=== PATIENT | female | born 1975 | race Caucasian/White ===

== ENCOUNTER 2021-03-17 02:37 | Emergency (ER) | payer MEDICAID, SELFPAY ==
[2021-03-17 02:39] VITALS: BP 149/94; PULSE 87; RESP 15; TEMP 36.3; O2SAT 98; BMI 24.4
--- NOTE | 2021-03-17 02:56 | EKG12_ITS ---
Test Reason : GEN ILL Blood Pressure : / mmHG Vent. Rate : 078 BPM Atrial Rate : 078 BPM P-R Int : 118 ms QRS Dur : 084 ms QT Int : 428 ms P-R-T Axes : 076 058 017 degrees QTc Int : 487 ms Sinus rhythm with occasional Premature ventricular complexes Nonspecific ST and T wave abnormality Prolonged QT Abnormal ECG Confirmed by BRY PIERRE, KATHRIN ([id number]), pensionholder information clerk FINA MARCELINO ([id number]) on 03/19/2021 1:52:57 PM Referred By: CHARLES Confirmed By:KATHRIN LONDONO MD
--- NOTE | 2021-03-17 03:16 | EX.ED.DYSGE1 ---
HPI History of Present Illness Chief Complaint: General Illness Informant: patient Narrative Narrative: 45-year-old female states that for the past several hours she feels like she may pass out. She describes it as that wave of feeling that you get right before you pass out. She states she has been drinking water and has helped her not pass out. She notes that earlier tonight she took a shower and developed a rash on the left lower leg. She also states she is never had a Covid test but wonders if she has Covid. When asked why she would think that she notes well because I feel like passing out and when that happens I get short of breath. She denies any fever cough diarrhea headache sore throat rhinorrhea. [facility] Medical History Anxiety Home Medications desogestrel-ethinyl estradiol [Emoquette] 1 tab PO DAILY 02/12/14 [History Last Taken 02/11/14] atenolol 25 mg PO DAILY #30 tablet 02/13/14 [Rx Last Taken Unknown] potassium chloride 20 meq PO DAILY #7 tab 03/17/21 [Rx Last Taken Unknown] Allergy/AdvReac Type Severity Reaction Status Date / Time No Known Allergies Allergy Verified 03/17/21 02:45 Social History (Updated 03/17/21 @ 03:[address] Hugo Miranda DO) Smoking Status: Never smoker substance use type: does not use ROS ROS ED Constitutional Constitutional ED: Denies chills or weight loss Eyes Eyes: Denies change in vision or diplopia ENT ENT ED: Denies ear pain, rhinorrhea or sore throat Cardiovascular Cardiovascular: Reports other Details: Near syncopal ; Denies chest pain, orthopnea, palpitations or racing heartbeat Respiratory/Chest Respiratory/Chest: Denies cough, dyspnea or orthopnea Gastrointestinal Gastrointestinal: Denies abdominal pain, diarrhea, nausea or vomiting Genitourinary Genitourinary ED: Denies dysuria, hematuria or urinary frequency Musculoskeletal Musculoskeletal: Denies arthralgias or myalgias Integumentary Reports rash; Denies abscess Neurologic Neurologic: Denies headache(s) or weakness Psychiatric Psychiatric: Denies anxiety, depression, suicidal ideation or suicidal thoughts Endocrine Endocrinology: Denies polydipsia, polyphagia or polyuria Allergic/Immunologic Allergic/Immunologic ED: Denies mouth swelling, tongue swelling or urticaria EXAM Physical Exam Const Vital Signs: 03/17/21 02:39 03/17/21 02:48 Temperature 97.3 F L Temperature Source Temporal Pulse Rate 87 Respiratory Rate 15 Respiratory Effort Normal Non-Labored Blood Pressure 149/94 H Blood Pressure Mean 112 Pulse Ox 98 Oxygen Delivery Method Room Air Positive well nourished and well developed General Appearance ED: well developed HEENT Reports normocephalic, head/scalp atraumatic and moist mucous membranes Eyes PERRL and EOMs intact bilaterally Neck no lymphadenopathy, supple and no JVD Resp normal respiratory effort and clear to auscultation bilaterally Cardio regular rate, regular rhythm and no murmurs GI normal to inspection, nondistended, normoactive bowel sounds and non-tender Palpation: soft Back/Spine no CVA tenderness and normal ROM Extremity normal to inspection General Extremety ED: Negative for edema General Extremity: Negative for edema Neuro oriented x3 and CN's II-XII intact bilaterally Sensorium / Orientation: alert Motor Exam: strength 5/5 throughout Psych mental status grossly normal Mood & Affect: anxious; Negative for depressed or tearful Skin no wounds Skin Narrative: There is a small area of nonspecific slightly raised erythematous but blanching rash on the medial distal left leg. MDM MDM MDM Narrative Medical decision making narrative: Patient's blood work was significant for a potassium of 3.1. She will receive 20 mEq p.o. here and a prescription for some additional potassium. She has had no events on the monitor. My interpretation of the single portable chest x-ray is no acute process. At this point patient will be discharged home. I recommend hydrocortisone for the rash on her leg. Following up with primary care if not improving Lab Data Labs: Laboratory Results - last 24 hr 03/17/21 03/17/21 03:20 03:20 WBC 10.6 RBC 4.53 Hgb 14.3 Hct 42.8 MCV 94.5 MCH 31.6 MCHC 33.4 RDW Std Deviation 42.2 RDW Coeff of Aaliyah 12.2 Plt Count 223 MPV 9.9 Immature Gran % (Auto) 0.500 Neut % (Auto) 67.3 Lymph % (Auto) 23.5 [place] % (Auto) 7.6 Eos % (Auto) 0.7 Baso % (Auto) 0.4 Absolute Neuts (auto) 7.1 Absolute Lymphs (auto) 2.49 Nucleated RBC % 0 Sodium 138 Potassium 3.1 L Chloride 104 Carbon Dioxide 23.0 Anion Gap 11 BUN 11 Creatinine 0.64 Estim Creat Clear Calc 85.95 Est GFR (MDRD) Af Amer 127 Est GFR (MDRD) Non-Af 105 BUN/Creatinine Ratio 17.2 Glucose 133 H Calcium 8.5 Total Bilirubin 0.30 AST 19 ALT 17 Alkaline Phosphatase 80 Total Protein 7.4 Albumin 3.6 Globulin 3.8 Albumin/Globulin Ratio 0.9 Radiography Diagnostic Testing: Radiology Impression Chest X-Ray 03/17/21 03:19 IMPRESSION: No radiographic evidence of acute cardiopulmonary disease. at 0339 Reported and signed by: Enrico Flores MD Electronically Signed: Enrico Flores MD at 3:38 EDT Tel , Service support , EKG Initial EKG: Attestation: I personally reviewed and interpreted this EKG as follows: Comments: EKG demonstrates a sinus rhythm with PVC. Ventricular rate of 78. Prior: Unchanged Discharge Plan Triage Chief Complaint: General Illness ED Provider: Hugo Miranda Dx/Rx/DC Orders Clinical Impression: Near syncope, Rash and nonspecific skin eruption, Acute hypokalemia Instructions: ED Near-Fainting, Uncertain Cause Prescriptions: New potassium chloride 20 mEq tablet extended release 20 meq PO DAILY Qty: 7 RF: 0 No Action desogestrel-ethinyl estradiol [Emoquette] 1 EACH tablet 1 tab PO DAILY RF: 0 atenolol 25 MG tablet 25 mg PO DAILY Qty: 30 RF: 0 Primary Care Provider: Francesca Miranda Referrals: Francesca Miranda MD [Primary Care Provider] - 3-5 Days if not improving Activity Restrictions/Additional Instructions: Apply hydrocortisone cream to your rash twice a day. Disposition Disposition: Home, self care
--- NOTE | 2021-03-17 03:19 | RAD_ITS ---
EXAM: XR CHEST, 1 VIEW : 1975 CLINICAL INDICATION: near syncope TECHNIQUE: Frontal view of the chest. This report was created using [employer] report generation technology. COMPARISON: 02/12/2014 FINDINGS: LUNGS AND PLEURAL SPACES: Unremarkable. No consolidation or edema. No pneumothorax. No effusion. HEART: Unremarkable. Cardiac silhouette not enlarged. MEDIASTINUM: Central airways and mediastinal contour are unremarkable. BONES/JOINTS: Unremarkable. SOFT TISSUES: Unremarkable. RAD/Chest 1 View (Portable) IMPRESSION: No radiographic evidence of acute cardiopulmonary disease. at 0339 Reported and signed by: Enrico Flores MD Electronically Signed: Enrico Florse MD at 3:38 EDT Tel , Service support ,
[2021-03-17 03:29] LABS: Absolute Lymphocyte Count 2.49 X10^3/uL (0.83-4.51); Absolute Neutrophil Count 7.1 X10^3/uL (2.0-7.7); Basophil# 0.04 X10^3/uL; Basophil% 0.4 % (0-1); Eosinophil# 0.07 X10^3/uL; Eosinophils% 0.7 % (0-5); Hematocrit 42.8 % (37-47); Hemoglobin 14.3 g/dL (12.0-15.0); Lymphocyte # 2.49 X10^3/ul (0.83-4.51); Lymphocyte % 23.5 % (19-41); Mean Corp Hgb Conc 33.4 g/dL (32-36); Mean Corpuscular Hgb 31.6 pg (27.0-32.0); Mean Corpuscular Volume 94.5 fL (81-99); Mean Platelet Vol. 9.9 fl (6.2-12.0); Monocyte% 7.6 % (0-10); NRBC Flagged by Analyzer 0 % (0-5); Neutrophil # 7.14 X10^3/uL (2.7-7.7); Neutrophil % 67.3 % (47-70); Platelet Count 223 K/mm3 (150-450); RBC Distribution Width CV 12.2 % (11.6-14.6); RBC Distribution Width SD 42.2 fl (35.1-43.9); Red Blood Count 4.53 M/mm3 (4.2-5.4); White Blood Count 10.6 K/mm3 (4.4-11.0)
[2021-03-17 04:02] LABS: ALB/GLOB Ratio 0.9 RATIO (0.9-2.4); AST(SGOT) 19 U/L (15-37); Alanine Aminotransfer ALT/SGPT 17 U/L (13-56); Albumin, Serum 3.6 g/dL (3.2-5.0); Alkaline Phosphatase 80 U/L (45-117); Anion Gap 11 (5-15); BUN 11 mg/dL (7-18); BUN/Creat Ratio 17.2 RATIO (10-20); Calcium,Total 8.5 mg/dL (8.5-10.1); Chloride 104 mmol/L (98-107); Creatinine, Serum 0.64 mg/dL (0.55-1.02); EST Glomerular Filtration Rate 105 mL/min (>60); Est Glom Filt Rate - Afr Amer 127 mL/min (>60); Estimated Creatinine Clearance 85.95 ml/min; Globulin 3.8 g/dL (2.2-4.2); Glucose 133 mg/dL (74-106); Potassium 3.1 mmol/L (3.5-5.1); Protein, Total 7.4 g/dL (6.4-8.2); Sodium Level 138 mmol/L (136-145)
[2021-03-17] MEDS: Potassium Chloride Oral Tablet 20 MEQ PO (04:15)
[2021-03-17 04:21] VITALS: PULSE 66; RESP 16; TEMP 36.9
== END 2021-03-17 04:24 | disposition home or self-care (01) ==
LOC: ED 04:02
PROVIDERS: Emergency Provider Emergency Medicine; PCP Internal Medicine
DX: R55 Syncope and collapse (principal); E87.6 Hypokalemia; R21 Rash and other nonspecific skin eruption
CPT/HCPCS: 71045; 80053; 85025; 93005; 99285

== ENCOUNTER 2022-12-22 10:36 | Emergency (ER) | payer MEDICAID, SELFPAY ==
[2022-12-22 10:36] VITALS: BP 199/120; PULSE 96; RESP 18; TEMP 35.7; O2SAT 100; BMI 34.7
[2022-12-22 11:24] VITALS: BP 192/98; PULSE 89; RESP 18; TEMP 36.4; O2SAT 98
--- NOTE | 2022-12-22 11:34 | EKG12_ITS ---
Test Reason : Blood Pressure : / mmHG Vent. Rate : 079 BPM Atrial Rate : 079 BPM P-R Int : 080 ms QRS Dur : 084 ms QT Int : 410 ms P-R-T Axes : 000 063 012 degrees QTc Int : 470 ms Sinus rhythm with short MI Minimal voltage criteria for LVH, may be normal variant ( Sokolow-Mckay ) Borderline ECG Confirmed by KERRY PIERRE, CRISTOPHER ([id number]), newspaper editor FINA MARCELINO ([id number]) on 12/24/2022 10:00:53 AM Referred By: YESENIA Confirmed By:CRISTOPHER PAYNE MD
[2022-12-22] MEDS: 0.9% Normal Saline 1,000 ML 1000 ML IV (11:52)
--- NOTE | 2022-12-22 12:04 | EX.ED.DYSGE1 ---
HPI History of Present Illness Chief Complaint: General Illness Informant: patient Onset/Context/Timing Onset: Yesterday Context: Gradual Onset Timing: Continuous and Waxes and wanes Quality: Numbness Location: Generalized Worsened by: Nothing Relieved by: Drinking water Narrative Narrative: Presents with a near syncopal episode that occurred today. Patient states she started feeling bad yesterday. Patient states it is gradually gotten worse. Patient states it is waxing and waning but is mainly constant. Patient states she feels numb all over. Patient states that drinking water seem to help last night. Patient states she just felt like she might pass out. Patient states she was diagnosed with COVID-19 approximately 1-1/2 weeks ago. Patient is unsure if her symptoms are related to that. Patient admits to some subjective fevers and sweats. Patient also admits to some pain in her chest. [facility] Medical History (Updated 12/22/22 @ 14:[address] Juan Luis Almeida DO) Anxiety Gestational diabetes Home Medications desogestrel 0.15 mg-ethinyl estradiol 0.03 mg tablet (Emoquette) 1 tab PO DAILY 02/12/14 [History Last Taken 02/11/14] atenolol 25 mg tablet 25 mg PO DAILY ##30 02/13/14 [Rx Last Taken Unknown] potassium chloride 20 mEq tablet,extended release 20 meq PO DAILY #7 tabs 03/17/21 [Rx Last Taken Unknown] Allergy/AdvReac Type Severity Reaction Status Date / Time No Known Allergies Allergy Verified 03/17/21 02:45 Family History (Updated 12/22/22 @ 11:29 by Linda Sims) Other Diabetes Surgical History Hx of toe surgery Social History Smoking Status: Never smoker substance use type: does not use ROS ROS ED Constitutional Constitutional ED: Reports fever(s), subjective and sweats; Denies chills Eyes Eyes: Denies blurry vision or change in vision ENT ENT ED: Denies rhinorrhea or sore throat Cardiovascular Cardiovascular: Reports chest pain; Denies palpitations Respiratory/Chest Respiratory/Chest: Denies cough or dyspnea Gastrointestinal Gastrointestinal: Denies nausea or vomiting Genitourinary Genitourinary ED: Denies dysuria or hematuria Musculoskeletal Musculoskeletal: Reports back pain and neck pain Integumentary Denies abscess or rash Neurologic Neurologic: Denies headache(s) or weakness Allergic/Immunologic Allergic/Immunologic ED: Denies mouth swelling or urticaria EXAM Physical Exam Const Vital Signs: 12/22/22 10:36 12/22/22 11:24 12/22/22 12:23 Temperature 96.2 F L 97.5 F L Temperature Source Temporal Temporal Pulse Rate 96 89 Respiratory Rate 18 18 Blood Pressure 199/120 H 192/98 H Blood Pressure [Lying] 184/101 H Blood Pressure [Sitting (for 1 minute prior to obtaining)] 184/108 H Blood Pressure [Standing (for 1 minute prior to obtaining)] 173/103 H Blood Pressure Mean 146 129 Blood Pressure Mean [Lying] 128 Blood Pressure Mean [Sitting (for 1 minute prior to obtaining)] 133 Blood Pressure Mean [Standing (for 1 minute prior to obtaining)] 126 Pulse Ox 100 98 Oxygen Delivery Method Room Air Room Air 12/22/22 14:11 Temperature Temperature Source Pulse Rate 77 Respiratory Rate 16 Blood Pressure 141/86 H Blood Pressure [Lying] Blood Pressure [Sitting (for 1 minute prior to obtaining)] Blood Pressure [Standing (for 1 minute prior to obtaining)] Blood Pressure Mean 104 Blood Pressure Mean [Lying] Blood Pressure Mean [Sitting (for 1 minute prior to obtaining)] Blood Pressure Mean [Standing (for 1 minute prior to obtaining)] Pulse Ox 98 Oxygen Delivery Method Room Air Positive well nourished and well developed General Appearance ED: well developed HEENT Reports moist mucous membranes Neck supple and no JVD Resp normal respiratory effort and clear to auscultation bilaterally Cardio regular rate, regular rhythm and no murmurs GI normal to inspection, nondistended, normoactive bowel sounds and non-tender Palpation: soft Extremity normal to inspection General Extremety ED: Negative for edema or tenderness General Extremity: Negative for edema Neuro oriented x3, CN's II-XII intact bilaterally and no sensory deficits noted Sensorium / Orientation: alert Motor Exam: strength 5/5 throughout Psych mental status grossly normal Skin no rashes or lesions noted MDM MDM MDM Narrative Medical decision making narrative: Eventual diagnosis includes dehydration, electrolyte abnormality, viral illness, COVID-19 infection, influenza infection, cardiac ischemia, cardiac dysrhythmia, pneumonia, and urinary tract infection. EKG will be obtained to assess for cardiac dysrhythmia and cardiac ischemia. CBC will be obtained to assess for leukocytosis and anemia. Basic metabolic profile will be obtained to assess for electrolyte abnormality and renal function. Urinalysis will be obtained to assess for urinary tract infection and hematuria. High-sensitivity troponin will be obtained to assess for cardiac ischemia. COVID-19 rapid antigen will be obtained to assess for COVID infection. Influenza A and influenza B antigens will be obtained to assess for influenza infection. Chest x-ray will be obtained to assess for pneumonia. Lab Data Attestation: I reviewed the patient's lab results. Lab results narrative: CBC was reviewed and was within normal limits. Basic metabolic profile was reviewed. Glucose was mildly elevated at 130 but was otherwise within normal limits. High-sensitivity troponin was reviewed and was normal at 4. Urinalysis was reviewed. There is no evidence of hematuria or urinary tract infection. COVID-19 rapid antigen was reviewed and was negative. Influenza A and influenza B antigens were reviewed and were negative. Labs: Laboratory Results - last 24 hr 12/22/22 12/22/22 12/22/22 11:50 11:50 12:44 WBC 10.6 RBC 4.55 Hgb 14.3 Hct 42.5 MCV 93.4 MCH 31.4 MCHC 33.6 RDW Std Deviation 40.2 RDW Coeff of Aaliyah 11.9 Plt Count 328 MPV 9.2 Immature Gran % (Auto) 0.400 Neut % (Auto) 66.8 Lymph % (Auto) 25.3 [place] % (Auto) 5.9 Eos % (Auto) 1.0 Baso % (Auto) 0.6 Absolute Neuts (auto) 7.1 Absolute Lymphs (auto) 2.68 Nucleated RBC % 0 Sodium 139 Potassium 3.7 Chloride 102 Carbon Dioxide 28.0 Anion Gap 9 BUN 16 Creatinine 0.68 Estim Creat Clear Calc 79.15 Est GFR (MDRD) Af Amer 118 Est GFR (MDRD) Non-Af 98 BUN/Creatinine Ratio 23.5 H Glucose 130 H Calcium 9.5 Troponin I High Sens 4 Urine Color Straw Urine Clarity Sl. Cloudy Urine pH 8.0 Ur Specific [place] 1.015 Urine Protein Negative Urine Glucose (UA) Normal Urine Ketones Negative Urine Occult Blood 25 H Urine Nitrite Negative Urine Bilirubin Negative Urine Urobilinogen Normal Ur Leukocyte Esterase Negative Urine RBC 0-5 SEEN Urine WBC 0 SEEN Ur Squamous Epith Cells 0-5 SEEN Urine Bacteria 0 SEEN Urine Mucus 0 SEEN Radiography Diagnostic Testing: Clinical Impression(s) from Imaging Studies Chest X-Ray 12/22/22 12:22 IMPRESSION: Normal x-ray examination of the chest. Electronically Signed: Iván Foster MD at 12:38 EST , PA and lateral chest x-ray was obtained. There are 2 views. On my independent interpretation, lung newman are clear. There is normal cardiac silhouette. Bony thorax is normal. There is no acute process noted. Radiologist also interpreted the x-ray and agrees. EKG Initial EKG: Attestation: I personally reviewed and interpreted this EKG as follows: Interpretation: Sinus Rhythm (79) and No Acute Injury Pattern Comments: EKG was obtained. On my independent interpretation, it showed a normal sinus rhythm with a rate of 79. WI interval, QRS interval, and QTc intervals were all normal. [place] was normal. There are no acute ST or T wave changes. There is left ventricular hypertrophy noted. Prior EKG tracings: available for review Prior: Unchanged (03/17/2021) Treatment and Re-Evaluation :: Patient was given IV fluids here. Patient is feeling better on reevaluation. Patient was advised of her findings. Patient was instructed to drink plenty of fluids. Patient was instructed to follow-up with her primary care physician in 5 to 7 days. Patient was instructed to return if worse in any way. Patient understood and was agreeable with the plan. All questions were answered. Discharge Plan Triage Chief Complaint: General Illness ED Provider: Juan Luis Almeida Dx/Rx/DC Orders Clinical Impression: Near syncope, Hypertension Instructions: ED Near-Fainting, Uncertain Cause Prescriptions: No Action desogestrel-ethinyl estradiol [Emoquette] 1 EACH tablet 1 tab PO DAILY Label Comments: estrogen atenolol 25 MG tablet 25 mg PO DAILY Qty: 30 0RF Label Comments: heart potassium chloride 20 mEq tablet extended release 20 meq PO DAILY Qty: 7 0RF Primary Care Provider: Francesca Miranda Referrals: Francesca Miranda MD [Primary Care Provider] - 5-7 Days Disposition Disposition: Home, Self Care
[2022-12-22 12:06] LABS: Absolute Lymphocyte Count 2.68 X10^3/uL (0.83-4.51); Absolute Neutrophil Count 7.1 X10^3/uL (2.0-7.7); Basophil# 0.06 X10^3/uL; Basophil% 0.6 % (0-1); Eosinophil# 0.11 X10^3/uL; Hematocrit 42.5 % (37-47); Hemoglobin 14.3 g/dL (12.0-15.0); Lymphocyte # 2.68 X10^3/ul (0.83-4.51); Lymphocyte % 25.3 % (19-41); Mean Corp Hgb Conc 33.6 g/dL (32-36); Mean Corpuscular Hgb 31.4 pg (27.0-32.0); Mean Corpuscular Volume 93.4 fL (81-99); Mean Platelet Vol. 9.2 fl (6.2-12.0); Monocyte# 0.62 X10^3/uL; Monocyte% 5.9 % (0-10); NRBC Flagged by Analyzer 0 % (0-5); Neutrophil # 7.07 X10^3/uL (2.7-7.7); Neutrophil % 66.8 % (47-70); Platelet Count 328 K/mm3 (150-450); RBC Distribution Width CV 11.9 % (11.6-14.6); RBC Distribution Width SD 40.2 fl (35.1-43.9); Red Blood Count 4.55 M/mm3 (4.2-5.4); White Blood Count 10.6 K/mm3 (4.4-11.0)
[2022-12-22 12:16] LABS: Anion Gap 9 (5-15); BUN 16 mg/dL (7-18); BUN/Creat Ratio 23.5 RATIO (10-20); Calcium,Total 9.5 mg/dL (8.5-10.1); Chloride 102 mmol/L (98-107); Creatinine, Serum 0.68 mg/dL (0.55-1.02); EST Glomerular Filtration Rate 98 mL/min (>60); Est Glom Filt Rate - Afr Amer 118 mL/min (>60); Estimated Creatinine Clearance 79.15 ml/min; Glucose 130 mg/dL (74-106); Potassium 3.7 mmol/L (3.5-5.1); Sodium Level 139 mmol/L (136-145); Troponin-I HS 4 pg/mL (3.0-54.0)
--- NOTE | 2022-12-22 12:22 | RAD_ITS ---
STUDY: X-RAY CHEST REASON FOR EXAM: Female, 47 years old. Chest pain TECHNIQUE: PA and lateral views of the chest. COMPARISON: Comparison is made with prior study dated March 17, 2021. FINDINGS: EKG electrodes are seen. The lungs are clear and expanded. Mild degree of pectus excavatum. There is no demonstrated pleural abnormality. Normal size heart. Normal mediastinum and sandro. Normal visualized pulmonary arteries. Normal visualized aortic arch and descending thoracic aorta. Normal visualized thoracic spine. Normal visualized ribs, clavicles, and shoulders. There is no demonstrated abnormality of the visualized soft tissue structures of the upper abdomen. RAD/Chest PA and Lateral IMPRESSION: Normal x-ray examination of the chest. Electronically Signed: Iván Foster MD at 12:38 EST ,
[2022-12-22 12:23] VITALS: BP 173/103; BP 184/101; BP 184/108
[2022-12-22 12:52] LABS: Bacteria 0 SEEN /hpf (None Seen); Mucous, Urine 0 SEEN /hpf (<or=2+); White Blood Cells 0 SEEN /hpf (0-5)
[2022-12-22 13:03] LABS: Color, Urine Straw (Yellow); Glucose, Dipstick Normal (Normal); Ketone-Dipstick Negative (Negative); Leukocyte Esterase-Dipstick Negative /ul (Negative); Nitrite-Dipstick Negative (Negative); Occult Blood-Urine 25 /ul (Negative); Protein-Dipstick Negative (Negative); Specific Gravity, Urine 1.015 (1.002-1.030); Urine Bilirubin Dipstick Negative (Negative); Urine Clarity Sl. Cloudy (Clear); Urine Urobilinogen Normal (Normal)
[2022-12-22 13:08] LABS: Red Blood Cells-Urine 0-5 SEEN /hpf (0-5); Squamous Epithelial Cells - UA 0-5 SEEN /hpf (5-10)
[2022-12-22 14:11] VITALS: BP 141/86; PULSE 77; RESP 16; O2SAT 98
[2022-12-22 14:45] VITALS: BP 141/86; RESP 18; O2SAT 98
== END 2022-12-22 14:52 | disposition home or self-care (01) ==
PROVIDERS: Emergency Provider Emergency Medicine; PCP Internal Medicine; Visit Provider Emergency Medicine
DX: R55 Syncope and collapse (principal); I10 Essential (primary) hypertension; R07.9 Chest pain, unspecified; Z20.822 Contact with and (suspected) exposure to COVID-19
CPT/HCPCS: 71046; 80048; 81001; 84484; 85025; 87428; 93005; 96361; 96374; 99285; J7030; A4216

== ENCOUNTER 2023-09-12 13:58 | Emergency (ER) | payer BC, SELFPAY ==
[2023-09-12 14:01] VITALS: BP 188/103; PULSE 88; RESP 18; TEMP 36.4; O2SAT 100; BMI 23.4
[2023-09-12 14:06] VITALS: O2SAT 97
--- NOTE | 2023-09-12 14:14 | RAD_ITS ---
STUDY: X-RAY CHEST REASON FOR EXAM: Female, 48 years old. Fever and cough TECHNIQUE: PA and lateral views of the chest. COMPARISON: 12/22/2022 FINDINGS: The lungs are clear and expanded. There is no demonstrated pleural abnormality. Normal size heart. Normal mediastinum and sandro. Normal visualized pulmonary arteries. Normal visualized aortic arch and descending thoracic aorta. Normal visualized thoracic spine. Normal visualized ribs, clavicles, and shoulders. There is no demonstrated abnormality of the visualized soft tissue structures of the upper abdomen. RAD/Chest PA and Lateral IMPRESSION: Normal x-ray examination of the chest. Electronically Signed: Alexis Santos MD at 14:56 EST ,
--- NOTE | 2023-09-12 14:14 | EX.ED.DYSGE1 ---
HPI <GRAYSON Copeland - Last Filed: 09/12/23 16:58> History of Present Illness Chief Complaint: Cough Narrative Narrative: 48-year-old female with past medical history of hypertension presents with 2 weeks of productive cough. She has not had fever or chills does not really feel short of breath. Initially she went to urgent care and was told it was likely viral and use [id number] treatments. She went back again because it did not improved and they prescribed doxycycline, Tessalon Perles, and Mucinex. She has 1 day left of antibiotics but the cough has not changed so she presents for evaluation. She denies smoking or cardiopulmonary history. [facility] <GRAYSON Copeland - Last Filed: 09/12/23 16:58> [facility] Medical History (Updated 09/12/23 @ 15:07 by GRAYSON Copeland) Anxiety Gestational diabetes Home Medications desogestrel 0.15 mg-ethinyl estradiol 0.03 mg tablet (Emoquette) 1 tab PO DAILY 02/12/14 [History Last Taken 02/11/14] atenolol 25 mg tablet 25 mg PO DAILY ##30 02/13/14 [Rx Last Taken Unknown] potassium chloride 20 mEq tablet,extended release 20 meq PO DAILY #7 tabs 03/17/21 [Rx Last Taken Unknown] albuterol sulfate 90 mcg/actuation aerosol inhaler (ProAir HFA) 1 inh inhalation Q6H PRN shortness of breath or wheezing #6.7 grams 09/12/23 [Rx Last Taken Unknown] prednisone 20 mg tablet 40 mg (2 x 20 mg) PO DAILY 5 days #10 tabs 09/12/23 [Rx Last Taken Unknown] Allergy/AdvReac Type Severity Reaction Status Date / Time No Known Allergies Allergy Verified 09/12/23 14:00 Family History Other Diabetes Surgical History Hx of toe surgery Social History Smoking Status: Never smoker substance use type: does not use ROS <GRAYSON Copeland - Last Filed: 09/12/23 16:58> ROS ED ROS Narrative Constitutional: Negative for fever, chills, malaise. CVS: Negative for chest pain, syncope. Respiratory: Positive for cough. negative for shortness of breath, orthopnea. GI: Negative for abdominal pain, nausea, vomiting, diarrhea. EXAM <GRAYSON Copeland - Last Filed: 09/12/23 16:58> Physical Exam Narrative Exam Narrative: CONST: Patient sitting in no acute distress. EYES: Normal inspection. NECK: Normal inspection. RESP: No respiratory distress, CTAB. CVS: Regular rate and rhythm, no murmur, no gallop. SKIN: Color normal, no rash, warm, dry, intact. EXTREMITIES: Normal appearance, no pedal edema. NEURO: Oriented x4. PSYCH: Normal affect. Const Vital Signs: 09/12/23 14:01 09/12/23 14:06 Temperature 97.5 F L Temperature Source Temporal Pulse Rate 88 Respiratory Rate 18 Respiratory Effort Normal Respiratory Depth Normal Respiratory Pattern Normal Blood Pressure 188/103 H Blood Pressure Mean 131 Pulse Ox 100 Oxygen Delivery Method Room Air Room Air <Dr. Gonzalo Keys MD - Last Filed: 09/12/23 14:41> Physical Exam Const Vital Signs: 09/12/23 14:01 09/12/23 14:06 Temperature 97.5 F L Temperature Source Temporal Pulse Rate 88 Respiratory Rate 18 Respiratory Effort Normal Respiratory Depth Normal Respiratory Pattern Normal Blood Pressure 188/103 H Blood Pressure Mean 131 Pulse Ox 100 Oxygen Delivery Method Room Air Room Air MDM <GRAYSON Copeland - Last Filed: 09/12/23 16:58> [facility] MDM Narrative Medical decision making narrative: Patient has 2 weeks of productive cough which did not improve after taking doxycycline. She appears well nontoxic. She is hypertensive with otherwise normal vital signs. She is on antihypertensives. Heart is regular and lungs are clear. She is speaking full sentences in no respiratory distress. Differential includes viral bronchitis versus pneumonia. CXR shows no acute process. I discussed trial of albuterol and prednisone which she would like to do. Discussed normal course of bronchitis that the cough could last several more weeks and she should follow-up with her primary care. She was discharged in stable condition. Radiography Diagnostic Testing: Clinical Impression(s) from Imaging Studies Chest X-Ray 09/12/23 14:14 IMPRESSION: Normal x-ray examination of the chest. Electronically Signed: Alexis Santos MD at 14:56 EST , ED attending interpretation of 2-view chest x-ray shows normal heart size, no acute infiltrate, edema, or effusion. <Dr. Gonzalo Keys MD - Last Filed: 09/12/23 14:41> MDM Radiography Diagnostic Testing: Clinical Impression(s) from Imaging Studies Chest X-Ray 09/12/23 14:14 IMPRESSION: Normal x-ray examination of the chest. Electronically Signed: Alexis Santos MD at 14:56 EST , Treatment and Re-Evaluation :: I have personally performed a face to face assessment of the patient and have reviewed the HIRAM Note. I performed a substantive portion of the visit including all aspects of the following. My griffin findings include: History: Patient presents with a cough for 2 to 3 weeks. She states she gets a little clear phlegm up but no sputum. No blood. She is not having chest pain. She states if she gets a lot of coughing together she will feel short of breath but does not generally feel short of breath. She walked into work this afternoon that does not cause dyspnea. She is not gaining weight or getting swelling. There is been no travel surgery immobilization personal or family history of DVT or PE. She has already been screened for COVID. She was given doxycycline at urgent care and is on day about 6 but has not gotten better. She has not heard wheezing or whistling at night and has never used an aerosol. She is a non-smoker. She does have blood pressure. She was not sure what medicines she was on but it looks like it may be atenolol. She does not recognize the name lisinopril. But this medication is not new or changed or different dose. Exam: Patient is awake alert. She is nontoxic in appearance. HEENT is normal. Conjunctive is not pale. Oropharynx is normal. Neck is supple. There is no JVD or stridor. She is not coughing while I am in the room. Her lungs sound clear. Even when I have her take a deep breath she did not take a cough. I had her breathe out quickly. She did not breathe out real quickly and may have a little bit of prolonged expiration but there is no wheezing heard. There is no pain with a deep breath. Peripheral pulses are normal. There is no peripheral edema cords swelling or asymmetry distended veins or tenderness along deep venous system. Overall her exam is normal. Saturations are normal at 100% on room air. Medical Decision Making: Although the patient is 48 and we cannot use PERC rule. She has no recent travel surgery immobilization personal or family history of DVT or PE. She is not tachycardic tachypneic or hypoxic. She has no pain with a deep breath. She has no pleuritic pain. Discharge Plan Triage Chief Complaint: Cough ED Midlevel Provider: Elida Chang ED Provider: Gonzalo Keys Dx/Rx/DC Orders Clinical Impression: Bronchitis Instructions: ED Bronchitis, No Antibiotic (Adult) Prescriptions: New albuterol sulfate [ProAir HFA] 90 mcg/actuation HFA aerosol inhaler 1 inh inhalation Q6H PRN (Reason: shortness of breath or wheezing) Qty: 6.7 0RF prednisone 20 mg tablet 40 mg PO DAILY 5 Days Qty: 10 0RF No Action desogestrel-ethinyl estradiol [Emoquette] 1 EACH tablet 1 tab PO DAILY Patient Comments: estrogen atenolol 25 MG tablet 25 mg PO DAILY Qty: 30 0RF Patient Comments: heart potassium chloride 20 mEq tablet extended release 20 meq PO DAILY Qty: 7 0RF Primary Care Provider: Francesca Miranda Referrals: Francesca Miranda MD [Primary Care Provider] - Activity Restrictions/Additional Instructions: Your chest x-ray shows no evidence of pneumonia. You most likely have bronchitis which is a viral cough and can take up to 6 to 8 weeks to go away. I prescribed an albuterol inhaler and prednisone which may help. Follow-up with your primary care doctor. Disposition Disposition: Home, Self Care Discharge Date/Time: 09/12/23 15:20
== END 2023-09-12 15:20 | disposition home or self-care (01) ==
PROVIDERS: Emergency Provider Emergency Medicine; PCP Internal Medicine; Visit Provider Emergency Medicine
DX: J40 Bronchitis, not specified as acute or chronic (principal); I10 Essential (primary) hypertension; Z79.899 Other long term (current) drug therapy
CPT/HCPCS: 71046; 99282

== ENCOUNTER 2023-09-20 11:35 | Emergency (ER) | payer BC, SELFPAY ==
[2023-09-20 11:37] VITALS: BP 168/108; PULSE 95; RESP 18; TEMP 36.7; O2SAT 97; BMI 23.0
--- NOTE | 2023-09-20 11:51 | EDS_ITS ---
HPI <VINOD Smith - Last Filed: 09/20/23 12:34> History of Present Illness Chief Complaint: Cough Narrative Narrative: Patient is a 48-year-old female with history of hypertension, GERD who presents to the emergency department for ongoing cough for the last 3 weeks. Patient has been seen multiple times, last time seen in the emergency department for this was on September 12, 2023. Patient has been placed on doxycycline, steroids, albuterol inhaler, Tessalon Perles. Patient states nothing is helping. Patient denies any fever or chills. Patient states this morning, she got news that a close friend/family member has . She states that she was very anxious, had a coughing fit had difficulty inhaling. She is here for reevaluation. [facility] <VINOD Smith - Last Filed: 09/20/23 12:34> [facility] Medical History (Updated 09/20/23 @ 12:33 by VINOD Smith) Anxiety Gestational diabetes Home Medications desogestrel 0.15 mg-ethinyl estradiol 0.03 mg tablet (Emoquette) 1 tab PO DAILY 02/12/14 [History Last Taken 02/11/14] atenolol 25 mg tablet 25 mg PO DAILY ##30 02/13/14 [Rx Last Taken Unknown] potassium chloride 20 mEq tablet,extended release 20 meq PO DAILY #7 tabs 03/17/21 [Rx Last Taken Unknown] albuterol sulfate 90 mcg/actuation aerosol inhaler (ProAir HFA) 1 inh inhalation Q6H PRN shortness of breath or wheezing #6.7 grams 09/12/23 [Rx Last Taken Unknown] prednisone 20 mg tablet 40 mg (2 x 20 mg) PO DAILY 5 days #10 tabs 09/12/23 [Rx Last Taken Unknown] Allergy/AdvReac Type Severity Reaction Status Date / Time No Known Allergies Allergy Verified 09/20/23 11:37 Family History Other Diabetes Surgical History Hx of toe surgery Social History Smoking Status: Never smoker substance use type: does not use ROS <VINOD Smith - Last Filed: 09/20/23 12:34> ROS ED ROS Narrative Constitutional: Negative for fever, chills, weight loss, weakness Eyes: Negative for vision loss, vision change, double vision ENT: Negative for any sore throat, ear pain, congestion Cardiovascular: Negative for any chest pain, tightness, palpitations Respiratory: Negative for any sputum production, hemoptysis, dyspnea on exertion, orthopnea. Positive for cough, intermittent dyspnea Gastrointestinal: Negative for any abdominal pain, nausea, vomiting, diarrhea, constipation, blood in stool, blood in vomit : Negative for any urinary frequency, dysuria, retention, blood in urine Muscle skeletal: Negative for any myalgias, arthralgias, neck pain, back pain Neurological: Negative for any headache, syncope, numbness or tingling, dizziness Skin: Negative for any rashes, lumps, itching, abrasions, lacerations Psychiatric: Negative for any depression, anxiety, stress, suicidal ideation, homicidal ideation Hematologic: Negative for any easy bruising, excessive bruising, easy bleeding Allergies: Negative for any eczema, hives, rash EXAM <VINOD Smith - Last Filed: 09/20/23 12:34> Physical Exam Narrative Exam Narrative: Vital signs reviewed. Patient's tearful on initial evaluation, patient does appear to be anxious. Patient is no obvious distress. HEET: Head normocephalic atraumatic, TMs clear bilaterally. Posterior pharynx is clear, moist mucous membranes. Nares clear bilaterally. Neck: Supple with no lymphadenopathy or tenderness. No signs of meningismus. Cardiac: Regular rate and rhythm no murmurs gallops or rubs, equal peripheral pulses bilaterally. Respiratory: Lungs clear to auscultation bilaterally. No chest tenderness. Abdomen: Soft, nontender, nondistended. No abdominal bruit or pulsatile masses. No hepatosplenomegaly Extremities: No peripheral edema, no signs of gross trauma or deformity. Active full range of motion of all extremities. Neuro: Cranial nerves II through XII intact, no focal neurological deficits. Skin: Clean dry and intact with no rash, purpura, petechiae, vesicles or pustules. Backs/flank: No CVA tenderness, no midline spinal tenderness, no deformity. Psych: Normal mood and affect. No SI, HI or acute psychosis. Const Vital Signs: 09/20/23 11:37 09/20/23 12:12 09/20/23 12:48 Temperature 98.0 F Temperature Source Temporal Pulse Rate 95 72 Respiratory Rate 18 15 Respiratory Effort Normal Non-Labored Respiratory Depth Normal Respiratory Pattern Normal Blood Pressure 168/108 H 124/69 H Blood Pressure Mean 128 87 Pulse Ox 97 98 Oxygen Delivery Method Room Air Room Air <Arslan Scott MD - Last Filed: 09/20/23 15:10> Physical Exam Const Vital Signs: 09/20/23 11:37 09/20/23 12:12 09/20/23 12:48 Temperature 98.0 F Temperature Source Temporal Pulse Rate 95 72 Respiratory Rate 18 15 Respiratory Effort Normal Non-Labored Respiratory Depth Normal Respiratory Pattern Normal Blood Pressure 168/108 H 124/69 H Blood Pressure Mean 128 87 Pulse Ox 97 98 Oxygen Delivery Method Room Air Room Air MDM <VINOD Smith - Last Filed: 09/20/23 12:34> MDM Radiography Diagnostic Testing: Clinical Impression(s) from Imaging Studies Chest X-Ray 09/20/23 12:04 IMPRESSION: No radiographic evidence of acute cardiopulmonary disease. Electronically Signed: Klaus Leach MD at 12:23 EST , Treatment and Re-Evaluation :: Patient appears generally well, patient appears nontoxic, vital signs are stable. Patient is tearful, patient appears anxious. Physical examination is unremarkable. Patient's lung sounds are clear. I do believe the patient is suffering from a viral-like illness, I did explain to her that cough can last up to 6 weeks. Differential diagnosis includes COPD, reactive airway, asthma exacerbation, viral cough, pneumonia. Patient will have a repeat chest x-ray. I do believe that the anxiety is part of the problem today, she did go through her emotional issue secondary to a in the family. Two-view chest x-ray will be completed. All radiologic examinations were read, reviewed by the [facility] department attending. From these reads, a plan of care will be put in place. Patient's x-ray two-view inter by ER physician shows no acute process. At this time, do believe the patient is suffering from a lingering cough from a viral- like illness. Patient's been on several medications. Patient is also going through a lot of stress at this time. Patient will continue her albuterol inhal er, she will continue to follow-up outpatient. All questions were answered, she was given strict return precaution. Patient stable for discharge <Arslan Scott MD - Last Filed: 09/20/23 15:10> [facility] Narrative Medical decision making narrative: Dr. Scott: I have personally performed a face to face assessment of the patient and have reviewed the HIRAM Note. I performed a substantive portion of the visit including all aspects of the following. My griffin findings include: History is cough x3 weeks. Seen by primary care provider. Has albuterol and steroid inhaler. Exam is afebrile. Vital signs noted. Occasional dry cough on examination. Pulse ox 98% on room air. Lungs clear to auscultation bilaterally. Regular rate and rhythm. Abdomen soft and nontender. Medical Decision Making: Feel the patient probably has bronchitis. Recheck chest x-ray to rule out pneumonia and pneumothorax. Chest x-ray interpreted by myself independently shows no evidence of acute process. I reviewed the radiology report which confirms my independent interpretation. Continue alb uterol use, follow-up primary care. Discharge. Other additions or changes: [None] Radiography Diagnostic Testing: Clinical Impression(s) from Imaging Studies Chest X-Ray 09/20/23 12:04 IMPRESSION: No radiographic evidence of acute cardiopulmonary disease. Electronically Signed: Klaus Leach MD at 12:23 [facility] , Discharge Plan Triage Chief Complaint: Cough ED Midlevel Provider: Uriah Culp ED Provider: Arslan Scott Dx/Rx/DC Orders Clinical Impression: Anxiety, Cough Instructions: ED Cough Chronic Uncertain Cause Adult, ED Viral Syndrome (Adult) Prescriptions: No Action desogestrel-ethinyl estradiol [Emoquette] 1 EACH tablet 1 tab PO DAILY Patient Comments: estrogen atenolol 25 MG tablet 25 mg PO DAILY Qty: 30 0RF Patient Comments: heart potassium chloride 20 mEq tablet extended release 20 meq PO DAILY Qty: 7 0RF albuterol sulfate [ProAir HFA] 90 mcg/actuation HFA aerosol inhaler 1 inh inhalation Q6H PRN (Reason: shortness of breath or wheezing) Qty: 6.7 0RF prednisone 20 mg tablet 40 mg PO DAILY 5 Days Qty: 10 0RF Primary Care Provider: Francesca Miranda Referrals: Francesca Miranda MD [Primary Care Provider] - Activity Restrictions/Additional Instructions: Please continue to follow-up. Use your albuterol inhaler for your bronchospasms. You could potentially have cough for another 3 weeks. Return here for any fevers or chills. Disposition Disposition: Home, Self Care Discharge Date/Time: 09/20/23 12:49
--- NOTE | 2023-09-20 12:04 | RAD_ITS ---
INDICATION: cough EXAMINATION/TECHNIQUE: X-RAY - XR Chest 2 Views COMPARISON: Prior study dated: 09/12/2023. FINDINGS: LINES/DEVICES: None. LUNGS: No consolidation, edema or effusion. No pneumothorax. MEDIASTINUM AND CARDIOVASCULAR STRUCTURES: Cardiac silhouette not enlarged. Central airways and mediastinal contour are unremarkable. BONES AND SOFT TISSUES: Unremarkable. Pectus excavatum of the sternum. RAD/Chest PA and Lateral IMPRESSION: No radiographic evidence of acute cardiopulmonary disease. Electronically Signed: Klaus Leach MD at 12:23 EST ,
[2023-09-20 12:12] VITALS: O2SAT 97
[2023-09-20 12:48] VITALS: BP 124/69; PULSE 72; RESP 15; O2SAT 98
== END 2023-09-20 12:49 | disposition home or self-care (01) ==
PROVIDERS: Emergency Provider Emergency Medicine; PCP Internal Medicine; Visit Provider Emergency Medicine
DX: F41.9 Anxiety disorder, unspecified (principal); I10 Essential (primary) hypertension; R05.9 Cough, unspecified
CPT/HCPCS: 71046; 99284

== ENCOUNTER 2024-03-27 10:42 | Emergency (ER) | payer BC, SELFPAY ==
[2024-03-27 10:42] VITALS: BP 177/115; PULSE 84; RESP 16; TEMP 36.4; O2SAT 98; BMI 23.0
[2024-03-27 11:33] LABS: Absolute Lymphocyte Count 1.77 X10^3/uL (0.83-4.51); Absolute Neutrophil Count 8.4 X10^3/uL (2.0-7.7); Basophil# 0.03 X10^3/uL; Basophil% 0.3 % (0-1); Eosinophils% 0.9 % (0-5); Hemoglobin 13.2 g/dL (12.0-15.0); Lymphocyte # 1.77 X10^3/ul (0.83-4.51); Lymphocyte % 16.2 % (19-41); Mean Corp Hgb Conc 33.8 g/dL (32-36); Mean Corpuscular Hgb 31.4 pg (27.0-32.0); Mean Corpuscular Volume 92.9 fL (81-99); Mean Platelet Vol. 9.4 fl (6.2-12.0); Monocyte% 5.5 % (0-10); NRBC Flagged by Analyzer 0 % (0-5); Neutrophil % 76.7 % (47-70); Platelet Count 229 K/mm3 (150-450); RBC Distribution Width CV 13.2 % (11.6-14.6); RBC Distribution Width SD 45.1 fl (35.1-43.9); White Blood Count 10.9 K/mm3 (4.4-11.0)
--- NOTE | 2024-03-27 11:36 | ED.VIS.GI ---
HPI <GRAYSON Mcgarry - Last Filed: 03/27/24 14:47> HPI - GI History of Present Illness Chief Complaint: Abd Pain Narrative Narrative: Patient presenting today due to epigastric abdominal pain that radiates across her upper abdomen that has been intermittent, sharp, and achy and started this morning. She reports that she has also had multiple episodes of loose stool today. She denies any history of abdominal surgery. She also denies fevers, chills, nausea, vomiting, blood in the stool, and urinary symptoms. PFSH <GRAYSON Mcgarry - Last Filed: 03/27/24 14:47> PFSH Medical History Gestational diabetes Anxiety Home Medications ?Medication ?Instructions ?Recorded ?Last Taken ?Type desogestrel 0.15 mg-ethinyl 1 tab PO DAILY 02/12/14 02/11/14 History estradiol 0.03 mg tablet ([place]) atenolol 25 mg tablet 25 mg PO DAILY ##30 02/13/14 Unknown Rx potassium chloride 20 mEq 20 meq PO DAILY #7 tabs 03/17/21 Unknown Rx tablet,extended release albuterol sulfate 90 mcg/actuation 1 inh inhalation Q6H PRN shortness 09/12/23 Unknown Rx aerosol inhaler (ProAir HFA) of breath or wheezing #6.7 grams prednisone 20 mg tablet 40 mg (2 x 20 mg) PO DAILY 5 days 09/12/23 Unknown Rx #10 tabs amoxicillin 875 mg-potassium 1 tab PO BID #14 tabs 03/27/24 Unknown Rx clavulanate 125 mg tablet dicyclomine 10 mg capsule 10 mg PO TID PRN abdominal pain 03/27/24 Unknown Rx #15 caps Allergy/AdvReac Type Severity Reaction Status Date / Time No Known Allergies Allergy Verified 03/27/24 10:42 Family History Other Diabetes Surgical History Hx of toe surgery Social History Smoking Status: Never smoker substance use type: does not use ROS <GRAYSON Mcgarry - Last Filed: 03/27/24 14:47> ROS ED Constitutional Constitutional ED: Denies chills or fever(s) Cardiovascular Cardiovascular: Denies chest pain Respiratory/Chest Respiratory/Chest: Denies dyspnea Gastrointestinal Gastrointestinal: Reports abdominal pain and diarrhea; Denies constipation, melena, nausea or vomiting Genitourinary Genitourinary ED: Denies dysuria or urinary urgency Musculoskeletal Musculoskeletal: Denies arthralgias or myalgias Integumentary Denies rash Neurologic Neurologic: Denies weakness EXAM <GRAYSON Mcgarry - Last Filed: 03/27/24 14:47> Physical Exam Const Vital Signs: 03/27/24 10:42 03/27/24 13:00 03/27/24 13:51 Temperature 97.5 F L 97.9 F Temperature Source Temporal Pulse Rate 84 83 83 Respiratory Rate 16 15 15 Blood Pressure 177/115 H 178/92 H 178/92 H Blood Pressure Mean 135 120 120 Pulse Ox 98 98 98 Oxygen Delivery Method Room Air Room Air Positive well nourished, well developed and no apparent distress General Appearance ED: well developed HEENT Reports normocephalic and head/scalp atraumatic Mouth ED: Yes moist mucous membranes normal Eyes PERRL and EOMs intact bilaterally Neck full ROM and supple Chest Wall inspection of chest normal Resp normal respiratory effort and clear to auscultation bilaterally Cardio regular rate and regular rhythm GI soft to palpation, non-distended and no masses GI Narrative: Minimal epigastric tenderness to palpation, negative Triana sign, negative McBurney's point tenderness, no rigidity or guarding Back/Spine normal ROM and normal to inspection Extremity normal to inspection and full ROM Neuro oriented x3, CN's II-XII intact bilaterally, moves all extremities, no focal motor deficits and no sensory deficits noted Sensorium / Orientation: awake and alert Psych mental status grossly normal and thought process normal Skin no rashes or lesions noted and no wounds <Dr. Juan Luis Almeida DO - Last Filed: 03/27/24 15:59> Physical Exam Const Vital Signs: 03/27/24 10:42 03/27/24 13:00 03/27/24 13:51 Temperature 97.5 F L 97.9 F Temperature Source Temporal Pulse Rate 84 83 83 Respiratory Rate 16 15 15 Blood Pressure 177/115 H 178/92 H 178/92 H Blood Pressure Mean 135 120 120 Pulse Ox 98 98 98 Oxygen Delivery Method Room Air Room Air [facility] <GRAYSON Mcgarry - Last Filed: 03/27/24 14:47> [facility] Narrative Medical decision making narrative: Patient presenting today due to upper abdominal pain and diarrhea that started this morning. She is well-appearing and in no acute distress. She has minimal tenderness across her upper abdomen with a negative Triana sign. Patient given IV fluids, Zofran, and Toradol. Labs obtained to rule out leukocytosis, anemia, electrolyte abnormality, JALEESA, UTI, hepatobiliary etiology, and pancreatitis. CBC is unremarkable, CMP shows a potassium of 3.2, lipase WNL, UA negative for UTI. CT scan of the abdomen and pelvis obtained to rule out cholecystitis, bowel obstruction, diverticulitis, and other etiology shows enteritis. We will cover patient with Augmentin with first dose here. On reexamination she does report improvement of her symptoms. I will also give her a prescription for Bentyl. I encouraged that she follow-up with her PCP and she will be discharged home in stable condition. Lab Data Attestation: I reviewed the patient's lab results. Lab results narrative: Potassium 3.2 Labs: Laboratory Results - last 24 hr 03/27/24 03/27/24 11:25 12:10 WBC 10.9 RBC 4.20 Hgb 13.2 Hct 39.0 MCV 92.9 MCH 31.4 MCHC 33.8 RDW Std Deviation 45.1 H RDW Coeff of Aaliyah 13.2 Plt Count 229 MPV 9.4 Immature Gran % (Auto) 0.400 Neut % (Auto) 76.7 H Lymph % (Auto) 16.2 L [place] % (Auto) 5.5 Eos % (Auto) 0.9 Baso % (Auto) 0.3 Absolute Neuts (auto) 8.4 H Absolute Lymphs (auto) 1.77 Nucleated RBC % 0 Sodium 136 Potassium 3.2 L Chloride 105 Carbon Dioxide 24.0 Anion Gap 7 BUN 12 Creatinine 0.55 Estim Creat Clear Calc 101.23 Est GFR (MDRD) Af Amer 149 Est GFR (MDRD) Non-Af 123 BUN/Creatinine Ratio 21.7 H Glucose 130 H Calcium 9.4 Total Bilirubin 0.40 AST 13 L ALT 16 Alkaline Phosphatase 70 Total Protein 6.3 L Albumin 3.0 L Globulin 3.3 Albumin/Globulin Ratio 0.9 Lipase 33 Urine Color Straw Urine Clarity Clear Urine pH 8.0 Ur Specific [place] 1.015 Urine Protein Negative Urine Glucose (UA) Normal Urine Ketones Negative Urine Occult Blood 50 H Urine Nitrite Negative Urine Bilirubin Negative Urine Urobilinogen Normal Ur Leukocyte Esterase Negative Urine RBC 0-5 SEEN Urine WBC 0 SEEN Ur Squamous Epith Cells 0-5 SEEN Urine Bacteria 0 SEEN Urine Mucus 0 SEEN Radiography Diagnostic Testing: Clinical Impression(s) from Imaging Studies Abdomen/Pelvis CT 03/27/24 12:35 IMPRESSION: Wall thickening of small intestinal loops with infectious or inflammatory enteritis. No obstruction. Electronically Signed: Stephane Monae MD at 13:02 EDT , <Dr. Juan Luis Almeida, DO - Last Filed: 03/27/24 15:59> [facility] Lab Data Labs: Laboratory Results - last 24 hr 03/27/24 03/27/24 11:25 12:10 WBC 10.9 RBC 4.20 Hgb 13.2 Hct 39.0 MCV 92.9 MCH 31.4 MCHC 33.8 RDW Std Deviation 45.1 H RDW Coeff of Aaliyah 13.2 Plt Count 229 MPV 9.4 Immature Gran % (Auto) 0.400 Neut % (Auto) 76.7 H Lymph % (Auto) 16.2 L [place] % (Auto) 5.5 Eos % (Auto) 0.9 Baso % (Auto) 0.3 Absolute Neuts (auto) 8.4 H Absolute Lymphs (auto) 1.77 Nucleated RBC % 0 Sodium 136 Potassium 3.2 L Chloride 105 Carbon Dioxide 24.0 Anion Gap 7 BUN 12 Creatinine 0.55 Estim Creat Clear Calc 101.23 Est GFR (MDRD) Af Amer 149 Est GFR (MDRD) Non-Af 123 BUN/Creatinine Ratio 21.7 H Glucose 130 H Calcium 9.4 Total Bilirubin 0.40 AST 13 L ALT 16 Alkaline Phosphatase 70 Total Protein 6.3 L Albumin 3.0 L Globulin 3.3 Albumin/Globulin Ratio 0.9 Lipase 33 Urine Color Straw Urine Clarity Clear Urine pH 8.0 Ur Specific [place] 1.015 Urine Protein Negative Urine Glucose (UA) Normal Urine Ketones Negative Urine Occult Blood 50 H Urine Nitrite Negative Urine Bilirubin Negative Urine Urobilinogen Normal Ur Leukocyte Esterase Negative Urine RBC 0-5 SEEN Urine WBC 0 SEEN Ur Squamous Epith Cells 0-5 SEEN Urine Bacteria 0 SEEN Urine Mucus 0 SEEN Radiography Diagnostic Testing: Clinical Impression(s) from Imaging Studies Abdomen/Pelvis CT 03/27/24 12:35 IMPRESSION: Wall thickening of small intestinal loops with infectious or inflammatory enteritis. No obstruction. Electronically Signed: Stephane Monae MD at 13:02 EDT , Treatment and Re-Evaluation :: I have personally performed a face to face assessment of the patient and have reviewed the HIRAM Note. I performed a substantive portion of the visit including all aspects of the following. My griffin findings include: History: Patient presents with abdominal pain that began today. Patient states it has been intermittent. Patient states that last for a few minutes. Patient describes the pain as stabbing and cramping. Patient states the pain is mainly over the right upper quadrant and epigastric area. Patient states nothing makes it better and nothing makes it worse. Patient admits to some diarrhea. Patient denies any melena or hematochezia. Patient denies any nausea or vomiting. Patient denies any urinary complaints. Patient denies any fevers or chills. Exam: Vital signs are stable except for an elevated blood pressure 177/115. Patient is afebrile. Patient is in no acute distress. Oral mucosa is pink and moist. Neck is supple. Trachea is midline. There is no JVD. Heart was regular rate and rhythm. Lungs are clear and equal bilaterally. Abdomen is soft. Bowel sounds are normal. There is mild tenderness of the right upper quadrant and epigastric area. There is no rebound or guarding noted. Cranial nerves II through XII are intact. There are no focal motor or sensory deficits noted. Medical Decision Making: Differential diagnosis includes cholecystitis, cholelithiasis, pancreatitis, peptic ulcer disease, duodenal ulcer, urinary tract infection, pyelonephritis, and gastroenteritis. CT scan of the abdomen and pelvis will be obtained to assess for cholecystitis, pancreatitis, and gastroenteritis. CBC will be obtained to assess for leukocytosis and anemia. Comprehensive metabolic profile will be obtained to assess for hepatic function, renal function, and electrolyte abnormality. Lipase will be obtained to assess for pancreatitis. Urinalysis will be obtained to assess for urinary tract infection. Patient was given IV fluids, Toradol, and Zofran. CBC was reviewed and was essentially within normal limits. Comprehensive metabolic profile was reviewed. Potassium was slightly low at 3.2. The remainder was within normal limits. Lipase was reviewed and was normal at 33. Urinalysis was reviewed. There is no evidence of urinary tract infection or hematuria. CT scan of the abdomen pelvis was obtained. There is wall thickening of small bowel loops consistent with infectious or inflammatory enteritis. There is no bowel obstruction or perforation. There is no evidence of cholecystitis. This was interpreted by the radiologist was also independently reviewed by myself. Patient was advised of her findings. Patient was given prescriptions for Augmentin and Bentyl. Patient was instructed to start with a liquid diet and advance as tolerated. Patient was instructed to follow-up with her primary care physician in 5 to 7 days. Patient was instructed to return if worse in any way. Patient understood and was agreeable with the plan. All questions were answered. Discharge Plan Triage Chief Complaint: Abd Pain ED Midlevel Provider: Karley Stewart ED Provider: Juan Luis Almeida Dx/Rx/DC Orders Clinical Impression: Enteritis, Abdominal pain Instructions: Abdominal Pain Prescriptions: New amoxicillin-pot clavulanate 875-125 mg tablet 1 tab PO BID Qty: 14 0RF dicyclomine 10 mg capsule 10 mg PO TID PRN (Reason: abdominal pain) Qty: 15 0RF No Action desogestrel-ethinyl estradiol [[place]] 1 EACH tablet 1 tab PO DAILY Patient Comments: estrogen atenolol 25 MG tablet 25 mg PO DAILY Qty: 30 0RF Patient Comments: heart potassium chloride 20 mEq tablet extended release 20 meq PO DAILY Qty: 7 0RF albuterol sulfate [ProAir HFA] 90 mcg/actuation HFA aerosol inhaler 1 inh inhalation Q6H PRN (Reason: shortness of breath or wheezing) Qty: 6.7 0RF prednisone 20 mg tablet 40 mg PO DAILY 5 Days Qty: 10 0RF Primary Care Provider: Francesca Miranda Referrals: Francesca Miranda MD [Primary Care Provider] - 5-7 Days Activity Restrictions/Additional Instructions: Follow-up with your PCP and return for any worsening of your symptoms. Print Language: Arabic Disposition Disposition: Home, Self Care Discharge Date/Time: 03/27/24 13:53
[2024-03-27] MEDS: Ketorolac 30 MG/ML Syringe 15 MG IV (11:42)
[2024-03-27] MEDS: Ondansetron 4 MG/2 ML Vial IV (11:43)
[2024-03-27] MEDS: 0.9% Normal Saline (1000mL) 1,000 ML 999 ML IV ×2 (11:43→12:47)
[2024-03-27 11:48] LABS: ALB/GLOB Ratio 0.9 RATIO (0.9-2.4); AST(SGOT) 13 U/L (15-37); Alanine Aminotransfer ALT/SGPT 16 U/L (13-56); Alkaline Phosphatase 70 U/L (45-117); Anion Gap 7 (5-15); BUN 12 mg/dL (7-18); BUN/Creat Ratio 21.7 RATIO (10-20); Calcium,Total 9.4 mg/dL (8.5-10.1); Chloride 105 mmol/L (98-107); Creatinine, Serum 0.55 mg/dL (0.55-1.02); EST Glomerular Filtration Rate 123 mL/min (>60); Est Glom Filt Rate - Afr Amer 149 mL/min (>60); Estimated Creatinine Clearance 101.23 ml/min; Globulin 3.3 g/dL (2.2-4.2); Glucose 130 mg/dL (74-106); Lipase 33 U/L (13-75); Potassium 3.2 mmol/L (3.5-5.1); Protein, Total 6.3 g/dL (6.4-8.2); Sodium Level 136 mmol/L (136-145)
[2024-03-27 12:20] LABS: Bacteria 0 SEEN /hpf (None Seen); Mucous, Urine 0 SEEN /hpf (<or=2+); White Blood Cells 0 SEEN /hpf (0-5)
[2024-03-27 12:22] LABS: Color, Urine Straw (Yellow); Glucose, Dipstick Normal (Normal); Ketone-Dipstick Negative (Negative); Leukocyte Esterase-Dipstick Negative /ul (Negative); Nitrite-Dipstick Negative (Negative); Occult Blood-Urine 50 /ul (Negative); Protein-Dipstick Negative (Negative); Specific Gravity, Urine 1.015 (1.002-1.030); Urine Bilirubin Dipstick Negative (Negative); Urine Clarity Clear (Clear); Urine Urobilinogen Normal (Normal)
[2024-03-27 12:28] LABS: Red Blood Cells-Urine 0-5 SEEN /hpf (0-5); Squamous Epithelial Cells - UA 0-5 SEEN /hpf (5-10)
--- NOTE | 2024-03-27 12:35 | CT_ITS ---
STUDY: CT ABDOMEN AND PELVIS WITH CONTRAST REASON FOR EXAM: Female, 48 years old. Abdominal pain RADIATION DOSAGE (If Supplied By Facility): CTDIvol = ( ) mGy, DLP = ( ) mGycm TECHNIQUE: Transaxial images were obtained from the dome of the diaphragm to the symphysis pubis without oral contrast. IV 75mL Isovue-370 was administered. Sagittal and coronal images were reconstructed. Individualized dose optimization techniques were used for this CT. COMPARISON: None. FINDINGS: The visualized lung bases are unremarkable. The visualized portions of the heart are within normal limits. Normal liver. Normal gallbladder and extrahepatic biliary system. Normal spleen. Normal pancreas. Normal bilateral adrenal glands. Normal right kidney. Normal left kidney. Normal visualized stomach. There is wall thickening involving small intestine loops in the right lower quadrant. Normal colon. The appendix is visualized and appears normal. Normal abdominal aorta. Normal inferior vena cava. Normal retroperitoneum. Normal urinary bladder. Normal visualized uterus. There is no free fluid in the abdomen or pelvis. Normal abdominal wall. There is degenerative change of the lower spine. CT/Abdomen/Pelvis W IV Cont ONLY IMPRESSION: Wall thickening of small intestinal loops with infectious or inflammatory enteritis. No obstruction. Electronically Signed: Stephane Monae MD at 13:02 EDT ,
[2024-03-27 13:00] VITALS: BP 178/92; PULSE 83; RESP 15; O2SAT 98
[2024-03-27] MEDS: Amox/Clavulanate 875 MG Tablet PO (13:38)
[2024-03-27 13:51] VITALS: BP 178/92; PULSE 83; RESP 15; TEMP 36.6; O2SAT 98
== END 2024-03-27 13:53 | disposition home or self-care (01) ==
PROVIDERS: Physician Assistant; Emergency Provider Emergency Medicine; PCP Internal Medicine; Visit Provider Emergency Medicine
DX: K52.9 Noninfective gastroenteritis and colitis, unspecified (principal); R10.9 Unspecified abdominal pain
CPT/HCPCS: 74177; 80053; 81001; 83690; 85025; 96361; 96374; 96375; 99283; J7030; Q9967; A4216; J2405

== ENCOUNTER 2025-04-01 13:12 | Emergency (ER) | payer OTHER, SELFPAY ==
[2025-04-01 13:13] VITALS: BP 147/102; PULSE 69; RESP 17; TEMP 36.6; O2SAT 99; BMI 22.1
--- NOTE | 2025-04-01 13:40 | RAD_ITS ---
PROCEDURE: SHOULDER MIN 2 VIEWS 04/01/2025 REASON FOR EXAM: INJURY TECHNIQUE: SHOULDER MIN 2 VIEWS COMPARISON: None. FINDINGS: Bones: No acute fracture. No aggressive osseous lesions. Joints: Normal alignment. Mild degenerative changes. Soft tissues: Soft tissues are unremarkable. Other: The visualized left lung is unremarkable. RAD/Shoulder min 2 Views IMPRESSION: NO ACUTE FRACTURE OR DISLOCATION. Reading Location: [id number]
--- OUTSIDE RECORDS SUMMARY | 2025-04-01 15:21 | XMS RPT_ITS | CCD ---
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 (1 source) Encounter for screening for depression; Translations: [Screening for depression] Onset: 07-05-2024 Episodic Syncope (20 sources) Near syncope; Translations: [Syncope and collapse] Onset: 04-20-2021 04-20-2021 Episodic Thyroid disorders (20 sources) Hyperthyroidism; Translations: [Thyrotoxicosis, unspecified without thyrotoxic crisis or storm] Resolved: 04-30-2015 02-12-2014 Chronic Unclassified (2 sources) Injury of left shoulder 12-28-2024 Results Test Name Value Interpretation Reference Range Facility [facility] 03-21-2025 CNOV Office Visit (INTMWS ) MATA SANTANA ([id number]) 1975 F Date Time Provider Department 03/21/25 10:00 AM KENDALL PETE During your visit today, we recorded the following information about you: Pulse Respiration Blood pressure Weight 69/minute 16/minute 129/82 56 kg Kendall Pete APRN.VERIFICATION MANAGER 03/21/2025 11:08 AM Signed SUBJECTIVE: There are no preventive care reminders to display for this patient. HPI Mata Santana is a 49 year old female. Her past medical history is significant for ACTIVE PROBLEM LIST Allergic Rhinitis ELIAN (obstructive sleep apnea) [id number] 21AASM Excessive Daytime Sleepiness Anxiety State Ifg (Impaired Fasting Glucose) Essential Hypertension Hypokalemia Near Syncope Acute Pain of Left Shoulder Hypertension: - Managed with amlodipine; requests refill to be sent to [facility]. - Reports not feeling well on metoprolol, losartan, or lisinopril in the past. Diabetes Mellitus: - A1c in December showed improvement. - Monitoring diet. Obstructive Sleep Apnea: - Managed to the best of her ability. Thyroid: - No current treatment; monitoring only. Shoulder Pain: - Undergoing physical therapy; reports slight improvement in mobility. 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 ELIAN: reports more consistent use since last here. HTN: She notes no chest pain palpitations, dyspnea, peripheral edema, orthopnea, fatigue, and PND. Last 14 Encounter BP Readings: Date: BP: 03/21/2025 129/82 03/14/2025 124/88 01/03/2025 126/83 12/28/2024 122/82 09/20/2024 120/76 09/06/2024 123/79 08/15/2024 158/96[bp average[ 07/05/2024 134/86 03/11/2024 144/80 03/08/2024 155/93[bp average[ 02/25/2024 154/92 02/10/2024 148/100 12/12/2023 126/72 09/17/2023 136/85[bp dayday average[ TSH Date Value 09/06/2024 0.957 mIU/L 03/22/2024 1.600 mIU/L 01/08/2021 1.340 uU/mL 06/12/2020 0.868 uU/mL ) Review of Systems Constitutional: Negative. Respiratory: Negative. Endocrine: Negative. Objective BP 129/82 Pulse 69 Resp 16 Wt 56 kg (123 lb 7.3 oz) LMP 02/22/2025 BMI 22.95 kg/m? Physical Exam Vitals and nursing note reviewed. Constitutional: Appearance: Normal appearance. HENT: Head: Normocephalic and atraumatic. Eyes: Conjunctiva/sclera: Conjunctivae normal. Neck: Thyroid: No thyromegaly or thyroid tenderness. Vascular: Normal carotid pulses. No carotid bruit or JVD. Cardiovascular: Rate and Rhythm: Normal rate and regular rhythm. Pulses: Carotid pulses are 2+ on the right side and 2+ on the left side. Radial pulses are 2+ on the right side and 2+ on the left side. Heart sounds: Normal heart sounds. Pulmonary: Effort: Pulmonary effort is normal. Breath sounds: Normal breath sounds. Abdominal: General: Bowel sounds are normal. Palpations: Abdomen is soft. Musculoskeletal: Right lower leg: No edema. Left lower leg: No edema. Skin: General: Skin is warm and dry. Neurological: General: No focal deficit present. Mental Status: She is alert and oriented to person, place, and time. ALLERGIES Allergen Reactions Seasonal Allergies Cough Cough, sneezing AND watery eyes Medications Ethinyl Estradiol-Norelgestro m (XULANE) 150-35 mcg/24 hr patch Apply 1 patch as directed one time a week. One inactive week per month. metoprolol succinate ER (TOPROL XL) 25 mg 24 hr tablet Take 1 tablet by mouth once daily. calc carb,cit/mag,zinc/D3/ h122 ([id number] #122-VIT D3 ORAL) Take by mouth. GARLIC amLODIPine (NORVASC) 5 mg tablet Take 1 tablet by mouth once daily. CPAP AutoPAP 5-20 cmH2O, suitable mask,straps and chin straps as needed humidity, filters. Lifetime supplies. Dx: 327.23. (Patient taking differently: AutoPAP 5-20 cmH2O, suitable mask,straps and chin straps as needed humidity, filters. Lifetime supplies. Dx: 327.23. Not using nightly) [DISCONTINUED] ergocalciferol, vitamin D2, (VITAMIN D2 ORAL) Take by mouth. PAST MEDICAL HISTORY Diagnosis Date Allergic rhinitis seasonal--spring and fall Calculus of kidney 2004 small - incidental on CT scan, has never passed one that she's aware of Depression DM, gestational, diet controlled (HCC) 2008 Esophageal reflux acid in back of throat, no pain - mostly with spicy foods, Prevacid helps Essential hypertension 04/20/2021 Generalized headaches Obstructive sleep apnea Dr. Verde Personal history of urinary (tract) infection recurrent Threatened premature labor, unspecified as to episode of care Premature labor Thyrotoxicosis without mention of goiter or other cause, without mention of thyrotoxic crisis or storm 2005 Hyperthyroidism - placed on atenolol 25mg x 6 mo, states now off meds and thyroid ok Social History Tobacco Use Smoking status: Never Passive exposure: Never (more content not included)... [facility] CNTHERAPYon 03-21-2025 CNTHERAPY OT/PT/Speech Visit (PTWS) MATA SANTANA ([id number]) 1975 F Date Time Provider Department 03/21/25 11:00 AM LEI PEPPER PTHO Date Time Provider Department [place] 03/21/2025 11:00 AM [id number], C[facility] PTWS Amanda Vogel Reason for Visit: Physical Therapy [503] Primary Visit Diagnosis:Acute pain of left shoulder [M25.512] Allergies As of Date: 03/21/2025 Noted Allergy Reaction SEASONAL ALLERGIES 01/22/2018 3 - Cough Comments: Cough, sneezing AND watery eyes Date Reviewed: 03/21/2025 Reviewed by: Kendall Pete APRN.VERIFICATION MANAGER - Fully Assessed Prescriptions as of 03/21/2025 - amLODIPine (NORVASC) 5 mg tablet Take 1 tablet by mouth once daily. - Ethinyl Estradiol-Norelgestro m (XULANE) 150-35 mcg/24 hr patch Apply 1 patch as directed one time a week. One inactive week per month. - metoprolol succinate ER (TOPROL XL) 25 mg 24 hr tablet Take 1 tablet by mouth once daily. - calc carb,cit/mag,zinc/D3/ h122 ([id number]- #122-VIT D3 ORAL) Take by mouth. - GARLIC - CPAP AutoPAP 5-20 cmH2O, suitable mask,straps and chin straps as needed humidity, filters. Lifetime supplies. Dx: 327.23. - ergocalciferol, vitamin D2, (VITAMIN D2 ORAL) (Discontinued) Take by mouth. 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 Mata is a 49 year old who presents for an annual gynecologic exam without complaints. LMP 02/22/2025 Postmenopausal: No. Menstrual cycle every 24-25 days Flow 4-6 days HRT use: N/A . HPV vaccine: No Last Pap: 11/26/2021 normal HPV: 11/22/2021 negative History of abnormal pap: No Last mammogram: 2024 today History of abnormal mammogram: No Sexually active: not currently OB History Gravida2 Para2 Term1 Preterm1 AB0 Living2 SAB0 IAB0 Ectopic0 Multiple0 Live Births2 [place] History LMP: 02/22/2025, Having periods Age at Menarche: 16 Age at First : Age at Menopause: [place] History Comments: Sexual Activity: Not Currently; Male Contraception: No contraception data on record PAST MEDICAL HISTORY Diagnosis Date Allergic rhinitis seasonal--spring and fall Calculus of kidney 2004 small - incidental on CT scan, has never passed one that she's aware of Depression DM, gestational, diet controlled (HCC) 2008 Esophageal reflux acid in back of throat, no pain - mostly with spicy foods, Prevacid helps Essential hypertension 04/20/2021 Generalized headaches Obstructive sleep apnea Dr. Verde Personal history of urinary (tract) infection recurrent Threatened premature labor, unspecified as to episode of care Premature labor Thyrotoxicosis without mention of goiter or other cause, without mention of thyrotoxic crisis or storm 2005 Hyperthyroidism - placed on atenolol 25mg x 6 mo, states now off meds and thyroid ok PAST SURGICAL HISTORY Procedure Laterality Date PAST SURGICAL HISTORY OF 03/2005 left foot-removal of bunion PAST SURGICAL HISTORY OF Lesion removed from upper groin area PAST SURGICAL HISTORY OF Right 03/2022 ingrown toenail-type surgery POST-CATARACT LASER SURGERY Bilateral 2024 FAMILY HISTORY Problem Relation Age of Onset Diabetes Mother 53 Thyroid Mother Unsure of exact etiology Heart Father age 49, heavy smoker, likely of ND but pt not sure Diabetes Sister Diabetes Brother 25 Diabetes Maternal Grandmother other (Other) Maternal Grandmother MVA Alzheimer's Disease Maternal Grandfather also great grandma Diabetes Paternal Grandmother Ischemic Heart Disease Paternal Grandfather age 50 ND Parkinson's Maternal Uncle SOCIAL HISTORY Social History Tobacco Use Smoking status: Never Passive exposure: Never Smokeless tobacco: Never Vaping Use Vaping status: Never Used Substance Use Topics Alcohol use: No Drug use: No REVIEW OF SYSTEMS Abdomen: No abdominal pain, nausea, vomiting, or constipation. No bloating, early satiety, indigestion, or increased flatulence. +diarrhea a few days ago Bladder: No dysuria, gross hematuria, urinary frequency, urinary urgency, or incontinence Breast: No breast lumps, nipple d/c, overlying skin changes, redness or skin retraction Allergies and current medication updated:Yes SENSITIVE EXAM: The sensitive examination was discussed with the Patient or Patient's Authorized Logistics Officer. As applicable, any other physician, advance practice provider, medical student, or other health professional student that will be observing or involved in the sensitive examination for educational or training purposes was discussed with the Patient or Authorized Logistics Officer. The Patient or Authorized Logistics Officer has agreed to proceed with the sensitive examination. (Sensitive examination includes inspection and/or palpation of the breasts, pelvis, prostate and anorectal regions). EXAM: BP 124/88 Wt 123 lb (55.8kg) LMP 02/22/2025 GENERAL: pleasant, female in no apparent distress HEENT: Normocephalic, atraumatic, mucus membranes moist, and no lesions DERMATOLOGY: Normal, without lesions, non-icteric, and non-hirsute BREAST: soft, non-tender, symmetric, no dominant mass, normal nipple-areolar complex, no lymphadenopathy, and no nipple discharge CHEST: Normal inspiratory effort ABDOMEN: soft, non-tender, and no masses PELVIC: external genitalia normal, normal Bartholin's glands, urethra, Tenstrike's glands, no vulvar lesions, no cervical lesions, good vaginal support, physiologic discharge present, normal appearing perineal body and perianal region BIMANUAL: uterus normal size, shape and consistency, no adnexal masses, and non-tender RECTOVAGINAL: deferred. NEURO: alert and oriented x3,exam grossly non-focal EXTREMITIES: normal ASSESSMENT/PLAN: 1) Health maintenance: Pap/HPV up to date. Mammogram ordered Mammo (more content not included)... [facility] CNTHERAPYon 03-14-2025 CNTHERAPY OT/PT/Speech Visit (PTWS) MATA SANTANA ([id number]) 1975 F Date Time Provider Department 03/14/25 1:30 PM LEI PEPPER PTWS Date Time Provider Department Center 03/14/2025 1:30 PM [id number], C[facility] PTWS Amanda Vogel Reason for Visit: Physical Therapy [503] Primary Visit Diagnosis:Acute pain of left shoulder [M25.512] Allergies As of Date: 03/14/2025 Noted Allergy Reaction SEASONAL ALLERGIES 01/22/2018 3 - Cough Comments: Cough, sneezing AND watery eyes Date Reviewed: 01/03/2025 Reviewed by: Kendall Pete APRN.VERIFICATION MANAGER - Fully Assessed Prescriptions as of 03/14/2025 - amLODIPine (NORVASC) 5 mg tablet Take 1 tablet by mouth once daily. - metoprolol succinate ER (TOPROL XL) 25 mg 24 hr tablet Take 1 tablet by mouth once daily. - Ethinyl Estradiol-Norelgestro m (XULANE) 150-35 mcg/24 hr patch Apply 1 Patch as directed one time a week. One inactive week per month. - calc carb,cit/mag,zinc/D3/ h122 ([id number] #122-VIT D3 ORAL) Take by mouth. - GARLIC - red beet root-sour torres ext 250-0.5 mg chew Take by mouth. - CPAP AutoPAP 5-20 cmH2O, suitable mask,straps and chin straps as needed humidity, filters. Lifetime supplies. Dx: 327.23. - ergocalciferol, vitamin D2, (VITAMIN D2 ORAL) (Discontinued) Take by mouth. [facility] AKHIL SCREENING W TOMOon 03-14 AKHIL SCREENING W ABIDA * * *Final Report* * * DATE OF EXAM: Mar 14 2025 2:38PM WR [id number] - AKHIL SCREENING W ABIDA / PROCEDURE REASON: multiple diagnoses * * * * Physician Interpretation * * * * RESULT: [place] [id number] #[id number] - AKHIL SCREENING W ABIDA HISTORY: 49 year-old patient seen for screening. No current complaints. Patient states no personal history of breast cancer. COMPARISON STUDIES: The present examination has been compared to prior imaging studies dated 08/23/2019 (mammogram), 09/03/2020 (mammogram), 09/06/2021 (mammogram), 09/16/2022 (mammogram) and 12/22/2023 (mammogram). MAMMOGRAM TECHNIQUE: The study was acquired using full field digital technology and interpreted from soft copy. Digital Breast Tomosynthesis (DBT) images were obtained and used to assist in the interpretation of this examination. MAMMOGRAM FINDINGS: The breasts are heterogeneously dense, which may obscure small masses. No suspicious masses, calcifications or other abnormalities are seen in either breast. There are no significant interval changes. IMPRESSION: There is no mammographic evidence of malignancy in either breast. Routine screening mammogram is recommended. Annual mammogram will be due in 1 year. BI-RADS Category 1: Negative RISK: Based on the Tyrer-Cuzick (TC) risk assessment model, this patient has a 6.3% lifetime risk of developing breast cancer, meaning they are at average risk for developing breast cancer. However, this is only an estimate based on available history provided on the patient's questionnaire. We encourage all patients to talk with their providers about these results, further recommendations for managing breast health, and appropriate supplemental screening options if the patient has dense breast tissue. Interpreting Radiologist: Brittnee Shea M.D. Electronically signed on: 03/15/2025 Director Of Consulting Services: DELVIN Transcribe Date/Time: Mar 14 2025 2:25P Dictated by: BRITTNEE SHEA MD This examination was interpreted and the report reviewed and electronically signed by: BRITTNEE SHEA MD on Mar 15 2025 12:07PM EST [id number] [facility] CNTHERAPYon 02-21-2025 CNTHERAPY OT/PT/Speech Visit (PTWS) MATA SANTANA ([id number]) 1975 F Date Time Provider Department 02/21/25 11:00 AM LEI PEPPER PTHO Date Time Provider Department [place] 02/21/2025 11:00 AM [id number], [facility] PTWS Amanda Vogel Reason for Visit: Physical Therapy [503] Primary Visit Diagnosis:Acute pain of left shoulder [M25.512] Allergies As of Date: 02/21/2025 Noted Allergy Reaction SEASONAL ALLERGIES 01/22/2018 3 - Cough Comments: Cough, sneezing AND watery eyes Date Reviewed: 01/03/2025 Reviewed by: Kendall Pete APRN.VERIFICATION MANAGER - Fully Assessed Prescriptions as of 02/21/2025 - amLODIPine (NORVASC) 5 mg tablet Take 1 tablet by mouth once daily. - metoprolol succinate ER (TOPROL XL) 25 mg 24 hr tablet Take 1 tablet by mouth once daily. - Ethinyl Estradiol-Norelgestro m (XULANE) 150-35 mcg/24 hr patch Apply 1 Patch as directed one time a week. One inactive week per month. - calc carb,cit/mag,zinc/D3/ h122 ([id number] #122-VIT D3 ORAL) Take by mouth. - GARLIC - red beet root-sour torres ext 250-0.5 mg chew Take by mouth. - CPAP AutoPAP 5-20 cmH2O, suitable mask,straps and chin straps as needed humidity, filters. Lifetime supplies. Dx: 327.23. - ergocalciferol, vitamin D2, (VITAMIN D2 ORAL) (Discontinued) Take by mouth. [facility] CNTHERAPYon 02-07-2025 CNTHERAPY OT/PT/Speech Visit (PTWS) MATA SANTANA ([id number]) 1975 F Date Time Provider Department 02/07/25 10:15 AM LEI PEPPER PTWS Date Time Provider Department Center 02/07/2025 10:15 AM [id number], [facility] PTWS Amanda Vogel Reason for Visit: PT Eval [747] Visit Diagnosis:Acute pain of left shoulder [M25.512] Allergies As of Date: 02/07/2025 Noted Allergy Reaction SEASONAL ALLERGIES 01/22/2018 3 - Cough Comments: Cough, sneezing AND watery eyes Date Reviewed: 01/03/2025 Reviewed by: Kendall Pete APRN.VERIFICATION MANAGER - Fully Assessed Prescriptions as of 02/07/2025 - amLODIPine (NORVASC) 5 mg tablet Take 1 tablet by mouth once daily. - metoprolol succinate ER (TOPROL XL) 25 mg 24 hr tablet Take 1 tablet by mouth once daily. - Ethinyl Estradiol-Norelgestro m (XULANE) 150-35 mcg/24 hr patch Apply 1 Patch as directed one time a week. One inactive week per month. - calc carb,cit/mag,zinc/D3/ h122 ([id number]-HC #122-VIT D3 ORAL) Take by mouth. - GARLIC - red beet root-sour torres ext 250-0.5 mg chew Take by mouth. - CPAP AutoPAP 5-20 cmH2O, suitable mask,straps and chin straps as needed humidity, filters. Lifetime supplies. Dx: 327.23. - ergocalciferol, vitamin D2, (VITAMIN D2 ORAL) (Discontinued) Take by mouth. Boat Person: Therapy (PT/OT/Speech/Resp) ID: [id number] 02/07/2025 10:49 AM Author: LEI PEPPER Signed by LEI PEPPER PT on 02/07/2025 at 10:49 AM Document text: Program_ID:[id number] Access Code: [email or web address] URL: [email or web address] Date: 02-07-2025 Prepared By: Lei Pepper Program Notes Exercises - Shoulder External Rotation and Scapular Retraction with Resistance - 1 x daily - 7 x weekly - 4 sets - 10 reps - Standing Single Arm Shoulder Abduction with Resistance - 1 x daily - 7 x weekly - 4 sets - 7-10 reps ----- [facility] THERAPY NTon 02-07-2025 THERAPY NT HNO ID: [id number] Author: LEI PEPPER PT Service: ? Author Type: Physical Therapist Type: Therapy (PT/OT/Speech/Resp) Filed: 02/07/2025 10:49 Note Text: Program_ID:[id number] Access Code: [email or web address] URL: [email or web address] Date: 02-07-2025 Prepared By: Lei Pepper Program Notes Exercises - Shoulder External Rotation and Scapular Retraction with Resistance - 1 x daily - 7 x weekly - 4 sets - 10 reps - Standing Single Arm Shoulder Abduction with Resistance - 1 x daily - 7 x weekly - 4 sets - 7-10 reps [facility] CNOVon 01-03-2025 CNOV Office Visit (INTMWS ) MAXAMNAMATA Meagan ([id number]) 1975 F Date Time Provider Department 01/03/25 9:00 AM KENDALL PETE INTMWS During your visit today, we recorded the following information about you: Pulse Respiration Blood pressure Weight 60/minute 16/minute 126/83 55 kg Kendall Pete APRN.VERIFICATION MANAGER 01/03/2025 9:21 AM Addendum Subjective ?Quick Links Last Note in Specialty Snapshot Edit RFV/CC Patient ID: Mata is a 49 year old female who presents for [facility] care f/u. HPI Left Shoulder Pain: - Onset after an object fell on the shoulder. - Pain is slightly improved but still present. - Pain primarily occurs with movement, especially when lifting the arm. - Able to sleep without discomfort by lying on the opposite side. - Has not used ice or heat; applied Icy Hot cream with temporary relief. - Taking Tylenol with minimal effect. - Denies crepitus; reports tightness in the posterior shoulder. - Pain localized to the superior aspect of the shoulder. - Work requires lifting, which exacerbates the pain. Constitutional: (-) sleep disturbance Neck: (+) tightness Musculoskeletal: (+) left shoulder pain, (+) radiating pain, (+) limited range of motion, (+) tenderness, (+) pain with movement ?Quick Review Review Full History Edit History Full Problem List Meds - amLODIPine (NORVASC) 5 mg tablet metoprolol succinate ER (TOPROL XL) 25 mg 24 hr tablet Ethinyl Estradiol-Norelgestro m (XULANE) 150-35 mcg/24 hr patch calc carb,cit/mag,zinc/D3/ h122 ([id number] #122-VIT D3 ORAL) GARLIC red beet root-sour torres ext 250-0.5 mg chew CPAP meloxicam (MOBIC) 15 mg tablet --- PMH - Allergic rhinitis Calculus of kidney Depression DM, gestational, diet controlled Esophageal reflux Essential hypertension Generalized headaches Obstructive sleep apnea Personal history of urinary (tract) infection Threatened premature labor, unspecified as to episode of care Thyrotoxicosis without mention of goiter or other cause, without mention of thyrotoxic crisis or storm : Objective ?Quick Links Add Vitals Labs Imaging Results Review ?? Avoid pulling in long tables of results. Comment on relevant results to support your medical decision making. BP 126/83 Pulse 60 Resp 16 Wt 55 kg (121 lb 4.1 oz) LMP 09/18/2024 (Approximate) BMI 22.54 kg/m? Physical Exam GENERAL: NAD, alert and oriented. SKIN: Unremarkable, no rash or skin lesions. HEAD: Normocephalic. EYES: conjunctiva clear. EXTREMITIES: Normal, no deformities, no skin discoloration, no edema. NEURO: Awake, alert and oriented x3, cranial nerves II-XII grossly intact, normal gait, no involuntary motions. MUSCULOSKELETAL: Limited range of motion in left shoulder with pain on abduction. Tenderness noted on top of the left shoulder. No crepitus. Assessment AND Plan Acute pain of left shoulder ASSESSMENT/PLAN: 1. Acute pain of left shoulder - ICD9: 719.41, ICD10: M25.512 Recommend avoiding painful activities, gentle range of motion, provided with written information from Ortho info. Recommend icing 15 to 20 minutes several times per day. Switch from Tylenol to meloxicam 15mg daily for 1 to 2 weeks then as needed. Endorse orthopedic visit and physical therapy if not improving. - CONSULT TO PHYSICAL THERAPY - CONSULT TO ORTHOPAEDICS Orders: CONSULT TO PHYSICAL THERAPY; Future meloxicam (MOBIC) 15 mg tablet; Take 1 tablet by mouth once daily. for pain. Take with food. CONSULT TO ORTHOPAEDICS; Future Medical Decision Making: Problems: Low: Acute, uncomplicated illness or injury Data: Unique test result(s) reviewed: 1 Risk: Moderate: Drug management Medical Decision Making Level: 3 - Low The patient consented to the use of [employer] software for draft documentation of the visit consistent with [facility]?s Notice of Privacy Practices. Allergies As of Date: 01/03/2025 Noted Allergy Reaction SEASONAL ALLERGIES 01/22/2018 3 - Cough Comments: Cough, sneezing AND watery eyes Date Reviewed: 01/03/2025 Reviewed by: Kendall Pete APRN.VERIFICATION MANAGER - Fully Assessed Reason for Visit: express care f/u [Other] Primary Visit Diagnosis:Acute pain of left shoulder [M25.512] Order(s):CONSULT TO PHYSICAL THERAPY [9011] Order #: [id number]: 1 FUTURE meloxicam (MOBIC) 15 mg tabletTake 1 tablet by mouth once daily. for pain. Take with food.Disp: 30 tabletRfl: 0 CONSULT TO ORTHOPAEDICS [9055] Order #: [id number]: 1 FUTURE Prescriptions as of 01/03/2025 - meloxicam (MOBIC) 15 mg tablet Take 1 tablet by mouth once daily. for pain. Take with food. - amLODIPine (NORVASC) 5 mg tablet Take 1 tablet by mouth once daily. - metoprolol succinate ER (TOPROL XL) 25 mg 24 hr tablet Take 1 tablet by mouth once daily. - Ethinyl Estradiol-Norelgestro m (XULANE) 150-35 mcg/24 hr patch Apply 1 Patch as directed one time a (more content not included)... [facility] HbA1c (Bld)on 01-03-2025 Average glucose Estimated from glycated hemoglobin (Bld) [Mass/Vol] 137 mg/dL [facility] Comment on above: Order Comment: Speci men Type: BLOOD SPECIMENOrdering Facility: [facility] Address: [address] [place] [address] Result Comment: eAG: (Estimated average glucose) is a calculated value from HgbA1c and is traveling sales representative of the average blood glucose level in the last 2-3 month period. Performed By: #### 5 [id number] ####[facility] [id number] [place] [address] [place] HbA1c (Bld) [Mass fraction] 6.4 % High 4.3-5.6 [facility] Comment on above: Order Comment: Speci men Type: BLOOD SPECIMENOrdering Facility: [facility] Address: [address] [place] [address] Result Comment: [place] Diabetes Association guidelines indicate that patients with HgbA1c in the range 5.7-6.4% are at increased risk for development of diabetes, and intervention by lifestyle modification may be beneficial. HgbA1c greater or equal to 6.5% is considered diagnostic of diabetes. Performed By: #### 5 [id number] ####[facility] LABIA [id number] [address] [facility] CNOVon 12-28-2024 CNOV Office Visit (UCTR ) MAXMATA K ([id number]) 1975 F Date Time Provider Department 12/28/24 7:15 PM SHAHZAD HUGHES [facility] During your visit today, we recorded the following information about you: Temperature Pulse Respiration Blood pressure 98.1 degrees 73/minute 18/minute 122/82 Weight 56.8 kg Shahzad Hughes APRN.ADJUNCT PROFESSOR OF ENGLISH 12/28/2024 8:16 PM Signed [facility] Subjective Mata Santana is a 49 year old female. Patient presents with: left shoulder pain: Dropped a tote on her shoulder 1 week ago Reports 1 week ago she was pushing a cart and a tote fell off and hit her on the lateral aspect of her left shoulder. Reports limited ROM and pain with movement. Review of Systems Musculoskeletal: Positive for joint swelling. Objective BP 122/82 Pulse 73 Temp 36.7 ?C (98.1 ?F) (Tympanic) Resp 18 Wt 56.8 kg (125 lb 3.5 oz) LMP 09/18/2024 (Approximate) SpO2 100% BMI 23.28 kg/m? Physical Exam Constitutional: General: She is not in acute distress. Appearance: Normal appearance. Musculoskeletal: General: Swelling, tenderness and signs of injury present. No deformity. Comments: Limited ROM, approx 25 degree of adduction before pain reported. Neurological: Mental Status: She is oriented to person, place, and time. Sensory: No sensory deficit. ASSESSMENT/PLAN: 1. Injury of left shoulder, initial encounter - ICD9: 959.2, ICD10: S49.92XA - XR SHOULDER GENERAL 3V OR MORE AP/TRUE AP/OTHER LEFT - If xray is negative follow up with PCP. If xray is positive would recommend follow up with ortho. - Sling applied to left arm while awaiting xray results. Shahzad Hughes APRN.ADJUNCT PROFESSOR OF ENGLISH Disposition The patient was discharged. Procedures Allergies As of Date: 12/28/2024 Noted Allergy Reaction SEASONAL ALLERGIES 01/22/2018 3 - Cough Comments: Cough, sneezing AND watery eyes Date Reviewed: 12/28/2024 Reviewed by: Catarina Ozuna LPN - Fully Assessed Reason for Visit: left shoulder pain [Other] Cmt: Dropped a tote on her shoulder 1 week ago Primary Visit Diagnosis:Injury of left shoulder, initial encounter [S49.92XA] Order(s):XR SHOULDER GENERAL 3V OR MORE AP/TRUE AP/OTHER LEFT [[id number]] Order #: [id number] FUTURE Prescriptions as of 12/28/2024 - amLODIPine (NORVASC) 5 mg tablet Take 1 tablet by mouth once daily. - metoprolol succinate ER (TOPROL XL) 25 mg 24 hr tablet Take 1 tablet by mouth once daily. - Ethinyl Estradiol-Norelgestro m (XULANE) 150-35 mcg/24 hr patch Apply 1 Patch as directed one time a week. One inactive week per month. - calc carb,cit/mag,zinc/D3/ h122 ([id number]-HC #122-VIT D3 ORAL) Take by mouth. - GARLIC - red beet root-sour torres ext 250-0.5 mg chew Take by mouth. - CPAP AutoPAP 5-20 cmH2O, suitable mask,straps and chin straps as needed humidity, filters. Lifetime supplies. Dx: 327.23. - ergocalciferol, vitamin D2, (VITAMIN D2 ORAL) (Discontinued) Take by mouth. Problem List As Of Date 12/28/2024 Noted Resolved Thyrotoxicosis [E05.90] 04/30/2015 Esophageal reflux [K21.9] 04/30/2015 Calculus of kidney [N20.0] 04/30/2015 Personal history of urinary (tract) infection [* 04/03/2015 Unspecified pruritic disorder [L29.9] 05/22/2008 04/03/2015 Supervision of Other High-Risk [O09.8*01/24/2009 06/14/2009 Diabetes Mellitus, Antepartum [O24.919] 03/21/2009 06/14/2009 Elderly Multigravida with Antepartum Condition *04/25/2009 06/14/2009 Impaired glucose tolerance [R73.02] 08/13/2009 04/30/2015 Allergic rhinitis [J30.9] 04/24/2014 ELIAN (obstructive sleep apnea) [id number] 21AASM [G*11/15/2014 Excessive daytime sleepiness [G47.19] 02/28/2015 Anxiety state [F41.1] 04/03/2015 IFG (impaired fasting glucose) [R73.01] 04/20/2021 Essential hypertension [I10] 04/20/2021 Hypokalemia [E87.6] 04/20/2021 Near syncope [R55] 04/20/2021 Encounter Status:Closed by SHAHZAD HUGHES on 12/28/24 Normal [facility] XR SHLDR >/=3V AP/DAYDAY AP/OTH R LTon 12-28-2024 XR SHLDR >/=3V AP/DAYDAY AP/OTHR LT * * *Final Report* * * DATE OF EXAM: Dec 28 2024 7:38PM WOX 5252 - XR SHLDR >/=3V AP/DAYDAY AP/OTHR LT / PROCEDURE REASON: Injury of left shoulder, initial encounter * * * * Physician Interpretation * * * * LEFT SHOULDER X-RAY SERIES HISTORY: Injury of left shoulder, initial encounter pain TECHNIQUE: AP, Grashey, lateral scapular Y-view COMPARISON: None available. RESULT: No fracture, dislocation or destructive changes. Joint spaces and articular surfaces are preserved. IMPRESSION: Negative left shoulder. Director Of Consulting Services: [facility] Transcribe Date/Time: Dec 28 2024 8:45P Dictated by : ML LAVARES MD This examination was interpreted and the report reviewed and electronically signed by: ML ALVARES MD on Dec 28 2024 8:46PM EST [id number] Normal [facility] XR Shoulder - left 3 Viewson 12-28-2024 IMPRESSION: Negative left shoulder. Director Of Consulting Services: [facility] Transcribe Date/Time: Dec 28 2024 8:45P Dictated by : ML ALVARES MD This examination was interpreted and the report reviewed and electronically signed by: ML ALVARES MD on Dec 28 2024 8:46PM EST DIVISION OF RADIOLOGY * * *Final Report* * * DATE OF EXAM: Dec 28 2024 7:38PM WOX 5252 - XR SHLDR >/=3V AP/DAYDAY AP/OTHR LT / PROCEDURE REASON: Injury of left shoulder, initial encounter * * * * Physician Interpretation * * * * LEFT SHOULDER X-RAY SERIES HISTORY: Injury of left shoulder, initial encounter pain TECHNIQUE: AP, Grashey, lateral scapular Y-view COMPARISON: None available. RESULT: No fracture, dislocation or destructive changes. Joint spaces and articular surfaces are preserved. DIVISION OF RADIOLOGY Provider, [facility] - 12/28/2024 * * *Final Report* * * DATE OF EXAM: Dec 28 2024 7:38PM WOX 5252 - XR SHLDR >/=3V AP/DAYDAY AP/OTHR LT / PROCEDURE REASON: Injury of left shoulder, initial encounter * * * * Physician Interpretation * * * * LEFT SHOULDER X-RAY SERIES HISTORY: Injury of left shoulder, initial encounter pain TECHNIQUE: AP, Grashey, lateral scapular Y-view COMPARISON: None available. RESULT: No fracture, dislocation or destructive changes. Joint spaces and articular surfaces are preserved. IMPRESSION IMPRESSION: Negative left shoulder. Director Of Consulting Services: [facility] Transcribe Date/Time: Dec 28 2024 8:45P Dictated by : ML ALVARES MD This examination was interpreted and the report reviewed and electronically signed by: ML ALVARES MD on Dec 28 2024 8:46PM EST [facility] Radiology Study observation (narrative) [facility] XR Shoulder - left 3 ViewsOr dered By: [facility] Provider on 12-28-2024 [facility] CNOVon 09-20-2024 CNOV Office Visit (INTMWS ) MATA SANTANA ([id number]) 1975 F Date Time Provider Department 09/20/24 10:20 AM PHILLY GREGORY INTMWS During your visit today, we recorded the following information about you: Temperature Pulse Respiration Blood pressure 97.8 degrees 77/minute 18/minute 120/76 Weight Last Period 54.4 kg 09/18/24 Philly Gregory MD 09/20/2024 11:44 AM Signed This note was created using Akuminar[employer]. Subjective Mata Santana is a 49 year old female. Patient presents with: F/U 6 months SUBJECTIVE: Mata Santana is a 49 year old year old lady here today for 6 month follow up appointment for review of medical conditions. Mata Santana is a 49-year-old female with a history of HTN and elevated HbA1c, presenting for a 6-month follow-up. Mata reports improved blood pressure readings since starting amlodipine 5 mg daily, in addition to her existing metoprolol ER 25 mg daily. Previous readings were in the 140-150 mmHg systolic range, accompanied by symptoms of facial flushing and pulsatile tinnitus. Current readings are consistently in the 120s/70s-80s mmHg range, and she has not needed to take additional metoprolol doses. She monitors her blood pressure at home and notes anxiety can elevate readings. She is interested in obtaining a fitness tracker to monitor her heart rate. Mata also reports a recent HbA1c of 6.6%, down from 6.7%. She has been making dietary changes, including reducing portion sizes, sugar, and sodium intake, and has stopped consuming soda. She notes weight loss and increased physical activity. She has a family history of diabetes mellitus, including her mother, brother, sister, and both grandmothers. She is currently using a control patch and requests a 90-day supply. She applies the patch weekly and skips one week per month to allow for menstruation, as continuous use resulted in breakthrough bleeding. Mata has not yet completed her colon 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. She was scheduled for a Cologuard test in June but did not receive the kit. She denies a family history of colon cancer. PAST MEDICAL HISTORY Diagnosis Date Allergic rhinitis seasonal--spring and fall Calculus of kidney 2004 small - incidental on CT scan, has never passed one that she's aware of Depression DM, gestational, diet controlled 2008 Esophageal reflux acid in back of throat, no pain - mostly with spicy foods, Prevacid helps Essential hypertension 04/20/2021 Generalized headaches Obstructive sleep apnea Dr. Verde Personal history of urinary (tract) infection recurrent Threatened premature labor, unspecified as to episode of care Premature labor Thyrotoxicosis without mention of goiter or other cause, without mention of thyrotoxic crisis or storm 2005 Hyperthyroidism - placed on atenolol 25mg x 6 mo, states now off meds and thyroid ok Current Outpatient Medications Medication Sig amLODIPine (NORVASC) 5 mg tablet Take 1 tablet by mouth once daily. calc carb,cit/mag,zinc/D3/ h122 ([id number]-HC #122-VIT D3 ORAL) Take by mouth. GARLIC red beet root-sour torres ext 250-0.5 mg chew Take by mouth. Ethinyl Estradiol-Norelgestro m (XULANE) 150-35 mcg/24 hr patch Apply 1 Patch as directed one time a week. Use continuously, no inactive week. metoprolol succinate ER (TOPROL XL) 25 mg 24 hr tablet Take 1 tablet by mouth once daily. Take one additional half pill for blood pressure for blood pressure greater than 150/80 CPAP AutoPAP 5-20 cmH2O, suitable mask,straps and chin straps as needed humidity, filters. Lifetime supplies. Dx: 327.23. (Patient taking differently: Inhale 1 Application as instructed once daily as needed. AutoPAP 5-20 cmH2O, suitable mask,straps and chin straps as needed humidity, filters. Lifetime supplies. Dx: 327.23.) No current facility-administered medications for this visit. Review of Systems Objective BP 122/82 Pulse 77 Temp 36.6 ?C (97.8 ?F) Resp 18 Wt 54.4 kg (119 lb 14.9 oz) LMP 09/18/2024 (Approximate) SpO2 99% BMI 22.29 kg/m? Last 5 Encounter Wt Readings: Date: Wt: 09/20/2024 54.4 kg (119 lb 14.9 oz) 09/06/2024 55.2 kg (121 lb 11.1 oz) 08/15/2024 54.2 kg (119 lb 7.8 oz) 07/05/2024 55.4 kg (122 lb 2.2 oz) 03/11/2024 58.1 kg (128 lb) No waist measurement recorded Estimated body mass index is 22.29 kg/m? as calculated from the following: Height as of 03/11/24: 156.2 cm (5' 1.5). Weight as of this encounter: 54.4 kg (119 lb 14.9 oz). Last 5 Encounter BP Readings: Date: BP: 09/20/2024 122/82 09/06/2024 123/79 08/15/2024 158/96[bp average[ 07/05/2024 134/86 03/11/2024 144/80 Physical Exam Constitutional: Appearance: Normal appearance. HENT: Head: Normocephalic. Eyes: Conjunctiva/sclera: Conjunctivae normal. Cardiovascular: Rate and Rhythm: Normal rate and regular rhythm. Heart s (more content not included)... Normal [facility] HEMOGLOBIN A1C (POC)on 09-20 HbA1c (Bld) [Mass fraction] 6.5 % Abnormal 4.3 - 5.6 % [facility] Comment on above: Location:[address], [place], [address] Point of care (POC) Hemoglobin A1c (HGBA1C) testing is intended to assess glucose control and provide a management tool for patients known to have diabetes and their healthcare providers. Target HGBA1C levels may depend on specific clinical circumstances. POC HGBA1C is not intended for use as a diagnostic or screening test; laboratory-based testing should be used for diagnostic purposes. The following information is supplemental and may not be applicable to specific diabetes management situations: The POC device gear coding machine operator provides a normal range of 4.2% to 6.5% for the HGBA1C POC test. However, the [place] Diabetes Association guidelines indicate that patients with HGBA1C in the range of 5.7% to 6.4% are at increased risk for development of diabetes and that intervention by lifestyle modification may be beneficial. A HGBA1C level greater than or equal to 6.5% is considered diagnostic of diabetes, pending confirmatory testing. Use of HGBA1C testing to evaluate glucose control may not be appropriate for patients with hemoglobin variants or other conditions (e.g. anemia) that alter red blood cell lifespan. Interpretation and review of laboratory results Abnormal [facility] CNOVon 09-06-2024 CNOV Office Visit (INTMWS ) MATA SANTANA ([id number]) 1975 F Date Time Provider Department 09/06/24 9:20 AM KENDALL PETE INTMWS During your visit today, we recorded the following information about you: Pulse Respiration Blood pressure Weight 69/minute 16/minute 123/79 55.2 kg Kendall Pete APRN.VERIFICATION MANAGER 09/06/2024 10:04 AM Signed SUBJECTIVE: BP Controlled (<130/80) due on 06/07/2022 Colorectal Cancer Screening due on 09/27/2024 Mammogram Screening due on 12/21/2024 MIGUEL Mata Santana is a 49 year old female. Her past medical history is significant for ACTIVE PROBLEM LIST Allergic Rhinitis ELIAN (obstructive sleep apnea) [id number] 21AASM Excessive Daytime Sleepiness Anxiety State Ifg (Impaired Fasting Glucose) Essential Hypertension Hypokalemia Near Syncope ELIAN: reports more consistent use since last here, using it a few times a week, sometimes just wears it for half an night if she wakes up to go to the bathroom.. She reports she resumed metoprolol succinate about one month ago and has been taking daily. Has noted flushing several times per week, not sure of cause, wonders if it is her thyroid. Notes father had presumed ND ate age 47 and . HTN: She notes no chest pain since last here. No headache except for one day when she didn't eat regularly while at work. Without report palpitations, dyspnea, peripheral edema, orthopnea, fatigue, and PND. Last 14 Encounter BP Readings: Date: BP: 09/06/2024 123/79 08/15/2024 158/96[bp average[ 07/05/2024 134/86 03/11/2024 144/80 03/08/2024 155/93[bp average[ 02/25/2024 154/92 02/10/2024 148/100 12/12/2023 126/72 09/17/2023 136/85[bp dayday average[ 09/06/2023 138/92 09/02/2023 118/62 05/26/2023 135/87[bp average[ 04/29/2023 147/100 01/20/2023 162/92 TSH Date Value 03/22/2024 1.600 mIU/L 03/12/2022 1.620 mIU/L 01/08/2021 1.340 uU/mL 06/12/2020 0.868 uU/mL ) Review of Systems Constitutional: Negative. Respiratory: Negative. Endocrine: Negative. Objective BP 123/79 Pulse 69 Resp 16 Wt 55.2 kg (121 lb 11.1 oz) LMP 03/01/2024 (Approximate) BMI 22.62 kg/m? Physical Exam Vitals and nursing note reviewed. Constitutional: Appearance: Normal appearance. HENT: Head: Normocephalic and atraumatic. Eyes: Conjunctiva/sclera: Conjunctivae normal. Neck: Thyroid: No thyromegaly or thyroid tenderness. Vascular: Normal carotid pulses. No carotid bruit or JVD. Cardiovascular: Rate and Rhythm: Normal rate and regular rhythm. Pulses: Carotid pulses are 2+ on the right side and 2+ on the left side. Radial pulses are 2+ on the right side and 2+ on the left side. Heart sounds: Normal heart sounds. Pulmonary: Effort: Pulmonary effort is normal. Breath sounds: Normal breath sounds. Abdominal: General: Bowel sounds are normal. Palpations: Abdomen is soft. Musculoskeletal: Right lower leg: No edema. Left lower leg: No edema. Skin: General: Skin is warm and dry. Neurological: General: No focal deficit present. Mental Status: She is alert and oriented to person, place, and time. ALLERGIES Allergen Reactions Seasonal Allergies Cough Cough, sneezing AND watery eyes Medications amLODIPine (NORVASC) 5 mg tablet Take 1 tablet by mouth once daily. calc carb,cit/mag,zinc/D3/ h122 ([id number]-HC #122-VIT D3 ORAL) Take by mouth. GARLIC red beet root-sour torres ext 250-0.5 mg chew Take by mouth. metoprolol succinate ER (TOPROL XL) 25 mg 24 hr tablet Take 1 tablet by mouth once daily. Take one additional half pill for blood pressure for blood pressure greater than 150/80 CPAP AutoPAP 5-20 cmH2O, suitable mask,straps and chin straps as needed humidity, filters. Lifetime supplies. Dx: 327.23. Ethinyl Estradiol-Norelgestro m (XULANE) 150-35 mcg/24 hr patch Apply 1 Patch as directed one time a week. Use continuously, no inactive week. fluticasone (FLONASE) 50 mcg/actuation nasal spray Use 2 Sprays in each nostril once daily. Rinse mouth after use. (Patient not taking: Reported on 09/06/2024) [DISCONTINUED] ergocalciferol, vitamin D2, (VITAMIN D2 ORAL) Take by mouth. PAST MEDICAL HISTORY Diagnosis Date Allergic rhinitis seasonal--spring and fall Calculus of kidney 2004 small - incidental on CT scan, has never passed one that she's aware of Depression DM, gestational, diet controlled 2008 Esophageal reflux acid in back of throat, no pain - mostly with spicy foods, Prevacid helps Essential hypertension 04/20/2021 Generalized headaches Obstructive sleep apnea Dr. Verde Personal history of urinary (tract) infection recurrent Threatened premature labor, unspecified as to episode of care Premature labor Thyrotoxicosis without mention of goiter or other cause, without mention of thyrotoxic crisis or storm 2006 Hyperthyroidism - placed on atenolol 25mg x 6 mo, states (more content not included)... Normal [facility] TSH SerPl-aCncon 09-06-2024 TSH Qn 0.957 m[IU]/L Normal 0.270-4.200 [facility] Comment on above: Order Comment: Speci men Type: BLOOD SPECIMENOrdering Facility: [facility] Address: [address] [place] [address] Performed By: #### 3 [id number] ####[facility] LABCLIA [id number] [facility] [id number] [id number] [facility] CNOVon 08-15-2024 CNOV Office Visit (INTMWS ) MATA SANTANA ([id number]) 1975 F Date Time Provider Department 08/15/24 9:20 AM KENDALL PETE INTMWS During your visit today, we recorded the following information about you: Pulse Respiration Blood pressure Weight 61/minute 16/minute 158/96 54.2 kg Kendall Pete APRN.VERIFICATION MANAGER 08/15/2024 10:30 AM Signed SUBJECTIVE: BP Controlled (<130/80) due on 06/07/2022 Colorectal Cancer Screening due on 09/27/2024 Mammogram Screening due on 12/21/2024 MIGUEL Mata Santana is a 49 year old female. Her past medical history is significant for ACTIVE PROBLEM LIST Allergic Rhinitis ELIAN (obstructive sleep apnea) [id number] 21AASM Excessive Daytime Sleepiness Anxiety State Ifg (Impaired Fasting Glucose) Essential Hypertension Hypokalemia Near Syncope ELIAN: reports consistent use since last here. She reports she resumed metoprolol succinate about one month ago and has been taking daily. She notes some frustration with blood pressure remaining elevated despite doing all the things that she should. Notes father had presumed ND ate age 47 and . HTN: Reports left sided chest pain dull ache that she notes when blood pressure is high, at rest and with activity. Can last most of the day. Better with rest. She has noted headache with elevated blood pressures and swelling. Has taken excedrin migraine and ibuprofen and sinus pill for headache that did not seem to help much. Notes the headache seems to come along with elevated blood pressure.. Without report palpitations, dyspnea, peripheral edema, orthopnea, fatigue, and PND. Last 14 Encounter BP Readings: Date: BP: 07/05/2024 134/86 03/11/2024 144/80 03/08/2024 155/93[bp average[ 02/25/2024 154/92 02/10/2024 148/100 12/12/2023 126/72 09/17/2023 136/85[bp dayday average[ 09/06/2023 138/92 09/02/2023 118/62 05/26/2023 135/87[bp average[ 04/29/2023 147/100 01/20/2023 162/92 12/25/2022 136/87 12/14/2022 170/100 Review of Systems Constitutional: Negative. Respiratory: Negative. Cardiovascular: Positive for chest pain. Endocrine: Negative. Neurological: Positive for headaches. Objective BP 158/96 Pulse 61 Resp 16 Wt 54.2 kg (119 lb 7.8 oz) LMP 03/01/2024 (Approximate) BMI 22.21 kg/m? Physical Exam Vitals and nursing note reviewed. Constitutional: Appearance: Normal appearance. HENT: Head: Normocephalic and atraumatic. Eyes: Conjunctiva/sclera: Conjunctivae normal. Neck: Thyroid: No thyromegaly or thyroid tenderness. Vascular: Normal carotid pulses. No carotid bruit or JVD. Cardiovascular: Rate and Rhythm: Normal rate and regular rhythm. Pulses: Carotid pulses are 2+ on the right side and 2+ on the left side. Radial pulses are 2+ on the right side and 2+ on the left side. Heart sounds: Normal heart sounds. Pulmonary: Effort: Pulmonary effort is normal. Breath sounds: Normal breath sounds. Abdominal: General: Bowel sounds are normal. Palpations: Abdomen is soft. Musculoskeletal: Right lower leg: No edema. Left lower leg: No edema. Comments: Anterior chest wall TTP Skin: General: Skin is warm and dry. Neurological: General: No focal deficit present. Mental Status: She is alert and oriented to person, place, and time. ALLERGIES Allergen Reactions Seasonal Allergies Cough Cough, sneezing AND watery eyes Medications calc carb,cit/mag,zinc/D3/ h122 ([id number]-[id number]-HC #122-VIT D3 ORAL) Take by mouth. GARLIC red beet root-sour torres ext 250-0.5 mg chew Take by mouth. Ethinyl Estradiol-Norelgestro m (XULANE) 150-35 mcg/24 hr patch Apply 1 Patch as directed one time a week. Use continuously, no inactive week. metoprolol succinate ER (TOPROL XL) 25 mg 24 hr tablet Take 1 tablet by mouth once daily. Take one additional half pill for blood pressure for blood pressure greater than 150/80 CPAP AutoPAP 5-20 cmH2O, suitable mask,straps and chin straps as needed humidity, filters. Lifetime supplies. Dx: 327.23. fluticasone (FLONASE) 50 mcg/actuation nasal spray Use 2 Sprays in each nostril once daily. Rinse mouth after use. amLODIPine (NORVASC) 5 mg tablet Take 1 tablet by mouth once daily. [DISCONTINUED] ergocalciferol, vitamin D2, (VITAMIN D2 ORAL) Take by mouth. PAST MEDICAL HISTORY Diagnosis Date Allergic rhinitis seasonal--spring and fall Calculus of kidney 2004 small - incidental on CT scan, has never passed one that she's aware of Depression DM, gestational, diet controlled 2008 Esophageal reflux acid in back of throat, no pain - mostly with spicy foods, Prevacid helps Essential hypertension 04/20/2021 Generalized headaches Obstructive sleep apnea Dr. Verde Personal history of urinary (tract) infection recurrent Threatened premature labor, unspecified as to episode of care Premature labor Thyrotoxicosis without mention of goiter or oth (more content not included)... Normal [facility] CNOVon 07-05-2024 CNOV Office Visit (INTMWS ) MATA SANTANA ([id number]) 1975 F Date Time Provider Department 07/05/24 9:40 AM KENDALL PETE INTMHO During your visit today, we recorded the following information about you: Pulse Blood pressure Weight 73/minute 134/86 55.4 kg Kendall Pete APRN.VERIFICATION MANAGER 07/05/2024 11:23 AM Signed SUBJECTIVE: Depression Screening Never done BP Controlled (<130/80) due on 06/07/2022 Colorectal Cancer Screening due on 09/27/2024 Mammogram Screening due on 12/21/2024 HPI Mata Santana is a 49 year old female. Her past medical history is significant for ACTIVE PROBLEM LIST Allergic Rhinitis ELIAN (obstructive sleep apnea) [id number] 21AASM Excessive Daytime Sleepiness Anxiety State Ifg (Impaired Fasting Glucose) Essential Hypertension Hypokalemia Near Syncope ELIAN: reports inconsistent use She reports she stopped taking metoprolol succinate about 3 weeks ago. Wanted to try a supplement and see how her blood pressure did with that. States the supplement was called Glycorenew. HTN: Without report of headache, chest pain, palpitations, dyspnea, peripheral edema, orthopnea, fatigue, and PND. Last 14 Encounter BP Readings: Date: BP: 07/05/2024 134/86 03/11/2024 144/80 03/08/2024 155/93[bp average[ 02/25/2024 154/92 02/10/2024 148/100 12/12/2023 126/72 09/17/2023 136/85[bp dayday average[ 09/06/2023 138/92 09/02/2023 118/62 05/26/2023 135/87[bp average[ 04/29/2023 147/100 01/20/2023 162/92 12/25/2022 136/87 12/14/2022 170/100 IFG: Patient's last HgA1C was Hemoglobin A1C (%) Date Value 03/22/2024 7.0 04/29/2023 6.5 05/28/2021 6.4 01/08/2021 6.5 Hemoglobin A1C (POCT) (%) Date Value 08/27/2021 6.1 ) Review of Systems Constitutional: Negative. Respiratory: Negative. Cardiovascular: Negative. Endocrine: Negative. Objective BP 134/86 Pulse 73 Wt 55.4 kg (122 lb 2.2 oz) LMP 03/01/2024 (Approximate) BMI 22.70 kg/m? Physical Exam Vitals and nursing note reviewed. Constitutional: Appearance: Normal appearance. HENT: Head: Normocephalic and atraumatic. Eyes: Conjunctiva/sclera: Conjunctivae normal. Neck: Thyroid: No thyromegaly or thyroid tenderness. Vascular: No JVD. Cardiovascular: Rate and Rhythm: Normal rate and regular rhythm. Pulses: Carotid pulses are 2+ on the right side and 2+ on the left side. Radial pulses are 2+ on the right side and 2+ on the left side. Heart sounds: Normal heart sounds. Pulmonary: Effort: Pulmonary effort is normal. Breath sounds: Normal breath sounds. Abdominal: General: Bowel sounds are normal. Palpations: Abdomen is soft. Musculoskeletal: Right lower leg: No edema. Left lower leg: No edema. Comments: Anterior chest wall TTP Skin: General: Skin is warm and dry. Neurological: General: No focal deficit present. Mental Status: She is alert and oriented to person, place, and time. ALLERGIES Allergen Reactions Seasonal Allergies Cough Cough, sneezing AND watery eyes Medications calc carb,cit/mag,zinc/D3/ h122 ([id number] #122-VIT D3 ORAL) Take by mouth. GARLIC red beet root-sour torres ext 250-0.5 mg chew Take by mouth. Ethinyl Estradiol-Norelgestro m (XULANE) 150-35 mcg/24 hr patch Apply 1 Patch as directed one time a week. Use continuously, no inactive week. metoprolol succinate ER (TOPROL XL) 25 mg 24 hr tablet Take 1 tablet by mouth once daily. Take one additional half pill for blood pressure for blood pressure greater than 150/80 CPAP AutoPAP 5-20 cmH2O, suitable mask,straps and chin straps as needed humidity, filters. Lifetime supplies. Dx: 327.23. fluticasone (FLONASE) 50 mcg/actuation nasal spray Use 2 Sprays in each nostril once daily. Rinse mouth after use. [DISCONTINUED] ergocalciferol, vitamin D2, (VITAMIN D2 ORAL) Take by mouth. PAST MEDICAL HISTORY Diagnosis Date Allergic rhinitis seasonal--spring and fall Calculus of kidney 2004 small - incidental on CT scan, has never passed one that she's aware of Depression DM, gestational, diet controlled 2008 Esophageal reflux acid in back of throat, no pain - mostly with spicy foods, Prevacid helps Essential hypertension 04/20/2021 Generalized headaches Obstructive sleep apnea Dr. Verde Personal history of urinary (tract) infection recurrent Threatened premature labor, unspecified as to episode of care Premature labor Thyrotoxicosis without mention of goiter or other cause, without mention of thyrotoxic crisis or storm 2005 Hyperthyroidism - placed on atenolol 25mg x 6 mo, states now off meds and thyroid ok Social History Tobacco Use Smoking status: Never Passive exposure: Never Smokeless tobacco: Never Vaping Use Vaping status: Never Used Substance Use Topics Alcohol use: No Drug use: No Latest Ref Rng 03/12/2022 04/29/2023 03/22/2024 WBC 3.70 - 11.00 k/uL 9.09 9.0 (more content not included)... Normal [facility] HbA1c (Bld)on 07-05-2024 Average glucose Estimated from glycated hemoglobin (Bld) [Mass/Vol] 143 mg/dL [facility] Comment on above: eAG: (Estimated aver age glucose) is a calculated value from HgbA1c and is traveling sales representative of the average blood glucose level in the last 2-3 month period. HbA1c (Bld) [Mass fraction] 6.6 % High 4.3 - 5.6 % [facility] Comment on above: [place] Diabetes As sociation guidelines indicate that patients with HgbA1c in the range 5.7-6.4% are at increased risk for development of diabetes, and intervention by lifestyle modification may be beneficial. HgbA1c greater or equal to 6.5% is considered diagnostic of diabetes. Interpretation and review of laboratory results Abnormal [facility] Average glucose Estimated from glycated hemoglobin (Bld) [Mass/Vol] 143 mg/dL Normal [facility] Comment on above: Order Comment: Speci men Type: BLOOD SPECIMENOrdering Facility: [facility] Address: [address] [place] [address] Result Comment: eAG: (Estimated average glucose) is a calculated value from HgbA1c and is traveling sales representative of the average blood glucose level in the last 2-3 month period. Performed By: #### 5 5454-3 ####[facility] LABCLIA [id number] [place] [address] [place] HbA1c (Bld) [Mass fraction] 6.6 % High 4.3-5.6 [facility] Comment on above: Order Comment: Speci men Type: BLOOD SPECIMENOrdering Facility: [facility] Address: [address] [place] [address] Result Comment: [place] Diabetes Association guidelines indicate that patients with HgbA1c in the range 5.7-6.4% are at increased risk for development of diabetes, and intervention by lifestyle modification may be beneficial. HgbA1c greater or equal to 6.5% is considered diagnostic of diabetes. Performed By: #### 5 5454-3 ####[facility] LABIA [id number] [address] [place] CNCOon 04-28-2024 CNCO Letter Text Normal [facility] CNPNon 04-23-2024 CNPN Telephone (INTMWS) MATA SANTANA ([id number]) 1975 F Date Time Provider Department 04/23/24 KENDALL PETE INTMWS During your visit today, we recorded the following information about you: Kendall Pete APRN.VERIFICATION MANAGER 04/23/2024 6:25 PM Signed Hga1C is increased consistent with DM2. Not currently taking medication. Would recommend DM diet, can mail info. Would recommend metformin. Diabetes education also. 3 mo follow up with A1c. Latest Ref Rng 03/22/2024 WBC 3.70 - 11.00 k/uL 8.61 RBC 3.90 - 5.20 m/uL 4.27 Hemoglobin 11.5 - 15.5 g/dL 13.4 Hematocrit 36.0 - 46.0 % 41.1 MCV 80.0 - 100.0 fL 96.3 MCH 26.0 - 34.0 pg 31.4 MCHC 30.5 - 36.0 g/dL 32.6 RDW-CV 11.5 - 15.0 % 13.2 Platelet Count 150 - 400 k/uL 287 MPV 9.0 - 12.7 fL 10.1 Neut% % 55.0 Abs Neut (ANC) 1.45 - 7.50 k/uL 4.74 Lymph% % 34.3 Abs Lymph 1.00 - 4.00 k/uL 2.95 [place]% % 6.9 Abs [place] <0.87 k/uL 0.59 Eosin% % 2.9 Abs Eosin <0.46 k/uL 0.25 Baso% % 0.6 Abs Baso <0.11 k/uL 0.05 Immature Gran % % 0.3 IMMATURE GRANS (ABS) <0.10 k/uL 0.03 NRBC /100 WBC 0.0 Absolute nRBC <0.01 k/uL <0.01 DTYPE Auto Protein, Total 6.3 - 8.0 g/dL 6.2 (L) Albumin 3.9 - 4.9 g/dL 3.9 Calcium 8.5 - 10.2 mg/dL 9.0 Bilirubin, Total 0.2 - 1.3 mg/dL 0.3 Alkaline Phosphatase 34 - 123 U/L 70 AST 13 - 35 U/L 16 ALT 7 - 38 U/L 12 Glucose 74 - 99 mg/dL 132 (H) BUN 7 - 21 mg/dL 10 Creatinine 0.58 - 0.96 mg/dL 0.54 (L) Sodium 136 - 144 mmol/L 138 Potassium 3.7 - 5.1 mmol/L 4.0 Chloride 98 - 107 mmol/L 102 CO2 22 - 30 mmol/L 24 Anion Gap 8 - 15 mmol/L 12 eGFR >=60 mL/min/1.73m? 112 Cholesterol, Total <200 mg/dL 154 Triglyceride <150 mg/dL 151 (H) HDL Cholesterol >39 mg/dL 72 Non HDL Cholesterol <130 mg/dL 82 Fasting Time hrs 12 VLDL Cholesterol <30 mg/dL 30 (H) TC:HDL Ratio <5.10 2.14 LDL Cholesterol <100 mg/dL 52 LDL:HDL Ratio <2.54 0.72 Hemoglobin A1C 4.3 - 5.6 % 7.0 (H) Estimated Average Glucose mg/dL 154 TSH 0.270 - 4.200 mIU/L 1.600 Legend: (L) Low (H) High Mary Doyle RN 04/25/2024 11:00 AM Signed Called and left a voicemail for the Patient to call back and ask for a nurse to receive the providers message. VI Hughes Terri, APRN.VERIFICATION MANAGER 04/28/2024 11:15 AM Signed Recommend try phone encounter again. If unable to reach then mail information to her home and a letter. Jessenia Keller LPN 04/28/2024 2:34 PM Signed Attempted to contact patient but no answer. Letter mailed. Siena Lopez LPN 05/03/2024 2:55 PM Signed Mata did receive a letter in the mail stating office was trying to reach out to her. She did not receive a copy of DM diet, asking for DM diet to be mailed to her. Patient does not want to start on Metformin, wanting to start with diet changes. Asking for A1C to be redrawn in 3 months, order pending. Scheduled appt to come in to see Kendall Pete NP, 07/05/2024. Siena Garcia LPN, LPN 05/03/2024 2:55 PM Signed Addended by: SIENA LOPEZ on: 05/03/2024 02:55 PM Modules accepted: Kendall Zaragoza APRN.VERIFICATION MANAGER 05/03/2024 3:54 PM Signed OK order in, please mail the DM booklets which include diet thanks. Kendall Pete APRN.SOCAR 05/03/2024 3:54 PM Signed Addended by: KENDALL PETE on: 05/03/2024 03:54 PM Modules accepted: Jessenia Rodriguez LPN 05/05/2024 10:15 AM Signed DM booklet has been mailed Allergies As of Date: 04/23/2024 Noted Allergy Reaction SEASONAL ALLERGIES 01/22/2018 3 - Cough Comments: Cough, sneezing AND watery eyes Date Reviewed: 03/11/2024 Reviewed by: Wen Tristan LPN - Fully Assessed Reason for Visit: Results [95] Primary Visit Diagnosis:IFG (impaired fasting glucose) [R73.01] Order(s):HEMOGLOBIN A1C [CQRIN3I] Order #: [id number] FUTURE Prescriptions as of 05/05/2024 - Ethinyl Estradiol-Norelgestro m (XULANE) 150-35 mcg/24 hr patch Apply 1 Patch as directed one time a week. Use continuously, no inactive week. - metoprolol succinate ER (TOPROL XL) 25 mg 24 hr tablet Take 1 tablet by mouth once daily. Take one additional half pill for blood pressure for blood pressure greater than 150/80 - CPAP AutoPAP 5-20 cmH2O, suitable mask,straps and chin straps as needed humidity, filters. Lifetime supplies. Dx: 327.23. - fluticasone (FLONASE) 50 mcg/actuation nasal spray Use 2 Sprays in each nostril once daily. Rinse mouth after use. - ergocalciferol, vitamin D2, (VITAMIN D2 ORAL) (Discontinued) Take by mouth. Problem List As Of Date 04/23/2024 Noted Resolved Thyrotoxicosis [E05.90] 04/30/2015 Esophageal reflux [K21.9] 04/30/2015 Calculus of kidney [N20.0] 04/30/2015 Personal history of urinary (tract) infection [* 04/03/2015 Unspecified pruritic disorder [L29.9] 05/22/2008 04/03/2015 Supervision of Other High-Risk [O09.8*01/24/2009 06/14/2009 Diabetes Mellitus, Antepartum [O24.919] (more content not included)... Normal [facility] Abdomen/Pelvis W IV Cont ONL Yon 03-27-2024 Abdomen/Pelvis W IV Cont ONLY [facility] Imaging Services [address] [place] [address] Abdomen/Pelvis W IV Cont ONLY MR#: [id number] Acct: [id number] Name: MATA SANTANA Rep #: [id number] : 1975 F 48 From: Stephane Monae MD PCP: Dr. Philly Gregory MD Status: REG ER Study: Abdomen/Pelvis W IV Cont ONLY Date of Exam: Exam# [id number] Ordering Dr: Karley Stewart [id number] STUDY: CT ABDOMEN AND PELVIS WITH CONTRAST REASON FOR EXAM: Female, 48 years old. Abdominal pain RADIATION DOSAGE (If Supplied By Facility): CTDIvol = ( ) mGy, DLP = ( ) mGycm TECHNIQUE: Transaxial images were obtained from the dome of the diaphragm to the symphysis pubis without oral contrast. IV 75mL Isovue-370 was administered. Sagittal and coronal images were reconstructed. Individualized dose optimization techniques were used for this CT. COMPARISON: None. FINDINGS: The visualized lung bases are unremarkable. The visualized portions of the heart are within normal limits. Normal liver. Normal gallbladder and extrahepatic biliary system. Normal spleen. Normal pancreas. Normal bilateral adrenal glands. Normal right kidney. Normal left kidney. Normal visualized stomach. There is wall thickening involving small intestine loops in the right lower quadrant. Normal colon. The appendix is visualized and appears normal. Normal abdominal aorta. Normal inferior vena cava. Normal retroperitoneum. Normal urinary bladder. Normal visualized uterus. There is no free fluid in the abdomen or pelvis. Normal abdominal wall. There is degenerative change of the lower spine. CT/Abdomen/Pelvis W IV Cont ONLY IMPRESSION: Wall thickening of small intestinal loops with infectious or inflammatory enteritis. No obstruction. Electronically Signed: Stephane Monae MD at 13:02 EDT , CC: Dr. Philly Gregory MD; GRAYSON Mcgarry Director Of Consulting Services: Signed Normal [facility] CBC W/Diff, Automatedon 06-0 9-2023 Absolute Lymph 1.77 X10 3/uL Normal 0.83-4.51 [facility] Comment on above: Performed By: #### L 501.2450, L500.4050, L100.0100 #### [facility] [address] [place], [address] Absolute Neut 8.4 X10 3/uL High 2.0-7.7 [facility] Comment on above: Performed By: #### L 501.2450, L500.4050, L100.0100 #### [facility] [address] [place], [address] Basophils/100 WBC (Bld) 0.3 % Normal 0-1 [facility] Comment on above: Performed By: #### L 501.2450, L500.4050, L100.0100 #### [facility] [address] [place], [address] Eosinophils/100 WBC (Bld) 0.9 % Normal 0-5 [facility] Comment on above: Performed By: #### L 501.2450, L500.4050, L100.0100 #### [facility] [address] [place], [address] Erythrocyte distribution width (RBC) [Ratio] 13.2 % Normal 11.6-14.6 [facility] Comment on above: Performed By: #### L 501.2450, L500.4050, L100.0100 #### [facility] [address] [place], [address] Hematocrit (Bld) [Volume fraction] 39.0 % Normal 37-47 [facility] Comment on above: Performed By: #### L 501.2450, [id number], L100.0100 #### [facility] [address] [place], [address] Hemoglobin (Bld) [Mass/Vol] 13.2 g/dL Normal 12.0-15.0 [facility] Comment on above: Performed By: #### L 501.2450, L500.4050, L100.0100 #### [facility] [address] [place], [address] IG% 0.400 Normal 0.0-0.9 [facility] Comment on above: Result Comment: IG% - Immature Granulocytes (promyelocytes, myelocytes and metamyelocytes) > 1% indicates that a LEFT SHIFT is Present. Performed By: #### L 501.2450, L500.4050, L100.0100 #### [facility] [address] [place], [address] Lymphocytes/100 WBC (Bld) 16.2 % Low 19-41 [facility] Comment on above: Performed By: #### L 501.2450, L500.4050, L100.0100 #### [facility] [address] [place], [address] MCH (RBC) [Entitic mass] 31.4 pg Normal 27.0-32.0 [facility] Comment on above: Performed By: #### L 501.2450, L500.4050, L100.0100 #### [facility] [address] [place], [address] MCHC (RBC) [Mass/Vol] 33.8 g/dL Normal 32-36 [facility] Comment on above: Performed By: #### L 501.2450, L500.4050, L100.0100 #### [facility] [address] [place], [address] MCV (RBC) [Entitic vol] 92.9 fL Normal 81-99 [facility] Comment on above: Performed By: #### L 501.2450, L500.4050, L100.0100 #### [facility] [address] [place], [address] Monocytes/100 WBC (Bld) 5.5 % Normal 0-10 [facility] Comment on above: Performed By: #### L 501.2450, L500.4050, L100.0100 #### [facility] [address] [place], [address] Neutrophils/100 WBC (Bld) 76.7 % High 47-70 [facility] Comment on above: Performed By: #### L 501.2450, L500.4050, L100.0100 #### [facility] [address] [place], [address] Nucleated RBC (Bld) [#/Vol] 0 10*3/uL Normal 0-5 [facility] Comment on above: Performed By: #### L 501.2450, L500.4050, L100.0100 #### [facility] [address] [place], [address] Platelet mean volume (Bld) [Entitic vol] 9.4 fL Normal 6.2-12.0 [facility] Comment on above: Performed By: #### L 501.2450, L500.4050, L100.0100 #### [facility] [address] [place], [address] Platelets (Bld) [#/Vol] 229 10*3/uL Normal 150-450 [facility] Comment on above: Performed By: #### L 501.2450, L500.4050, L100.0100 #### [facility] [address] [place], [address] RBC (Bld) [#/Vol] 4.20 10*6/uL Normal 4.2-5.4 [facility] Comment on above: Performed By: #### L 501.2450, L500.4050, L100.0100 #### [facility] [address] [place], [address] RDW SD 45.1 fl High 35.1-43.9 [facility] Comment on above: Performed By: #### L 501.2450, L500.4050, L100.0100 #### [facility] [address] [place], [address] WBC (Bld) [#/Vol] 10.9 10*3/uL Normal 4.4-11.0 [facility] Comment on above: Performed By: #### L 501.2450, L500.4050, L100.0100 #### [facility] [address] [place], [address] Comprehensive Metabolic Prof meon 03-27-2024 Albumin [Mass/Vol] 3.0 g/dL Low 3.2-5.0 [facility] Comment on above: Performed By: #### L 501.2450, L500.4050, L100.0100 #### [facility] [address] [place], [address] Albumin/Globulin [Mass ratio] 0.9 {ratio} Normal 0.9-2.4 [facility] Comment on above: Performed By: #### L 501.2450, L500.4050, L100.0100 #### [facility] [address] [place], [address] ALK P 70 U/L Normal 45-117 [facility] Comment on above: Performed By: #### L 501.2450, L500.4050, L100.0100 #### [facility] [address] [place], [address] ALT [Catalytic activity/Vol] 16 U/L Normal 13-56 [facility] Comment on above: Performed By: #### L 501.2450, L500.4050, L100.0100 #### [facility] [address] [place], [address] AST [Catalytic activity/Vol] 13 U/L Low 15-37 [facility] Comment on above: Performed By: #### L 501.2450, L500.4050, L100.0100 #### [facility] [address] [place], [address] Bilirubin [Mass/Vol] 0.40 mg/dL Normal 0.20-1.00 [facility] Comment on above: Result Comment: For patients on eltrombopag therapy, use of Dimension [place] TBIL is not recommended. Performed By: #### L 501.2450, L500.4050, L100.0100 #### [facility] [address] [place], [address] BUN/CRE 21.7 RATIO High 10-20 [facility] Comment on above: Performed By: #### L 501.2450, L500.4050, L100.0100 #### [facility] [address] [place], [address] CA,Total 9.4 mg/dL Normal 8.5-10.1 [facility] Comment on above: Performed By: #### L 501.2450, L500.4050, L100.0100 #### [facility] [address] [place], [address] Chloride [Moles/Vol] 105 mmol/L Normal 98-107 [facility] Comment on above: Performed By: #### L 501.2450, L500.4050, L100.0100 #### [facility] [address] [place], [address] CO2 [Moles/Vol] 24.0 mmol/L Normal 21.0-32.0 [facility] Comment on above: Performed By: #### L 501.2450, L500.4050, L100.0100 #### [facility] [address] [place], [address] Creatinine [Mass/Vol] 0.55 mg/dL Normal 0.55-1.02 [facility] Comment on above: Result Comment: The validity of the calculated GFR GFRAA in patients over 70 years has not been determined. Clinical correlation is essential. Performed By: #### L 501.2450, L500.4050, L100.0100 #### [facility] [address] [place], [address] ECRCL 101.23 ml/min Normal [facility] Comment on above: Performed By: #### L 501.2450, L500.4050, L100.0100 #### [facility] [address] [place], [address] EST GFR - AA 149 mL/min Normal >60 [facility] Comment on above: Result Comment: Afri can Pakistani GFR Calc Performed By: #### L 501.2450, L500.4050, L100.0100 #### [facility] [address] [place], [address] GAP 7 Normal 5-15 [facility] Comment on above: Performed By: #### L 501.2450, L500.4050, L100.0100 #### [facility] [address] [place], [address] GFR/1.73 sq M.predicted among non-blacks MDRD (S/P/Bld) [Vol rate/Area] 123 mL/min/{1.73_m2} Normal >60 [facility] Comment on above: Result Comment: Non- GFR Calc Performed By: #### L 501.2450, L500.4050, L100.0100 #### [facility] [address] [place], [address] Globulin (S) [Mass/Vol] 3.3 g/dL Normal 2.2-4.2 [facility] Comment on above: Performed By: #### L 501.2450, L500.4050, L100.0100 #### [facility] [address] [place], [address] Glucose [Mass/Vol] 130 mg/dL High 74-106 [facility] Comment on above: Result Comment: Fast ing Glucose result greater than or equal to 126 mg/dL suggests DIABETES MELLITUS per A.D.A. criteria. Performed By: #### L 501.2450, L500.4050, L100.0100 #### [facility] [address] [place], [address] Potassium [Moles/Vol] 3.2 mmol/L Low 3.5-5.1 [facility] Comment on above: Performed By: #### L 501.2450, L500.4050, L100.0100 #### [facility] [address] [place], [address] Sodium [Moles/Vol] 136 mmol/L Normal 136-145 [facility] Comment on above: Performed By: #### L 501.2450, L500.4050, L100.0100 #### [facility] [address] [place], [address] T PROT 6.3 g/dL Low 6.4-8.2 [facility] Comment on above: Performed By: #### L 501.2450, L500.4050, L100.0100 #### [facility] [address] [place], [address] Urea nitrogen [Mass/Vol] 12 mg/dL Normal 7-18 [facility] Comment on above: Performed By: #### L 501.2450, L500.4050, L100.0100 #### [facility] [address] [place], [address] Emergency Department Summary on 03-27-2024 Emergency Department Summary [facility] Medical Records Department [address] [place] [address] Emergency Department Summary 03/27/24 MR#: [id number] Acct: [id number] Name: MATA SANTANA Rep #: [id number] : 1975 48 From: Karley GALICIA PCP: Dr. Philly Gregory MD Status:DEP ER Location: ED HPI HPI - GI History of Present Illness Chief Complaint: Abd Pain Narrative Narrative: Patient presenting today due to epigastric abdominal pain that radiates across her upper abdomen that has been intermittent, sharp, and achy and started this morning. She reports that she has also had multiple episodes of loose stool today. She denies any history of abdominal surgery. She also denies fevers, chills, nausea, vomiting, blood in the stool, and urinary symptoms. [facility] Medical History Gestational diabetes Anxiety Home Medications ???Medication ???Instructions ???Recorded ???Last Taken ???Type desogestrel 0.15 mg-ethinyl 1 tab PO DAILY 02/12/14 02/11/14 History estradiol 0.03 mg tablet ([place]) atenolol 25 mg tablet 25 mg PO DAILY ##30 02/13/14 Unknown Rx potassium chloride 20 mEq 20 meq PO DAILY #7 tabs 03/17/21 Unknown Rx tablet,extended release albuterol sulfate 90 mcg/actuation 1 inh inhalation Q6H PRN shortness 09/12/23 Unknown Rx aerosol inhaler (ProAir HFA) of breath or wheezing #6.7 grams prednisone 20 mg tablet 40 mg (2 x 20 mg) PO DAILY 5 days 09/12/23 Unknown Rx #10 tabs amoxicillin 875 mg-potassium 1 tab PO BID #14 tabs 03/27/24 Unknown Rx clavulanate 125 mg tablet dicyclomine 10 mg capsule 10 mg PO TID PRN abdominal pain 03/27/24 Unknown Rx #15 caps Allergy/AdvReac Type Severity Reaction Status Date / Time No Known Allergies Allergy Verified 03/27/24 10:42 Family History Other Diabetes Surgical History Hx of toe surgery Social History Smoking Status: Never smoker substance use type: does not use ROS ROS ED Constitutional Constitutional ED: Denies chills or fever(s) Cardiovascular Cardiovascular: Denies chest pain Respiratory/Chest Respiratory/Chest: Denies dyspnea Gastrointestinal Gastrointestinal: Reports abdominal pain and diarrhea; Denies constipation, melena, nausea or vomiting Genitourinary Genitourinary ED: Denies dysuria or urinary urgency Musculoskeletal Musculoskeletal: Denies arthralgias or myalgias Integumentary Denies rash Neurologic Neurologic: Denies weakness EXAM Physical Exam Const Vital Signs: 03/27/24 10:42 03/27/24 13:00 03/27/24 13:51 Temperature 97.5 F L 97.9 F Temperature Source Temporal Pulse Rate 84 83 83 Respiratory Rate 16 15 15 Blood Pressure 177/115 H 178/92 H 178/92 H Blood Pressure Mean 135 120 120 Pulse Ox 98 98 98 Oxygen Delivery Method Room Air Room Air Positive well nourished, well developed and no apparent distress General Appearance ED: well developed HEENT Reports normocephalic and head/scalp atraumatic Mouth ED: Yes moist mucous membranes normal Eyes PERRL and EOMs intact bilaterally Neck full ROM and supple Chest Wall inspection of chest normal Resp normal respiratory effort and clear to auscultation bilaterally Cardio regular rate and regular rhythm GI soft to palpation, non-distended and no masses GI Narrative: Minimal epigastric tenderness to palpation, negative Triana sign, negative McBurney's point tenderness, no rigidity or guarding Back/Spine normal ROM and normal to inspection Extremity normal to inspection and full ROM Neuro oriented x3, CN's II-XII intact bilaterally, moves all extremities, no focal motor deficits and no sensory deficits noted Sensorium / Orientation: awake and alert Psych mental status grossly normal and thought process normal Skin no rashes or lesions noted and no wounds Physical Exam Const Vital Signs: 03/27/24 10:42 03/27/24 13:00 03/27/24 13:51 Temperature 97.5 F L 97.9 F Temperature Source Temporal Pulse Rate 84 83 83 Respiratory Rate 16 15 15 Blood Pressure 177/115 H 178/92 H 178/92 H Blood Pressure Mean 135 120 120 Pulse Ox 98 98 98 Oxygen Delivery Method Room Air Room Air MDM MDM MDM Narrative Medical decision making narrative: Patient presenting today due to upper abdominal pain and diarrhea that started this morning. She is well-appearing and in no acute distress. She has minimal tenderness across her upper abdomen with a negative Triana sign. Patient given IV fluids, Zofran, and Toradol. Labs obtained to rule out leukocytosis, anemia, e (more content not included)... Normal [facility] Lipaseon 03-27-2024 Lipase [Catalytic activity/Vol] 33 U/L Normal 13-75 [facility] Comment on above: Result Comment: Christiane gold note: LIPASE revised reference range effective 23. New Lipase methodology. Expected to produce lower values than the previous assay method. NEW Reference Range: 13 - 75 U/L Performed By: #### L 501.2450, L500.4050, L100.0100 #### [facility] [address] [place], [address] Urinalysis, Completeon 03-27 EPI,SQUAMOUS 0-5 SEEN Normal 5-10 [facility] Comment on above: Order Comment: CLEAN CATCH Performed By: #### L 400.0001 #### [facility] [address] [place], [address] RBC 0-5 SEEN Normal 0-5 [facility] Comment on above: Order Comment: CLEAN CATCH Performed By: #### L 400.0001 #### [facility] [address] [place], [address] BACTERIA 0 SEEN Normal None Seen [facility] Comment on above: Order Comment: CLEAN CATCH Performed By: #### L 400.0001 #### [facility] [address] [place], [address] Mucus Ql (Urine sed) 0 SEEN Normal [facility] Comment on above: Order Comment: CLEAN CATCH Performed By: #### L 400.0001 #### [facility] [address] [place], [address] WBC 0 SEEN Normal 0-5 [facility] Comment on above: Order Comment: CLEAN CATCH Performed By: #### L 400.0001 #### [facility] [address] [place], [place], [id number] DBT Breast - bilateral scree ningon 12-22-2023 [facility] Chest PA and Lateralon 09-20 Chest PA and Lateral [facility] Imaging Services [address] [place] [address] Chest PA and Lateral MR#: [id number] Acct: [id number] Name: MATA SANTANA Rep #: [id number] : 1975 F 48 From: Klaus Yen PCP: Dr. Philly Gregory MD Status: REG ER Study: Chest PA and Lateral Date of Exam: 09/20/23 Exam# [id number] Ordering Dr: Uriah Culp [id number] INDICATION: cough EXAMINATION/TECHNIQUE : X-RAY - XR Chest 2 Views COMPARISON: Prior study dated: 09/12/2023. __ FINDINGS: LINES/DEVICES: None. LUNGS: No consolidation, edema or effusion. No pneumothorax. MEDIASTINUM AND CARDIOVASCULAR STRUCTURES: Cardiac silhouette not enlarged. Central airways and mediastinal contour are unremarkable. BONES AND SOFT TISSUES: Unremarkable. Pectus excavatum of the sternum. RAD/Chest PA and Lateral IMPRESSION: No radiographic evidence of acute cardiopulmonary disease. Electronically Signed: Klaus Leach MD at 12:23 EST , CC: VINOD Culp; Dr. Philly Gregory MD Director Of Consulting Services: Signed Normal [facility] Emergency Department Summary on 09-20-2023 Emergency Department Summary [facility] Medical Records Department [address] [place] [address] Emergency Department Summary 09/20/23 MR#: [id number] Acct: [id number] Name: MATA SANTANA Rep #: [id number] : 1975 48 From: Uriah GERONIMOC PCP: Dr. Philly Gregory MD Status:DEP ER Location: ED HPI History of Present Illness Chief Complaint: Cough Narrative Narrative: Patient is a 48-year-old female with history of hypertension, GERD who presents to the emergency department for ongoing cough for the last 3 weeks. Patient has been seen multiple times, last time seen in the emergency department for this was on September 12, 2023. Patient has been placed on doxycycline, steroids, albuterol inhaler, Tessalon Perles. Patient states nothing is helping. Patient denies any fever or chills. Patient states this morning, she got news that a close friend/family member has . She states that she was very anxious, had a coughing fit had difficulty inhaling. She is here for reevaluation. [facility] Medical History (Updated 09/20/23 @ 12:33 by Uriah Culp, DANIELLA-C) Anxiety Gestational diabetes Home Medications desogestrel 0.15 mg-ethinyl estradiol 0.03 mg tablet (Emoquette) 1 tab PO DAILY 02/12/14 [History Last Taken 02/11/14] atenolol 25 mg tablet 25 mg PO DAILY ##30 02/13/14 [Rx Last Taken Unknown] potassium chloride 20 mEq tablet,extended release 20 meq PO DAILY #7 tabs 03/17/21 [Rx Last Taken Unknown] albuterol sulfate 90 mcg/actuation aerosol inhaler (ProAir HFA) 1 inh inhalation Q6H PRN shortness of breath or wheezing #6.7 grams 09/12/23 [Rx Last Taken Unknown] prednisone 20 mg tablet 40 mg (2 x 20 mg) PO DAILY 5 days #10 tabs 09/12/23 [Rx Last Taken Unknown] Allergy/AdvReac Type Severity Reaction Status Date / Time No Known Allergies Allergy Verified 09/20/23 11:37 Family History Other Diabetes Surgical History Hx of toe surgery Social History Smoking Status: Never smoker substance use type: does not use ROS ROS ED ROS Narrative Constitutional: Negative for fever, chills, weight loss, weakness Eyes: Negative for vision loss, vision change, double vision ENT: Negative for any sore throat, ear pain, congestion Cardiovascular: Negative for any chest pain, tightness, palpitations Respiratory: Negative for any sputum production, hemoptysis, dyspnea on exertion, orthopnea. Positive for cough, intermittent dyspnea Gastrointestinal: Negative for any abdominal pain, nausea, vomiting, diarrhea, constipation, blood in stool, blood in vomit : Negative for any urinary frequency, dysuria, retention, blood in urine Muscle skeletal: Negative for any myalgias, arthralgias, neck pain, back pain Neurological: Negative for any headache, syncope, numbness or tingling, dizziness Skin: Negative for any rashes, lumps, itching, abrasions, lacerations Psychiatric: Negative for any depression, anxiety, stress, suicidal ideation, homicidal ideation Hematologic: Negative for any easy bruising, excessive bruising, easy bleeding Allergies: Negative for any eczema, hives, rash EXAM Physical Exam Narrative Exam Narrative: Vital signs reviewed. Patient's tearful on initial evaluation, patient does appear to be anxious. Patient is no obvious distress. HEET: Head normocephalic atraumatic, TMs clear bilaterally. Posterior pharynx is clear, moist mucous membranes. Nares clear bilaterally. Neck: Supple with no lymphadenopathy or tenderness. No signs of meningismus. Cardiac: Regular rate and rhythm no murmurs gallops or rubs, equal peripheral pulses bilaterally. Respiratory: Lungs clear to auscultation bilaterally. No chest tenderness. Abdomen: Soft, nontender, nondistended. No abdominal bruit or pulsatile masses. No hepatosplenomegaly Extremities: No peripheral edema, no signs of gross trauma or deformity. Active full range of motion of all extremities. Neuro: Cranial nerves II through XII intact, no focal neurological deficits. Skin: Clean dry and intact with no rash, purpura, petechiae, vesicles or pustules. Backs/flank: No CVA tenderness, no midline spinal tenderness, no deformity. Psych: Normal mood and affect. No SI, HI or acute psychosis. Const Vital Signs: 09/20/23 11:37 09/20/23 12:12 09/20/23 12:48 Temperature 98.0 F Temperature Source Temporal Pulse Rate 95 72 Respiratory Rate 18 15 Respiratory Effort Normal Non-Labored Respiratory Depth Normal Respiratory Pattern Normal Blood Pressure 168/108 H 124/69 H Blood Pressure Mean 128 87 Pulse Ox 97 98 Oxygen Delivery Method Room Air Room Air Physical Exam Const Vital Signs: 09/20/23 11:37 (more content not included)... Normal [facility] Chest PA and Lateralon 09-12 Chest PA and Lateral [facility] Imaging Services [address] [place] [address] Chest PA and Lateral MR#: [id number] Acct: [id number] Name: MATA SANTANA Rep #: [id number] : 1975 F 48 From: Amandeep Santos MD PCP: Dr. Philly Gregory MD Status: [facility] ER Study: Chest PA and Lateral Date of Exam: 09/12/23 Exam# [id number] Ordering Dr: Elida Chang [id number] STUDY: X-RAY CHEST REASON FOR EXAM: Female, 48 years old. Fever and cough TECHNIQUE: PA and lateral views of the chest. COMPARISON: 12/22/2022 FINDINGS: The lungs are clear and expanded. There is no demonstrated pleural abnormality. Normal size heart. Normal mediastinum and sandro. Normal visualized pulmonary arteries. Normal visualized aortic arch and descending thoracic aorta. Normal visualized thoracic spine. Normal visualized ribs, clavicles, and shoulders. There is no demonstrated abnormality of the visualized soft tissue structures of the upper abdomen. RAD/Chest PA and Lateral IMPRESSION: Normal x-ray examination of the chest. Electronically Signed: Alexis Santos MD at 14:56 EST , CC: Dr. Philyl Gregory MD; GRAYSON Copeland Director Of Consulting Services: Signed Normal [facility] Emergency Department Summary on 09-12-2023 Emergency Department Summary [facility] Medical Records Department [address] [place] [address] Emergency Department Summary 09/12/23 MR#: [id number] Acct: [id number] Name: MATA SANTANA Rep #: [id number] : 1975 48 From: Elida GALICIA PCP: Dr. Philly Gregory MD Status:DEP ER Location: ED HPI History of Present Illness Chief Complaint: Cough Narrative Narrative: 48-year-old female with past medical history of hypertension presents with 2 weeks of productive cough. She has not had fever or chills does not really feel short of breath. Initially she went to urgent care and was told it was likely viral and use [id number] treatments. She went back again because it did not improved and they prescribed doxycycline, Tessalon Perles, and Mucinex. She has 1 day left of antibiotics but the cough has not changed so she presents for evaluation. She denies smoking or cardiopulmonary history. [facility] Medical History (Updated 09/12/23 @ 15:07 by GRAYSON Copeland) Anxiety Gestational diabetes Home Medications desogestrel 0.15 mg-ethinyl estradiol 0.03 mg tablet (Emoquette) 1 tab PO DAILY 02/12/14 [History Last Taken 02/11/14] atenolol 25 mg tablet 25 mg PO DAILY ##30 02/13/14 [Rx Last Taken Unknown] potassium chloride 20 mEq tablet,extended release 20 meq PO DAILY #7 tabs 03/17/21 [Rx Last Taken Unknown] albuterol sulfate 90 mcg/actuation aerosol inhaler (ProAir HFA) 1 inh inhalation Q6H PRN shortness of breath or wheezing #6.7 grams 09/12/23 [Rx Last Taken Unknown] prednisone 20 mg tablet 40 mg (2 x 20 mg) PO DAILY 5 days #10 tabs 09/12/23 [Rx Last Taken Unknown] Allergy/AdvReac Type Severity Reaction Status Date / Time No Known Allergies Allergy Verified 09/12/23 14:00 Family History Other Diabetes Surgical History Hx of toe surgery Social History Smoking Status: Never smoker substance use type: does not use ROS ROS ED ROS Narrative Constitutional: Negative for fever, chills, malaise. CVS: Negative for chest pain, syncope. Respiratory: Positive for cough. negative for shortness of breath, orthopnea. GI: Negative for abdominal pain, nausea, vomiting, diarrhea. EXAM Physical Exam Narrative Exam Narrative: CONST: Patient sitting in no acute distress. EYES: Normal inspection. NECK: Normal inspection. RESP: No respiratory distress, CTAB. CVS: Regular rate and rhythm, no murmur, no gallop. SKIN: Color normal, no rash, warm, dry, intact. EXTREMITIES: Normal appearance, no pedal edema. NEURO: Oriented x4. PSYCH: Normal affect. Const Vital Signs: 09/12/23 14:01 09/12/23 14:06 Temperature 97.5 F L Temperature Source Temporal Pulse Rate 88 Respiratory Rate 18 Respiratory Effort Normal Respiratory Depth Normal Respiratory Pattern Normal Blood Pressure 188/103 H Blood Pressure Mean 131 Pulse Ox 100 Oxygen Delivery Method Room Air Room Air Physical Exam Const Vital Signs: 09/12/23 14:01 09/12/23 14:06 Temperature 97.5 F L Temperature Source Temporal Pulse Rate 88 Respiratory Rate 18 Respiratory Effort Normal Respiratory Depth Normal Respiratory Pattern Normal Blood Pressure 188/103 H Blood Pressure Mean 131 Pulse Ox 100 Oxygen Delivery Method Room Air Room Air MDM MDM MDM Narrative Medical decision making narrative: Patient has 2 weeks of productive cough which did not improve after taking doxycycline. She appears well nontoxic. She is hypertensive with otherwise normal vital signs. She is on antihypertensives. Heart is regular and lungs are clear. She is speaking full sentences in no respiratory distress. Differential includes viral bronchitis versus pneumonia. CXR shows no acute process. I discussed trial of albuterol and prednisone which she would like to do. Discussed normal course of bronchitis that the cough could last several more weeks and she should follow-up with her primary care. She was discharged in stable condition. Radiography Diagnostic Testing: Clinical Impression(s) from Imaging Studies Chest X-Ray 09/12/23 14:14 IMPRESSION: Normal x-ray examination of the chest. Electronically Signed: Alexis Santos MD at 14:56 EST , ED attending interpretation of 2-view chest x-ray shows normal heart size, no acute infiltrate, edema, or effusion. MDM Radiography Diagnostic Testing: Clinical Impression(s) from Imaging Studies Chest X-Ray 09/12/23 14:14 IMPRESSION: Normal x-ray examination of the chest. E (more content not included)... Normal [facility] CBC W Auto Differential pane l (Bld)on 04-29-2023 Basophils (Bld) [#/Vol] 0.06 10*3/uL <0.11 k/uL [facility] Basophils/100 WBC (Bld) 0.7 % [facility] Differential cell count method Nom (Bld) Auto [facility] Eosinophils (Bld) [#/Vol] 0.11 10*3/uL <0.46 k/uL [facility] Eosinophils/100 WBC (Bld) 1.2 % [facility] Erythrocyte distribution width (RBC) [Ratio] 12.5 % 11.5 - 15.0 % [facility] Hematocrit (Bld) [Volume fraction] 42.0 % 36.0 - 46.0 % [facility] Hemoglobin (Bld) [Mass/Vol] 13.8 g/dL 11.5 - 15.5 g/dL [facility] Immature granulocytes (Bld) [#/Vol] 0.05 10*3/uL <0.10 k/uL [facility] Immature granulocytes/100 WBC (Bld) 0.6 % [facility] Lymphocytes (Bld) [#/Vol] 2.61 10*3/uL 1.00 - 4.00 k/uL [facility] Lymphocytes/100 WBC (Bld) 28.8 % [facility] MCH (RBC) [Entitic mass] 31.7 pg 26. 0 - 34.0 pg [facility] MCHC (RBC) [Mass/Vol] 32.9 g/dL 30.5 - 36.0 g/dL [facility] MCV (RBC) [Entitic vol] 96.3 fL 80.0 - 100.0 fL [facility] Monocytes (Bld) [#/Vol] 0.58 10*3/uL <0.87 k/uL [facility] Monocytes/100 WBC (Bld) 6.4 % [facility] Neutrophils (Bld) [#/Vol] 5.64 10*3/uL 1.45 - 7.50 k/uL [facility] Neutrophils/100 WBC (Bld) 62.3 % [facility] Nucleated RBC (Bld) [#/Vol] <0.01 k/uL [facility] Nucleated RBC/100 WBC (Bld) [Ratio] 0.0 /100 WBC [facility] Platelet mean volume (Bld) [Entitic vol] 10.6 fL 9.0 - 12.7 fL [facility] Platelets (Bld) [#/Vol] 238 10*3/uL 150 - 400 k/uL [facility] RBC (Bld) [#/Vol] 4.36 10*6/uL 3.90 - 5.2 0 m/uL [facility] WBC (Bld) [#/Vol] 9.05 10*3/uL 3.70 - 11. 00 k/uL [facility] Comprehensive metabolic 2000 panelon 04-29-2023 Albumin [Mass/Vol] 4.0 g/dL 3.9 - 4.9 g/dL [facility] ALP [Catalytic activity/Vol] 63 U/L 34 - 123 U/L [facility] ALT [Catalytic activity/Vol] 15 U/L 7 - 38 U/L [facility] Anion gap [Moles/Vol] 16 mmol/L 9 - 18 mmol/L [facility] AST [Catalytic activity/Vol] 15 U/L 13 - 35 U/L [facility] Bilirubin [Mass/Vol] 0.3 mg/dL 0.2 - 1 .3 mg/dL [facility] Calcium [Mass/Vol] 9.7 mg/dL 8.5 - 10. 2 mg/dL [facility] Chloride [Moles/Vol] 100 mmol/L 97 - 10 5 mmol/L [facility] CO2 [Moles/Vol] 23 mmol/L 22 - 30 mmol/L [facility] Creatinine [Mass/Vol] 0.59 mg/dL 0.58 - 0.96 mg/dL [facility] Estimated Glomerular Filtration Rate 110 mL/min/1.73m >=60 mL/min/1.73m [facility] Glucose [Mass/Vol] 136 mg/dL High 74 - 99 mg/dL [facility] Potassium [Moles/Vol] 3.9 mmol/L 3.7 - 5.1 mmol/L [facility] Protein [Mass/Vol] 6.6 g/dL 6.3 - 8.0 g/dL [facility] Sodium [Moles/Vol] 139 mmol/L 136 - 144 mmol/L [facility] Urea nitrogen [Mass/Vol] 15 mg/dL 7 - 21 mg/d L [facility] HbA1c (Bld)on 04-29-2023 Average glucose Estimated from glycated hemoglobin (Bld) [Mass/Vol] 140 mg/dL [facility] HbA1c (Bld) [Mass fraction] 6.5 % High 4.3 - 5.6 % [facility] Lipid 1996 panelon 3 Cholesterol [Mass/Vol] 170 mg/dL <200 mg/dL [facility] Cholesterol in HDL [Mass/Vol] 80 mg/dL >39 mg/dL [facility] Cholesterol in LDL [Mass/Vol] 59 mg/dL <100 mg/dL [facility] Cholesterol in LDL/Cholesterol in HDL [Mass ratio] 0.74 {ratio} <2.54 [facility] Cholesterol in VLDL [Mass/Vol] 31 mg/dL High <30 mg/dL [facility] Cholesterol non HDL [Mass/Vol] 90 mg/dL <130 mg/dL [facility] Cholesterol.total/Choles terol in HDL [Mass ratio] 2.13 {ratio} <5.10 [facility] Fasting Time 1 hrs [facility] Triglyceride [Mass/Vol] 155 mg/dL High <150 mg/dL [facility] Absolute lymphocyte countOrd ered By: Dr. Almedia on 12-22-2022 Lymphocytes Auto (Unsp spec) [#/Vol] 2.68 10*3/uL 0.83-4.51 [facility] Basophil percentageOrdered B y: Dr. Almeida on 12-22-2022 Basophil percentage 0 SEEN /hpf 0-5 [facility] Basophils/100 WBC (Bld) 0.6 % 0-1 [facility] Chloride [Moles/Vol] 102 mmol/L 98-107 [facility] Eosinophils/100 WBC (Bld) 1.0 % 0-5 [facility] Glucose [Mass/Vol] 130 mg/dL 74-106 [facility] Comment on above: Fasting Glucose resu lt greater than or equal to 126 mg/dL suggests DIABETES MELLITUS per A.D.A. criteria. Neutrophils (Bld) [#/Vol] 7.1 10*3/uL 2.0-7.7 [facility] Neutrophils/100 WBC (Bld) 66.8 % 47-70 [facility] Potassium [Moles/Vol] 3.7 mmol/L 3.5-5.1 [facility] Sodium [Moles/Vol] 139 mmol/L 136-145 [facility] WBC (Bld) [#/Vol] 10.6 10*3/uL 4.4-11.0 [facility] Bilirubin Test strip Ql (U)O rdered By: Dr. Almeida on 12-22-2022 Bilirubin Ql (U) Negative Negative [facility] Blood erythrocytes count (nu mber/volume)Ordered By: Dr. Almeida on 12-22-2022 RBC (Bld) [#/Vol] 4.55 10*6/uL 4.2-5.4 [facility] Blood hemoglobin measurement (mass/volume)Ordered By: Dr. Almeida on 12-22-2022 Hemoglobin (Bld) [Mass/Vol] 14.3 g/dL 12.0-15.0 [facility] Blood lymphocytes/100 leukoc ytesOrdered By: Dr. Almeida on 12-22-2022 Lymphocytes/100 WBC (Bld) 25.3 % 19-41 [facility] Blood monocytes/100 leukocyt esOrdered By: Dr. Almeida on 12-22-2022 Monocytes/100 WBC (Bld) 5.9 % 0-10 [facility] Blood platelet mean volumeOr dered By: Dr. Almeida on 12-22-2022 Platelet mean volume (Bld) [Entitic vol] 9.2 fL 6.2-12.0 [facility] Determination of erythrocyte mean corpuscular volume (MCV)Ordered By: Dr. Almeida on 12-22-2022 MCV (RBC) [Entitic vol] 93.4 fL 81-99 [facility] Hematocrit Auto (Bld) [Volum e fraction]Ordered By: Dr. Almeida on 12-22-2022 Hematocrit (Bld) [Volume fraction] 42.5 % 37-47 [facility] Influenza virus A and B and SARS-CoV-2 (COVID-19) Ag panel - Upper respiratory specimOrdered By: Dr. Almeida on 12-22-2022 SARS-CoV-2 (COVID-19) RNA IRINA+probe Ql (Resp) [facility] Ketones Test strip Ql (U)Ord ered By: Dr. Almeida on 12-22-2022 Ketones Ql (U) Negative Negative [facility] - Chemistry and C hemistry - challengeOrdered By: Dr. Almeida on 12-22-2022 CO2 [Moles/Vol] 28.0 mmol/L 21.0-32.0 [facility] Urea nitrogen/Creatinine [Mass ratio] 23.5 mg/mg 10-20 [facility] - Hematology and Cell countsOrdered By: Dr. Almeida on 12-22-2022 Erythrocyte distribution width (RBC) [Entitic vol] 40.2 fL 35.1-43.9 [facility] Erythrocyte distribution width (RBC) [Ratio] 11.9 % 11.6-14.6 [facility] Immature granulocytes/100 WBC (Bld) 0.400 % 0.0-0.9 [facility] Comment on above: IG% - Immature Granu locytes (promyelocytes, myelocytes and metamyelocytes) > 1% indicates that a LEFT SHIFT is Present. MCH (RBC) [Entitic mass] 31.4 pg 27.0-32.0 [facility] Nucleated RBC/100 WBC (Bld) [Ratio] 0 % 0-5 [facility] MCHC Auto (RBC) [Mass/Vol]Or dered By: Dr. Almeida on 12-22-2022 MCHC (RBC) [Mass/Vol] 33.6 g/dL 32-36 [facility] Mucus LM Ql (Urine sed)Order ed By: Dr. Almeida on 12-22-2022 Mucus Ql (Urine sed) 0 SEEN /hpf [facility] Nitrite Test strip Ql (U)Ord ered By: Dr. Almeida on 12-22-2022 Nitrite Ql (U) Negative Negative [facility] No Panel InformationOrdered By: Dr. Almeida on 12-22-2022 Estimated Creatinine Clearance Calc 79.15 ml/min [facility] Estimated GFR (MDRD) Amer 118 mL/min >60 [facility] Comment on above: GFR Calc Estimated GFR (MDRD) Non-Af Amer 98 mL/min >60 [facility] Comment on above: Non- GFR Calc Troponin I High Sensitivity 4 pg/mL 3.0-54.0 [facility] Comment on above: Please Note: New Melinda t Units and Gender Specific Reference Ranges. For more information see Policy Stat Procedure [place] High Sensitivity Troponin (TNIH) and attachments. Platelets bldOrdered By: Dr. Almeida on 12-22-2022 Platelets (Bld) [#/Vol] 328 10*3/uL 150-450 [facility] Protein Test strip Ql (U)Ord ered By: Dr. Almeida on 12-22-2022 Protein Ql (U) Negative Negative [facility] Serum or plasma calcium rafia urement (mass/volume)Ordered By: Dr. Almeida on 12-22-2022 Calcium [Mass/Vol] 9.5 mg/dL 8.5-10.1 [facility] Serum or plasma creatinine m easurement (mass/volume)Ordered By: Dr. Almeida on 12-22-2022 Creatinine [Mass/Vol] 0.68 mg/dL 0.55-1.02 [facility] Comment on above: The validity of the calculated GFR & GFRAA in patients over 70 years has not been determined. Clinical correlation is essential. Serum or plasma urea nitroge n measurement (mass/volume)Ordered By: Dr. Almeida on 12-22-2022 Urea nitrogen [Mass/Vol] 16 mg/dL 7-18 [facility] Squamous epithelial cells de tection in urine sediment by light microscopyOrdered By: Dr. Almeida on 12-22-2022 Epithelial cells.squamous LM Ql (Urine sed) 0-5 SEEN /hpf 5-10 [facility] Thin prep Papanicolaou smear with manual screeningOrdered By: Dr. Almeida on 12-22-2022 Thin prep Papanicolaou smear with manual screening 9 5-15 [facility] Urine blood detectionOrdered By: Dr. Almeida on 12-22-2022 RBC Ql (U) 25 /ul Negative [facility] RBC Ql (U) 0-5 SEEN /hpf 0-5 [facility] Urine clarityOrdered By: Dr. Almeida on 12-22-2022 Clarity (U) Sl. Cloudy Clear [facility] Urine color determinationOrd ered By: Dr. Almeida on 12-22-2022 Color (U) Straw Yellow [facility] Urine glucose detectionOrder ed By: Dr. Almeida on 12-22-2022 Glucose Ql (U) Normal mg/dl Normal [facility] Urine leukocyte esterase det ection by dipstickOrdered By: Dr. Almeida on 12-22-2022 Leukocyte esterase Test strip Ql (U) Negative Negative [facility] Urine pHOrdered By: Dr. Jones abraham on 12-22-2022 pH (U) 8.0 [pH] 5.0 - 8.0 [facility] Urine sediment bacteria coun t by microscopy (number/high power field)Ordered By: Dr. Almeida on 12-22-2022 Bacteria LM.HPF (Urine sed) [#/Area] 0 /[HPF] None Seen [facility] Urine specific gravity measu rementOrdered By: Dr. Almeida on 12-22-2022 Specific gravity (U) [Rel density] 1.015 1.002-1.030 [facility] Urobilinogen Auto test strip Ql (U)Ordered By: Dr. Almeida on 12-22-2022 Urobilinogen Ql (U) Normal mg/dl Normal [facility] AKHIL SCREENINGon 09-16-2022 [facility] XR CHEST 2V FRONTAL/LATon [facility] XR Chest PA and Lateralon IMPRESSION: No acute radiographic abnormality. Director Of Consulting Services: POLA Transcribe Date/Time: Sep 08 2022 9:31A Dictated by : HAILEY MCLEAN MD This examination was interpreted and the report reviewed and electronically signed by: HAILEY MCLEAN MD on Sep 08 2022 9:32AM [facility] DIVISION OF RADIOLOGY * * *Final Report* * * DATE OF EXAM: Sep 08 2022 9:29AM WOX [id number] - XR CHEST 2V FRONTAL/LAT / PROCEDURE REASON: Viral URI with cough * * * * Physician Interpretation * * * * EXAMINATION: CHEST RADIOGRAPH (2 VIEW FRONTAL & LATERAL) CLINICAL HISTORY: Viral URI with cough MQ: XC2_6 EXAM DATE/TIME: 09/08/2022 9:29 AM COMPARISON: Chest x-ray on 10/25/2019 RESULT: Lines, tubes, and devices: None. Lungs and pleura: No consolidation. No lung mass. No pleural effusion. No pneumothorax. Cardiomediastinal silhouette: Normal cardiomediastinal silhouette. Bones and soft tissues: There appears to be pectus excavatum. The spine shows mild degenerative changes. DIVISION OF RADIOLOGY Provider, [facility] - 09/08/2022 * * *Final Report* * * DATE OF EXAM: Sep 08 2022 9:29AM WOX [id number] - XR CHEST 2V FRONTAL/LAT / PROCEDURE REASON: Viral URI with cough * * * * Physician Interpretation * * * * EXAMINATION: CHEST RADIOGRAPH (2 VIEW FRONTAL & LATERAL) CLINICAL HISTORY: Viral URI with cough MQ: XC2_6 EXAM DATE/TIME: 09/08/2022 9:29 AM COMPARISON: Chest x-ray on 10/25/2019 RESULT: Lines, tubes, and devices: None. Lungs and pleura: No consolidation. No lung mass. No pleural effusion. No pneumothorax. Cardiomediastinal silhouette: Normal cardiomediastinal silhouette. Bones and soft tissues: There appears to be pectus excavatum. The spine shows mild degenerative changes. IMPRESSION IMPRESSION: No acute radiographic abnormality. Director Of Consulting Services: POLA Transcribe Date/Time: Sep 08 2022 9:31A Dictated by : HAILEY MCLEAN MD This examination was interpreted and the report reviewed and electronically signed by: HAILEY MCLEAN MD on Sep 08 2022 9:32AM EST [facility] Radiology Study observation (narrative) Jose yen [facility] XR Chest PA and LateralOrder ed By: [facility] Provider on 09-08-2022 [facility] T4 FREE/FREE THYROXon 2021 Free T4 [Mass/Vol] 1.2 ng/dL 0.9 - 1.7 ng/dL [facility] TSH BLDon 03-12-2022 TSH Qn 1.620 m[IU]/L 0.270 - 4.200 mIU/L [facility] UA DIP, URINE (POC)on 2021 BILIRUBIN UA (POCT) Negative Negative [facility] CLARITY UA (POCT) Clear [facility] COLOR UA (POCT) Yellow [facility] GLUCOSE UA (POCT) Negative Negative mg/dL [facility] HEMOGLOBIN/BLOOD UA (POCT) Moderate Abnormal Negative [facility] KETONE UA (POCT) Negative Negative mg/dL [facility] LEUKOCYTES UA (POCT) Negative Negative [facility] NITRITE UA (POCT) Negative Negative [facility] PH UA (POCT) 7.0 4.5 - 8.0 [facility] Protein Ql (U) Negative Negative mg/dL [facility] SPECIFIC GRAVITY UA (POCT) 1.020 1.005 - 1.030 [facility] UROBILINOGEN UA (POCT) 0.2 E.U./dL Danni l E.U./dL [facility] UA DIP, URINE (POC)on 2021 BILIRUBIN UA (POCT) Negative Negative [facility] CLARITY UA (POCT) Clear [facility] COLOR UA (POCT) Yellow [facility] GLUCOSE UA (POCT) Negative Negative mg/dL [facility] HEMOGLOBIN/BLOOD UA (POCT) Moderate Abnormal Negative [facility] KETONE UA (POCT) Negative Negative mg/dL [facility] LEUKOCYTES UA (POCT) Negative Negative [facility] NITRITE UA (POCT) Negative Negative [facility] PH UA (POCT) 7.0 4.5 - 8.0 [facility] Protein Ql (U) Negative Negative mg/dL [facility] SPECIFIC GRAVITY UA (POCT) 1.020 1.005 - 1.030 [facility] UROBILINOGEN UA (POCT) 0.2 E.U./dL Danni l E.U./dL [facility] Vital Signs Date Time Vital Sign Value Performing Clinician Facility 03-14-2025 15:04-0400 Body mass index (BMI) [Ratio] 22.86 kg/m2 Esthela Lucia PROC TECH.ADJUNCT PROFESSOR OF ENGLISH Work Phone: [facility] 03-14-2025 15:04-0400 Body weight 55.79 kg Esthela Surrency PROC TECH.ADJUNCT PROFESSOR OF ENGLISH Work Phone: [facility] 03-14-2025 15:04-0400 Diastolic blood pressure 88 mm[Hg] Esthela Lucia PROC TECH.ADJUNCT PROFESSOR OF ENGLISH Work Phone: [facility] 03-14-2025 15:04-0400 Systolic blood pressure 124 mm[Hg] Esthela Lucia PROC TECH.ADJUNCT PROFESSOR OF ENGLISH Work Phone: [facility] 01-03-2025 08:48-0400 Body mass index (BMI) [Ratio] 22.54 kg/m2 Kendall Pete PROC TECH.VERIFICATION MANAGER Work Phone: [facility] 01-03-2025 08:48-0400 Body weight 55 kg Kendall Pete PROC TECH.VERIFICATION MANAGER Work Phone: [facility] 01-03-2025 08:48-0400 Diastolic blood pressure 83 mm[Hg] Kendall Pete PROC TECH.VERIFICATION MANAGER Work Phone: [facility] 01-03-2025 08:48-0400 Heart rate 60 /min Kendall Pete PROC TECH.VERIFICATION MANAGER Work Phone: [facility] 01-03-2025 08:48-0400 Respiratory rate 16 /min Kendall Pete PROC TECH.VERIFICATION MANAGER Work Phone: [facility] 01-03-2025 08:48-0400 Systolic blood pressure 126 mm[Hg] Kendall Pete PROC TECH.VERIFICATION MANAGER Work Phone: [facility] 12-28-2024 19:13-0400 Body mass index (BMI) [Ratio] 23.28 kg/m2 Shahzad Hughes PROC TECH.ADJUNCT PROFESSOR OF ENGLISH Work Phone: [facility] 12-28-2024 19:13-0400 Body temperature 98.1 [degF] Shahzad Hughes PROC TECH.ADJUNCT PROFESSOR OF ENGLISH Work Phone: [facility] 12-28-2024 19:13-0400 Body weight 56.8 kg Shahzad Hughes PROC TECH.ADJUNCT PROFESSOR OF ENGLISH Work Phone: [facility] 12-28-2024 19:13-0400 Diastolic blood pressure 82 mm[Hg] Shahzad Hughes PROC TECH.ADJUNCT PROFESSOR OF ENGLISH Work Phone: [facility] 12-28-2024 19:13-0400 Heart rate 73 /min Shahzad Hughes PROC TECH.ADJUNCT PROFESSOR OF ENGLISH Work Phone: [facility] 12-28-2024 19:13-0400 Respiratory rate 18 /min Shahzad Hughes PROC TECH.ADJUNCT PROFESSOR OF ENGLISH Work Phone: [facility] 12-28-2024 19:13-0400 SaO2% (BldA) [Mass fraction] 100 % Shahzad Hughes PROC TECH.ADJUNCT PROFESSOR OF ENGLISH Work Phone: [facility] 12-28-2024 19:13-0400 Systolic blood pressure 122 mm[Hg] Shahzad Hughes PROC TECH.ADJUNCT PROFESSOR OF ENGLISH Work Phone: [facility] 09-20-2024 11:35-0500 Diastolic blood pressure 76 mm[Hg] Philly Gregory MD Work Phone: [facility] 09-20-2024 11:35-0500 Systolic blood pressure 120 mm[Hg] Philly Gregory MD Work Phone: [facility] 09-20-2024 10:51-0500 Body mass index (BMI) [Ratio] 22.29 kg/m2 Philly Gregory MD Work Phone: [facility] 09-20-2024 10:51-0500 Body temperature 97.81 [degF] Philly Gregory MD Work Phone: [facility] 09-20-2024 10:51-0500 Body weight 54.4 kg Philly Gregory MD Work Phone: [facility] 09-20-2024 10:51-0500 Heart rate 77 /min Philly Gregory MD Work Phone: [facility] 09-20-2024 10:51-0500 Respiratory rate 18 /min Philly Gregory MD Work Phone: [facility] 09-20-2024 10:51-0500 SaO2% (BldA) [Mass fraction] 99 % Philly Gregory MD Work Phone: [facility] 09-06-2024 09:14-0500 Body mass index (BMI) [Ratio] 22.62 kg/m2 Kendall Pete PROC TECH.VERIFICATION MANAGER Work Phone: [facility] 09-06-2024 09:14-0500 Body weight 55.2 kg Kendall Pete PROC TECH.VERIFICATION MANAGER Work Phone: [facility] 09-06-2024 09:14-0500 Diastolic blood pressure 79 mm[Hg] Kendall Pete PROC TECH.VERIFICATION MANAGER Work Phone: [facility] 09-06-2024 09:14-0500 Heart rate 69 /min Kendall Pete PROC TECH.VERIFICATION MANAGER Work Phone: [facility] 09-06-2024 09:14-0500 Respiratory rate 16 /min Kendall Pete PROC TECH.VERIFICATION MANAGER Work Phone: [facility] 09-06-2024 09:14-0500 Systolic blood pressure 123 mm[Hg] Kendall Pete PROC TECH.VERIFICATION MANAGER Work Phone: [facility] 08-15-2024 09:27-0400 Diastolic blood pressure 96 mm[Hg] Kendall Pete PROC TECH.VERIFICATION MANAGER Work Phone: [facility] Comment on above: bp average 08-15-2024 09:27-0400 Heart rate 61 /min Kendall Pete PROC TECH.VERIFICATION MANAGER Work Phone: [facility] 08-15-2024 09:27-0400 Systolic blood pressure 158 mm[Hg] Kendall Pete PROC TECH.VERIFICATION MANAGER Work Phone: [facility] Comment on above: bp average 08-15-2024 09:25-0400 Body mass index (BMI) [Ratio] 22.21 kg/m2 Kendall Pete PROC TECH.VERIFICATION MANAGER Work Phone: [facility] 08-15-2024 09:25-0400 Body weight 54.2 kg Kendall Pete PROC TECH.VERIFICATION MANAGER Work Phone: [facility] 08-15-2024 09:25-0400 Respiratory rate 16 /min Kendall Pete PROC TECH.VERIFICATION MANAGER Work Phone: [facility] 07-05-2024 09:44-0400 Diastolic blood pressure 86 mm[Hg] Kendall Pete PROC TECH.VERIFICATION MANAGER Work Phone: [facility] 07-05-2024 09:44-0400 Heart rate 73 /min Kendall Pete PROC TECH.VERIFICATION MANAGER Work Phone: [facility] 07-05-2024 09:44-0400 Systolic blood pressure 134 mm[Hg] Kendall Pete PROC TECH.VERIFICATION MANAGER Work Phone: [facility] 07-05-2024 09:40-0400 Body mass index (BMI) [Ratio] 22.7 kg/m2 Kendall Pete PROC TECH.VERIFICATION MANAGER Work Phone: [facility] 07-05-2024 09:40-0400 Body weight 55.4 kg Kendall Pete PROC TECH.VERIFICATION MANAGER Work Phone: [facility] 03-11-2024 09:15-0400 Body height 156.2 cm Esthela Lucia PROC TECH.ADJUNCT PROFESSOR OF ENGLISH Work Phone: [facility] 03-11-2024 09:15-0400 Body mass index (BMI) [Ratio] 23.79 kg/m2 Esthela Lucia PROC TECH.ADJUNCT PROFESSOR OF ENGLISH Work Phone: [facility] 03-11-2024 09:15-0400 Body weight 58.06 kg Esthela Surrency PROC TECH.ADJUNCT PROFESSOR OF ENGLISH Work Phone: [facility] 03-11-2024 09:15-0400 Diastolic blood pressure 80 mm[Hg] Esthela Lucia PROC TECH.ADJUNCT PROFESSOR OF ENGLISH Work Phone: [facility] 03-11-2024 09:15-0400 Systolic blood pressure 144 mm[Hg] Esthelavanessa DorantesLucia PROC TECH.ADJUNCT PROFESSOR OF ENGLISH Work Phone: [facility] 03-08-2024 08:05-0400 Diastolic blood pressure 93 mm[Hg] Kendall Pete PROC TECH.VERIFICATION MANAGER Work Phone: [facility] Comment on above: bp average 03-08-2024 08:05-0400 Heart rate 74 /min Kendall Pete PROC TECH.VERIFICATION MANAGER Work Phone: [facility] 03-08-2024 08:05-0400 Systolic blood pressure 155 mm[Hg] Kendall Pete PROC TECH.VERIFICATION MANAGER Work Phone: [facility] Comment on above: bp average 03-08-2024 08:00-0400 Body mass index (BMI) [Ratio] 23.04 kg/m2 Kendall Pete PROC TECH.VERIFICATION MANAGER Work Phone: [facility] 03-08-2024 08:00-0400 Body weight 58.06 kg Kendall Pete PROC TECH.VERIFICATION MANAGER Work Phone: [facility] 03-08-2024 08:00-0400 Respiratory rate 16 /min Kendall Pete PROC TECH.VERIFICATION MANAGER Work Phone: [facility] 02-25-2024 08:01-0400 Body mass index (BMI) [Ratio] 23.58 kg/m2 Angela Ludin PROC TECH.ADJUNCT PROFESSOR OF ENGLISH Work Phone: [facility] 02-25-2024 08:01-0400 Body temperature 97.9 [degF] Angela Ludin PROC TECH.ADJUNCT PROFESSOR OF ENGLISH Work Phone: [facility] 02-25-2024 08:01-0400 Body weight 59.42 kg Angela Ludin PROC TECH.ADJUNCT PROFESSOR OF ENGLISH Work Phone: [facility] 02-25-2024 08:01-0400 Diastolic blood pressure 92 mm[Hg] Angela Ludin PROC TECH.ADJUNCT PROFESSOR OF ENGLISH Work Phone: [facility] 05-09-2024 08:01-0400 Heart rate 74 /min Angela Noland APRN.ADJUNCT PROFESSOR OF ENGLISH Work Phone: [facility] 02-25-2024 08:01-0400 Respiratory rate 18 /min Angela Noland APRN.ADJUNCT PROFESSOR OF ENGLISH Work Phone: [facility] 02-25-2024 08:01-0400 SaO2% (BldA) [Mass fraction] 99 % Angela Noland APRN.ADJUNCT PROFESSOR OF ENGLISH Work Phone: [facility] 02-25-2024 08:01-0400 Systolic blood pressure 154 mm[Hg] Angela Noland APRN.ADJUNCT PROFESSOR OF ENGLISH Work Phone: [facility] 02-10-2024 17:10-0400 Body mass index (BMI) [Ratio] 23.77 kg/m2 Nelly Worrell APRN.ADJUNCT PROFESSOR OF ENGLISH Work Phone: [facility] 02-10-2024 17:10-0400 Body temperature 97.5 [degF] Nelly Worrell APRN.ADJUNCT PROFESSOR OF ENGLISH Work Phone: [facility] 02-10-2024 17:10-0400 Body weight 59.9 kg Nelly Worrell APRN.ADJUNCT PROFESSOR OF ENGLISH Work Phone: [facility] 02-10-2024 17:10-0400 Diastolic blood pressure 100 mm[Hg] Nelly Worrell APRN.ADJUNCT PROFESSOR OF ENGLISH Work Phone: [facility] 02-10-2024 17:10-0400 Heart rate 90 /min Nelly Worrell APRN.ADJUNCT PROFESSOR OF ENGLISH Work Phone: [facility] 02-10-2024 17:10-0400 Respiratory rate 19 /min Nelly Worrell APRN.ADJUNCT PROFESSOR OF ENGLISH Work Phone: [facility] 02-10-2024 17:10-0400 SaO2% (BldA) [Mass fraction] 98 % Nelly Worrell APRN.ADJUNCT PROFESSOR OF ENGLISH Work Phone: [facility] 02-10-2024 17:10-0400 Systolic blood pressure 148 mm[Hg] Nelly Worrell APRN.ADJUNCT PROFESSOR OF ENGLISH Work Phone: [facility] 12-12-2023 09:35-0500 Body temperature 98.01 [degF] Krislyn Aberegg PA Work Phone: [facility] 12-12-2023 09:35-0500 Body weight 60.24 kg Krislyn Aberegg PA Work Phone: [facility] 12-12-2023 09:35-0500 Diastolic blood pressure 72 mm[Hg] Krislyn Aberegg PA Work Phone: [facility] 12-12-2023 09:35-0500 Heart rate 90 /min Krislyn Aberegg PA Work Phone: [facility] 12-12-2023 09:35-0500 Respiratory rate 16 /min Krislyn Aberegg PA Work Phone: [facility] 12-12-2023 09:35-0500 SaO2% (BldA) [Mass fraction] 98 % Krislyn Aberegg PA Work Phone: [facility] 12-12-2023 09:35-0500 Systolic blood pressure 126 mm[Hg] Krislyn Aberegg PA Work Phone: [facility] 09-20-2023 12:48-0500 Diastolic blood pressure 69 mm[Hg] [facility] 09-20-2023 12:48-0500 Heart rate 72 /min [facility] 09-20-2023 12:48-0500 Respiratory rate 15 /min [facility] 09-20-2023 12:48-0500 SaO2% (BldA) [Mass fraction] 98 % [facility] 09-20-2023 12:48-0500 Systolic blood pressure 124 mm[Hg] [facility] 09-20-2023 11:37-0500 Body height 160.02 cm [facility] 09-20-2023 11:37-0500 Body mass index (BMI) [Ratio] 23 kg/m2 [facility] 09-20-2023 11:37-0500 Body temperature 98 [degF] [facility] 09-20-2023 11:37-0500 Body weight 58.96 kg [facility] 09-17-2023 09:53-0500 Diastolic blood pressure 85 mm[Hg] Angela Older PROC TECH.ADJUNCT PROFESSOR OF ENGLISH Work Phone: [facility] 09-17-2023 09:53-0500 Heart rate 75 /min Angela Older PROC TECH.ADJUNCT PROFESSOR OF ENGLISH Work Phone: [facility] 09-17-2023 09:53-0500 Systolic blood pressure 136 mm[Hg] Angela Older PROC TECH.ADJUNCT PROFESSOR OF ENGLISH Work Phone: [facility] 09-17-2023 09:14-0500 Body temperature 98.4 [degF] Angela Older PROC TECH.ADJUNCT PROFESSOR OF ENGLISH Work Phone: [facility] 09-17-2023 09:14-0500 Body weight 58.06 kg Angela Older PROC TECH.ADJUNCT PROFESSOR OF ENGLISH Work Phone: [facility] 09-17-2023 09:14-0500 Respiratory rate 18 /min Angela Older PROC TECH.ADJUNCT PROFESSOR OF ENGLISH Work Phone: [facility] 09-17-2023 09:14-0500 SaO2% (BldA) [Mass fraction] 98 % Angela Older PROC TECH.ADJUNCT PROFESSOR OF ENGLISH Work Phone: [facility] 09-12-2023 14:01-0500 Body height 158.75 cm [facility] 09-12-2023 14:01-0500 Body mass index (BMI) [Ratio] 23.4 kg/m2 [facility] 09-12-2023 14:01-0500 Body temperature 97.5 [degF] [facility] 09-12-2023 14:01-0500 Body weight 59.14 kg [facility] 09-12-2023 14:01-0500 Diastolic blood pressure 103 mm[Hg] [facility] 09-12-2023 14:01-0500 Heart rate 88 /min [facility] 09-12-2023 14:01-0500 Respiratory rate 18 /min [facility] 09-12-2023 14:01-0500 SaO2% (BldA) [Mass fraction] 100 % [facility] 09-12-2023 14:01-0500 Systolic blood pressure 188 mm[Hg] [facility] 09-06-2023 15:29-0500 Body temperature 98.1 [degF] [facility] PROC TECH.ADJUNCT PROFESSOR OF ENGLISH Work Phone: [facility] 09-06-2023 15:29-0500 Body weight 59.88 kg Genaro Pendlebury PROC TECH.ADJUNCT PROFESSOR OF ENGLISH Work Phone: [facility] 09-06-2023 15:29-0500 Diastolic blood pressure 92 mm[Hg] Genaro Pendlebury PROC TECH.ADJUNCT PROFESSOR OF ENGLISH Work Phone: [facility] 09-06-2023 15:29-0500 Heart rate 86 /min Genaro Pendlebury PROC TECH.ADJUNCT PROFESSOR OF ENGLISH Work Phone: [facility] 09-06-2023 15:29-0500 Respiratory rate 21 /min Genaro Pendlebury PROC TECH.ADJUNCT PROFESSOR OF ENGLISH Work Phone: [facility] 09-06-2023 15:29-0500 SaO2% (BldA) [Mass fraction] 98 % [facility] PROC TECH.ADJUNCT PROFESSOR OF ENGLISH Work Phone: [facility] 09-06-2023 15:29-0500 Systolic blood pressure 138 mm[Hg] Genaro Pendlebury PROC TECH.ADJUNCT PROFESSOR OF ENGLISH Work Phone: [facility] 05-26-2023 11:38-0400 Diastolic blood pressure 87 mm[Hg] Kendall Pete PROC TECH.VERIFICATION MANAGER Work Phone: [facility] 05-26-2023 11:38-0400 Heart rate 72 /min Kendall Pete PROC TECH.VERIFICATION MANAGER Work Phone: [facility] 05-26-2023 11:38-0400 Systolic blood pressure 135 mm[Hg] Kendall Pete PROC TECH.VERIFICATION MANAGER Work Phone: [facility] 05-26-2023 11:30-0400 Body weight 58.51 kg Kendall Pete PROC TECH.VERIFICATION MANAGER Work Phone: [facility] 05-26-2023 11:30-0400 Respiratory rate 16 /min Kendall Pete PROC TECH.VERIFICATION MANAGER Work Phone: [facility] 04-29-2023 09:02-0400 Diastolic blood pressure 100 mm[Hg] Kiersten Elsi PROC TECH.ADJUNCT PROFESSOR OF ENGLISH Work Phone: [facility] 04-29-2023 09:02-0400 Systolic blood pressure 147 mm[Hg] Kiersten Elsi PROC TECH.ADJUNCT PROFESSOR OF ENGLISH Work Phone: [facility] 04-29-2023 08:57-0400 Body weight 58.06 kg Kiersten Elsi PROC TECH.ADJUNCT PROFESSOR OF ENGLISH Work Phone: [facility] 04-29-2023 08:57-0400 Heart rate 74 /min Kiersten Elsi PROC TECH.ADJUNCT PROFESSOR OF ENGLISH Work Phone: [facility] 04-29-2023 08:57-0400 SaO2% (BldA) [Mass fraction] 96 % Kiersten Elsi PROC TECH.ADJUNCT PROFESSOR OF ENGLISH Work Phone: [facility] 01-20-2023 10:35-0400 Body height 158.8 cm Esthela Surrency PROC TECH.ADJUNCT PROFESSOR OF ENGLISH Work Phone: [facility] 01-20-2023 10:35-0400 Body weight 56.88 kg Esthela Lucia PROC TECH.ADJUNCT PROFESSOR OF ENGLISH Work Phone: [facility] 01-20-2023 10:35-0400 Diastolic blood pressure 92 mm[Hg] Esthela Lucia PROC TECH.ADJUNCT PROFESSOR OF ENGLISH Work Phone: [facility] 01-20-2023 10:35-0400 Systolic blood pressure 162 mm[Hg] Esthela Surrency PROC TECH.ADJUNCT PROFESSOR OF ENGLISH Work Phone: [facility] 12-25-2022 14:26-0500 Diastolic blood pressure 87 mm[Hg] Kendall Pete PROC TECH.VERIFICATION MANAGER Work Phone: [facility] 12-25-2022 14:26-0500 Systolic blood pressure 136 mm[Hg] Kendall Pete PROC TECH.VERIFICATION MANAGER Work Phone: [facility] 12-25-2022 14:21-0500 Body weight 56.7 kg Kendall Pete PROC TECH.VERIFICATION MANAGER Work Phone: [facility] 12-25-2022 14:21-0500 Heart rate 87 /min Kendall Pete PROC TECH.VERIFICATION MANAGER Work Phone: [facility] 12-25-2022 14:21-0500 Respiratory rate 16 /min Kendall Pete PROC TECH.VERIFICATION MANAGER Work Phone: [facility] 12-25-2022 14:21-0500 SaO2% (BldA) [Mass fraction] 99 % Kendall Pete PROC TECH.VERIFICATION MANAGER Work Phone: [facility] 12-22-2022 14:45-0500 Diastolic blood pressure 86 mm[Hg] [facility] 12-22-2022 14:45-0500 Respiratory rate 18 /min [facility] 12-22-2022 14:45-0500 SaO2% (BldA) [Mass fraction] 98 % [facility] 12-22-2022 14:45-0500 Systolic blood pressure 141 mm[Hg] [facility] 12-22-2022 14:11-0500 Heart rate 77 /min [facility] 12-22-2022 11:24-0500 Body temperature 97.5 [degF] [facility] 12-22-2022 10:36-0500 Body height 157.48 cm [facility] 12-22-2022 10:36-0500 Body mass index (BMI) [Ratio] 34.7 kg/m2 [facility] 12-22-2022 10:36-0500 Body weight 86.13 kg [facility] 12-14-2022 13:27-0500 Body temperature 96.91 [degF] Elgin Miller PROC TECH.ADJUNCT PROFESSOR OF ENGLISH Work Phone: [facility] 12-14-2022 13:27-0500 Body weight 56.97 kg Elgin Miller PROC TECH.ADJUNCT PROFESSOR OF ENGLISH Work Phone: [facility] 12-14-2022 13:27-0500 Diastolic blood pressure 100 mm[Hg] Elgin Paul PROC TECH.ADJUNCT PROFESSOR OF ENGLISH Work Phone: [facility] 12-14-2022 13:27-0500 Heart rate 104 /min Elgin Paul PROC TECH.ADJUNCT PROFESSOR OF ENGLISH Work Phone: [facility] 12-14-2022 13:27-0500 Respiratory rate 18 /min Elgin Paul PROC TECH.ADJUNCT PROFESSOR OF ENGLISH Work Phone: [facility] 12-14-2022 13:27-0500 SaO2% (BldA) [Mass fraction] 99 % Elgin Paul PROC TECH.ADJUNCT PROFESSOR OF ENGLISH Work Phone: [facility] 12-14-2022 13:27-0500 Systolic blood pressure 170 mm[Hg] Elgin Paul PROC TECH.ADJUNCT PROFESSOR OF ENGLISH Work Phone: [facility] 10-07-2022 11:20-0500 Body temperature 98.01 [degF] Symone Herzog PROC TECH.ADJUNCT PROFESSOR OF ENGLISH Work Phone: [facility] 10-07-2022 11:20-0500 Body weight 57.61 kg Symone Herzog PROC TECH.ADJUNCT PROFESSOR OF ENGLISH Work Phone: [facility] 10-07-2022 11:20-0500 Diastolic blood pressure 82 mm[Hg] Symone Herzog PROC TECH.ADJUNCT PROFESSOR OF ENGLISH Work Phone: [facility] 10-07-2022 11:20-0500 Heart rate 82 /min Symone Herzog PROC TECH.ADJUNCT PROFESSOR OF ENGLISH Work Phone: [facility] 10-07-2022 11:20-0500 Respiratory rate 16 /min Symone Herzog PROC TECH.ADJUNCT PROFESSOR OF ENGLISH Work Phone: [facility] 10-07-2022 11:20-0500 SaO2% (BldA) [Mass fraction] 98 % Symone Herzog PROC TECH.ADJUNCT PROFESSOR OF ENGLISH Work Phone: [facility] 10-07-2022 11:20-0500 Systolic blood pressure 128 mm[Hg] Symone Herzog PROC TECH.ADJUNCT PROFESSOR OF ENGLISH Work Phone: [facility] 09-08-2022 08:40-0500 Body temperature 97.9 [degF] Vibha Athy PA-C Work Phone: [facility] 09-08-2022 08:40-0500 Body weight 57.24 kg Vibha Athy PA-C Work Phone: [facility] 09-08-2022 08:40-0500 Diastolic blood pressure 92 mm[Hg] Vibha Athy PA-C Work Phone: [facility] 09-08-2022 08:40-0500 Heart rate 102 /min Vibha Athy PA-C Work Phone: [facility] 09-08-2022 08:40-0500 Respiratory rate 21 /min Vibha Athy PA-C Work Phone: [facility] 09-08-2022 08:40-0500 SaO2% (BldA) [Mass fraction] 98 % Vibha Athy PA-C Work Phone: [facility] 09-08-2022 08:40-0500 Systolic blood pressure 142 mm[Hg] Vibha Athy PA-C Work Phone: [facility] 09-02-2022 08:45-0500 Body weight 55.79 kg Kendall Pete PROC TECH.VERIFICATION MANAGER Work Phone: [facility] 09-02-2022 08:45-0500 Diastolic blood pressure 76 mm[Hg] Kendall Pete PROC TECH.VERIFICATION MANAGER Work Phone: [facility] 09-02-2022 08:45-0500 Heart rate 88 /min Kendall Pete PROC TECH.VERIFICATION MANAGER Work Phone: [facility] 09-02-2022 08:45-0500 Respiratory rate 16 /min Kendall Pete PROC TECH.VERIFICATION MANAGER Work Phone: [facility] 09-02-2022 08:45-0500 Systolic blood pressure 122 mm[Hg] Kendall Pete PROC TECH.VERIFICATION MANAGER Work Phone: [facility] 07-21-2022 08:05-0400 Body temperature 98.1 [degF] Elgin Miller PROC TECH.ADJUNCT PROFESSOR OF ENGLISH Work Phone: [facility] 07-21-2022 08:05-0400 Body weight 57.7 kg Elgin Miller PROC TECH.ADJUNCT PROFESSOR OF ENGLISH Work Phone: [facility] 07-21-2022 08:05-0400 Diastolic blood pressure 72 mm[Hg] Elgin Miller PROC TECH.ADJUNCT PROFESSOR OF ENGLISH Work Phone: [facility] 07-21-2022 08:05-0400 Heart rate 77 /min Elgin Miller PROC TECH.ADJUNCT PROFESSOR OF ENGLISH Work Phone: [facility] 07-21-2022 08:05-0400 Respiratory rate 21 /min Elgin Miller PROC TECH.ADJUNCT PROFESSOR OF ENGLISH Work Phone: [facility] 07-21-2022 08:05-0400 SaO2% (BldA) [Mass fraction] 98 % Elgin Miller PROC TECH.ADJUNCT PROFESSOR OF ENGLISH Work Phone: [facility] 07-21-2022 08:05-0400 Systolic blood pressure 120 mm[Hg] Elgin Miller PROC TECH.ADJUNCT PROFESSOR OF ENGLISH Work Phone: [facility] 03-04-2022 09:43-0400 Body height 158.8 cm Td Murrell PA-C Work Phone: [facility] 03-04-2022 09:43-0400 Body temperature 98.29 [degF] Td Murrell PA-C Work Phone: [facility] 03-04-2022 09:43-0400 Body weight 56.25 kg Td Murrell PA-C Work Phone: [facility] 03-04-2022 09:43-0400 Diastolic blood pressure 70 mm[Hg] Td Murrell PA-C Work Phone: [facility] 03-04-2022 09:43-0400 Heart rate 86 /min Td Murrell PA-C Work Phone: [facility] 03-04-2022 09:43-0400 Respiratory rate 14 /min Td Murrell PA-C Work Phone: [facility] 03-04-2022 09:43-0400 SaO2% (BldA) [Mass fraction] 98 % Td Murrell PA-C Work Phone: [facility] 03-04-2022 09:43-0400 Systolic blood pressure 118 mm[Hg] Td Murrell PA-C Work Phone: [facility] 02-25-2022 10:02-0400 Diastolic blood pressure 78 mm[Hg] Philly Gregory MD Work Phone: [facility] 02-25-2022 10:02-0400 Systolic blood pressure 128 mm[Hg] Philly Gregory MD Work Phone: [facility] 02-25-2022 09:18-0400 Body weight 55.79 kg Philly Gregory MD Work Phone: [facility] 02-25-2022 09:18-0400 Heart rate 76 /min Philly Gregory MD Work Phone: [facility] 02-14-2022 07:49-0400 Body temperature 97.3 [degF] Mike Verdugo MD Work Phone: [facility] 02-14-2022 07:49-0400 Body weight 57.06 kg Mike Verdugo MD Work Phone: [facility] 02-14-2022 07:49-0400 Diastolic blood pressure 84 mm[Hg] Mike Verdugo MD Work Phone: [facility] 02-14-2022 07:49-0400 Heart rate 84 /min Mike Verdugo MD Work Phone: [facility] 02-14-2022 07:49-0400 Respiratory rate 16 /min Mike Verdugo MD Work Phone: [facility] 02-14-2022 07:49-0400 SaO2% (BldA) [Mass fraction] 99 % Mike Verdugo MD Work Phone: [facility] 02-14-2022 07:49-0400 Systolic blood pressure 136 mm[Hg] Mike Verdugo MD Work Phone: [facility] Encounters Encounter Date Encounter Type Care Provider Facility Start: 03-31-2025 End: 03-31-2025 Refill Philly Gregory MD Work Phone: [facility] Comment on above: Refill Request Start: 03-21-2025 End: 03-21-2025 ambulatory LEI PEPPER Facility:[facility] Start: 03-21-2025 End: 03-21-2025 ambulatory KENDALL PETE Facility:[facility] Start: 03-14-2025 End: 03-14-2025 Patient encounter procedure Esthela Myers APRN.ADJUNCT PROFESSOR OF ENGLISH Work Phone: OB/Gynecology Comment on above: Encounter for gyneco logical examination (general) (routine) without abnormal findings (Primary Dx); Encounter for screening mammogram for breast cancer; Encounter for surveillance of implantable subdermal contraceptive Start: 03-14-2025 End: 03-14-2025 Patient encounter status Esthela Myers APRN.ADJUNCT PROFESSOR OF ENGLISH Work Phone: [facility] Start: 03-14-2025 Encounter for gynecological examination (general) (routine) without abnormal findings ESTHELA MYERS [facility] Start: 03-14-2025 End: 03-14-2025 Subsequent hospital visit by physician Screen Mammo [facility] Comment on above: Encounter for screen ing mammogram for breast cancer [Z12.31] Start: 03-14-2025 End: 03-14-2025 ambulatory Lei Pepper PT Work Phone: [facility] Comment on above: Acute pain of left s houlder (Primary Dx) Start: 02-21-2025 End: 02-21-2025 ambulatory Lei Pepper PT Work Phone: [facility] Comment on above: Acute pain of left s houlder (Primary Dx) Start: 02-07-2025 End: 02-07-2025 ambulatory Lei Pepper PT Work Phone: [facility] Comment on above: Acute pain of left s houlder Start: 01-03-2025 End: 01-03-2025 Office outpatient visit 15 minutes Kendall Pete APRN.VERIFICATION MANAGER Work Phone: [facility] Comment on above: Acute pain of left s houlder (Primary Dx) Start: 01-03-2025 End: 01-03-2025 ambulatory [facility] Facility:[facility] Start: 12-29-2024 End: 12-29-2024 Follow-up encounter Nelly Worrell APRN.ADJUNCT PROFESSOR OF ENGLISH Work Phone: [facility] Start: 12-28-2024 End: 12-28-2024 Subsequent hospital visit by physician Araceli [facility] Work Phone: Radiology Comment on above: Injury of left shoul chadd, initial encounter [S49.92XA] Start: 12-28-2024 End: 12-29-2024 ambulatory PHILLY Yovana [facility] Facility:[facility] Start: 12-28-2024 End: 12-28-2024 Patient encounter procedure Shahzad Hughes APRN.ADJUNCT PROFESSOR OF ENGLISH Work Phone: [facility] Comment on above: Injury of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 essment [facility] Start: 09-16-2023 Mammography [facility] Start: 09-16-2023 Screening for malign ant neoplasm of breast Mammogram Screening [facility] Start: 09-12-2023 [facility] Start: 09-02-2023 BP CONTROLLED (<130/80) BP CONTROLLE D (<130/80) [facility] Start: 09-02-2023 COVID-19 VACCINE (3 - Booster for Pfizer series) COVID-19 VACCINE (3 - Booster for Pfizer series) [facility] Comment on above: Postponed from 02/18 (Declined at this time) Start: 09-02-2023 COVID-19 VACCINE (3 - Pfizer series) COVID-19 VACCINE (3 - Pfizer series) [facility] Comment on above: Postponed from 02/18 (Declined at this time) Start: 07-21-2023 BP CONTROLLED (<130/80) BP CONTROLLE D (<130/80) [facility] Start: 06-19-2023 Covid-19 Vaccine ( season) Covid-19 Vaccine ( season) [facility] Start: 06-19-2023 Influenza vaccination [facility] Start: 04-17-2023 Influenza vaccination INFLUENZA (#1) [facility] Comment on above: Postponed from 06/19 (Declined at this time) Start: 2023 Pneumococcal Vaccine : 50+ (1 of 1 - PCV) Pneumococcal Vaccine: 50+ (1 of 1 - PCV) [facility] Start: 2023 SHINGRIX VACCINE (1 of 2) SHINGRIX VACCINE (1 of 2) [facility] Start: 04-02-2023 LIPID SCREEN LIPID SCREEN [facility] Start: 03-04-2023 BP CONTROLLED (<130/80) BP CONTROLLE D (<130/80) [facility] Start: 02-25-2023 Adult depression screening assessment DEPRESSION SCREENING [facility] Start: 02-25-2023 ANNUAL PCP TEAM IN STORE DEMONSTRATOR JOZEF DISEASE VISIT ANNUAL PCP TEAM CHRONIC DISEASE VISIT [facility] Start: 12-22-2022 [facility] Start: 10-19-2022 DEPRESSION ASSESSMENT DEPRESSION ASS ESSMENT [facility] Start: 09-08-2022 End: 09-22-2022 Influenza virus A and B RNA and SARS-CoV-2 (COVID-19) N gene panel - Respiratory specimen by IRINA with probe detection [facility] Work Phone: Comment on above: Expected: 09/08/2022 , Expires: 09/22/2022 Start: 09-06-2022 Mammography MAMMOGRAM [facility] Start: 09-02-2022 End: 11-02-2022 CBC W Auto Differential panel - Blood CBC + DIFF Lab Routine Primary hypertension ELIAN (obstructive sleep apnea) [id number] Expected: 09/02/2022, Expires: 11/02/2022 [facility] Work Phone: Comment on above: Expected: 09/02/2022 , Expires: 11/02/2022 Start: 09-02-2022 End: 11-02-2022 Comprehensive metabolic 2000 panel - Serum or Plasma COMP METABOLIC PANEL Lab Routine Primary hypertension IFG (impaired fasting glucose) ELIAN (obstructive sleep apnea) [id number] Expected: 09/02/2022, Expires: 11/02/2022 [facility] Work Phone: Comment on above: Expected: 09/02/2022 , Expires: 11/02/2022 Start: 09-02-2022 End: 11-02-2022 Hemoglobin A1c in Blood HGB A1C Lab Routine IFG (impaired fasting glucose) Expected: 09/02/2022, Expires: 11/02/2022 [facility] Work Phone: Comment on above: Expected: 09/02/2022 , Expires: 11/02/2022 Start: 08-27-2022 ANNUAL PCP TEAM IN STORE DEMONSTRATOR JOZEF DISEASE VISIT ANNUAL PCP TEAM CHRONIC DISEASE VISIT [facility] Start: 06-19-2022 Influenza vaccination [facility] Start: 06-07-2022 Adult depression screening assessment DEPRESSION SCREENING [facility] Start: 06-07-2022 BP CONTROLLED (<130/80) BP CONTROLLE D (<130/80) [facility] Start: 05-26-2022 COVID-19 VACCINE (3 - Booster for Pfizer series) COVID-19 VACCINE (3 - Booster for Pfizer series) [facility] Start: 04-17-2022 Influenza vaccination INFLUENZA (#1) [facility] Comment on above: Postponed from 06/19 (Declined at this time) Start: 03-26-2022 Urine microalbumin profile DTAP,TDAP,TD (1 - Tdap) [facility] Comment on above: Postponed from 12/28 (Declined at this time) Start: 02-18-2022 COVID-19 VACCINE (3 - Booster for Pfizer series) COVID-19 VACCINE (3 - Booster for Pfizer series) [facility] Start: 11-21-2021 COVID-19 VACCINE (2 - Pfizer 3-dose series) COVID-19 VACCINE (2 - Pfizer 3-dose series) [facility] Start: 10-19-2021 DEPRESSION ASSESSMENT DEPRESSION ASS ESSMENT [facility] Start: 2018 COLOGUARD (FIT-DNA) COLOGUARD (FIT-D NA) [facility] Start: 2018 Colonoscopy COLONOSCOPY [facility] Start: 2018 COLORECTAL CANCER SCREENING COLORECTAL CANCER SCREENING [facility] Start: [address] COLONOGRAPHY [facility] Start: 2018 FECAL OCCULT BLOOD FECAL OCCULT BLOO D [facility] Start: 2018 Screening for malign ant neoplasm of colon [facility] Start: 2018 SIGMOIDOSCOPY SIGMOIDOSCOPY [facility] Start: 12-29-2007 Urine microalbumin profile [facility] Start: 1992 Hepatitis B Vaccine (1 of 3 - 19+ 3-dose series) Hepatitis B Vaccine (1 of 3 - 19+ 3-dose series) [facility] Start: 1983 Diabetic foot examination Diabetic Foot Exam [facility] Start: 1983 Glaucoma screening Dilated Retinal E xam [facility] Start: 1983 Hepatitis B screening Urine Albumin:Creatinine Ratio [facility] Start: 1973 HEPATITIS B (1 of 3 - 3-dose series) HEPATITIS B (1 of 3 - 3-dose series) [facility] Start: 1973 Hepatitis B Vaccine (1 of 3 - 3-dose series) Hepatitis B Vaccine (1 of 3 - 3-dose series) [facility] Bacteria identified in Urine by Culture URINE CULTURE Microbiology Routine Abdominal pain, lower Microscopic hematuria Ordered: 02/14/2022 [facility] Work Phone: Comment on above: Ordered: 02/14/2022 BACTERIAL VAGINOSIS NAAT BACTERIAL VAGINOSIS NAAT Lab Routine Vagina itching 03/11/2024 9:47 AM EDT [facility] DWIGHT/TRICHOMONAS NAAT DWIGHT/TRICHOMONAS NAAT Lab Routine Vagina itching 03/11/2024 9:47 AM EDT [facility] COLOGUARD COLOGUARD Lab Ro utine Screening for colon cancer Ordered: 07/05/2024 [facility] Work Phone: Comment on above: Ordered: 07/05/2024 COLOGUARD COLOGUARD Lab Ro utine Colon 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 Ordered: 09/20/2024 [facility] Work Phone: Comment on above: Ordered: 09/20/2024 COVID & INFLUENZA A/ B & RSV NAAT, ROUTINE COVID & INFLUENZA A/B & RSV NAAT, ROUTINE Microbiology Routine URI, acute Ordered: 12/12/2023 [facility] Work Phone: Comment on above: Ordered: 12/12/2023 End: 04-10-2025 DBT Breast - bilateral screening AKHIL SCREENING W [facility] Radiology Routine Encounter for screening mammogram for breast cancer Dense breast tissue 1 Occurrences starting 03/11/2024 until 04/10/2025 [facility] Work Phone: Comment on above: 1 Occurrences starti ng 03/11/2024 until 04/10/2025 End: 04-13-2026 DBT Breast - bilateral screening AKHIL SCREENING W [facility] Radiology Routine Encounter for gynecological examination (general) (routine) without abnormal findings Encounter for screening mammogram for breast cancer 1 Occurrences starting 03/14/2025 until 04/13/2026 [facility] Work Phone: Comment on above: 1 Occurrences starti ng 03/14/2025 until 04/13/2026 DBT Breast - bilater al screening AKHIL SCREENING W [facility] Radiology Routine Encounter for screening mammogram for breast cancer Dense breast tissue 03/14/2025 2:38 PM EDT [facility] Work Phone: ECG COMPLETE ECG COMPLETE ECG Routine Essential hypertension Chest pain, unspecified type Ordered: 08/15/2024 [facility] Comment on above: Ordered: 08/15/2024 Hepb vaccine adult 2 dose schedule for im use HEPLISAV B (HEPATITIS B, ADJUVANT, ADULT) Immunization/Injection Routine Encounter for immunization 1 Occurrences starting 09/02/2022 [facility] Work Phone: Comment on above: 1 Occurrences starti ng 09/02/2022 End: 02-19-2024 AKHIL SCREENING W [facility] AKHIL SCREENING W [facility] Radiology Routine Encounter for screening mammogram for malignant neoplasm of breast Dense breasts 1 Occurrences starting 01/20/2023 until 02/19/2024 [facility] Work Phone: Comment on above: 1 Occurrences starti ng 01/20/2023 until 02/19/2024 Patient Education [facility] Work Phone: Patient referral [facility] Work Phone: SARS-CoV-2 (COVID-19 ) RNA [Presence] in Respiratory specimen by IRINA with probe detection 2019 CORONAVIRUS Microbiology Routine Suspected COVID-19 virus infection Ordered: 12/14/2022 [facility] Work Phone: Comment on above: Ordered: 12/14/2022 End: 08-15-2025 STRESS ECHO TREADMILL STRESS ECHO TREADMILL Cardiology Routine Essential hypertension Chest pain, unspecified type 1 Occurrences starting 08/15/2024 until 08/15/2025 [facility] Work Phone: Comment on above: 1 Occurrences starti ng 08/15/2024 until 08/15/2025 Tdap vaccine 7 yrs/> im TDAP VAC CINE AGE 7+ IM Immunization/Injection Routine Encounter for immunization 1 Occurrences starting 09/02/2022 [facility] Work Phone: Comment on above: 1 Occurrences starti ng 09/02/2022 UA DIP, URINE (POC) UA DIP, URIN E (POC) Lab Routine Abdominal pain, lower Ordered: 02/14/2022 [facility] Work Phone: Comment on above: Ordered: 02/14/2022 [facility] Immunizations Immunization Date Immunization Notes Care Provider Gurpreet elmore 12-24-2021 COVID-19 original vaccine, age 12+ yr, monovalent (PFIZER-BIONTECH - PURPLE TOP) Kiersten Calzada PROC TECH.ADJUNCT PROFESSOR OF ENGLISH Work Phone: [facility] Work Phone: 10-31-2021 COVID-19 vaccine, ag e 12+ yr (PFIZER-BIONTECH - PURPLE TOP) Philly Gregory MD Work Phone: [facility] Work Phone: 07-23-2018 influenza virus vaccine, unspecified formulation Kendall ePte PROC TECH.VERIFICATION MANAGER Work Phone: [facility] 12-28-2007 tetanus and diphther ia toxoids, adsorbed, preservative free, for adult use (2 Lf of tetanus toxoid and 2 Lf of diphtheria toxoid) Philly Gregory MD Work Phone: [facility] Work Phone: Payers Date Payer Category Payer Private Health Insurance [id number] 2023 Self-pay [id number] 2023 [employer] BLUE ACCE SS PPO [id number] 2023 Unknown ANTH BLUE ACCE SS PPO [id number] 2023-Present [phone] [address] [place] [address] PPO [id number] 2023 Unknown [id number] 2017 Medicaid [employer] [id number] 2017-Present [phone] [address] [place] [address] Medicaid [id number] 2017 Medicaid [id number] Unknown [employer] [id number] Unknown ANTHEM [id number] Unknown [id number] Unknown [id number] Social History Date Type Detail Facility Start: 07-21-2022 End: 03-11-2024 Tobacco smoking status PAIS Never smoked tobacco [facility] Start: 11-19-2021 End: 03-21-2025 Alcohol intake Current non-drinker of alcohol (finding) [facility] Start: 1975 Sex Assigned At Not on file [facility] Start: 02-04-2022 End: 09-16-2022 Exposure to SARS-CoV-2 (event) Not sure [facility] Work Phone: Start: 07-21-2022 End: 03-11-2024 Tobacco use and exposure Smokeless tobacco non-user [facility] Start: 12-22-2022 End: 09-20-2023 Tobacco smoking status NHIS Unknown if ever smoked [facility] Start: 02-12-2014 Occasional [facility] Start: 02-12-2014 None [facility] Start: 02-12-2014 Spouse/ Signif icant Other;With Family [facility] Start: 02-12-2014 Non-smoker [facility] Start: 1975 Sex Assigned At Female [facility] Start: 04-29-2023 End: 09-19-2024 History of Social function [facility] Work Phone: Start: 04-29-2023 End: 09-19-2024 Tobacco use panel [facility] Work Phone: Adult Depression Screening Assessment 0 [facility] Work Phone: Do you belong to any clubs or organizations such as catholic groups, unions, fraternal or athletic groups, or school groups? Yes [facility] Are you now , , , , never or living with a partner? [facility] How often to you hav e a drink containing alcohol? Never [facility] How hard is it for y ou to pay for the very basics like food, housing, medical care, and heating Somewhat hard [facility] Do you feel stress - tense, restless, nervous, or anxious, or unable to sleep at night because your mind is troubled all the time - these days [OSQ] Only a little [facility] (I/We) worried wheth er (my/our) food would run out before (I/we) got money to buy more. Never true [facility] At any time in the p ast 12 months, were you homeless or living in nursing home [including now]? No [facility] Start: 12-12-2023 Gender identity Identifies as female gender (finding) [facility] Start: 12-12-2023 Sexual orientation Choose not to disclose [facility] How hard is it for y ou to pay for the very basics like food, housing, medical care, and heating Not very hard [facility] (I/We) worried wheth er (my/our) food would run out before (I/we) got money to buy more. Sometimes true [facility] NEGATED: Highlighted row [facility] NEGATED: Highlighted rowStart: SEGUNF History of tobacco use Passive smoker [facility] Functional Status Date Assessment Result Facility 05-09-2015 Are you deaf, or do you have serious difficulty hearing No 05/09/2015 8:46 AM NAHUMT Hanna Cool RN No [facility] 05-09-2015 Are you blind, or do you have serious difficulty seeing, even when wearing glasses No 05/09/2015 8:46 AM NAHUMT Hanna Cool RN No [facility] 05-09-2015 Do you have serious difficulty walking or climbing stairs No 05/09/2015 8:46 AM NAHUMT Hanna Cool RN No [facility] 05-09-2015 Do you have difficul ty dressing or bathing No 05/09/2015 8:46 AM NAHUMT Hanna Cool RN No [facility] 05-09-2015 Because of a physica l, mental, or emotional condition, do you have difficulty doing errands alone such as visiting a physician's office or shopping No 05/09/2015 8:46 AM NAHUMT Hanna Cool RN No [facility] Mental Status Date Assessment Result Facility 12-22-2022 Cognitive function Level Of Cons ciousness Awake;Alert [facility] Work Phone: 05-09-2015 Because of a physica l, mental, or emotional condition, do you have serious difficulty concentrating, remembering, or making decisions No 05/09/2015 8:46 AM EDT Hanna Cool RN No [facility] Clinical Notes 08-13-2009 to 03-31-2025 Telephone Encounter - Gaye Lomeli RN - 03/31/2025 2:09 PM EDTTelephone Encounter - Gaye Lomeli RN - 03/31/2025 2:09 PM EDTTelephone Encounter - Philly Gregory MD - 03/31/2025 11:33 AM EDT Note Date & Type Note Facility 03-31-2025 Telephone encounter Note Pt notified via . Gaye Lomeli RN [facility] 03-31-2025 Miscellaneous Notes Pt notified via VM. Gaye Lomeli RN The following approved medication requests have been transmitted electronically. Requested Prescriptions Signed Prescriptions Disp Refills metoprolol succinate ER (TOPROL XL) 25 mg 24 hr tablet 90 tablet 3 Sig: Take 1 tablet by mouth once daily. Authorizing Provider: PHILLY GREGORY MD Pt ran out of this medication yesterday. Requesting refill be sent today, if possible. The patient has been identified by name and date of : Yes Caregiver verified no other encounters exist for this prescription request: Yes Caregiver confirmed with patient/requestor that no other refills are due, in the near future, with this provider at this time: Yes The last office visit in the department: 03/21/2025 Does the patient have a future office visit with this provider/department: Yes 10/03/2025 Requested Prescriptions Pending Prescriptions Disp Refills metoprolol succinate ER (TOPROL XL) 25 mg 24 hr tablet 90 tablet 3 Sig: Take 1 tablet by mouth once daily. Gaye Lomeli RN documented in this encounter [facility] 03-31-2025 Telephone encounter Note The following approved medication requests have been transmitted electronically. Requested Prescriptions Signed Prescriptions Disp Refills metoprolol succinate ER (TOPROL XL) 25 mg 24 hr tablet 90 tablet 3 Sig: Take 1 tablet by mouth once daily. Authorizing Provider: PHILLY GREGORY MD [facility] 03-31-2025 Telephone encounter Note Pt ran out of this medication yesterday. Requesting refill be sent today, if possible. The patient has been identified by name and date of : Yes Caregiver verified no other encounters exist for this prescription request: Yes Caregiver confirmed with patient/requestor that no other refills are due, in the near future, with this provider at this time: Yes The last office visit in the department: 03/21/2025 Does the patient have a future office visit with this provider/department: Yes 10/03/2025 Requested Prescriptions Pending Prescriptions Disp Refills metoprolol succinate ER (TOPROL XL) 25 mg 24 hr tablet 90 tablet 3 Sig: Take 1 tablet by mouth once daily. Gaye Lomeli RN [facility] 03-21-2025 Note HNO ID: [id number] Author: LEI PEPPER PT Service: ? Author Type: Physical Therapist Type: Progress Notes Filed: 03/21/2025 12:23 Note Text: Episode Visit Count: 4 Therapist That Will Accept/Oversee The Plan Of Care: Lei Pepper PT Start of Care Date: 02/07/25 Onset Date: 12/10/24 Patient Identified by Name and Date of : Yes REHABILITATION AND SPORTS THERAPY PHYSICAL THERAPY TREATMENT NOTE ASSESSMENT: Mata Santana tolerated the session with expected muscle soreness. She demonstrated good form with all therapeutic exercises. The patient will continue to benefit from ongoing skilled physical therapy to progress toward set goals. PLAN FOR NEXT VISIT: Re-check SUBJECTIVE: The shoulder is feeling good today. The shoulder felt good upon waking up. Pt is doing the exercises at least once a day. The shoulder feels 60% improved overall. Pain: Pain Pain Level: 1 Pain Location: Shoulder - Left OBJECTIVE MEASURES WITH LEVEL OF FUNCTION: TREATMENT: Therapeutic Exercise: 1: UBE (arms only) x 2 min F (1:1 time spent and subjective taken) 2: Shoulder abd iso at wall 2 x 12 3: Standing scaption lvl 2 band 2 x 10 4: Standing No money's lvl 2 band 2 x 10 5: Standing bicep curl 3# x 12 6: Standing bicep curl 5# 2 x 10 7: Overhead press 2# 2 x 10 8: Standing shoulder flexion iso B 2 x 10 9: Standing cross-body stretch 3 x 30 sec 10: Pendulums x 10 Skilled Intervention: Patient was educated in proper exercise technique and purpose for exercises. Correct performance of therapeutic exercises was facilitated with verbal cuing. Billing Therapeutic Exercise Treatment Minutes: 39 Skilled Treatment Time Minutes (timed and untimed codes): 39 Total Session Time (minutes): 39 Session Start Time : 1109 Session Stop Time : 1148 Lei Pepper PT [facility] 03-21-2025 Note HNO ID: [id number] Author: KENDALL PETE APRN.VERIFICATION MANAGER Service: ? Author Type: Nurse Specialist Type: Progress Notes Filed: 03/21/2025 11:08 Note Text: SUBJECTIVE: There are no preventive care reminders to display for this patient. MIGUEL Santana is a 49 year old female. Her past medical history is significant for ACTIVE PROBLEM LIST Allergic Rhinitis ELIAN (obstructive sleep apnea) [id number] Excessive Daytime Sleepiness Anxiety State Ifg (Impaired Fasting Glucose) Essential Hypertension Hypokalemia Near Syncope Acute Pain of Left Shoulder Hypertension: - Managed with amlodipine; requests refill to be sent to [facility]. - Reports not feeling well on metoprolol, losartan, or lisinopril in the past. Diabetes Mellitus: - A1c in December showed improvement. - Monitoring diet. Obstructive Sleep Apnea: - Managed to the best of her ability. Thyroid: - No current treatment; monitoring only. Shoulder Pain: - Undergoing physical therapy; reports slight improvement in mobility. 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 ELIAN: reports more consistent use since last here. HTN: She notes no chest pain palpitations, dyspnea, peripheral edema, orthopnea, fatigue, and PND. Last 14 Encounter BP Readings: Date: BP: 03/21/2025 129/82 03/14/2025 124/88 01/03/2025 126/83 12/28/2024 122/82 09/20/2024 120/76 09/06/2024 123/79 08/15/2024 158/96[bp average[ 07/05/2024 134/86 03/11/2024 144/80 03/08/2024 155/93[bp average[ 02/25/2024 154/92 02/10/2024 148/100 12/12/2023 126/72 09/17/2023 136/85[bp dayday average[ TSH Date Value 09/06/2024 0.957 mIU/L 03/22/2024 1.600 mIU/L 01/08/2021 1.340 uU/mL 06/12/2020 0.868 uU/mL ) Review of Systems Constitutional: Negative. Respiratory: Negative. Endocrine: Negative. Objective BP 129/82 Pulse 69 Resp 16 Wt 56 kg (123 lb 7.3 oz) LMP 02/22/2025 BMI 22.95 kg/m? Physical Exam Vitals and nursing note reviewed. Constitutional: Appearance: Normal appearance. HENT: Head: Normocephalic and atraumatic. Eyes: Conjunctiva/sclera: Conjunctivae normal. Neck: Thyroid: No thyromegaly or thyroid tenderness. Vascular: Normal carotid pulses. No carotid bruit or JVD. Cardiovascular: Rate and Rhythm: Normal rate and regular rhythm. Pulses: Carotid pulses are 2+ on the right side and 2+ on the left side. Radial pulses are 2+ on the right side and 2+ on the left side. Heart sounds: Normal heart sounds. Pulmonary: Effort: Pulmonary effort is normal. Breath sounds: Normal breath sounds. Abdominal: General: Bowel sounds are normal. Palpations: Abdomen is soft. Musculoskeletal: Right lower leg: No edema. Left lower leg: No edema. Skin: General: Skin is warm and dry. Neurological: General: No focal deficit present. Mental Status: She is alert and oriented to person, place, and time. ALLERGIES Allergen Reactions Seasonal Allergies Cough Cough, sneezing AND watery eyes Medications Ethinyl Estradiol-Norelgestrom (XULANE) 150-35 mcg/24 hr patch Apply 1 patch as directed one time a week. One inactive week per month. metoprolol succinate ER (TOPROL XL) 25 mg 24 hr tablet Take 1 tablet by mouth once daily. calc carb,cit/mag,zinc/D3/h122 ([id number] #122-VIT D3 ORAL) Take by mouth. GARLIC amLODIPine (NORVASC) 5 mg tablet Take 1 tablet by mouth once daily. CPAP AutoPAP 5-20 cmH2O, suitable mask,straps and chin straps as needed humidity, filters. Lifetime supplies. Dx: 327.23. (Patient taking differently: AutoPAP 5-20 cmH2O, suitable mask,straps and chin straps as needed humidity, filters. Lifetime supplies. Dx: 327.23. Not using nightly) [DISCONTINUED] ergocalciferol, vitamin D2, (VITAMIN D2 ORAL) Take by mouth. PAST MEDICAL HISTORY Diagnosis Date Allergic rhinitis seasonal--spring and fall Calculus of kidney 2004 small - incidental on CT scan, has never passed one that she's aware of Depression DM, gestational, diet controlled (HCC) 2008 Esophageal reflux acid in back of throat, no pain - mostly with spicy foods, Prevacid helps Essential hypertension 04/20/2021 Generalized headaches Obstructive sleep apnea Dr. Verde Personal history of urinary (tract) infection recurrent Threatened premature labor, unspecified as to episode of care Premature labor Thyrotoxicosis without mention of goiter or other cause, without mention of thyrotoxic crisis or storm 2006 Hyperthyroidism - placed on atenolol 25mg x 6 mo, states now off meds and thyroid ok Social History Tobacco Use Smoking status: Never Passive exposure: Never Smokeless tobacco: Never Vaping Use Vaping status: Never Used Substance Use Topics Alcohol use: No Drug use: No Latest Ref Rng 03/22/2024 07/05/2024 09/06/2024 09/20/2024 11/22/2024 01/03/2025 WBC 3.70 - 11.00 k/uL 8.61 RBC 3.90 - 5.20 m/uL 4.27 He (more content not included)... [facility] 03-14-2025 History of Present illness Narrative Radiology Service Progress Note PATIENT NAME: Mata Santana DATE OF SERVICE: March 14, 2025 TIME: 3:39 PM PATIENT IDENTITY VERIFICATION COMPLETED USING TWO (2) IDENTIFIERS: Name and Date of confirmed by patient verbally. FALL SCREENING: Has the patient had 2 falls in the last year or 1 fall with injury or currently using an Ambulatory Assistive Device (Walker, Cane, Wheelchair, Crutches, etc.)? No PATIENT GENDER DATA: Assigned female at . status: : No status: NO. PATIENT RELEVANT IMPLANT DATA REVIEWED: Not Applicable PATIENT PRESENTS WITH AN IMPLANTABLE OR ATTACHED [employer]CHO[employer] PE TEACHER: No RADIOLOGY DEPARTMENT: Mammography PERIPHERAL IV DATA: Not applicable SIGNED BY: RT Arun(Meg) March 14, 2025 3:39 PM documented in this encounter [facility] 03-14-2025 Note HNO ID: [id number] Author: DORINDA MCKENNA RT(R) Service: ? Author Type: Technologist Type: Progress Notes Filed: 03/14/2025 15:39 Note Text: Radiology Service Progress Note PATIENT NAME: Mata Santana DATE OF SERVICE: March 14, 2025 TIME: 3:39 PM PATIENT IDENTITY VERIFICATION COMPLETED USING TWO (2) IDENTIFIERS: Name and Date of confirmed by patient verbally. FALL SCREENING: Has the patient had 2 falls in the last year or 1 fall with injury or currently using an Ambulatory Assistive Device (Walker, Cane, Wheelchair, Crutches, etc.)? No PATIENT GENDER DATA: Assigned female at . status: : No status: NO. PATIENT RELEVANT IMPLANT DATA REVIEWED: Not Applicable PATIENT PRESENTS WITH AN IMPLANTABLE OR ATTACHED [employer] PE TEACHER: No RADIOLOGY DEPARTMENT: Mammography PERIPHERAL IV DATA: Not applicable SIGNED BY: RT Arun(Meg) March 14, 2025 3:39 PM [facility] 03-14-2025 Note HNO ID: [id number] Author: ESTHELA MYERS APRN.CNP Service: ? 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 Mata is a 49 year old who presents for an annual gynecologic exam without complaints. LMP 02/22/2025 Postmenopausal: No. Menstrual cycle every 24-25 days Flow 4-6 days HRT use: N/A . HPV vaccine: No Last Pap: 11/26/2021 normal HPV: 11/22/2021 negative History of abnormal pap: No Last mammogram: 2024 today History of abnormal mammogram: No Sexually active: not currently OB History Gravida2 Para2 Term1 Preterm1 AB0 Living2 SAB0 IAB0 Ectopic0 Multiple0 Live Births2 [place] History LMP: 02/22/2025, Having periods Age at Menarche: 16 Age at First : Age at Menopause: [place] History Comments: Sexual Activity: Not Currently; Male Contraception: No contraception data on record PAST MEDICAL HISTORY Diagnosis Date Allergic rhinitis seasonal--spring and fall Calculus of kidney 2004 small - incidental on CT scan, has never passed one that she's aware of Depression DM, gestational, diet controlled (HCC) 2008 Esophageal reflux acid in back of throat, no pain - mostly with spicy foods, Prevacid helps Essential hypertension 04/20/2021 Generalized headaches Obstructive sleep apnea Dr. Verde Personal history of urinary (tract) infection recurrent Threatened premature labor, unspecified as to episode of care Premature labor Thyrotoxicosis without mention of goiter or other cause, without mention of thyrotoxic crisis or storm 2005 Hyperthyroidism - placed on atenolol 25mg x 6 mo, states now off meds and thyroid ok PAST SURGICAL HISTORY Procedure Laterality Date PAST SURGICAL HISTORY OF 03/2005 left foot-removal of bunion PAST SURGICAL HISTORY OF Lesion removed from upper groin area PAST SURGICAL HISTORY OF Right 03/2022 ingrown toenail-type surgery POST-CATARACT LASER SURGERY Bilateral 2024 FAMILY HISTORY Problem Relation Age of Onset Diabetes Mother 53 Thyroid Mother Unsure of exact etiology Heart Father age 49, heavy smoker, likely of [place] but pt not sure Diabetes Sister Diabetes Brother 25 Diabetes Maternal Grandmother other (Other) Maternal Grandmother MVA Alzheimer's Disease Maternal Grandfather also great grandma Diabetes Paternal Grandmother Ischemic Heart Disease Paternal Grandfather age 50 [place] Parkinson's Maternal Uncle SOCIAL HISTORY Social History Tobacco Use Smoking status: Never Passive exposure: Never Smokeless tobacco: Never Vaping Use Vaping status: Never Used Substance Use Topics Alcohol use: No Drug use: No REVIEW OF SYSTEMS Abdomen: No abdominal pain, nausea, vomiting, or constipation. No bloating, early satiety, indigestion, or increased flatulence. +diarrhea a few days ago Bladder: No dysuria, gross hematuria, urinary frequency, urinary urgency, or incontinence Breast: No breast lumps, nipple d/c, overlying skin changes, redness or skin retraction Allergies and current medication updated:Yes SENSITIVE EXAM: The sensitive examination was discussed with the Patient or Patient's Authorized Logistics Officer. As applicable, any other physician, advance practice provider, medical student, or other health professional student that will be observing or involved in the sensitive examination for educational or training purposes was discussed with the Patient or Authorized Logistics Officer. The Patient or Authorized Logistics Officer has agreed to proceed with the sensitive examination. (Sensitive examination includes inspection and/or palpation of the breasts, pelvis, prostate and anorectal regions). EXAM: BP 124/88 Wt 123 lb (55.8kg) LMP 02/22/2025 GENERAL: pleasant, female in no apparent distress HEENT: Normocephalic, atraumatic, mucus membranes moist, and no lesions DERMATOLOGY: Normal, without lesions, non-icteric, and non-hirsute BREAST: soft, non-tender, symmetric, no dominant mass, normal nipple-areolar complex, no lymphadenopathy, and no nipple discharge CHEST: Normal inspiratory effort ABDOMEN: soft, non-tender, and no masses PELVIC: external genitalia normal, normal Bartholin's glands, urethra, Tenstrike's glands, no vulvar lesions, no cervical lesions, good vaginal support, physiologic discharge present, normal appearing perineal body and perianal region BIMANUAL: uterus normal size, shape and consistency, no adnexal masses, and non-tender RECTOVAGINAL: deferred. NEURO: alert and oriented x3,exam grossly non-focal EXTREMITIES: normal ASSESSMENT/PLAN: 1) Health maintenance: Pap/HPV up to date. Mammogram ordered Mammogram up to date Nutrition, exercise and routine health maintenance exams reviewed. Calcium/Vitamin D supplementation information provided. Colon 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: up to date with screening 2) Follow up one year or sooner as needed Sunny (more content not included)... 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 Mata is a 49 year old who presents for an annual gynecologic exam without complaints. LMP 02/22/2025 Postmenopausal: No. Menstrual cycle every 24-25 days Flow 4-6 days HRT use: N/A . HPV vaccine: No Last Pap: 11/26/2021 normal HPV: 11/22/2021 negative History of abnormal pap: No Last mammogram: 2024 today History of abnormal mammogram: No Sexually active: not currently OB History Gravida2 Para2 Term1 Preterm1 AB0 Living2 SAB0 IAB0 Ectopic0 Multiple0 Live Births2 [place] History LMP: 02/22/2025, Having periods Age at Menarche: 16 Age at First : Age at Menopause: [place] History Comments: Sexual Activity: Not Currently; Male Contraception: No contraception data on record PAST MEDICAL HISTORY Diagnosis Date Allergic rhinitis seasonal--spring and fall Calculus of kidney 2004 small - incidental on CT scan, has never passed one that she's aware of Depression DM, gestational, diet controlled ([facility]) 2008 Esophageal reflux acid in back of throat, no pain - mostly with spicy foods, Prevacid helps Essential hypertension 04/20/2021 Generalized headaches Obstructive sleep apnea Dr. Verde Personal history of urinary (tract) infection recurrent Threatened premature labor, unspecified as to episode of care Premature labor Thyrotoxicosis without mention of goiter or other cause, without mention of thyrotoxic crisis or storm 2005 Hyperthyroidism - placed on atenolol 25mg x 6 mo, states now off meds and thyroid ok PAST SURGICAL HISTORY Procedure Laterality Date PAST SURGICAL HISTORY OF 03/2005 left foot-removal of bunion PAST SURGICAL HISTORY OF Lesion removed from upper groin area PAST SURGICAL HISTORY OF Right 03/2022 ingrown toenail-type surgery POST-CATARACT LASER SURGERY Bilateral 2024 FAMILY HISTORY Problem Relation Age of Onset Diabetes Mother 53 Thyroid Mother Unsure of exact etiology Heart Father age 49, heavy smoker, likely of [place] but pt not sure Diabetes Sister Diabetes Brother 25 Diabetes Maternal Grandmother other (Other) Maternal Grandmother MVA Alzheimer's Disease Maternal Grandfather also great grandma Diabetes Paternal Grandmother Ischemic Heart Disease Paternal Grandfather age 50 [place] Parkinson's Maternal Uncle SOCIAL HISTORY Social History Tobacco Use Smoking status: Never Passive exposure: Never Smokeless tobacco: Never Vaping Use Vaping status: Never Used Substance Use Topics Alcohol use: No Drug use: No REVIEW OF SYSTEMS Abdomen: No abdominal pain, nausea, vomiting, or constipation. No bloating, early satiety, indigestion, or increased flatulence. +diarrhea a few days ago Bladder: No dysuria, gross hematuria, urinary frequency, urinary urgency, or incontinence Breast: No breast lumps, nipple d/c, overlying skin changes, redness or skin retraction Allergies and current medication updated:Yes SENSITIVE EXAM: The sensitive examination was discussed with the Patient or Patient's Authorized Logistics Officer. As applicable, any other physician, advance practice provider, medical student, or other health professional student that will be observing or involved in the sensitive examination for educational or training purposes was discussed with the Patient or Authorized Logistics Officer. The Patient or Authorized Logistics Officer has agreed to proceed with the sensitive examination. (Sensitive examination includes inspection and/or palpation of the breasts, pelvis, prostate and anorectal regions). EXAM: BP 124/88 Wt 123 lb (55.8kg) LMP 02/22/2025 GENERAL: pleasant, female in no apparent distress HEENT: Normocephalic, atraumatic, mucus membranes moist, and no lesions DERMATOLOGY: Normal, without lesions, non-icteric, and non-hirsute BREAST: soft, non-tender, symmetric, no dominant mass, normal nipple-areolar complex, no lymphadenopathy, and no nipple discharge CHEST: Normal inspiratory effort ABDOMEN: soft, non-tender, and no masses PELVIC: external genitalia normal, normal Bartholin's glands, urethra, Tenstrike's glands, no vulvar lesions, no cervical lesions, good vaginal support, physiologic discharge present, normal appearing perineal body and perianal region BIMANUAL: uterus normal size, shape and consistency, no adnexal masses, and non-tender RECTOVAGINAL: deferred. NEURO: alert and oriented x3,exam grossly non-focal EXTREMITIES: normal ASSESSMENT/PLAN: 1) Health maintenance: Pap/HPV up to date. Mammogram ordered Mammogram up to date Nutrition, exercise and routine health maintenance exams reviewed. Calcium/Vitamin D supplementation information provided. Colon 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: up to date with screening 2) Follow up one year or sooner as needed Esthela Myers APRN.LUIS documented in this encounter [facility] 03-14-2025 Note HNO ID: [id number] Author: LEI PEPPER PT Service: ? Author Type: Physical Therapist Type: Progress Notes Filed: 03/14/2025 14:07 Note Text: Episode Visit Count: 3 Therapist That Will Accept/Oversee The Plan Of Care: Lei Pepper PT Start of Care Date: 02/07/25 Onset Date: 12/10/24 Patient Identified by Name and Date of : Yes REHABILITATION AND SPORTS THERAPY PHYSICAL THERAPY TREATMENT NOTE ASSESSMENT: Mata Santana tolerated the session with expected muscle soreness and no issues. She demonstrated soreness throughout the session of the L shoulder. The patient will continue to benefit from ongoing skilled physical therapy to progress toward set goals. PLAN FOR NEXT VISIT: PN SUBJECTIVE: The shoulder is feeling better. Not all the way better yet. Feels 50% improvement overall. She has been using her arm at lot at work. Pain: Pain Pain Level: 1 Pain Location: Shoulder - Left OBJECTIVE MEASURES WITH LEVEL OF FUNCTION: L shoulder pain at 130 degrees of abduction No pain with abduction of the L shoulder when done passively TREATMENT: Therapeutic Exercise: 1: UBE (arms only) x 2 min F (subjective taken and 1:1 time spent) 2: Shoulder abd iso at wall 2 x 12 3: Standing scaption lvl 1 band 2 x 10 4: Standing no money's lvl 1 band 2 x 12 5: 2# dumbell hold overhead 120 sec 6: Bodyblade F/B x 120 sec Skilled Intervention: Patient was educated in proper exercise technique and purpose for exercises. Correct performance of therapeutic exercises was facilitated with verbal cuing. Billing Therapeutic Exercise Treatment Minutes: 33 Skilled Treatment Time Minutes (timed and untimed codes): 33 Total Session Time (minutes): 33 Session Start Time : 1331 Session Stop Time : 1404 Lei Pepper PT [facility] 03-14-2025 History of Present illness Narrative Episode Visit Count: 3 Therapist That Will Accept/Oversee The Plan Of Care: Lei Pepper PT Start of Care Date: 02/07/25 Onset Date: 12/10/24 Patient Identified by Name and Date of : Yes REHABILITATION AND SPORTS THERAPY PHYSICAL THERAPY TREATMENT NOTE ASSESSMENT: Mata Santana tolerated the session with expected muscle soreness and no issues. She demonstrated soreness throughout the session of the L shoulder. The patient will continue to benefit from ongoing skilled physical therapy to progress toward set goals. PLAN FOR NEXT VISIT: PN SUBJECTIVE: The shoulder is feeling better. Not all the way better yet. Feels 50% improvement overall. She has been using her arm at lot at work. Pain: Pain Pain Level: 1 Pain Location: Shoulder - Left OBJECTIVE MEASURES WITH LEVEL OF FUNCTION: L shoulder pain at 130 degrees of abduction No pain with abduction of the L shoulder when done passively TREATMENT: Therapeutic Exercise: 1: UBE (arms only) x 2 min F (subjective taken and 1:1 time spent) 2: Shoulder abd iso at wall 2 x 12 3: Standing scaption lvl 1 band 2 x 10 4: Standing no money's lvl 1 band 2 x 12 5: 2# dumbell hold overhead 120 sec 6: Bodyblade F/B x 120 sec Skilled Intervention: Patient was educated in proper exercise technique and purpose for exercises. Correct performance of therapeutic exercises was facilitated with verbal cuing. Billing Therapeutic Exercise Treatment Minutes: 33 Skilled Treatment Time Minutes (timed and untimed codes): 33 Total Session Time (minutes): 33 Session Start Time : 1331 Session Stop Time : 1404 Lei Pepper PT documented in this encounter [facility] 02-21-2025 Note HNO ID: [id number] Author: LEI PEPPER PT Service: ? Author Type: Physical Therapist Type: Progress Notes Filed: 02/21/2025 12:17 Note Text: Episode Visit Count: 2 Therapist That Will Accept/Oversee The Plan Of Care: Lei Pepper PT Start of Care Date: 02/07/25 Onset Date: 12/10/24 Patient Identified by Name and Date of : Yes REHABILITATION AND SPORTS THERAPY PHYSICAL THERAPY TREATMENT NOTE ASSESSMENT: Mata Santana tolerated the session with expected muscle soreness. She demonstrated good form with all therapeutic exercises. The patient will continue to benefit from ongoing skilled physical therapy to progress toward set goals. PLAN FOR NEXT VISIT: Continue strengthening the RTC's SUBJECTIVE: The shoulder is hurting a little bit. Stopped the exercises for the past two days. It was getting hard to raise the arm. She is constantly pulling things out of boxes at work. Pain: Pain Pain Level: 6 Pain Location: Shoulder - Left Description: Aching OBJECTIVE MEASURES WITH LEVEL OF FUNCTION: TREATMENT: Therapeutic Exercise: 1: Seated shoulder pulleys x 20 2: Standing shoulder abd iso at wall 2 x 10 holding 3 sec 3: Standing No Money's lvl 1 band 3 x 10 4: Staning shoulder scaption lvl 1 band 2 x 10 Skilled Intervention: Patient was educated in proper exercise technique and purpose for exercises. Correct performance of therapeutic exercises was facilitated with verbal cuing. Billing Therapeutic Exercise Treatment Minutes: 28 Skilled Treatment Time Minutes (timed and untimed codes): 28 Total Session Time (minutes): 28 Session Start Time : 1102 Session Stop Time : 1130 Lei Pepper PT [facility] 02-21-2025 History of Present illness Narrative Episode Visit Count: 2 Therapist That Will Accept/Oversee The Plan Of Care: Lei Pepper PT Start of Care Date: 02/07/25 Onset Date: 12/10/24 Patient Identified by Name and Date of : Yes REHABILITATION AND SPORTS THERAPY PHYSICAL THERAPY TREATMENT NOTE ASSESSMENT: Mata Santana tolerated the session with expected muscle soreness. She demonstrated good form with all therapeutic exercises. The patient will continue to benefit from ongoing skilled physical therapy to progress toward set goals. PLAN FOR NEXT VISIT: Continue strengthening the RTC's SUBJECTIVE: The shoulder is hurting a little bit. Stopped the exercises for the past two days. It was getting hard to raise the arm. She is constantly pulling things out of boxes at work. Pain: Pain Pain Level: 6 Pain Location: Shoulder - Left Description: Aching OBJECTIVE MEASURES WITH LEVEL OF FUNCTION: TREATMENT: Therapeutic Exercise: 1: Seated shoulder pulleys x 20 2: Standing shoulder abd iso at wall 2 x 10 holding 3 sec 3: Standing No Money's lvl 1 band 3 x 10 4: Staning shoulder scaption lvl 1 band 2 x 10 Skilled Intervention: Patient was educated in proper exercise technique and purpose for exercises. Correct performance of therapeutic exercises was facilitated with verbal cuing. Billing Therapeutic Exercise Treatment Minutes: 28 Skilled Treatment Time Minutes (timed and untimed codes): 28 Total Session Time (minutes): 28 Session Start Time : 110 Session Stop Time : 1130 Lei Pepper PT documented in this encounter [facility] 02-07-2025 History of Present illness Narrative Program_ID:[id number] Access Code: [email or web address] URL: [email or web address] Date: 02-07-2025 Prepared By: Lei Pepper Program Notes Exercises - Shoulder External Rotation and Scapular Retraction with Resistance - 1 x daily - 7 x weekly - 4 sets - 10 reps - Standing Single Arm Shoulder Abduction with Resistance - 1 x daily - 7 x weekly - 4 sets - 7-10 reps Episode Visit Count: 1 Therapist That Will Accept/Oversee The Plan Of Care: Lei Pepper PT Start of Care Date: 02/07/25 Onset Date: 12/10/24 Patient Identified by Name and Date of : Yes REHABILITATION AND SPORTS THERAPY PHYSICAL THERAPY EVALUATION PLAN OF CARE: Assessment: Mata Santana presents with chief complaint of L shoulder pain that interferes with lifting, reaching overhead . The patient presents with impairments in ADL's, independence in exercise, overall function, range of motion, and strength. PROMIS (Patient-Reported Outcomes Measurement Information System) scores were reviewed and identified as within normal limits. Prognosis for therapy is Good due to: current objective clinical presentation . Pt demonstrates familiar pain with MMT of the ER's and abductors. Negative Apprehension test and positive empty can test on the R. The patient will benefit from skilled therapy services to meet the goals established for this plan of care as noted below. Goals for Episode of Care: established 02/07/25 [place] in home exercise program. Patient will decrease pain rating by 2 points to meet minimal clinical important difference for numeric pain rating scale. Perform work duties without pain. Increase ROM of L shoulder to WNL for ease of reaching overhead to move totes around Increased strength of LUE to 5/5 via MMT for return to PLOF and ease of pulling objects towards her Patient Goals: Get rid of the pain Time Frame for Goals and Treatment : 04/04/25 Planned Interventions, Frequency, and Duration: Current Frequency: 1x/week Duration: 4 weeks Total Number of Visits Planned: 4 Planned Treatment Interventions: Therapeutic exercise (87648), Neuromuscular re-education (05950), Manual therapy (92710), Therapeutic activities (13533), Self-fdc management (68093), Patient/Family/Caregiver Education PLAN FOR NEXT VISIT: Continue with strengthening the RTC's of the L shoulder. Could add pec stretch with arms low. Patient demonstrates good understanding of plan of care and treatment. The above goals and plan of care were discussed and agreed upon by patient/family. SUBJECTIVE: L shoulder pain. Dropped a plastic tote on her L shoulder. Pulling items causes pain. No N/T. No muscle spasms. Has heard 1 pop in the shoulder before. Patient Goals: Get rid of the pain Functional Limitations: lifting, reaching overhead Prior Level of Function: Independent without limitations Intake Information: Prescription present Previous Treatment: Heat Pain: Pain Pain Level: 6 Pain Location: Shoulder - Left Description: Aching, Sharp PROMIS Scales 02/06/2025 Higher is Better Phys Func - T Score 49 (within normal limits) Phys Func - Percentile 46 Self-Eff Symptom - T Score 48 (Average) Self-Eff Symptom - Percentile 42 T-scores: mean of general population = 50. 5 points is clinically meaningfully difference Percentiles provide an indication of how the patient's score ranks in relation to the general population. Higher percentile rankings indicate better function/quality of life. 50th percentile is the average of the general population and indicates half of respondents had a worse score. OBJECTIVE MEASURES WITH LEVEL OF FUNCTION: UE AROM R UE AROM: WNL L Shoulder Flex: 110 Degrees (Painful and tight) L Shoulder Internal Rotation (Functional): 80 (with arm abducted to 90) L Shoulder External Rotation: 90 Degrees (with arm abd to 90) UE and Cervical Strength Strength Tested: Shoulder All L Shoulder Flexion: 3+/5 (Painful) L Shoulder Internal Rotation: 5/5 L Shoulder External Rotation: 3+/5 (Sharp pain) Special Tests - Shoulder Shoulder Special Tests: Apprehension, Empty Can Apprehension: Right Negative Empty Can: Right Positive Education: Education Learning Preferences: Demonstration, Explanation, Performance, Printed Materials Barriers: None Learning/educational needs: Home exercise program, Plan of Care, Changes in Plan of Care Education Provided: Yes, see treatment interventions for education provided Education Provided To: Patient Education Mode/Type: Demonstration, Explanation/Discussion, Literature/Printed Materials, Performance Response to Education/Teach Back: States/Identifies, Return Demonstration TREATMENT: PT Treatment Interventions: Therapeutic Exercise, Manual Therapy Evaluation Therapeutic Exercise: 1: Discussed exam findings, purpose of the HEP and the HEP handout was provided to the pt. HEP discussed in detail with how to safely and properly perform each therapeutic exercise. 2: Standing No money's lvl 1 band 2 x 10 3: Standing shoulder scaption lvl 1 band 2 x 7 reps (Pt reports soreness with this) Skilled Intervention: Patient was educated in proper exercise technique and purpose for exercises. Provided written instruction for home exercise program to facilitate proper performance and compliance. Correct performance of therapeutic exercises was facilitated with verbal and visual cuing. Billing * Evaluation Low Complexity: 1 Unit Therapeutic Exercise Treatment Minutes: 24 Skilled Treatment Time Minutes (timed and untimed codes): 44 Total Session Time (minutes): 44 Session Start Time : 1017 Session Stop Time : 1101 Lei Pepper PT documented in this encounter [facility] 02-07-2025 Note HNO ID: [id number] Author: LEI PEPPER PT Service: ? Author Type: Physical Therapist Type: Progress Notes Filed: 02/07/2025 12:17 Note Text: Episode Visit Count: 1 Therapist That Will Accept/Oversee The Plan Of Care: Lei Pepper PT Start of Care Date: 02/07/25 Onset Date: 12/10/24 Patient Identified by Name and Date of : Yes REHABILITATION AND SPORTS THERAPY PHYSICAL THERAPY EVALUATION PLAN OF CARE: Assessment: Mata Santana presents with chief complaint of L shoulder pain that interferes with lifting, reaching overhead . The patient presents with impairments in ADL's, independence in exercise, overall function, range of motion, and strength. PROMIS? (Patient-Reported Outcomes Measurement Information System) scores were reviewed and identified as within normal limits. Prognosis for therapy is Good due to: current objective clinical presentation . Pt demonstrates familiar pain with MMT of the ER's and abductors. Negative Apprehension test and positive empty can test on the R. The patient will benefit from skilled therapy services to meet the goals established for this plan of care as noted below. Goals for Episode of Care: established 02/07/25 [place] in home exercise program. Patient will decrease pain rating by 2 points to meet minimal clinical important difference for numeric pain rating scale. Perform work duties without pain. Increase ROM of L shoulder to WNL for ease of reaching overhead to move totes around Increased strength of LUE to 5/5 via MMT for return to PLOF and ease of pulling objects towards her Patient Goals: Get rid of the pain Time Frame for Goals and Treatment : 04/04/25 Planned Interventions, Frequency, and Duration: Current Frequency: 1x/week Duration: 4 weeks Total Number of Visits Planned: 4 Planned Treatment Interventions: Therapeutic exercise (90735), Neuromuscular re-education (95179), Manual therapy (03051), Therapeutic activities (72059), Self-fdc management (32968), Patient/Family/Caregiver Education PLAN FOR NEXT VISIT: Continue with strengthening the RTC's of the L shoulder. Could add pec stretch with arms low. Patient demonstrates good understanding of plan of care and treatment. The above goals and plan of care were discussed and agreed upon by patient/family. SUBJECTIVE: L shoulder pain. Dropped a plastic tote on her L shoulder. Pulling items causes pain. No N/T. No muscle spasms. Has heard 1 pop in the shoulder before. Patient Goals: Get rid of the pain Functional Limitations: lifting, reaching overhead Prior Level of Function: Independent without limitations Intake Information: Prescription present Previous Treatment: Heat Pain: Pain Pain Level: 6 Pain Location: Shoulder - Left Description: Aching, Sharp PROMIS Scales 02/06/2025 Higher is Better Phys Func - T Score 49 (within normal limits) Phys Func - Percentile 46 Self-Eff Symptom - T Score 48 (Average) Self-Eff Symptom - Percentile 42 T-scores: mean of general population = 50. 5 points is clinically meaningfully difference Percentiles provide an indication of how the patient's score ranks in relation to the general population. Higher percentile rankings indicate better function/quality of life. 50th percentile is the average of the general population and indicates half of respondents had a worse score. OBJECTIVE MEASURES WITH LEVEL OF FUNCTION: UE AROM R UE AROM: WNL L Shoulder Flex: 110 Degrees (Painful and tight) L Shoulder Internal Rotation (Functional): 80 (with arm abducted to 90) L Shoulder External Rotation: 90 Degrees (with arm abd to 90) UE and Cervical Strength Strength Tested: Shoulder All L Shoulder Flexion: 3+/5 (Painful) L Shoulder Internal Rotation: 5/5 L Shoulder External Rotation: 3+/5 (Sharp pain) Special Tests - Shoulder Shoulder Special Tests: Apprehension, Empty Can Apprehension: Right Negative Empty Can: Right Positive Education: Education Learning Preferences: Demonstration, Explanation, Performance, Printed Materials Barriers: None Learning/educational needs: Home exercise program, Plan of Care, Changes in Plan of Care Education Provided: Yes, see treatment interventions for education provided Education Provided To: Patient Education Mode/Type: Demonstration, Explanation/Discussion, Literature/Printed Materials, Performance Response to Education/Teach Back: States/Identifies, Return Demonstration TREATMENT: PT Treatment Interventions: Therapeutic Exercise, Manual Therapy Evaluation Therapeutic Exercise: 1: Discussed exam findings, purpose of the HEP and the HEP handout was provided to the pt. HEP discussed in detail with how to safely and properly perform each therapeutic exercise. 2: Standing No money's lvl 1 band 2 x 10 3: Standing shoulder scaption lvl 1 band 2 x 7 reps (Pt reports soreness with this) Skilled Intervention: Patient was educated in proper exe (more content not included)... [facility] 01-06-2025 Progress note Formatting of t his note might be different from the original. Improved A1c Hemoglobin A1C (%) Date Value 01/03/2025 6.4 07/05/2024 6.6 05/28/2021 6.4 01/08/2021 6.5 Hemoglobin A1C (POCT) (%) Date Value 09/20/2024 6.5 08/27/2021 6.1 [facility] 01-06-2025 Miscellaneous Notes Improved A1c Hemoglobin A1C (%) Date Value 01/03/2025 6.4 07/05/2024 6.6 05/28/2021 6.4 01/08/2021 6.5 Hemoglobin A1C (POCT) (%) Date Value 09/20/2024 6.5 08/27/2021 6.1 Negative documented in this encounter [facility] 01-03-2025 Note HNO ID: [id number] Author: KENDALL PETE APRN.CNS Service: ? Author Type: Nurse Specialist Type: Progress Notes Filed: 01/03/2025 09:21 Note Text: Subjective ?Quick Links Last Note in Specialty Snapshot Edit RFV/CC Patient ID: Mata is a 49 year old female who presents for [facility] care f/u. HPI Left Shoulder Pain: - Onset after an object fell on the shoulder. - Pain is slightly improved but still present. - Pain primarily occurs with movement, especially when lifting the arm. - Able to sleep without discomfort by lying on the opposite side. - Has not used ice or heat; applied Icy Hot cream with temporary relief. - Taking Tylenol with minimal effect. - Denies crepitus; reports tightness in the posterior shoulder. - Pain localized to the superior aspect of the shoulder. - Work requires lifting, which exacerbates the pain. Constitutional: (-) sleep disturbance Neck: (+) tightness Musculoskeletal: (+) left shoulder pain, (+) radiating pain, (+) limited range of motion, (+) tenderness, (+) pain with movement ?Quick Review Review Full History Edit History Full Problem List Meds - amLODIPine (NORVASC) 5 mg tablet metoprolol succinate ER (TOPROL XL) 25 mg 24 hr tablet Ethinyl Estradiol-Norelgestrom (XULANE) 150-35 mcg/24 hr patch calc carb,cit/mag,zinc/D3/h122 ([id number] #122-VIT D3 ORAL) GARLIC red beet root-sour torres ext 250-0.5 mg chew CPAP meloxicam (MOBIC) 15 mg tablet --- PMH - Allergic rhinitis Calculus of kidney Depression DM, gestational, diet controlled Esophageal reflux Essential hypertension Generalized headaches Obstructive sleep apnea Personal history of urinary (tract) infection Threatened premature labor, unspecified as to episode of care Thyrotoxicosis without mention of goiter or other cause, without mention of thyrotoxic crisis or storm : Objective ?Quick Links Add Vitals Labs Imaging Results Review ?? Avoid pulling in long tables of results. Comment on relevant results to support your medical decision making. BP 126/83 Pulse 60 Resp 16 Wt 55 kg (121 lb 4.1 oz) LMP 09/18/2024 (Approximate) BMI 22.54 kg/m? Physical Exam GENERAL: NAD, alert and oriented. SKIN: Unremarkable, no rash or skin lesions. HEAD: Normocephalic. EYES: conjunctiva clear. EXTREMITIES: Normal, no deformities, no skin discoloration, no edema. NEURO: Awake, alert and oriented x3, cranial nerves II-XII grossly intact, normal gait, no involuntary motions. MUSCULOSKELETAL: Limited range of motion in left shoulder with pain on abduction. Tenderness noted on top of the left shoulder. No crepitus. Assessment AND Plan Acute pain of left shoulder ASSESSMENT/PLAN: 1. Acute pain of left shoulder - ICD9: 719.41, ICD10: M25.512 Recommend avoiding painful activities, gentle range of motion, provided with written information from Ortho info. Recommend icing 15 to 20 minutes several times per day. Switch from Tylenol to meloxicam 15mg daily for 1 to 2 weeks then as needed. Endorse orthopedic visit and physical therapy if not improving. - CONSULT TO PHYSICAL THERAPY - CONSULT TO ORTHOPAEDICS Orders: CONSULT TO PHYSICAL THERAPY; Future meloxicam (MOBIC) 15 mg tablet; Take 1 tablet by mouth once daily. for pain. Take with food. CONSULT TO ORTHOPAEDICS; Future Medical Decision Making: Problems: Low: Acute, uncomplicated illness or injury Data: Unique test result(s) reviewed: 1 Risk: Moderate: Drug management Medical Decision Making Level: 3 - Low The patient consented to the use of [employer] software for draft documentation of the visit consistent with [facility]?s Notice of Privacy Practices. [facility] 01-03-2025 History of Present illness Narrative Subjective ?Quick Links Last Note in Specialty Snapshot Edit RFV/CC Patient ID: Mata is a 49 year old female who presents for [facility] f/u. HPI Left Shoulder Pain: - Onset after an object fell on the shoulder. - Pain is slightly improved but still present. - Pain primarily occurs with movement, especially when lifting the arm. - Able to sleep without discomfort by lying on the opposite side. - Has not used ice or heat; applied Icy Hot cream with temporary relief. - Taking Tylenol with minimal effect. - Denies crepitus; reports tightness in the posterior shoulder. - Pain localized to the superior aspect of the shoulder. - Work requires lifting, which exacerbates the pain. Constitutional: (-) sleep disturbance Neck: (+) tightness Musculoskeletal: (+) left shoulder pain, (+) radiating pain, (+) limited range of motion, (+) tenderness, (+) pain with movement ?Quick Review Review Full History Edit History Full Problem List Meds - amLODIPine (NORVASC) 5 mg tablet metoprolol succinate ER (TOPROL XL) 25 mg 24 hr tablet Ethinyl Estradiol-Norelgestrom (XULANE) 150-35 mcg/24 hr patch calc carb,cit/mag,zinc/D3/h122 ([id number] #122-VIT D3 ORAL) GARLIC red beet root-sour torres ext 250-0.5 mg chew CPAP meloxicam (MOBIC) 15 mg tablet --- PMH - Allergic rhinitis Calculus of kidney Depression DM, gestational, diet controlled Esophageal reflux Essential hypertension Generalized headaches Obstructive sleep apnea Personal history of urinary (tract) infection Threatened premature labor, unspecified as to episode of care Thyrotoxicosis without mention of goiter or other cause, without mention of thyrotoxic crisis or storm : Objective ?Quick Links Add Vitals Labs Imaging Results Review ?? Avoid pulling in long tables of results. Comment on relevant results to support your medical decision making. BP 126/83 Pulse 60 Resp 16 Wt 55 kg (121 lb 4.1 oz) LMP 09/18/2024 (Approximate) BMI 22.54 kg/m Physical Exam GENERAL: NAD, alert and oriented. SKIN: Unremarkable, no rash or skin lesions. HEAD: Normocephalic. EYES: conjunctiva clear. EXTREMITIES: Normal, no deformities, no skin discoloration, no edema. NEURO: Awake, alert and oriented x3, cranial nerves II-XII grossly intact, normal gait, no involuntary motions. MUSCULOSKELETAL: Limited range of motion in left shoulder with pain on abduction. Tenderness noted on top of the left shoulder. No crepitus. Assessment & Plan Acute pain of left shoulder ASSESSMENT/PLAN: 1. Acute pain of left shoulder - ICD9: 719.41, ICD10: M25.512 Recommend avoiding painful activities, gentle range of motion, provided with written information from Ortho info. Recommend icing 15 to 20 minutes several times per day. Switch from Tylenol to meloxicam 15mg daily for 1 to 2 weeks then as needed. Endorse orthopedic visit and physical therapy if not improving. - CONSULT TO PHYSICAL THERAPY - CONSULT TO ORTHOPAEDICS Orders: CONSULT TO PHYSICAL THERAPY; Future meloxicam (MOBIC) 15 mg tablet; Take 1 tablet by mouth once daily. for pain. Take with food. CONSULT TO ORTHOPAEDICS; Future Medical Decision Making: Problems: Low: Acute, uncomplicated illness or injury Data: Unique test result(s) reviewed: 1 Risk: Moderate: Drug management Medical Decision Making Level: 3 - Low The patient consented to the use of ambient Digital Health Dialog software for draft documentation of the visit consistent with [facility] s Notice of Privacy Practices. documented in this encounter [facility] 12-29-2024 Telephone encounter Note Patient returns call and results reviewed. Janessa Polo RN [facility] 12-29-2024 Miscellaneous Notes Patient returns call and results reviewed. Janessa Polo RN Left VM instructing patient to return call to receive results. Kati Bui MA documented in this encounter [facility] 12-29-2024 Telephone encounter Note Left VM instructing patient to return call to receive results. Kati Bui MA [facility] 12-28-2024 History of Present illness Narrative Radiology Service Progress Note PATIENT NAME: Mata Santana DATE OF SERVICE: December 28, 2024 TIME: 7:28 PM PATIENT IDENTITY VERIFICATION COMPLETED USING TWO (2) IDENTIFIERS: Name and Date of confirmed by patient verbally. FALL SCREENING: Has the patient had 2 falls in the last year or 1 fall with injury or currently using an Ambulatory Assistive Device (Walker, Cane, Wheelchair, Crutches, etc.)? No PATIENT GENDER DATA: Assigned female at . status: : No status: NO. PATIENT RELEVANT IMPLANT DATA REVIEWED: Not Applicable PATIENT PRESENTS WITH AN IMPLANTABLE OR ATTACHED MIDDLE [employer]CHO[employer] PE TEACHER: No RADIOLOGY DEPARTMENT: General X-ray: Exam(s) Completed: Upper Extremity X-Ray(s): Shoulder, AP / TRUE AP / Y VIEW left PERIPHERAL IV DATA: Not applicable SIGNED BY: Elizabeth Hirsch December 28, 2024 7:28 PM documented in this encounter [facility] 12-28-2024 Note HNO ID: [id number] Author: LINDA HUBER Tech Service: ? Author Type: Technologist Type: Progress Notes Filed: 12/28/2024 19:39 Note Text: Radiology Service Progress Note PATIENT NAME: Mata Santana DATE OF SERVICE: December 28, 2024 TIME: 7:28 PM PATIENT IDENTITY VERIFICATION COMPLETED USING TWO (2) IDENTIFIERS: Name and Date of confirmed by patient verbally. FALL SCREENING: Has the patient had 2 falls in the last year or 1 fall with injury or currently using an Ambulatory Assistive Device (Walker, Cane, Wheelchair, Crutches, etc.)? No PATIENT GENDER DATA: Assigned female at . status: : No status: NO. PATIENT RELEVANT IMPLANT DATA REVIEWED: Not Applicable PATIENT PRESENTS WITH AN IMPLANTABLE OR ATTACHED MIDDLE [employer]CHOOL PE TEACHER: No RADIOLOGY DEPARTMENT: General X-ray: Exam(s) Completed: Upper Extremity X-Ray(s): Shoulder, AP / TRUE AP / Y VIEW left PERIPHERAL IV DATA: Not applicable SIGNED BY: Elizabeth Hirsch December 28, 2024 7:28 PM [facility] 12-28-2024 Note HNO ID: [id number] Author: SHAHZAD HUGHES APRN.ADJUNCT PROFESSOR OF ENGLISH Service: ? Author Type: Nurse Practitioner Type: Progress Notes Filed: 12/28/2024 20:16 Note Text: [facility] Subjective Mata Santana is a 49 year old female. Patient presents with: left shoulder pain: Dropped a tote on her shoulder 1 week ago Reports 1 week ago she was pushing a cart and a tote fell off and hit her on the lateral aspect of her left shoulder. Reports limited ROM and pain with movement. Review of Systems Musculoskeletal: Positive for joint swelling. Objective BP 122/82 Pulse 73 Temp 36.7 ?C (98.1 ?F) (Tympanic) Resp 18 Wt 56.8 kg (125 lb 3.5 oz) LMP 09/18/2024 (Approximate) SpO2 100% BMI 23.28 kg/m? Physical Exam Constitutional: General: She is not in acute distress. Appearance: Normal appearance. Musculoskeletal: General: Swelling, tenderness and signs of injury present. No deformity. Comments: Limited ROM, approx 25 degree of adduction before pain reported. Neurological: Mental Status: She is oriented to person, place, and time. Sensory: No sensory deficit. ASSESSMENT/PLAN: 1. Injury of left shoulder, initial encounter - ICD9: 959.2, ICD10: S49.92XA - XR SHOULDER GENERAL 3V OR MORE AP/TRUE AP/OTHER LEFT - If xray is negative follow up with PCP. If xray is positive would recommend follow up with ortho. - Sling applied to left arm while awaiting xray results. Shahzad Hughes APRN.ADJUNCT PROFESSOR OF ENGLISH Disposition The patient was discharged. Procedures [facility] 12-28-2024 History of Present illness Narrative [facility] Subjective Mata Santana is a 49 year old female. Patient presents with: left shoulder pain: Dropped a tote on her shoulder 1 week ago Reports 1 week ago she was pushing a cart and a tote fell off and hit her on the lateral aspect of her left shoulder. Reports limited ROM and pain with movement. Review of Systems Musculoskeletal: Positive for joint swelling. Objective BP 122/82 Pulse 73 Temp 36.7 C (98.1 F) (Tympanic) Resp 18 Wt 56.8 kg (125 lb 3.5 oz) LMP 09/18/2024 (Approximate) SpO2 100% BMI 23.28 kg/m Physical Exam Constitutional: General: She is not in acute distress. Appearance: Normal appearance. Musculoskeletal: General: Swelling, tenderness and signs of injury present. No deformity. Comments: Limited ROM, approx 25 degree of adduction before pain reported. Neurological: Mental Status: She is oriented to person, place, and time. Sensory: No sensory deficit. ASSESSMENT/PLAN: 1. Injury of left shoulder, initial encounter - ICD9: 959.2, ICD10: S49.92XA - XR SHOULDER GENERAL 3V OR MORE AP/TRUE AP/OTHER LEFT - If xray is negative follow up with PCP. If xray is positive would recommend follow up with ortho. - Sling applied to left arm while awaiting xray results. Shahzad Hughes APRN.ADJUNCT PROFESSOR OF ENGLISH Disposition The patient was discharged. Procedures documented in this encounter [facility] 12-20-2024 Progress note Formatting of t his note might be different from the original. Negative [facility] 09-20-2024 Instructions Philly Gregory MD - 09/20/2024 11:43 AM EST - Continue taking Amlodipine 5 mg once daily. - Continue taking Metoprolol ER 25 mg once daily. - Your prescriptions for Amlodipine and Metoprolol have been updated to a 90-day supply with 3 refills. - Your control prescription has been updated to a 90-day supply with 3 refills. - Practice breathing exercises to help manage blood pressure: Breathe in for a count of 4, and breathe out for a count of 8. Repeat as needed to help lower your heart rate and blood pressure. - A Cologuard test has been ordered for colon 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. You should receive the test kit in the mail. If you do not receive it, please let us know. - A hemoglobin A1c test will be done today to monitor your blood sugar levels. - Continue making healthy dietary changes to manage your blood sugar levels, including reducing sugar and sodium intake. - Next follow-up appointment in 6 months. documented in this encounter [facility] 09-20-2024 Note HNO ID: [id number] Author: PHILLY GREGORY MD Service: ? Author Type: Physician Type: Progress Notes Filed: 09/20/2024 11:44 Note Text: This note was created using NoteWriter. Subjective Mata Santana is a 49 year old female. Patient presents with: F/U 6 months SUBJECTIVE: Mata Santana is a 49 year old year old lady here today for 6 month follow up appointment for review of medical conditions. Mata Santana is a 49-year-old female with a history of HTN and elevated HbA1c, presenting for a 6-month follow-up. Mata reports improved blood pressure readings since starting amlodipine 5 mg daily, in addition to her existing metoprolol ER 25 mg daily. Previous readings were in the 140-150 mmHg systolic range, accompanied by symptoms of facial flushing and pulsatile tinnitus. Current readings are consistently in the 120s/70s-80s mmHg range, and she has not needed to take additional metoprolol doses. She monitors her blood pressure at home and notes anxiety can elevate readings. She is interested in obtaining a fitness tracker to monitor her heart rate. Mata also reports a recent HbA1c of 6.6%, down from 6.7%. She has been making dietary changes, including reducing portion sizes, sugar, and sodium intake, and has stopped consuming soda. She notes weight loss and increased physical activity. She has a family history of diabetes mellitus, including her mother, brother, sister, and both grandmothers. She is currently using a control patch and requests a 90-day supply. She applies the patch weekly and skips one week per month to allow for menstruation, as continuous use resulted in breakthrough bleeding. Mata has not yet completed her colon 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. She was scheduled for a Cologuard test in June but did not receive the kit. She denies a family history of colon cancer. PAST MEDICAL HISTORY Diagnosis Date Allergic rhinitis seasonal--spring and fall Calculus of kidney 2004 small - incidental on CT scan, has never passed one that she's aware of Depression DM, gestational, diet controlled 2008 Esophageal reflux acid in back of throat, no pain - mostly with spicy foods, Prevacid helps Essential hypertension 04/20/2021 Generalized headaches Obstructive sleep apnea Dr. Verde Personal history of urinary (tract) infection recurrent Threatened premature labor, unspecified as to episode of care Premature labor Thyrotoxicosis without mention of goiter or other cause, without mention of thyrotoxic crisis or storm 2005 Hyperthyroidism - placed on atenolol 25mg x 6 mo, states now off meds and thyroid ok Current Outpatient Medications Medication Sig amLODIPine (NORVASC) 5 mg tablet Take 1 tablet by mouth once daily. calc carb,cit/mag,zinc/D3/h122 ([id number]-HC #122-VIT D3 ORAL) Take by mouth. GARLIC red beet root-sour torres ext 250-0.5 mg chew Take by mouth. Ethinyl Estradiol-Norelgestrom (XULANE) 150-35 mcg/24 hr patch Apply 1 Patch as directed one time a week. Use continuously, no inactive week. metoprolol succinate ER (TOPROL XL) 25 mg 24 hr tablet Take 1 tablet by mouth once daily. Take one additional half pill for blood pressure for blood pressure greater than 150/80 CPAP AutoPAP 5-20 cmH2O, suitable mask,straps and chin straps as needed humidity, filters. Lifetime supplies. Dx: 327.23. (Patient taking differently: Inhale 1 Application as instructed once daily as needed. AutoPAP 5-20 cmH2O, suitable mask,straps and chin straps as needed humidity, filters. Lifetime supplies. Dx: 327.23.) No current facility-administered medications for this visit. Review of Systems Objective BP 122/82 Pulse 77 Temp 36.6 ?C (97.8 ?F) Resp 18 Wt 54.4 kg (119 lb 14.9 oz) LMP 09/18/2024 (Approximate) SpO2 99% BMI 22.29 kg/m? Last 5 Encounter Wt Readings: Date: Wt: 09/20/2024 54.4 kg (119 lb 14.9 oz) 09/06/2024 55.2 kg (121 lb 11.1 oz) 08/15/2024 54.2 kg (119 lb 7.8 oz) 07/05/2024 55.4 kg (122 lb 2.2 oz) 03/11/2024 58.1 kg (128 lb) No waist measurement recorded Estimated body mass index is 22.29 kg/m? as calculated from the following: Height as of 03/11/24: 156.2 cm (5' 1.5). Weight as of this encounter: 54.4 kg (119 lb 14.9 oz). Last 5 Encounter BP Readings: Date: BP: 09/20/2024 122/82 09/06/2024 123/79 08/15/2024 158/96[bp average[ 07/05/2024 134/86 03/11/2024 144/80 Physical Exam Constitutional: Appearance: Normal appearance. HENT: Head: Normocephalic. Eyes: Conjunctiva/sclera: Conjunctivae normal. Cardiovascular: Rate and Rhythm: Normal rate and regular rhythm. Heart sounds: Normal heart sounds. Pulmonary: Effort: Pulmonary effort is normal. Breath sounds: Normal breath sounds. Musculoskeletal: Right lower leg: No edema. Left lower leg: No edema. Skin: General: Skin is warm and dry. Neurological: General: No focal deficit present. Mental Status: She is alert and orien (more content not included)... [facility] 09-20-2024 History of Present illness Narrative This note was created using Akuminariter. Subjective Mata Santana is a 49 year old female. Patient presents with: F/U 6 months SUBJECTIVE: Mata Santana is a 49 year old year old lady here today for 6 month follow up appointment for review of medical conditions. Mata Santana is a 49-year-old female with a history of HTN and elevated HbA1c, presenting for a 6-month follow-up. Mata reports improved blood pressure readings since starting amlodipine 5 mg daily, in addition to her existing metoprolol ER 25 mg daily. Previous readings were in the 140-150 mmHg systolic range, accompanied by symptoms of facial flushing and pulsatile tinnitus. Current readings are consistently in the 120s/70s-80s mmHg range, and she has not needed to take additional metoprolol doses. She monitors her blood pressure at home and notes anxiety can elevate readings. She is interested in obtaining a fitness tracker to monitor her heart rate. Mata also reports a recent HbA1c of 6.6%, down from 6.7%. She has been making dietary changes, including reducing portion sizes, sugar, and sodium intake, and has stopped consuming soda. She notes weight loss and increased physical activity. She has a family history of diabetes mellitus, including her mother, brother, sister, and both grandmothers. She is currently using a control patch and requests a 90-day supply. She applies the patch weekly and skips one week per month to allow for menstruation, as continuous use resulted in breakthrough bleeding. Mata has not yet completed her colon 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. She was scheduled for a Cologuard test in June but did not receive the kit. She denies a family history of colon cancer. PAST MEDICAL HISTORY Diagnosis Date Allergic rhinitis seasonal--spring and fall Calculus of kidney 2004 small - incidental on CT scan, has never passed one that she's aware of Depression DM, gestational, diet controlled 2008 Esophageal reflux acid in back of throat, no pain - mostly with spicy foods, Prevacid helps Essential hypertension 04/20/2021 Generalized headaches Obstructive sleep apnea Dr. Verde Personal history of urinary (tract) infection recurrent Threatened premature labor, unspecified as to episode of care Premature labor Thyrotoxicosis without mention of goiter or other cause, without mention of thyrotoxic crisis or storm 2005 Hyperthyroidism - placed on atenolol 25mg x 6 mo, states now off meds and thyroid ok Current Outpatient Medications Medication Sig amLODIPine (NORVASC) 5 mg tablet Take 1 tablet by mouth once daily. calc carb,cit/mag,zinc/D3/h122 ([id number]-HC #122-VIT D3 ORAL) Take by mouth. GARLIC red beet root-sour torres ext 250-0.5 mg chew Take by mouth. Ethinyl Estradiol-Norelgestrom (XULANE) 150-35 mcg/24 hr patch Apply 1 Patch as directed one time a week. Use continuously, no inactive week. metoprolol succinate ER (TOPROL XL) 25 mg 24 hr tablet Take 1 tablet by mouth once daily. Take one additional half pill for blood pressure for blood pressure greater than 150/80 CPAP AutoPAP 5-20 cmH2O, suitable mask,straps and chin straps as needed humidity, filters. Lifetime supplies. Dx: 327.23. (Patient taking differently: Inhale 1 Application as instructed once daily as needed. AutoPAP 5-20 cmH2O, suitable mask,straps and chin straps as needed humidity, filters. Lifetime supplies. Dx: 327.23.) No current facility-administered medications for this visit. Review of Systems Objective BP 122/82 Pulse 77 Temp 36.6 C (97.8 F) Resp 18 Wt 54.4 kg (119 lb 14.9 oz) LMP 09/18/2024 (Approximate) SpO2 99% BMI 22.29 kg/m Last 5 Encounter Wt Readings: Date: Wt: 09/20/2024 54.4 kg (119 lb 14.9 oz) 09/06/2024 55.2 kg (121 lb 11.1 oz) 08/15/2024 54.2 kg (119 lb 7.8 oz) 07/05/2024 55.4 kg (122 lb 2.2 oz) 03/11/2024 58.1 kg (128 lb) No waist measurement recorded Estimated body mass index is 22.29 kg/m as calculated from the following: Height as of 03/11/24: 156.2 cm (5' 1.5). Weight as of this encounter: 54.4 kg (119 lb 14.9 oz). Last 5 Encounter BP Readings: Date: BP: 09/20/2024 122/82 09/06/2024 123/79 08/15/2024 158/96[bp average[ 07/05/2024 134/86 03/11/2024 144/80 Physical Exam Constitutional: Appearance: Normal appearance. HENT: Head: Normocephalic. Eyes: Conjunctiva/sclera: Conjunctivae normal. Cardiovascular: Rate and Rhythm: Normal rate and regular rhythm. Heart sounds: Normal heart sounds. Pulmonary: Effort: Pulmonary effort is normal. Breath sounds: Normal breath sounds. Musculoskeletal: Right lower leg: No edema. Left lower leg: No edema. Skin: General: Skin is warm and dry. Neurological: General: No focal deficit present. Mental Status: She is alert and oriented to person, place, and time. Psychiatric: Mood and Affect: Mood normal. Behavior: Behavior normal. Thought Content: Thought content normal. Judgment: Judgment normal. Latest Ref Rng 04/29/2023 03/22/2024 07/05/2024 09/06/2024 WBC 3.70 - 11.00 k/uL 9.05 8.61 RBC 3.90 - 5.20 m/uL 4.36 4.27 Hemoglobin 11.5 - 15.5 g/dL 13.8 13.4 Hematocrit 36.0 - 46.0 % 42.0 41.1 MCV 80.0 - 100.0 fL 96.3 96.3 MCH 26.0 - 34.0 pg 31.7 31.4 MCHC 30.5 - 36.0 g/dL 32.9 32.6 RDW-CV 11.5 - 15.0 % 12.5 13.2 Platelet Count 150 - 400 k/uL 238 287 MPV 9.0 - 12.7 fL 10.6 10.1 Neut% % 62.3 55.0 Abs Neut (ANC) 1.45 - 7.50 k/uL 5.64 4.74 Lymph% % 28.8 34.3 Abs Lymph 1.00 - 4.00 k/uL 2.61 2.95 [place]% % 6.4 6.9 Abs [place] <0.87 k/uL 0.58 0.59 Eosin% % 1.2 2.9 Abs Eosin <0.46 k/uL 0.11 0.25 Baso% % 0.7 0.6 Abs Baso <0.11 k/uL 0.06 0.05 Immature Gran % % 0.6 0.3 IMMATURE GRANS (ABS) <0.10 k/uL 0.05 0.03 NRBC /100 WBC 0.0 0.0 Absolute nRBC <0.01 k/uL <0.01 <0.01 DTYPE Auto Auto Protein, Total 6.3 - 8.0 g/dL 6.6 6.2 (L) Albumin 3.9 - 4.9 g/dL 4.0 3.9 Calcium 8.5 - 10.2 mg/dL 9.7 9.0 Bilirubin, Total 0.2 - 1.3 mg/dL 0.3 0.3 Alkaline Phosphatase 34 - 123 U/L 63 70 AST 13 - 35 U/L 15 16 ALT 7 - 38 U/L 15 12 Glucose 74 - 99 mg/dL 136 (H) 132 (H) BUN 7 - 21 mg/dL 15 10 Creatinine 0.58 - 0.96 mg/dL 0.59 0.54 (L) Sodium 136 - 144 mmol/L 139 138 Potassium 3.7 - 5.1 mmol/L 3.9 4.0 Chloride 98 - 107 mmol/L 100 102 CO2 22 - 30 mmol/L 23 24 Anion Gap 8 - 15 mmol/L 16 12 eGFR >=60 mL/min/1.73m 110 112 Cholesterol, Total <200 mg/dL 170 154 Triglyceride <150 mg/dL 155 (H) 151 (H) HDL Cholesterol >39 mg/dL 80 72 Non HDL Cholesterol <130 mg/dL 90 82 Fasting Time hrs 1 12 VLDL Cholesterol <30 mg/dL 31 (H) 30 (H) TC:HDL Ratio <5.10 2.13 2.14 LDL Cholesterol <100 mg/dL 59 52 LDL:HDL Ratio <2.54 0.74 0.72 Hemoglobin A1C 4.3 - 5.6 % 6.5 (H) 7.0 (H) 6.6 (H) Estimated Average Glucose mg/dL 140 154 143 TSH 0.270 - 4.200 mIU/L 1.600 0.957 Legend: (H) High (L) Low Assessment and Plan # Essential hypertension (I10) - Blood pressure readings have improved significantly, currently averaging 120s/70s-80s. - Current medications include amlodipine 5 mg daily and metoprolol ER 25 mg daily. - Previously required additional metoprolol for elevated readings; no longer necessary with current regimen. - Educated on breathing exercises to help manage blood pressure: inhale for a count of 4, exhale for a count of 8. - Changed prescriptions to 90-day supply with 3 refills to improve adherence. # Type 2 diabetes mellitus without complication, without long-term current use of insulin (HCC) (E11.9) - Hemoglobin A1c previously elevated at 6.7%, now improved to 6.6%. - Discussed diagnosis of Type 2 diabetes mellitus, confirmed by A1c >6.5% on two occasions. - Family history of diabetes noted. - Ordered [id number] hemoglobin A1c test today to monitor current status. - Patient has been making dietary changes, including reducing sugar and sodium intake, and reports weight loss. - Emphasized importance of continued lifestyle modifications to potentially reverse diabetes. - Ordered follow-up labs for 6-month appointment. # Colon 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 (Z12.11) - Previous Cologuard order not received by patient. - No family history of colon cancer. - Ordered Cologuard test for colon 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. - Instructed patient to notify if the test is not received. 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 - Previous prescription was for continuous use, leading to continuous bleeding; adjusted to current regimen. - Changed prescription to 90-day supply with 3 refills. Philly Gregory MD documented in this encounter [facility] 09-06-2024 Note HNO ID: [id number] Author: KENDALL PETE APRN.VERIFICATION MANAGER Service: ? Author Type: Nurse Specialist Type: Progress Notes Filed: 09/06/2024 10:04 Note Text: SUBJECTIVE: BP Controlled (<130/80) due on 06/07/2022 Colorectal Cancer Screening due on 09/27/2024 Mammogram Screening due on 12/21/2024 HPI Mata Santana is a 49 year old female. Her past medical history is significant for ACTIVE PROBLEM LIST Allergic Rhinitis ELIAN (obstructive sleep apnea) [id number] Excessive Daytime Sleepiness Anxiety State Ifg (Impaired Fasting Glucose) Essential Hypertension Hypokalemia Near Syncope ELIAN: reports more consistent use since last here, using it a few times a week, sometimes just wears it for half an night if she wakes up to go to the bathroom.. She reports she resumed metoprolol succinate about one month ago and has been taking daily. Has noted flushing several times per week, not sure of cause, wonders if it is her thyroid. Notes father had presumed ND ate age 47 and . HTN: She notes no chest pain since last here. No headache except for one day when she didn't eat regularly while at work. Without report palpitations, dyspnea, peripheral edema, orthopnea, fatigue, and PND. Last 14 Encounter BP Readings: Date: BP: 09/06/2024 123/79 08/15/2024 158/96[bp average[ 07/05/2024 134/86 03/11/2024 144/80 03/08/2024 155/93[bp average[ 02/25/2024 154/92 02/10/2024 148/100 12/12/2023 126/72 09/17/2023 136/85[bp dayday average[ 09/06/2023 138/92 09/02/2023 118/62 05/26/2023 135/87[bp average[ 04/29/2023 147/100 01/20/2023 162/92 TSH Date Value 03/22/2024 1.600 mIU/L 03/12/2022 1.620 mIU/L 01/08/2021 1.340 uU/mL 06/12/2020 0.868 uU/mL ) Review of Systems Constitutional: Negative. Respiratory: Negative. Endocrine: Negative. Objective BP 123/79 Pulse 69 Resp 16 Wt 55.2 kg (121 lb 11.1 oz) LMP 03/01/2024 (Approximate) BMI 22.62 kg/m? Physical Exam Vitals and nursing note reviewed. Constitutional: Appearance: Normal appearance. HENT: Head: Normocephalic and atraumatic. Eyes: Conjunctiva/sclera: Conjunctivae normal. Neck: Thyroid: No thyromegaly or thyroid tenderness. Vascular: Normal carotid pulses. No carotid bruit or JVD. Cardiovascular: Rate and Rhythm: Normal rate and regular rhythm. Pulses: Carotid pulses are 2+ on the right side and 2+ on the left side. Radial pulses are 2+ on the right side and 2+ on the left side. Heart sounds: Normal heart sounds. Pulmonary: Effort: Pulmonary effort is normal. Breath sounds: Normal breath sounds. Abdominal: General: Bowel sounds are normal. Palpations: Abdomen is soft. Musculoskeletal: Right lower leg: No edema. Left lower leg: No edema. Skin: General: Skin is warm and dry. Neurological: General: No focal deficit present. Mental Status: She is alert and oriented to person, place, and time. ALLERGIES Allergen Reactions Seasonal Allergies Cough Cough, sneezing AND watery eyes Medications amLODIPine (NORVASC) 5 mg tablet Take 1 tablet by mouth once daily. calc carb,cit/mag,zinc/D3/h122 ([id number]-HC #122-VIT D3 ORAL) Take by mouth. GARLIC red beet root-sour torres ext 250-0.5 mg chew Take by mouth. metoprolol succinate ER (TOPROL XL) 25 mg 24 hr tablet Take 1 tablet by mouth once daily. Take one additional half pill for blood pressure for blood pressure greater than 150/80 CPAP AutoPAP 5-20 cmH2O, suitable mask,straps and chin straps as needed humidity, filters. Lifetime supplies. Dx: 327.23. Ethinyl Estradiol-Norelgestrom (XULANE) 150-35 mcg/24 hr patch Apply 1 Patch as directed one time a week. Use continuously, no inactive week. fluticasone (FLONASE) 50 mcg/actuation nasal spray Use 2 Sprays in each nostril once daily. Rinse mouth after use. (Patient not taking: Reported on 09/06/2024) [DISCONTINUED] ergocalciferol, vitamin D2, (VITAMIN D2 ORAL) Take by mouth. PAST MEDICAL HISTORY Diagnosis Date Allergic rhinitis seasonal--spring and fall Calculus of kidney 2004 small - incidental on CT scan, has never passed one that she's aware of Depression DM, gestational, diet controlled 2008 Esophageal reflux acid in back of throat, no pain - mostly with spicy foods, Prevacid helps Essential hypertension 04/20/2021 Generalized headaches Obstructive sleep apnea Dr. Verde Personal history of urinary (tract) infection recurrent Threatened premature labor, unspecified as to episode of care Premature labor Thyrotoxicosis without mention of goiter or other cause, without mention of thyrotoxic crisis or storm 2005 Hyperthyroidism - placed on atenolol 25mg x 6 mo, states now off meds and thyroid ok Social History Tobacco Use Smoking status: Never Passive exposure: Never Smokeless tobacco: Never Vaping Use Vaping status: Never Used Substance Use Topics Alcohol use: No Drug use: No Latest Ref Rn 03/12/2022 (more content not included)... [facility] 09-06-2024 History of Present illness Narrative SUBJECTIVE: BP Controlled (<130/80) due on 06/07/2022 Colorectal Cancer Screening due on 09/27/2024 Mammogram Screening due on 12/21/2024 MIGUEL Santana is a 49 year old female. Her past medical history is significant for ACTIVE PROBLEM LIST Allergic Rhinitis ELIAN (obstructive sleep apnea) [id number] 21AASM Excessive Daytime Sleepiness Anxiety State Ifg (Impaired Fasting Glucose) Essential Hypertension Hypokalemia Near Syncope ELIAN: reports more consistent use since last here, using it a few times a week, sometimes just wears it for half an night if she wakes up to go to the bathroom.. She reports she resumed metoprolol succinate about one month ago and has been taking daily. Has noted flushing several times per week, not sure of cause, wonders if it is her thyroid. Notes father had presumed ND ate age 47 and . HTN: She notes no chest pain since last here. No headache except for one day when she didn't eat regularly while at work. Without report palpitations, dyspnea, peripheral edema, orthopnea, fatigue, and PND. Last 14 Encounter BP Readings: Date: BP: 09/06/2024 123/79 08/15/2024 158/96[bp average[ 07/05/2024 134/86 03/11/2024 144/80 03/08/2024 155/93[bp average[ 02/25/2024 154/92 02/10/2024 148/100 12/12/2023 126/72 09/17/2023 136/85[bp dayday average[ 09/06/2023 138/92 09/02/2023 118/62 05/26/2023 135/87[bp average[ 04/29/2023 147/100 01/20/2023 162/92 TSH Date Value 03/22/2024 1.600 mIU/L 03/12/2022 1.620 mIU/L 01/08/2021 1.340 uU/mL 06/12/2020 0.868 uU/mL ) Review of Systems Constitutional: Negative. Respiratory: Negative. Endocrine: Negative. Objective BP 123/79 Pulse 69 Resp 16 Wt 55.2 kg (121 lb 11.1 oz) LMP 03/01/2024 (Approximate) BMI 22.62 kg/m Physical Exam Vitals and nursing note reviewed. Constitutional: Appearance: Normal appearance. HENT: Head: Normocephalic and atraumatic. Eyes: Conjunctiva/sclera: Conjunctivae normal. Neck: Thyroid: No thyromegaly or thyroid tenderness. Vascular: Normal carotid pulses. No carotid bruit or JVD. Cardiovascular: Rate and Rhythm: Normal rate and regular rhythm. Pulses: Carotid pulses are 2+ on the right side and 2+ on the left side. Radial pulses are 2+ on the right side and 2+ on the left side. Heart sounds: Normal heart sounds. Pulmonary: Effort: Pulmonary effort is normal. Breath sounds: Normal breath sounds. Abdominal: General: Bowel sounds are normal. Palpations: Abdomen is soft. Musculoskeletal: Right lower leg: No edema. Left lower leg: No edema. Skin: General: Skin is warm and dry. Neurological: General: No focal deficit present. Mental Status: She is alert and oriented to person, place, and time. ALLERGIES Allergen Reactions Seasonal Allergies Cough Cough, sneezing & watery eyes Medications amLODIPine (NORVASC) 5 mg tablet Take 1 tablet by mouth once daily. calc carb,cit/mag,zinc/D3/h122 ([id number] #122-VIT D3 ORAL) Take by mouth. GARLIC red beet root-sour torres ext 250-0.5 mg chew Take by mouth. metoprolol succinate ER (TOPROL XL) 25 mg 24 hr tablet Take 1 tablet by mouth once daily. Take one additional half pill for blood pressure for blood pressure greater than 150/80 CPAP AutoPAP 5-20 cmH2O, suitable mask,straps and chin straps as needed humidity, filters. Lifetime supplies. Dx: 327.23. Ethinyl Estradiol-Norelgestrom (XULANE) 150-35 mcg/24 hr patch Apply 1 Patch as directed one time a week. Use continuously, no inactive week. fluticasone (FLONASE) 50 mcg/actuation nasal spray Use 2 Sprays in each nostril once daily. Rinse mouth after use. (Patient not taking: Reported on 09/06/2024) [DISCONTINUED] ergocalciferol, vitamin D2, (VITAMIN D2 ORAL) Take by mouth. PAST MEDICAL HISTORY Diagnosis Date Allergic rhinitis seasonal--spring and fall Calculus of kidney 2004 small - incidental on CT scan, has never passed one that she's aware of Depression DM, gestational, diet controlled 2008 Esophageal reflux acid in back of throat, no pain - mostly with spicy foods, Prevacid helps Essential hypertension 04/20/2021 Generalized headaches Obstructive sleep apnea Dr. Verde Personal history of urinary (tract) infection recurrent Threatened premature labor, unspecified as to episode of care Premature labor Thyrotoxicosis without mention of goiter or other cause, without mention of thyrotoxic crisis or storm 2006 Hyperthyroidism - placed on atenolol 25mg x 6 mo, states now off meds and thyroid ok Social History Tobacco Use Smoking status: Never Passive exposure: Never Smokeless tobacco: Never Vaping Use Vaping status: Never Used Substance Use Topics Alcohol use: No Drug use: No Latest Ref Rng 03/12/2022 04/29/2023 03/22/2024 WBC 3.70 - 11.00 k/uL 9.09 9.05 8.61 RBC 3.90 - 5.20 m/uL 4.42 4.36 4.27 Hemoglobin 11.5 - 15.5 g/dL 13.6 13.8 13.4 Hematocrit 36.0 - 46.0 % 42.6 42.0 41.1 MCV 80.0 - 100.0 fL 96.4 96.3 96.3 MCH 26.0 - 34.0 pg 30.8 31.7 31.4 MCHC 30.5 - 36.0 g/dL 31.9 32.9 32.6 RDW-CV 11.5 - 15.0 % 13.1 12.5 13.2 Platelet Count 150 - 400 k/uL 215 238 287 MPV 9.0 - 12.7 fL 10.3 10.6 10.1 Neut% % 62.3 55.0 Abs Neut (ANC) 1.45 - 7.50 k/uL 5.64 4.74 Lymph% % 28.8 34.3 Abs Lymph 1.00 - 4.00 k/uL 2.61 2.95 [place]% % 6.4 6.9 Abs [place] <0.87 k/uL 0.58 0.59 Eosin% % 1.2 2.9 Abs Eosin <0.46 k/uL 0.11 0.25 Baso% % 0.7 0.6 Abs Baso <0.11 k/uL 0.06 0.05 Immature Gran % % 0.6 0.3 IMMATURE GRANS (ABS) <0.10 k/uL 0.05 0.03 NRBC /100 WBC 0.0 0.0 Absolute nRBC <0.01 k/uL <0.01 <0.01 <0.01 DTYPE Auto Auto Protein, Total 6.3 - 8.0 g/dL 6.4 6.6 6.2 (L) Albumin 3.9 - 4.9 g/dL 3.9 4.0 3.9 Calcium 8.5 - 10.2 mg/dL 8.9 9.7 9.0 Bilirubin, Total 0.2 - 1.3 mg/dL 0.4 0.3 0.3 Alkaline Phosphatase 34 - 123 U/L 59 63 70 AST 13 - 35 U/L 15 15 16 ALT 7 - 38 U/L 10 15 12 Glucose 74 - 99 mg/dL 110 (H) 136 (H) 132 (H) BUN 7 - 21 mg/dL 13 15 10 Creatinine 0.58 - 0.96 mg/dL 0.57 (L) 0.59 0.54 (L) Sodium 136 - 144 mmol/L 141 139 138 Potassium 3.7 - 5.1 mmol/L 4.0 3.9 4.0 Chloride 98 - 107 mmol/L 103 100 102 CO2 22 - 30 mmol/L 26 23 24 Anion Gap 8 - 15 mmol/L 12 16 12 eGFR >=60 mL/min/1.73m 112 110 112 Cholesterol, Total <200 mg/dL 170 154 Triglyceride <150 mg/dL 155 (H) 151 (H) HDL Cholesterol >39 mg/dL 80 72 Non HDL Cholesterol <130 mg/dL 90 82 Fasting Time hrs 1 12 VLDL Cholesterol <30 mg/dL 31 (H) 30 (H) TC:HDL Ratio <5.10 2.13 2.14 LDL Cholesterol <100 mg/dL 59 52 LDL:HDL Ratio <2.54 0.74 0.72 Hemoglobin A1C 4.3 - 5.6 % 6.4 (H) 6.5 (H) 7.0 (H) Estimated Average Glucose mg/dL 137 140 154 TSH 0.270 - 4.200 mIU/L 1.620 1.600 Free T4 0.9 - 1.7 ng/dL 1.2 ASSESSMENT/PLAN: 1. Essential hypertension - ICD9: 401.9, ICD10: I10 (primary diagnosis) 2. Chest pain unspecified, R07.9 well controlled Continue with metoprolol succinate 25 mg daily. Continue with amlodipine 5 mg daily. Treat ELIAN consistently. Recommend EKG, stress test she defers to later date No chest pain since last here. She has a family history of presumed premature heart disease with her father expiring at 49 years. ELIAN. Normal weight. Non-smoker. - Continue sodium restriction, DASH or Mediterranean diet - Recommend regular aerobic exercise 3. ELIAN (obstructive sleep apnea) [id number] 21AASM - ICD9: 327.23, ICD10: G47.33 Stable, currently controlled, continue to monitor. Reports more consistent use since lst here. 4. History of thyrotoxicosis - ICD9: V12.29, ICD10: Z86.39 5. Flushing - ICD9: 782.62, ICD10: R23.2 She notes flushing of late, can happen several times per week, unsure of cause, wonders if it could be her thyroid, will check labs today. - THYROID STIMULATING HORMONE Kendall Pete APRN.CNS Medical Decision Making: Problems: Moderate: 1+ chronic illnesses with change Risk: Moderate: Drug management Medical Decision Making Level: 4 - Moderate documented in this encounter [facility] 08-15-2024 Note HNO ID: [id number] Author: KENDALL PETE APRN.VERIFICATION MANAGER Service: ? Author Type: Nurse Specialist Type: Progress Notes Filed: 08/15/2024 10:30 Note Text: SUBJECTIVE: BP Controlled (<130/80) due on 06/07/2022 Colorectal Cancer Screening due on 09/27/2024 Mammogram Screening due on 12/21/2024 MIGUEL Santana is a 49 year old female. Her past medical history is significant for ACTIVE PROBLEM LIST Allergic Rhinitis ELIAN (obstructive sleep apnea) [id number] 21AASM Excessive Daytime Sleepiness Anxiety State Ifg (Impaired Fasting Glucose) Essential Hypertension Hypokalemia Near Syncope ELIAN: reports consistent use since last here. She reports she resumed metoprolol succinate about one month ago and has been taking daily. She notes some frustration with blood pressure remaining elevated despite doing all the things that she should. Notes father had presumed ND ate age 49 and . HTN: Reports left sided chest pain dull ache that she notes when blood pressure is high, at rest and with activity. Can last most of the day. Better with rest. She has noted headache with elevated blood pressures and swelling. Has taken excedrin migraine and ibuprofen and sinus pill for headache that did not seem to help much. Notes the headache seems to come along with elevated blood pressure.. Without report palpitations, dyspnea, peripheral edema, orthopnea, fatigue, and PND. Last 14 Encounter BP Readings: Date: BP: 07/05/2024 134/86 03/11/2024 144/80 03/08/2024 155/93[bp average[ 02/25/2024 154/92 02/10/2024 148/100 12/12/2023 126/72 09/17/2023 136/85[bp dayday average[ 09/06/2023 138/92 09/02/2023 118/62 05/26/2023 135/87[bp average[ 04/29/2023 147/100 01/20/2023 162/92 12/25/2022 136/87 12/14/2022 170/100 Review of Systems Constitutional: Negative. Respiratory: Negative. Cardiovascular: Positive for chest pain. Endocrine: Negative. Neurological: Positive for headaches. Objective BP 158/96 Pulse 61 Resp 16 Wt 54.2 kg (119 lb 7.8 oz) LMP 03/01/2024 (Approximate) BMI 22.21 kg/m? Physical Exam Vitals and nursing note reviewed. Constitutional: Appearance: Normal appearance. HENT: Head: Normocephalic and atraumatic. Eyes: Conjunctiva/sclera: Conjunctivae normal. Neck: Thyroid: No thyromegaly or thyroid tenderness. Vascular: Normal carotid pulses. No carotid bruit or JVD. Cardiovascular: Rate and Rhythm: Normal rate and regular rhythm. Pulses: Carotid pulses are 2+ on the right side and 2+ on the left side. Radial pulses are 2+ on the right side and 2+ on the left side. Heart sounds: Normal heart sounds. Pulmonary: Effort: Pulmonary effort is normal. Breath sounds: Normal breath sounds. Abdominal: General: Bowel sounds are normal. Palpations: Abdomen is soft. Musculoskeletal: Right lower leg: No edema. Left lower leg: No edema. Comments: Anterior chest wall TTP Skin: General: Skin is warm and dry. Neurological: General: No focal deficit present. Mental Status: She is alert and oriented to person, place, and time. ALLERGIES Allergen Reactions Seasonal Allergies Cough Cough, sneezing AND watery eyes Medications calc carb,cit/mag,zinc/D3/h122 ([id number] #122-VIT D3 ORAL) Take by mouth. GARLIC red beet root-sour torres ext 250-0.5 mg chew Take by mouth. Ethinyl Estradiol-Norelgestrom (XULANE) 150-35 mcg/24 hr patch Apply 1 Patch as directed one time a week. Use continuously, no inactive week. metoprolol succinate ER (TOPROL XL) 25 mg 24 hr tablet Take 1 tablet by mouth once daily. Take one additional half pill for blood pressure for blood pressure greater than 150/80 CPAP AutoPAP 5-20 cmH2O, suitable mask,straps and chin straps as needed humidity, filters. Lifetime supplies. Dx: 327.23. fluticasone (FLONASE) 50 mcg/actuation nasal spray Use 2 Sprays in each nostril once daily. Rinse mouth after use. amLODIPine (NORVASC) 5 mg tablet Take 1 tablet by mouth once daily. [DISCONTINUED] ergocalciferol, vitamin D2, (VITAMIN D2 ORAL) Take by mouth. PAST MEDICAL HISTORY Diagnosis Date Allergic rhinitis seasonal--spring and fall Calculus of kidney 2004 small - incidental on CT scan, has never passed one that she's aware of Depression DM, gestational, diet controlled 2008 Esophageal reflux acid in back of throat, no pain - mostly with spicy foods, Prevacid helps Essential hypertension 04/20/2021 Generalized headaches Obstructive sleep apnea Dr. Verde Personal history of urinary (tract) infection recurrent Threatened premature labor, unspecified as to episode of care Premature labor Thyrotoxicosis without mention of goiter or other cause, without mention of thyrotoxic crisis or storm 2005 Hyperthyroidism - placed on atenolol 25mg x 6 mo, states now off meds and thyroid ok Social History Tobacco Use Smoking status: Never Passive exposure: Never Smokeless tobacco: Never Vapi (more content not included)... [facility] 08-15-2024 History of Present illness Narrative SUBJECTIVE: BP Controlled (<130/80) due on 06/07/2022 Colorectal Cancer Screening due on 09/27/2024 Mammogram Screening due on 12/21/2024 MIGUEL Santana is a 49 year old female. Her past medical history is significant for ACTIVE PROBLEM LIST Allergic Rhinitis ELIAN (obstructive sleep apnea) [id number] 21AASM Excessive Daytime Sleepiness Anxiety State Ifg (Impaired Fasting Glucose) Essential Hypertension Hypokalemia Near Syncope ELIAN: reports consistent use since last here. She reports she resumed metoprolol succinate about one month ago and has been taking daily. She notes some frustration with blood pressure remaining elevated despite doing all the things that she should. Notes father had presumed ND ate age 49 and . HTN: Reports left sided chest pain dull ache that she notes when blood pressure is high, at rest and with activity. Can last most of the day. Better with rest. She has noted headache with elevated blood pressures and swelling. Has taken excedrin migraine and ibuprofen and sinus pill for headache that did not seem to help much. Notes the headache seems to come along with elevated blood pressure.. Without report palpitations, dyspnea, peripheral edema, orthopnea, fatigue, and PND. Last 14 Encounter BP Readings: Date: BP: 07/05/2024 134/86 03/11/2024 144/80 03/08/2024 155/93[bp average[ 02/25/2024 154/92 02/10/2024 148/100 12/12/2023 126/72 09/17/2023 136/85[bp dayday average[ 09/06/2023 138/92 09/02/2023 118/62 05/26/2023 135/87[bp average[ 04/29/2023 147/100 01/20/2023 162/92 12/25/2022 136/87 12/14/2022 170/100 Review of Systems Constitutional: Negative. Respiratory: Negative. Cardiovascular: Positive for chest pain. Endocrine: Negative. Neurological: Positive for headaches. Objective BP 158/96 Pulse 61 Resp 16 Wt 54.2 kg (119 lb 7.8 oz) LMP 03/01/2024 (Approximate) BMI 22.21 kg/m Physical Exam Vitals and nursing note reviewed. Constitutional: Appearance: Normal appearance. HENT: Head: Normocephalic and atraumatic. Eyes: Conjunctiva/sclera: Conjunctivae normal. Neck: Thyroid: No thyromegaly or thyroid tenderness. Vascular: Normal carotid pulses. No carotid bruit or JVD. Cardiovascular: Rate and Rhythm: Normal rate and regular rhythm. Pulses: Carotid pulses are 2+ on the right side and 2+ on the left side. Radial pulses are 2+ on the right side and 2+ on the left side. Heart sounds: Normal heart sounds. Pulmonary: Effort: Pulmonary effort is normal. Breath sounds: Normal breath sounds. Abdominal: General: Bowel sounds are normal. Palpations: Abdomen is soft. Musculoskeletal: Right lower leg: No edema. Left lower leg: No edema. Comments: Anterior chest wall TTP Skin: General: Skin is warm and dry. Neurological: General: No focal deficit present. Mental Status: She is alert and oriented to person, place, and time. ALLERGIES Allergen Reactions Seasonal Allergies Cough Cough, sneezing & watery eyes Medications calc carb,cit/mag,zinc/D3/h122 ([id number] #122-VIT D3 ORAL) Take by mouth. GARLIC red beet root-sour torres ext 250-0.5 mg chew Take by mouth. Ethinyl Estradiol-Norelgestrom (XULANE) 150-35 mcg/24 hr patch Apply 1 Patch as directed one time a week. Use continuously, no inactive week. metoprolol succinate ER (TOPROL XL) 25 mg 24 hr tablet Take 1 tablet by mouth once daily. Take one additional half pill for blood pressure for blood pressure greater than 150/80 CPAP AutoPAP 5-20 cmH2O, suitable mask,straps and chin straps as needed humidity, filters. Lifetime supplies. Dx: 327.23. fluticasone (FLONASE) 50 mcg/actuation nasal spray Use 2 Sprays in each nostril once daily. Rinse mouth after use. amLODIPine (NORVASC) 5 mg tablet Take 1 tablet by mouth once daily. [DISCONTINUED] ergocalciferol, vitamin D2, (VITAMIN D2 ORAL) Take by mouth. PAST MEDICAL HISTORY Diagnosis Date Allergic rhinitis seasonal--spring and fall Calculus of kidney 2004 small - incidental on CT scan, has never passed one that she's aware of Depression DM, gestational, diet controlled 2008 Esophageal reflux acid in back of throat, no pain - mostly with spicy foods, Prevacid helps Essential hypertension 04/20/2021 Generalized headaches Obstructive sleep apnea Dr. Verde Personal history of urinary (tract) infection recurrent Threatened premature labor, unspecified as to episode of care Premature labor Thyrotoxicosis without mention of goiter or other cause, without mention of thyrotoxic crisis or storm 2005 Hyperthyroidism - placed on atenolol 25mg x 6 mo, states now off meds and thyroid ok Social History Tobacco Use Smoking status: Never Passive exposure: Never Smokeless tobacco: Never Vaping Use Vaping status: Never Used Substance Use Topics Alcohol use: No Drug use: No Latest Ref Rng 03/12/2022 04/29/2023 03/22/2024 WBC 3.70 - 11.00 k/uL 9.09 9.05 8.61 RBC 3.90 - 5.20 m/uL 4.42 4.36 4.27 Hemoglobin 11.5 - 15.5 g/dL 13.6 13.8 13.4 Hematocrit 36.0 - 46.0 % 42.6 42.0 41.1 MCV 80.0 - 100.0 fL 96.4 96.3 96.3 MCH 26.0 - 34.0 pg 30.8 31.7 31.4 MCHC 30.5 - 36.0 g/dL 31.9 32.9 32.6 RDW-CV 11.5 - 15.0 % 13.1 12.5 13.2 Platelet Count 150 - 400 k/uL 215 238 287 MPV 9.0 - 12.7 fL 10.3 10.6 10.1 Neut% % 62.3 55.0 Abs Neut (ANC) 1.45 - 7.50 k/uL 5.64 4.74 Lymph% % 28.8 34.3 Abs Lymph 1.00 - 4.00 k/uL 2.61 2.95 [place]% % 6.4 6.9 Abs [place] <0.87 k/uL 0.58 0.59 Eosin% % 1.2 2.9 Abs Eosin <0.46 k/uL 0.11 0.25 Baso% % 0.7 0.6 Abs Baso <0.11 k/uL 0.06 0.05 Immature Gran % % 0.6 0.3 IMMATURE GRANS (ABS) <0.10 k/uL 0.05 0.03 NRBC /100 WBC 0.0 0.0 Absolute nRBC <0.01 k/uL <0.01 <0.01 <0.01 DTYPE Auto Auto Protein, Total 6.3 - 8.0 g/dL 6.4 6.6 6.2 (L) Albumin 3.9 - 4.9 g/dL 3.9 4.0 3.9 Calcium 8.5 - 10.2 mg/dL 8.9 9.7 9.0 Bilirubin, Total 0.2 - 1.3 mg/dL 0.4 0.3 0.3 Alkaline Phosphatase 34 - 123 U/L 59 63 70 AST 13 - 35 U/L 15 15 16 ALT 7 - 38 U/L 10 15 12 Glucose 74 - 99 mg/dL 110 (H) 136 (H) 132 (H) BUN 7 - 21 mg/dL 13 15 10 Creatinine 0.58 - 0.96 mg/dL 0.57 (L) 0.59 0.54 (L) Sodium 136 - 144 mmol/L 141 139 138 Potassium 3.7 - 5.1 mmol/L 4.0 3.9 4.0 Chloride 98 - 107 mmol/L 103 100 102 CO2 22 - 30 mmol/L 26 23 24 Anion Gap 8 - 15 mmol/L 12 16 12 eGFR >=60 mL/min/1.73m 112 110 112 Cholesterol, Total <200 mg/dL 170 154 Triglyceride <150 mg/dL 155 (H) 151 (H) HDL Cholesterol >39 mg/dL 80 72 Non HDL Cholesterol <130 mg/dL 90 82 Fasting Time hrs 1 12 VLDL Cholesterol <30 mg/dL 31 (H) 30 (H) TC:HDL Ratio <5.10 2.13 2.14 LDL Cholesterol <100 mg/dL 59 52 LDL:HDL Ratio <2.54 0.74 0.72 Hemoglobin A1C 4.3 - 5.6 % 6.4 (H) 6.5 (H) 7.0 (H) Estimated Average Glucose mg/dL 137 140 154 TSH 0.270 - 4.200 mIU/L 1.620 1.600 Free T4 0.9 - 1.7 ng/dL 1.2 ASSESSMENT/PLAN: 1. Essential hypertension - ICD9: 401.9, ICD10: I10 (primary diagnosis) 2. chest pain unspecified, R07.9 suboptimal control Continue with metoprolol succinate 25 mg daily. May take an additional 1/2 to 1 tablet daily for blood pressure elevation today until she can start amlodipine. Start amlodipine 5 mg daily. Treat ELIAN consistently. Recommend EKG, she defers to later date She has chest pain and family history of presumed premature heart disease with her father expiring at 49 years. ELIAN. Normal weight. Non-smoker. Stress test for chest pain endorsed. 1-4 week recheck, prefers 3 weeks. - Continue sodium restriction, DASH or Mediterranean diet - Recommend regular aerobic exercise 3. ELIAN (obstructive sleep apnea) [id number] 21AASM - ICD9: 327.23, ICD10: G47.33 Stable, currently controlled, continue to monitor. Continue consistent use. Kendall Pete APRN.CNS Medical Decision Making: Medical Decision Making Level: 1 - N/A documented in this encounter [facility] 07-05-2024 Note HNO ID: [id number] Author: KENDALL PETE APRN.VERIFICATION MANAGER Service: ? Author Type: Nurse Specialist Type: Progress Notes Filed: 07/05/2024 11:23 Note Text: SUBJECTIVE: Depression Screening Never done BP Controlled (<130/80) due on 06/07/2022 Colorectal Cancer Screening due on 09/27/2024 Mammogram Screening due on 12/21/2024 HPI Mata Santana is a 49 year old female. Her past medical history is significant for ACTIVE PROBLEM LIST Allergic Rhinitis ELIAN (obstructive sleep apnea) [id number] 21AASM Excessive Daytime Sleepiness Anxiety State Ifg (Impaired Fasting Glucose) Essential Hypertension Hypokalemia Near Syncope ELIAN: reports inconsistent use She reports she stopped taking metoprolol succinate about 3 weeks ago. Wanted to try a supplement and see how her blood pressure did with that. States the supplement was called Glycorenew. HTN: Without report of headache, chest pain, palpitations, dyspnea, peripheral edema, orthopnea, fatigue, and PND. Last 14 Encounter BP Readings: Date: BP: 07/05/2024 134/86 03/11/2024 144/80 03/08/2024 155/93[bp average[ 02/25/2024 154/92 02/10/2024 148/100 12/12/2023 126/72 09/17/2023 136/85[bp dayday average[ 09/06/2023 138/92 09/02/2023 118/62 05/26/2023 135/87[bp average[ 04/29/2023 147/100 01/20/2023 162/92 12/25/2022 136/87 12/14/2022 170/100 IFG: Patient's last HgA1C was Hemoglobin A1C (%) Date Value 03/22/2024 7.0 04/29/2023 6.5 05/28/2021 6.4 01/08/2021 6.5 Hemoglobin A1C (POCT) (%) Date Value 08/27/2021 6.1 ) Review of Systems Constitutional: Negative. Respiratory: Negative. Cardiovascular: Negative. Endocrine: Negative. Objective BP 134/86 Pulse 73 Wt 55.4 kg (122 lb 2.2 oz) LMP 03/01/2024 (Approximate) BMI 22.70 kg/m? Physical Exam Vitals and nursing note reviewed. Constitutional: Appearance: Normal appearance. HENT: Head: Normocephalic and atraumatic. Eyes: Conjunctiva/sclera: Conjunctivae normal. Neck: Thyroid: No thyromegaly or thyroid tenderness. Vascular: No JVD. Cardiovascular: Rate and Rhythm: Normal rate and regular rhythm. Pulses: Carotid pulses are 2+ on the right side and 2+ on the left side. Radial pulses are 2+ on the right side and 2+ on the left side. Heart sounds: Normal heart sounds. Pulmonary: Effort: Pulmonary effort is normal. Breath sounds: Normal breath sounds. Abdominal: General: Bowel sounds are normal. Palpations: Abdomen is soft. Musculoskeletal: Right lower leg: No edema. Left lower leg: No edema. Comments: Anterior chest wall TTP Skin: General: Skin is warm and dry. Neurological: General: No focal deficit present. Mental Status: She is alert and oriented to person, place, and time. ALLERGIES Allergen Reactions Seasonal Allergies Cough Cough, sneezing AND watery eyes Medications calc carb,cit/mag,zinc/D3/h122 (ANOKJGU-LV-HVUL-HC #122-VIT D3 ORAL) Take by mouth. GARLIC red beet root-sour torres ext 250-0.5 mg chew Take by mouth. Ethinyl Estradiol-Norelgestrom (XULANE) 150-35 mcg/24 hr patch Apply 1 Patch as directed one time a week. Use continuously, no inactive week. metoprolol succinate ER (TOPROL XL) 25 mg 24 hr tablet Take 1 tablet by mouth once daily. Take one additional half pill for blood pressure for blood pressure greater than 150/80 CPAP AutoPAP 5-20 cmH2O, suitable mask,straps and chin straps as needed humidity, filters. Lifetime supplies. Dx: 327.23. fluticasone (FLONASE) 50 mcg/actuation nasal spray Use 2 Sprays in each nostril once daily. Rinse mouth after use. [DISCONTINUED] ergocalciferol, vitamin D2, (VITAMIN D2 ORAL) Take by mouth. PAST MEDICAL HISTORY Diagnosis Date Allergic rhinitis seasonal--spring and fall Calculus of kidney 2004 small - incidental on CT scan, has never passed one that she's aware of Depression DM, gestational, diet controlled 2008 Esophageal reflux acid in back of throat, no pain - mostly with spicy foods, Prevacid helps Essential hypertension 04/20/2021 Generalized headaches Obstructive sleep apnea Dr. Verde Personal history of urinary (tract) infection recurrent Threatened premature labor, unspecified as to episode of care Premature labor Thyrotoxicosis without mention of goiter or other cause, without mention of thyrotoxic crisis or storm 2005 Hyperthyroidism - placed on atenolol 25mg x 6 mo, states now off meds and thyroid ok Social History Tobacco Use Smoking status: Never Passive exposure: Never Smokeless tobacco: Never Vaping Use Vaping status: Never Used Substance Use Topics Alcohol use: No Drug use: No Latest Ref Rng 03/12/2022 04/29/2023 03/22/2024 WBC 3.70 - 11.00 k/uL 9.09 9.05 8.61 RBC 3.90 - 5.20 m/uL 4.42 4.36 4.27 Hemoglobin 11.5 - 15.5 g/dL 13.6 13.8 13.4 Hematocrit 36.0 - 46.0 % 42.6 42.0 41.1 MCV 80.0 - 100.0 fL 96.4 96.3 96.3 MCH 26.0 - 34.0 pg 30.8 31.7 31.4 MCHC 30.5 - 36.0 g/dL 31.9 32.9 32. (more content not included)... [facility] 07-05-2024 History of Present illness Narrative SUBJECTIVE: Depression Screening Never done BP Controlled (<130/80) due on 06/07/2022 Colorectal Cancer Screening due on 09/27/2024 Mammogram Screening due on 12/21/2024 MIGUEL Mata Santana is a 49 year old female. Her past medical history is significant for ACTIVE PROBLEM LIST Allergic Rhinitis ELIAN (obstructive sleep apnea) [id number] 21AASM Excessive Daytime Sleepiness Anxiety State Ifg (Impaired Fasting Glucose) Essential Hypertension Hypokalemia Near Syncope ELIAN: reports inconsistent use She reports she stopped taking metoprolol succinate about 3 weeks ago. Wanted to try a supplement and see how her blood pressure did with that. States the supplement was called Glycorenew. HTN: Without report of headache, chest pain, palpitations, dyspnea, peripheral edema, orthopnea, fatigue, and PND. Last 14 Encounter BP Readings: Date: BP: 07/05/2024 134/86 03/11/2024 144/80 03/08/2024 155/93[bp average[ 02/25/2024 154/92 02/10/2024 148/100 12/12/2023 126/72 09/17/2023 136/85[bp dayday average[ 09/06/2023 138/92 09/02/2023 118/62 05/26/2023 135/87[bp average[ 04/29/2023 147/100 01/20/2023 162/92 12/25/2022 136/87 12/14/2022 170/100 IFG: Patient's last HgA1C was Hemoglobin A1C (%) Date Value 03/22/2024 7.0 04/29/2023 6.5 05/28/2021 6.4 01/08/2021 6.5 Hemoglobin A1C (POCT) (%) Date Value 08/27/2021 6.1 ) Review of Systems Constitutional: Negative. Respiratory: Negative. Cardiovascular: Negative. Endocrine: Negative. Objective BP 134/86 Pulse 73 Wt 55.4 kg (122 lb 2.2 oz) LMP 03/01/2024 (Approximate) BMI 22.70 kg/m Physical Exam Vitals and nursing note reviewed. Constitutional: Appearance: Normal appearance. HENT: Head: Normocephalic and atraumatic. Eyes: Conjunctiva/sclera: Conjunctivae normal. Neck: Thyroid: No thyromegaly or thyroid tenderness. Vascular: No JVD. Cardiovascular: Rate and Rhythm: Normal rate and regular rhythm. Pulses: Carotid pulses are 2+ on the right side and 2+ on the left side. Radial pulses are 2+ on the right side and 2+ on the left side. Heart sounds: Normal heart sounds. Pulmonary: Effort: Pulmonary effort is normal. Breath sounds: Normal breath sounds. Abdominal: General: Bowel sounds are normal. Palpations: Abdomen is soft. Musculoskeletal: Right lower leg: No edema. Left lower leg: No edema. Comments: Anterior chest wall TTP Skin: General: Skin is warm and dry. Neurological: General: No focal deficit present. Mental Status: She is alert and oriented to person, place, and time. ALLERGIES Allergen Reactions Seasonal Allergies Cough Cough, sneezing & watery eyes Medications calc carb,cit/mag,zinc/D3/h122 (BOWVHIN-VI-DAPL-HC #122-VIT D3 ORAL) Take by mouth. GARLIC red beet root-sour torres ext 250-0.5 mg chew Take by mouth. Ethinyl Estradiol-Norelgestrom (XULANE) 150-35 mcg/24 hr patch Apply 1 Patch as directed one time a week. Use continuously, no inactive week. metoprolol succinate ER (TOPROL XL) 25 mg 24 hr tablet Take 1 tablet by mouth once daily. Take one additional half pill for blood pressure for blood pressure greater than 150/80 CPAP AutoPAP 5-20 cmH2O, suitable mask,straps and chin straps as needed humidity, filters. Lifetime supplies. Dx: 327.23. fluticasone (FLONASE) 50 mcg/actuation nasal spray Use 2 Sprays in each nostril once daily. Rinse mouth after use. [DISCONTINUED] ergocalciferol, vitamin D2, (VITAMIN D2 ORAL) Take by mouth. PAST MEDICAL HISTORY Diagnosis Date Allergic rhinitis seasonal--spring and fall Calculus of kidney 2004 small - incidental on CT scan, has never passed one that she's aware of Depression DM, gestational, diet controlled 2008 Esophageal reflux acid in back of throat, no pain - mostly with spicy foods, Prevacid helps Essential hypertension 04/20/2021 Generalized headaches Obstructive sleep apnea Dr. Verde Personal history of urinary (tract) infection recurrent Threatened premature labor, unspecified as to episode of care Premature labor Thyrotoxicosis without mention of goiter or other cause, without mention of thyrotoxic crisis or storm 2006 Hyperthyroidism - placed on atenolol 25mg x 6 mo, states now off meds and thyroid ok Social History Tobacco Use Smoking status: Never Passive exposure: Never Smokeless tobacco: Never Vaping Use Vaping status: Never Used Substance Use Topics Alcohol use: No Drug use: No Latest Ref Rng 03/12/2022 04/29/2023 03/22/2024 WBC 3.70 - 11.00 k/uL 9.09 9.05 8.61 RBC 3.90 - 5.20 m/uL 4.42 4.36 4.27 Hemoglobin 11.5 - 15.5 g/dL 13.6 13.8 13.4 Hematocrit 36.0 - 46.0 % 42.6 42.0 41.1 MCV 80.0 - 100.0 fL 96.4 96.3 96.3 MCH 26.0 - 34.0 pg 30.8 31.7 31.4 MCHC 30.5 - 36.0 g/dL 31.9 32.9 32.6 RDW-CV 11.5 - 15.0 % 13.1 12.5 13.2 Platelet Count 150 - 400 k/uL 215 238 287 MPV 9.0 - 12.7 fL 10.3 10.6 10.1 Neut% % 62.3 55.0 Abs Neut (ANC) 1.45 - 7.50 k/uL 5.64 4.74 Lymph% % 28.8 34.3 Abs Lymph 1.00 - 4.00 k/uL 2.61 2.95 [place]% % 6.4 6.9 Abs [place] <0.87 k/uL 0.58 0.59 Eosin% % 1.2 2.9 Abs Eosin <0.46 k/uL 0.11 0.25 Baso% % 0.7 0.6 Abs Baso <0.11 k/uL 0.06 0.05 Immature Gran % % 0.6 0.3 IMMATURE GRANS (ABS) <0.10 k/uL 0.05 0.03 NRBC /100 WBC 0.0 0.0 Absolute nRBC <0.01 k/uL <0.01 <0.01 <0.01 DTYPE Auto Auto Protein, Total 6.3 - 8.0 g/dL 6.4 6.6 6.2 (L) Albumin 3.9 - 4.9 g/dL 3.9 4.0 3.9 Calcium 8.5 - 10.2 mg/dL 8.9 9.7 9.0 Bilirubin, Total 0.2 - 1.3 mg/dL 0.4 0.3 0.3 Alkaline Phosphatase 34 - 123 U/L 59 63 70 AST 13 - 35 U/L 15 15 16 ALT 7 - 38 U/L 10 15 12 Glucose 74 - 99 mg/dL 110 (H) 136 (H) 132 (H) BUN 7 - 21 mg/dL 13 15 10 Creatinine 0.58 - 0.96 mg/dL 0.57 (L) 0.59 0.54 (L) Sodium 136 - 144 mmol/L 141 139 138 Potassium 3.7 - 5.1 mmol/L 4.0 3.9 4.0 Chloride 98 - 107 mmol/L 103 100 102 CO2 22 - 30 mmol/L 26 23 24 Anion Gap 8 - 15 mmol/L 12 16 12 eGFR >=60 mL/min/1.73m 112 110 112 Cholesterol, Total <200 mg/dL 170 154 Triglyceride <150 mg/dL 155 (H) 151 (H) HDL Cholesterol >39 mg/dL 80 72 Non HDL Cholesterol <130 mg/dL 90 82 Fasting Time hrs 1 12 VLDL Cholesterol <30 mg/dL 31 (H) 30 (H) TC:HDL Ratio <5.10 2.13 2.14 LDL Cholesterol <100 mg/dL 59 52 LDL:HDL Ratio <2.54 0.74 0.72 Hemoglobin A1C 4.3 - 5.6 % 6.4 (H) 6.5 (H) 7.0 (H) Estimated Average Glucose mg/dL 137 140 154 TSH 0.270 - 4.200 mIU/L 1.620 1.600 Free T4 0.9 - 1.7 ng/dL 1.2 ASSESSMENT/PLAN: 1. Essential hypertension - ICD9: 401.9, ICD10: I10 (primary diagnosis) suboptimal control Endorsed resuming metoprolol succinate. Treat ELIAN consistently. - Encourage sodium restriction, DASH or Mediterranean diet - Recommend regular aerobic exercise 2. . IFG (impaired fasting glucose) - ICD9: 790.21, ICD10: R73.01 She has been watching her diet and has lost weight since last year. Recommend checking A1c today - HEMOGLOBIN A1C ASSESSMENT/PLAN: 3. Screening for depression - ICD9: V79.0, ICD10: Z13.31 - DEPRESSION SCREENING 4. Screening for colon cancer - ICD9: V76.51, ICD10: Z12.11 - COLOGUARD 5. ELIAN (obstructive sleep apnea) [id number] 21AASM - ICD9: 327.23, ICD10: G47.33 6. Anxiety state - ICD9: 300.00, ICD10: F41.1 7. Encounter for immunization - ICD9: V03.89, ICD10: Z23 - TDAP VACCINE, AGE 7+ YR (ADACEL, BOOSTRIX) - [employer] COVID-19 VACCINE AGE 12+ YR - INFLUENZA VACCINE, AGE 6MO-64YR, TRIVALENT (AFLURIA, FLULAVAL, FLUVIRIN, FLUZONE) - ZOSTER VACCINE, RECOMBINANT (SHINGRIX) - ZOSTER VACCINE, RECOMBINANT (SHINGRIX) - HEP B VACCINE, 3-DOSE, AGE 20+ YR (ENGERIX-B, RECOMBIVAX HB) - HEP B VACCINE, 3-DOSE, AGE 20+ YR (ENGERIX-B, RECOMBIVAX HB) - HEP B VACCINE, 3-DOSE, AGE 20+ YR (ENGERIX-B, RECOMBIVAX HB) Declines all vaccines today. 6 mo follow up MD Kendall Johns APRN.CNS Medical Decision Making: Problems: Moderate: 2+ stable chronic illnesses Data: Unique test result(s) reviewed: 3+ Risk: Moderate: Drug management Medical Decision Making Level: 4 - Moderate documented in this encounter [facility] 04-28-2024 Telephone encounter Note Attempted to contact patient but no answer. Letter mailed. [facility] 04-28-2024 Miscellaneous Notes Attempted to contact patient but no answer. Letter mailed. Recommend try phone encounter again. If unable to reach then mail information to her home and a letter. Called and left a voicemail for the Patient to call back and ask for a nurse to receive the providers message. Mary Doyle RN Hga1C is increased consistent with DM2. Not currently taking medication. Would recommend DM diet, can mail info. Would recommend metformin. Diabetes education also. 3 mo follow up with A1c. Latest Ref Rng 03/22/2024 WBC 3.70 - 11.00 k/uL 8.61 RBC 3.90 - 5.20 m/uL 4.27 Hemoglobin 11.5 - 15.5 g/dL 13.4 Hematocrit 36.0 - 46.0 % 41.1 MCV 80.0 - 100.0 fL 96.3 MCH 26.0 - 34.0 pg 31.4 MCHC 30.5 - 36.0 g/dL 32.6 RDW-CV 11.5 - 15.0 % 13.2 Platelet Count 150 - 400 k/uL 287 MPV 9.0 - 12.7 fL 10.1 Neut% % 55.0 Abs Neut (ANC) 1.45 - 7.50 k/uL 4.74 Lymph% % 34.3 Abs Lymph 1.00 - 4.00 k/uL 2.95 [place]% % 6.9 Abs [place] <0.87 k/uL 0.59 Eosin% % 2.9 Abs Eosin <0.46 k/uL 0.25 Baso% % 0.6 Abs Baso <0.11 k/uL 0.05 Immature Gran % % 0.3 IMMATURE GRANS (ABS) <0.10 k/uL 0.03 NRBC /100 WBC 0.0 Absolute nRBC <0.01 k/uL <0.01 DTYPE Auto Protein, Total 6.3 - 8.0 g/dL 6.2 (L) Albumin 3.9 - 4.9 g/dL 3.9 Calcium 8.5 - 10.2 mg/dL 9.0 Bilirubin, Total 0.2 - 1.3 mg/dL 0.3 Alkaline Phosphatase 34 - 123 U/L 70 AST 13 - 35 U/L 16 ALT 7 - 38 U/L 12 Glucose 74 - 99 mg/dL 132 (H) BUN 7 - 21 mg/dL 10 Creatinine 0.58 - 0.96 mg/dL 0.54 (L) Sodium 136 - 144 mmol/L 138 Potassium 3.7 - 5.1 mmol/L 4.0 Chloride 98 - 107 mmol/L 102 CO2 22 - 30 mmol/L 24 Anion Gap 8 - 15 mmol/L 12 eGFR >=60 mL/min/1.73m 112 Cholesterol, Total <200 mg/dL 154 Triglyceride <150 mg/dL 151 (H) HDL Cholesterol >39 mg/dL 72 Non HDL Cholesterol <130 mg/dL 82 Fasting Time hrs 12 VLDL Cholesterol <30 mg/dL 30 (H) TC:HDL Ratio <5.10 2.14 LDL Cholesterol <100 mg/dL 52 LDL:HDL Ratio <2.54 0.72 Hemoglobin A1C 4.3 - 5.6 % 7.0 (H) Estimated Average Glucose mg/dL 154 TSH 0.270 - 4.200 mIU/L 1.600 Legend: (L) Low (H) High documented in this encounter [facility] 04-28-2024 Telephone encounter Note Recommend try phone encounter again. If unable to reach then mail information to her home and a letter. [facility] 04-25-2024 Telephone encounter Note Called and left a voicemail for the Patient to call back and ask for a nurse to receive the providers message. Mary Doyle RN [facility] 04-23-2024 Telephone encounter Note Hga1C is increased consistent with DM2. Not currently taking medication. Would recommend DM diet, can mail info. Would recommend metformin. Diabetes education also. 3 mo follow up with A1c. Latest Ref Rng 03/22/2024 WBC 3.70 - 11.00 k/uL 8.61 RBC 3.90 - 5.20 m/uL 4.27 Hemoglobin 11.5 - 15.5 g/dL 13.4 Hematocrit 36.0 - 46.0 % 41.1 MCV 80.0 - 100.0 fL 96.3 MCH 26.0 - 34.0 pg 31.4 MCHC 30.5 - 36.0 g/dL 32.6 RDW-CV 11.5 - 15.0 % 13.2 Platelet Count 150 - 400 k/uL 287 MPV 9.0 - 12.7 fL 10.1 Neut% % 55.0 Abs Neut (ANC) 1.45 - 7.50 k/uL 4.74 Lymph% % 34.3 Abs Lymph 1.00 - 4.00 k/uL 2.95 [place]% % 6.9 Abs [place] <0.87 k/uL 0.59 Eosin% % 2.9 Abs Eosin <0.46 k/uL 0.25 Baso% % 0.6 Abs Baso <0.11 k/uL 0.05 Immature Gran % % 0.3 IMMATURE GRANS (ABS) <0.10 k/uL 0.03 NRBC /100 WBC 0.0 Absolute nRBC <0.01 k/uL <0.01 DTYPE Auto Protein, Total 6.3 - 8.0 g/dL 6.2 (L) Albumin 3.9 - 4.9 g/dL 3.9 Calcium 8.5 - 10.2 mg/dL 9.0 Bilirubin, Total 0.2 - 1.3 mg/dL 0.3 Alkaline Phosphatase 34 - 123 U/L 70 AST 13 - 35 U/L 16 ALT 7 - 38 U/L 12 Glucose 74 - 99 mg/dL 132 (H) BUN 7 - 21 mg/dL 10 Creatinine 0.58 - 0.96 mg/dL 0.54 (L) Sodium 136 - 144 mmol/L 138 Potassium 3.7 - 5.1 mmol/L 4.0 Chloride 98 - 107 mmol/L 102 CO2 22 - 30 mmol/L 24 Anion Gap 8 - 15 mmol/L 12 eGFR >=60 mL/min/1.73m 112 Cholesterol, Total <200 mg/dL 154 Triglyceride <150 mg/dL 151 (H) HDL Cholesterol >39 mg/dL 72 Non HDL Cholesterol <130 mg/dL 82 Fasting Time hrs 12 VLDL Cholesterol <30 mg/dL 30 (H) TC:HDL Ratio <5.10 2.14 LDL Cholesterol <100 mg/dL 52 LDL:HDL Ratio <2.54 0.72 Hemoglobin A1C 4.3 - 5.6 % 7.0 (H) Estimated Average Glucose mg/dL 154 TSH 0.270 - 4.200 mIU/L 1.600 Legend: (L) Low (H) High [facility] 03-11-2024 History of Present illness Narrative Speech Scientist offered: Patient declines. Mata is a 48 year old who presents for an annual gynecologic exam with complaints, vaginal itching. Menses: cycles every 21-24 days and 5-6 days of flow. Contraception: patch HPV vaccine: No Last Pap: 11/26/2021 normal HPV: 11/22/2021 negative History of abnormal pap: No Last mammogram: 2023normal Sexually active: not currently OB History T1 L2 SAB0 IAB0 Ectopic0 Multiple0 Live Births2 [place] History LMP: 03/01/2024 (Approximate), Having periods Age at Menarche: Age at First : Age at Menopause: [place] History Comments: Sexual Activity: Not Currently; Male Contraception: No contraception data on record PAST MEDICAL HISTORY Diagnosis Date Allergic rhinitis seasonal--spring and fall Calculus of kidney 2005 small - incidental on CT scan, has never passed one that she's aware of Depression DM, gestational, diet controlled 2008 Esophageal reflux acid in back of throat, no pain - mostly with spicy foods, Prevacid helps Essential hypertension 04/20/2021 Generalized headaches Obstructive sleep apnea Dr. Verde Personal history of urinary (tract) infection recurrent Threatened premature labor, unspecified as to episode of care Premature labor Thyrotoxicosis without mention of goiter or other cause, without mention of thyrotoxic crisis or storm 2006 Hyperthyroidism - placed on atenolol 25mg x 6 mo, states now off meds and thyroid ok PAST SURGICAL HISTORY Procedure Laterality Date PAST SURGICAL HISTORY OF 03/2005 left foot-removal of bunion PAST SURGICAL HISTORY OF Lesion removed from upper groin area PAST SURGICAL HISTORY OF Right 03/2022 ingrown toenail-type surgery FAMILY HISTORY Problem Relation Age of Onset Diabetes Mother 53 Thyroid Mother Unsure of exact etiology Heart Father age 49, heavy smoker, likely of [place] but pt not sure Diabetes Sister Diabetes Brother 25 Diabetes Maternal Grandmother other (Other) Maternal Grandmother MVA Alzheimer's Disease Maternal Grandfather also great grandma Diabetes Paternal Grandmother Ischemic Heart Disease Paternal Grandfather age 50 ND Parkinson's Maternal Uncle SOCIAL HISTORY Social History Tobacco Use Smoking status: Never Passive exposure: Never Smokeless tobacco: Never Vaping Use Vaping Use: Never used Substance Use Topics Alcohol use: No Drug use: No REVIEW OF SYSTEMS Abdomen: No abdominal pain, nausea, vomiting, diarrhea, or constipation. No bloating, early satiety, indigestion, or increased flatulence. Bladder: No dysuria, gross hematuria, urinary frequency, urinary urgency, or incontinence. Breast: No breast lumps, nipple d/c, overlying skin changes, redness or skin retraction. Allergies and current medication updated:Yes EXAM: Ht 5' 1.5 (1.56m) Wt 128 lb (58.1kg) LMP 03/01/2024 BMI 23.80 kg/(m^2). GENERAL: pleasant, female in no apparent distress HEENT: Normocephalic, atraumatic, mucus membranes moist, and no lesions NECK: Supple, full range of motion, no adenopathy, and thyroid normal DERMATOLOGY: Normal, without lesions, non-icteric, and non-hirsute BREAST: soft, non-tender, symmetric, no dominant mass, normal nipple-areolar complex, no lymphadenopathy, and no nipple discharge CHEST: Normal inspiratory effort ABDOMEN: soft, non-tender, and no masses PELVIC: external genitalia normal, normal Bartholin's glands, urethra, Tenstrike's glands, no vulvar lesions, no cervical lesions, good vaginal support, physiologic discharge present, normal appearing perineal body and perianal region BIMANUAL: uterus normal size, shape and consistency, no adnexal masses, and non-tender RECTOVAGINAL: deferred. NEURO: alert and oriented x3,exam grossly non-focal EXTREMITIES: normal ASSESSMENT/PLAN: 1) Health maintenance: Pap/HPV up to date. Mammogram up to date . Nutrition, exercise and routine health maintenance exams reviewed. Calcium/Vitamin D supplementation information provided. 2) Contraception: patch. Contraceptive options reviewed and information provided. 3) STD screening: NA 4) Follow up one year or sooner as needed Esthela Myers APRN.LUIS documented in this encounter [facility] 03-08-2024 History of Present illness Narrative SUBJECTIVE: Hepatitis B Vaccine(1 of 3 - 19+ 3-dose series) Never done DTaP,Tdap,Td Vaccine(1 - Tdap) due on 12/29/2007 BP Controlled (<130/80) due on 06/07/2022 Shingrix Vaccine(1 of 2) Never done Covid-19 Vaccine(3 - 2023-24 season) due on 06/19/2023 Behavioral Health Screening Never done HPI Mata Santana is a 48 year old female. Her past medical history is significant for ACTIVE PROBLEM LIST Allergic Rhinitis ELIAN (obstructive sleep apnea) [id number] 21AASM Excessive Daytime Sleepiness Anxiety State Ifg (Impaired Fasting Glucose) Essential Hypertension Hypokalemia Near Syncope She notes generally recovered from upper respiratory infection. Still with some coughing. She notes some chest wall discomfort with coughing that is reproducible on palpation. She notes some positional dizziness, when arising from bed or when bending over at work or exerting with lifting etc. Notes she may be not drinking enough fluids during work. She also notes dental pain, trying to avoid medication for this. Has an appointment with dentist tomorrow. Blood pressure has been elevated at visits last month, no checking at home. HTN: Without report of headache, chest pain, palpitations, dyspnea, peripheral edema, orthopnea, fatigue, and PND. Last 14 Encounter BP Readings: Date: BP: 03/08/2024 155/93[bp average[ 02/25/2024 154/92 02/10/2024 148/100 12/12/2023 126/72 09/17/2023 136/85[bp adyday average[ 09/06/2023 138/92 09/02/2023 118/62 05/26/2023 135/87[bp average[ 04/29/2023 147/100 01/20/2023 162/92 12/25/2022 136/87 12/14/2022 170/100 10/07/2022 128/82 09/08/2022 142/92 Review of Systems Constitutional: Negative. Respiratory: Negative. Cardiovascular: Negative. Endocrine: Negative. Musculoskeletal: Positive for arthralgias. Objective BP 155/93 Pulse 74 Resp 16 Wt 58.1 kg (128 lb) LMP 04/10/2023 (Approximate) BMI 23.04 kg/m Physical Exam Vitals and nursing note reviewed. HENT: Head: Normocephalic and atraumatic. Eyes: Conjunctiva/sclera: Conjunctivae normal. Neck: Thyroid: No thyromegaly or thyroid tenderness. Vascular: No JVD. Cardiovascular: Rate and Rhythm: Normal rate and regular rhythm. Pulses: Carotid pulses are 2+ on the right side and 2+ on the left side. Radial pulses are 2+ on the right side and 2+ on the left side. Heart sounds: Normal heart sounds. Pulmonary: Effort: Pulmonary effort is normal. Breath sounds: Normal breath sounds. Abdominal: General: Bowel sounds are normal. Palpations: Abdomen is soft. Musculoskeletal: Right lower leg: No edema. Left lower leg: No edema. Comments: Anterior chest wall TTP Skin: General: Skin is warm and dry. Neurological: General: No focal deficit present. Mental Status: She is alert and oriented to person, place, and time. ALLERGIES Allergen Reactions Seasonal Allergies Cough Cough, sneezing & watery eyes Medications Ethinyl Estradiol-Norelgestrom (XULANE) 150-35 mcg/24 hr patch Apply 1 Patch as directed one time a week. Use continuously, no inactive week. CPAP AutoPAP 5-20 cmH2O, suitable mask,straps and chin straps as needed humidity, filters. Lifetime supplies. Dx: 327.23. fluticasone (FLONASE) 50 mcg/actuation nasal spray Use 2 Sprays in each nostril once daily. Rinse mouth after use. metoprolol succinate ER (TOPROL XL) 25 mg 24 hr tablet Take 1 tablet by mouth once daily. Take one additional half pill for blood pressure for blood pressure greater than 150/80 [DISCONTINUED] ergocalciferol, vitamin D2, (VITAMIN D2 ORAL) Take by mouth. PAST MEDICAL HISTORY Diagnosis Date Allergic rhinitis seasonal--spring and fall Calculus of kidney 2004 small - incidental on CT scan, has never passed one that she's aware of Depression DM, gestational, diet controlled 2008 Esophageal reflux acid in back of throat, no pain - mostly with spicy foods, Prevacid helps Essential hypertension 04/20/2021 Generalized headaches Obstructive sleep apnea Dr. Verde Personal history of urinary (tract) infection recurrent Threatened premature labor, unspecified as to episode of care Premature labor Thyrotoxicosis without mention of goiter or other cause, without mention of thyrotoxic crisis or storm 2006 Hyperthyroidism - placed on atenolol 25mg x 6 mo, states now off meds and thyroid ok Social History Tobacco Use Smoking status: Never Smokeless tobacco: Never Vaping Use Vaping Use: Never used Substance Use Topics Alcohol use: No Drug use: No Latest Ref Rng 04/29/2023 WBC 3.70 - 11.00 k/uL 9.05 RBC 3.90 - 5.20 m/uL 4.36 Hemoglobin 11.5 - 15.5 g/dL 13.8 Hematocrit 36.0 - 46.0 % 42.0 MCV 80.0 - 100.0 fL 96.3 MCH 26.0 - 34.0 pg 31.7 MCHC 30.5 - 36.0 g/dL 32.9 RDW-CV 11.5 - 15.0 % 12.5 Platelet Count 150 - 400 k/uL 238 MPV 9.0 - 12.7 fL 10.6 Neut% % 62.3 Abs Neut (ANC) 1.45 - 7.50 k/uL 5.64 Lymph% % 28.8 Abs Lymph 1.00 - 4.00 k/uL 2.61 [place]% % 6.4 Abs [place] <0.87 k/uL 0.58 Eosin% % 1.2 Abs Eosin <0.46 k/uL 0.11 Baso% % 0.7 Abs Baso <0.11 k/uL 0.06 Immature Gran % % 0.6 IMMATURE GRANS (ABS) <0.10 k/uL 0.05 NRBC /100 WBC 0.0 Absolute nRBC <0.01 k/uL <0.01 DTYPE Auto Protein, Total 6.3 - 8.0 g/dL 6.6 Albumin 3.9 - 4.9 g/dL 4.0 Calcium 8.5 - 10.2 mg/dL 9.7 Bilirubin, Total 0.2 - 1.3 mg/dL 0.3 Alkaline Phosphatase 34 - 123 U/L 63 AST 13 - 35 U/L 15 ALT 7 - 38 U/L 15 Glucose 74 - 99 mg/dL 136 (H) BUN 7 - 21 mg/dL 15 Creatinine 0.58 - 0.96 mg/dL 0.59 Sodium 136 - 144 mmol/L 139 Potassium 3.7 - 5.1 mmol/L 3.9 Chloride 97 - 105 mmol/L 100 CO2 22 - 30 mmol/L 23 Anion Gap 9 - 18 mmol/L 16 eGFR >=60 mL/min/1.73m 110 Cholesterol, Total <200 mg/dL 170 Triglyceride <150 mg/dL 155 (H) HDL Cholesterol >39 mg/dL 80 Non HDL Cholesterol <130 mg/dL 90 Fasting Time hrs 1 VLDL Cholesterol <30 mg/dL 31 (H) TC:HDL Ratio <5.10 2.13 LDL Cholesterol <100 mg/dL 59 LDL:HDL Ratio <2.54 0.74 Hemoglobin A1C 4.3 - 5.6 % 6.5 (H) Estimated Average Glucose mg/dL 140 Legend: (H) High ASSESSMENT/PLAN: 1. Essential hypertension - ICD9: 401.9, ICD10: I10 (primary diagnosis) suboptimal control Unclear cause, may be related to dental pain or recent URI. For now recommend checking blood pressure daily and add an additional 12.5 mg metoprolol succinate daily for blood pressure greater than 150/80. - Encouraged sodium restriction, DASH or Mediterranean diet - Recommend regular aerobic exercise - METOPROLOL SUCCINATE ER 25 MG TABLET,EXTENDED RELEASE 24 HR - COMPREHENSIVE METABOLIC PANEL - COMPLETE BLOOD COUNT AND DIFFERENTIAL - LIPID PANEL BASIC - THYROID STIMULATING HORMONE - LIPID PANEL, NONFASTING 2. Anxiety state - ICD9: 300.00, ICD10: F41.1 3. Viral URI with cough - ICD9: 465.9, ICD10: J06.9 Nearly resolved 4. IFG (impaired fasting glucose) - ICD9: 790.21, ICD10: R73.01 - HEMOGLOBIN A1C Kendall Pete APRN.CNS 7. Anxiety - ICD9: 300.00, ICD10: F41.9 defers medication at this time, may need new counselor - CONSULT TO PSYCHOLOGY - CONSULT TO PRIMARY CARE BEHAVIORAL HEALTH ADULT - PRIMARY CARE SOCIAL WORK CONSULT 1-4 wk follow up me HTN, labs today or at next visit. 6 mo follow up MD Kendall Johns APRN.VERIFICATION MANAGER Medical Decision Making: Problems: Moderate: 1+ chronic illnesses with change Data: Unique test(s) ordered: 3+ Risk: Moderate: Drug management Medical Decision Making Level: 4 - Moderate documented in this encounter [facility] 03-08-2024 Instructions Kendall Pete APRN.CNS - 03/08/2024 8:35 AM EDT Check your blood pressure daily. If your blood pressure is greater than 150/80 take an additional one half 25 mg metoprolol succinate tablet for a total of 37.5 mg daily Drink plenty of fluids, aim for 64 ounces per day. Consider wearing lfdq-laf-oqrvvro compression socks at work. documented in this encounter [facility] 03-01-2024 Telephone encounter Note See pended refill request below. Pt was assisted to schedule yearly exam and will need new Rx prior to appointment. Call only if problems. Wen Tristan LPN [facility] 03-01-2024 Miscellaneous Notes See pended refill request below. Pt was assisted to schedule yearly exam and will need new Rx prior to appointment. Call only if problems. Wen Tristan LPN documented in this encounter [facility] 02-25-2024 Instructions Angela Noland APRN.ADJUNCT PROFESSOR OF ENGLISH - 02/25/2024 8:17 AM EDT Let me know in 5 to 7 days if your symptoms don't improve or sooner if worsening CARE ADVICE FOR COUGH: Drink warm fluids. Inhale warm mist. (Reason: both relax the airway and loosen up the phlegm) Suck on cough drops or hard candy to coat the irritated throat. OTC COUGH DROPS: Cough drops can help a lot, especially for mild coughs. They reduce coughing by soothing your irritated throat and removing that tickle sensation in the back of the throat. Cough drops also have the advantage of portability - you can carry them with you. HOME REMEDY - HARD CANDY: Hard candy works just as well as medicine-flavored OTC cough drops. People who have diabetes should use sugar-free candy. HOME REMEDY - HONEY: This old home remedy has been shown to help decrease coughing at night. The adult dosage is 2 teaspoons (10 ml) at bedtime. Honey should not be given to infants under one year of age. HUMIDIFIER: If the air is dry, use a humidifier in the bedroom. (Reason: dry air makes coughs worse) AVOID TOBACCO SMOKE: Smoking or being exposed to smoke makes coughs much worse. SORE THROAT For relief of sore throat: Sip warm chicken broth or apple juice Suck on hard candy or a throat lozenge (OTC) Gargle with warm salt water four times a day To make salt water, put 1/2 teaspoon of salt in 8 oz (240 ml) of warm water. Avoid cigarette smoke CALL BACK IF: Difficulty breathing occurs You develop any new or worsening symptoms You have any questions or concerns documented in this encounter [facility] 02-25-2024 History of Present illness Narrative CC: Patient presents with: Cough: X 3 weeks , robitussin and mucinex - minimal relief. HPI Mata Santana is a 48 year old female who presents today for above. She was seen for three day history of cough and head congestion in [facility] on 02/09. COVID and influenza swab were negative. Symptoms are were improving until a couple days ago. Symptoms include: Temperature elevation: No Chills: No Cough: Yes productive with clear sputum Shortness of breath: No Fatigue: Yes Muscle aches: No Headache: No New loss of smell or taste: No Sore throat: No Nasal congestion: Yes Rhinorrhea: Yes with clear drainage Nausea and/or vomiting: No Diarrhea: No Other Associated symptoms: wheezing. PMH: Non-contributory OTC meds/remedies that patient has tried: Mucinex, Zyrtec and Flonase Review of Systems See HPI PAST MEDICAL HISTORY Diagnosis Date Allergic rhinitis seasonal--spring and fall Calculus of kidney 2005 small - incidental on CT scan, has never passed one that she's aware of Depression DM, gestational, diet controlled 2008 Esophageal reflux acid in back of throat, no pain - mostly with spicy foods, Prevacid helps Essential hypertension 04/20/2021 Generalized headaches Obstructive sleep apnea Dr. Verde Personal history of urinary (tract) infection recurrent Threatened premature labor, unspecified as to episode of care Premature labor Thyrotoxicosis without mention of goiter or other cause, without mention of thyrotoxic crisis or storm 2005 Hyperthyroidism - placed on atenolol 25mg x 6 mo, states now off meds and thyroid ok PAST SURGICAL HISTORY Procedure Laterality Date PAST SURGICAL HISTORY OF 03/2005 left foot-removal of bunion PAST SURGICAL HISTORY OF Lesion removed from upper groin area PAST SURGICAL HISTORY OF Right 03/2022 ingrown toenail-type surgery ALLERGIES Seasonal Allergies MEDICATIONS metoprolol succinate ER (TOPROL XL) 25 mg 24 hr tablet Take 1 tablet by mouth once daily. fluticasone (FLONASE) 50 mcg/actuation nasal spray Use 2 Sprays in each nostril once daily. Rinse mouth after use. Zznwomdhabupukp-Busedbocb-EG (BROMFED DM) 2-30-10 mg/5 mL syrup Take 10 mL by mouth four times a day as needed. (Patient not taking: Reported on 02/10/2024) fluticasone (FLOVENT HFA) 44 mcg/actuation inhaler Inhale 1 Puff as instructed two times a day. Shake well before use. Rinse mouth after use. (Patient not taking: Reported on 12/12/2023) CPAP AutoPAP 5-20 cmH2O, suitable mask,straps and chin straps as needed humidity, filters. Lifetime supplies. Dx: 327.23. prednisoLONE acetate (PRED FORTE) 1 % ophthalmic suspension Use 1 Drop in the right eye four times daily. (Patient not taking: Reported on 12/12/2023) Ethinyl Estradiol-Norelgestrom (XULANE) 150-35 mcg/24 hr patch Apply 1 Patch as directed one time a week. Use continuously, no inactive week. [DISCONTINUED] ergocalciferol, vitamin D2, (VITAMIN D2 ORAL) Take by mouth. FAMILY HISTORY Problem Relation Age of Onset Diabetes Mother 53 Thyroid Mother Unsure of exact etiology Heart Father age 49, heavy smoker, likely of [place] but pt not sure Diabetes Sister Diabetes Brother 25 Diabetes Maternal Grandmother other (Other) Maternal Grandmother MVA Alzheimer's Disease Maternal Grandfather also great grandma Diabetes Paternal Grandmother Ischemic Heart Disease Paternal Grandfather age 50 [place] Social History Tobacco Use Smoking status: Never Smokeless tobacco: Never Vaping Use Vaping Use: Never used Substance Use Topics Alcohol use: No Drug use: No BP 154/92 Pulse 74 Temp 36.6 C (97.9 F) (Temporal) Resp 18 Wt 59.4 kg (131 lb) LMP 04/10/2023 (Approximate) SpO2 99% BMI 23.58 kg/m Physical Exam Vitals reviewed. Constitutional: Appearance: Normal appearance. HENT: Right Ear: Tympanic membrane normal. Left Ear: Tympanic membrane normal. Nose: Mucosal edema present. Right Sinus: No maxillary sinus tenderness or frontal sinus tenderness. Left Sinus: No maxillary sinus tenderness or frontal sinus tenderness. Mouth/Throat: Lips: Cactus. Mouth: Mucous membranes are moist. Pharynx: Oropharynx is clear. Eyes: Conjunctiva/sclera: Conjunctivae normal. Cardiovascular: Rate and Rhythm: Normal rate and regular rhythm. Heart sounds: Normal heart sounds. No murmur heard. Pulmonary: Effort: Pulmonary effort is normal. Breath sounds: Normal breath sounds. No wheezing, rhonchi or rales. Lymphadenopathy: Cervical: Cervical adenopathy (superficial cervical) present. Skin: General: Skin is warm and dry. Neurological: Mental Status: She is alert. ASSESSMENT/PLAN: 1. Viral URI with cough - ICD9: 465.9, ICD10: J06.9 (primary diagnosis) - Discussed viral etiology and rationale for treatment - start prednisone 40 mg x 5 days - Symptomatic treatment with prn analgesia - Supportive care with fluids and rest - The patient may also use Tessalon Perles as needed. Continue with Flonase and Zyrtec. - Follow up in 5 to 7 days if symptoms persist or sooner if worsening of symptoms 2. Essential hypertension - ICD9: 401.9, ICD10: I10 Elevated today, normally less than 120/70 in the office. Overdue for routine follow-up, she is agreeable to scheduling today Prescription instructions reviewed with patient as applicable. Potential red flag symptoms discussed with the patient. Reviewed appropriate action plan to take if red flag symptoms occur. Patient agreeable to treatment plan. Angela Noland APRN.ADJUNCT PROFESSOR OF ENGLISH documented in this encounter [facility] 02-10-2024 History of Present illness Narrative CC: Patient presents with: Cough: Congestion, hot/cold flashes x 3 days HPI: Mata Santana is a 48 year old female who presents to the office with complaint of head congestion and cough, nonproductive for a few days. Symptoms are staying the same. Associated symptoms includes headache, fever, chills, body aches, and fatigue. Denies nausea, vomiting , and diarrhea. Treatments tried include nothing so far. with no relief of symptoms. Sick contacts: unknown. History of asthma, frequent episodes of bronchitis, chronic bronchitis, bronchiectasis or COPD: No Smoker: No Seasonal/environmental allergies: No The ROS is otherwise negative. The patient's pmh, medications, allergies, and past visits are reviewed. PHYSICAL EXAM: BP 148/100 Pulse 90 Temp 36.4 C (97.5 F) Resp 19 Wt 59.9 kg (132 lb 0.9 oz) LMP 04/10/2023 (Approximate) SpO2 98% BMI 23.77 kg/m General appearance: alert, cooperative, pleasant, in no acute distress Head: Normocephalic Eyes: EOM's intact, conjunctiva pink and moist, no icterus, sclera white, non-injected Ears: Right ear: External ear/canal- Normal, TM - clear with good landmarks. Left ear: External ear/canal- Normal, TM - clear with good landmarks Oropharynx:moist without lesions, No erythema, exudates or tonsillar hypertrophy. Neck: mild cervical adenopathy Heart: Negative. RRR without obvious murmur, gallop, or rubs. No ectopy. Lungs: clear to auscultation, without rales or wheeze, good air exchange PAST MEDICAL HISTORY Diagnosis Date Allergic rhinitis seasonal--spring and fall Calculus of kidney 2004 small - incidental on CT scan, has never passed one that she's aware of Depression DM, gestational, diet controlled 2008 Esophageal reflux acid in back of throat, no pain - mostly with spicy foods, Prevacid helps Essential hypertension 04/20/2021 Generalized headaches Obstructive sleep apnea Dr. Vedre Personal history of urinary (tract) infection recurrent Threatened premature labor, unspecified as to episode of care Premature labor Thyrotoxicosis without mention of goiter or other cause, without mention of thyrotoxic crisis or storm 2006 Hyperthyroidism - placed on atenolol 25mg x 6 mo, states now off meds and thyroid ok PAST SURGICAL HISTORY Procedure Laterality Date PAST SURGICAL HISTORY OF 03/2005 left foot-removal of bunion PAST SURGICAL HISTORY OF Lesion removed from upper groin area PAST SURGICAL HISTORY OF Right 03/2022 ingrown toenail-type surgery ALLERGIES Seasonal Allergies MEDICATIONS CPAP AutoPAP 5-20 cmH2O, suitable mask,straps and chin straps as needed humidity, filters. Lifetime supplies. Dx: 327.23. metoprolol succinate ER (TOPROL XL) 25 mg 24 hr tablet Take 1 tablet by mouth once daily. fluticasone (FLONASE) 50 mcg/actuation nasal spray Use 2 Sprays in each nostril once daily. Rinse mouth after use. Ethinyl Estradiol-Norelgestrom (XULANE) 150-35 mcg/24 hr patch Apply 1 Patch as directed one time a week. Use continuously, no inactive week. Fgyltkzhcnztbzj-Kwmrxestr-HE (BROMFED DM) 2-30-10 mg/5 mL syrup Take 10 mL by mouth four times a day as needed. (Patient not taking: Reported on 02/10/2024) fluticasone (FLOVENT HFA) 44 mcg/actuation inhaler Inhale 1 Puff as instructed two times a day. Shake well before use. Rinse mouth after use. (Patient not taking: Reported on 12/12/2023) prednisoLONE acetate (PRED FORTE) 1 % ophthalmic suspension Use 1 Drop in the right eye four times daily. (Patient not taking: Reported on 12/12/2023) [DISCONTINUED] ergocalciferol, vitamin D2, (VITAMIN D2 ORAL) Take by mouth. FAMILY HISTORY Problem Relation Age of Onset Diabetes Mother 53 Thyroid Mother Unsure of exact etiology Heart Father age 49, heavy smoker, likely of [place] but pt not sure Diabetes Sister Diabetes Brother 25 Diabetes Maternal Grandmother other (Other) Maternal Grandmother MVA Alzheimer's Disease Maternal Grandfather also great grandma Diabetes Paternal Grandmother Ischemic Heart Disease Paternal Grandfather age 50 [place] Social History Tobacco Use Smoking status: Never Smokeless tobacco: Never Vaping Use Vaping Use: Never used Substance Use Topics Alcohol use: No Drug use: No ASSESSMENT/PLAN: 1. Acute cough - ICD9: 786.2, ICD10: R05.1 (primary diagnosis) 2. URI, acute - ICD9: 465.9, ICD10: J06.9 - COVID & INFLUENZA A/B & RSV NAAT, ROUTINE OTC meds. Potential red flag symptoms discussed with the patient. Reviewed appropriate action plan to take if red flag symptoms occur. Patient agreeable to treatment plan. Nelly Worrell APRN.LUIS documented in this encounter [facility] 12-22-2023 Miscellaneous Notes December 23, 2023 PID: [id number] Mata Cosme [address] [place] [id number] Dear Ms. Santana, We are pleased to inform you that the results of your recent breast imaging exam on 12/22/2023 are normal. Your mammogram demonstrates that you have dense breast tissue, which could hide abnormalities. Dense breast tissue, in and of itself, is a relatively common condition. Therefore, this information is not provided to cause undue concern; rather, it is to raise your awareness and promote discussion with your health care provider regarding the presence of dense breast tissue in addition to other risk factors. Early detection of cancer is very important. We also understand recommendations regarding breast 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 are controversial. Please discuss with your primary care provider which strategy is best for you and whether a mammogram is right for you. Your imaging studies and report will be kept on file at [facility] as part of your permanent medical record and are available for your continuing care. Thank you for allowing us to help in meeting your health care needs. Sincerely, Dr. Mathias Interpreting Radiologist [facility] (Normal over 40) documented in this encounter [facility] 12-22-2023 History of Present illness Narrative Radiology Service Progress Note PATIENT NAME: Mata Santana DATE OF SERVICE: December 22, 2023 TIME: 1:21 PM PATIENT IDENTITY VERIFICATION COMPLETED USING TWO (2) IDENTIFIERS: Name and Date of confirmed by patient verbally. FALL SCREENING: Has the patient had 2 falls in the last year or 1 fall with injury or currently using an Ambulatory Assistive Device (Walker, Cane, Wheelchair, Crutches, etc.)? No PATIENT GENDER DATA: Female. status: : No status: NO. PATIENT RELEVANT IMPLANT DATA REVIEWED: Not Applicable PATIENT PRESENTS WITH AN IMPLANTABLE OR ATTACHED [employer]CHO[employer] PE TEACHER: No RADIOLOGY DEPARTMENT: Mammography PERIPHERAL IV DATA: Not applicable SIGNED BY: RT Arun(R) December 22, 2023 1:21 PM documented in this encounter [facility] 12-12-2023 History of Present illness Narrative This note was created using [employer]umin[employer]. Subjective Mata Santana is a 48 year old female. HPI 48-year-old female presents for sinus congestion, cough, postnasal drainage for the past 3 days. Patient states 3 days ago she started feeling sick. She has had nasal congestion, postnasal drainage, cough, scratchy throat. Denies any fevers. States she has had sick contacts at work. No vomiting or diarrhea. Still able to eat and drink. PAST MEDICAL HISTORY Diagnosis Date Allergic rhinitis seasonal--spring and fall Calculus of kidney 2004 small - incidental on CT scan, has never passed one that she's aware of Depression DM, gestational, diet controlled 2008 Esophageal reflux acid in back of throat, no pain - mostly with spicy foods, Prevacid helps Essential hypertension 04/20/2021 Generalized headaches Obstructive sleep apnea Dr. Verde Personal history of urinary (tract) infection recurrent Threatened premature labor, unspecified as to episode of care Premature labor Thyrotoxicosis without mention of goiter or other cause, without mention of thyrotoxic crisis or storm 2006 Hyperthyroidism - placed on atenolol 25mg x 6 mo, states now off meds and thyroid ok PAST SURGICAL HISTORY Procedure Laterality Date PAST SURGICAL HISTORY OF 03/2005 left foot-removal of bunion PAST SURGICAL HISTORY OF Lesion removed from upper groin area PAST SURGICAL HISTORY OF Right 03/2022 ingrown toenail-type surgery ALLERGIES Seasonal Allergies MEDICATIONS CPAP AutoPAP 5-20 cmH2O, suitable mask,straps and chin straps as needed humidity, filters. Lifetime supplies. Dx: 327.23. metoprolol succinate ER (TOPROL XL) 25 mg 24 hr tablet Take 1 tablet by mouth once daily. fluticasone (FLONASE) 50 mcg/actuation nasal spray Use 2 Sprays in each nostril once daily. Rinse mouth after use. Nzwverxjridcjuv-Ciirkxmlb-MG (BROMFED DM) 2-30-10 mg/5 mL syrup Take 10 mL by mouth four times a day as needed. fluticasone (FLOVENT HFA) 44 mcg/actuation inhaler Inhale 1 Puff as instructed two times a day. Shake well before use. Rinse mouth after use. (Patient not taking: Reported on 12/12/2023) prednisoLONE acetate (PRED FORTE) 1 % ophthalmic suspension Use 1 Drop in the right eye four times daily. (Patient not taking: Reported on 12/12/2023) Ethinyl Estradiol-Norelgestrom (XULANE) 150-35 mcg/24 hr patch Apply 1 Patch as directed one time a week. Use continuously, no inactive week. [DISCONTINUED] ergocalciferol, vitamin D2, (VITAMIN D2 ORAL) Take by mouth. FAMILY HISTORY Problem Relation Age of Onset Diabetes Mother 53 Thyroid Mother Unsure of exact etiology Heart Father age 49, heavy smoker, likely of [place] but pt not sure Diabetes Sister Diabetes Brother 25 Diabetes Maternal Grandmother other (Other) Maternal Grandmother MVA Alzheimer's Disease Maternal Grandfather also great grandma Diabetes Paternal Grandmother Ischemic Heart Disease Paternal Grandfather age 50 [place] Social History Tobacco Use Smoking status: Never Smokeless tobacco: Never Vaping Use Vaping Use: Never used Substance Use Topics Alcohol use: No Drug use: No Review of Systems Constitutional: Positive for fatigue. Negative for chills and fever. HENT: Positive for congestion, postnasal drip and sore throat. Negative for ear pain. Respiratory: Positive for cough. Negative for shortness of breath. Cardiovascular: Negative for chest pain. Gastrointestinal: Negative for diarrhea and vomiting. Objective BP 126/72 Pulse 90 Temp 36.7 C (98 F) Resp 16 Wt 60.2 kg (132 lb 12.8 oz) LMP 04/10/2023 (Approximate) SpO2 98% BMI 23.90 kg/m Physical Exam Vitals and nursing note reviewed. Constitutional: General: She is not in acute distress. Appearance: Normal appearance. She is not toxic-appearing. HENT: Right Ear: Tympanic membrane and ear canal normal. Left Ear: Tympanic membrane and ear canal normal. Nose: Congestion present. Mouth/Throat: Mouth: Mucous membranes are moist. Pharynx: No oropharyngeal exudate or posterior oropharyngeal erythema. Eyes: Conjunctiva/sclera: Conjunctivae normal. Cardiovascular: Rate and Rhythm: Normal rate and regular rhythm. Pulmonary: Effort: Pulmonary effort is normal. Breath sounds: Normal breath sounds. No wheezing, rhonchi or rales. Neurological: Mental Status: She is alert. Assessment and Plan ASSESSMENT/PLAN: 1. URI, acute - ICD9: 465.9, ICD10: J06.9 - Discussed viral etiology and rationale for treatment. - Symptomatic treatment with prn analgesia - Supportive care with fluids and rest - RX Bromfed - COVID & INFLUENZA A/B & RSV NAAT, ROUTINE - out of window Tamiflu Diagnosis and treatment plan were discussed and questions were answered to the patient's satisfaction. Pt acknowledged understanding of concepts and follow up plan. Specific signs and symptoms that would indicate the need for higher level of care were discussed in detail warranting prompt ER evaluation. GRAYSON Jarrett documented in this encounter [facility] 09-17-2023 Instructions Angela Ortiz APRN.ADJUNCT PROFESSOR OF ENGLISH - 09/17/2023 9:41 AM EST Start over the counter antihistamine, such as Claritin or Zyrtec. Drink a lot of water - enough to make you urinate every 2-3 hours (your urine should be a light yellow color). Run a cool mist humidifier in your bedroom on high with the door closed. This is a natural way to decongest, and it helps lessen scratchy throats, nasal stuffiness and coughs. Drink warm fluids. Inhale warm mist. (Reason: both relax the airway and loosen up the phlegm) Suck on cough drops or hard candy to coat the irritated throat. Home Remedy: This old home remedy has been shown to help decrease coughing at night. The adult dosage is 2 teaspoons (10 ml) at bedtime Start fluticasone inhaler, use as directed. Let me know in one week if there is no improvement in symptoms documented in this encounter [facility] 09-17-2023 History of Present illness Narrative CC: Patient presents with: ER F/U: Dry cough x 3 weeks , medication not working. HPI Mata Santana is a 48 year old female who presents today for above. Patient was seen in [facility] care on 09/02 for viral URI. Symptoms worsened and she returned on 09/06. Diagnosed with sinobronchitis and treated with prednisone and doxycycline. Symptoms did not improve with medications, especially cough. She presented to [facility] ER on 09/12. Chest x-ray was negative. Treated again with prednisone along with albuterol inhaler. Today patient reports no improvement in cough. Occasionally coughs up clear sputum but mostly dry. Cough is worse at night, can't lay flat due to coughing and it is interfering with sleep. Her only other symptom is post nasal drainage. Denies any new or worsening symptoms. She has a history of seasonal allergies, uses Flonase daily. Also using albuterol inhaler without much relief. No history of asthma or other respiratory disease. Non-smoker. Review of Systems Constitutional: Positive for fatigue. Negative for appetite change, chills, diaphoresis, fever and unexpected weight change. HENT: Negative for congestion, ear pain, rhinorrhea, sinus pain and sore throat. Respiratory: Negative for chest tightness, shortness of breath and wheezing. Cardiovascular: Negative for chest pain, palpitations and leg swelling. PAST MEDICAL HISTORY Diagnosis Date Allergic rhinitis seasonal--spring and fall Calculus of kidney 2004 small - incidental on CT scan, has never passed one that she's aware of Depression DM, gestational, diet controlled 2008 Esophageal reflux acid in back of throat, no pain - mostly with spicy foods, Prevacid helps Essential hypertension 04/20/2021 Generalized headaches Obstructive sleep apnea Dr. Verde Personal history of urinary (tract) infection recurrent Threatened premature labor, unspecified as to episode of care Premature labor Thyrotoxicosis without mention of goiter or other cause, without mention of thyrotoxic crisis or storm 2006 Hyperthyroidism - placed on atenolol 25mg x 6 mo, states now off meds and thyroid ok PAST SURGICAL HISTORY Procedure Laterality Date PAST SURGICAL HISTORY OF 03/2005 left foot-removal of bunion PAST SURGICAL HISTORY OF Lesion removed from upper groin area PAST SURGICAL HISTORY OF Right 03/2022 ingrown toenail-type surgery ALLERGIES Seasonal Allergies MEDICATIONS CPAP AutoPAP 5-20 cmH2O, suitable mask,straps and chin straps as needed humidity, filters. Lifetime supplies. Dx: 327.23. metoprolol succinate ER (TOPROL XL) 25 mg 24 hr tablet Take 1 tablet by mouth once daily. fluticasone (FLONASE) 50 mcg/actuation nasal spray Use 2 Sprays in each nostril once daily. Rinse mouth after use. prednisoLONE acetate (PRED FORTE) 1 % ophthalmic suspension Use 1 Drop in the right eye four times daily. (Patient not taking: Reported on 09/06/2023) Ethinyl Estradiol-Norelgestrom (XULANE) 150-35 mcg/24 hr patch Apply 1 Patch as directed one time a week. Use continuously, no inactive week. [DISCONTINUED] ergocalciferol, vitamin D2, (VITAMIN D2 ORAL) Take by mouth. FAMILY HISTORY Problem Relation Age of Onset Diabetes Mother 53 Thyroid Mother Unsure of exact etiology Heart Father age 49, heavy smoker, likely of [place] but pt not sure Diabetes Sister Diabetes Brother 25 Diabetes Maternal Grandmother other (Other) Maternal Grandmother MVA Alzheimer's Disease Maternal Grandfather also great grandma Diabetes Paternal Grandmother Ischemic Heart Disease Paternal Grandfather age 50 [place] Social History Tobacco Use Smoking status: Never Smokeless tobacco: Never Vaping Use Vaping Use: Never used Substance Use Topics Alcohol use: No Drug use: No BP 136/85 Pulse 75 Temp 36.9 C (98.4 F) (Temporal) Resp 18 Wt 58.1 kg (128 lb) LMP 04/10/2023 (Approximate) SpO2 98% BMI 23.04 kg/m Physical Exam Vitals reviewed. Constitutional: General: She is not in acute distress. Appearance: She is ill-appearing. HENT: Right Ear: Ear canal normal. Left Ear: Ear canal normal. Nose: Nose normal. Mouth/Throat: Mouth: Mucous membranes are moist. Pharynx: Oropharynx is clear. Eyes: Conjunctiva/sclera: Conjunctivae normal. Cardiovascular: Rate and Rhythm: Normal rate and regular rhythm. Heart sounds: Normal heart sounds. No murmur heard. Pulmonary: Effort: Pulmonary effort is normal. Breath sounds: Normal breath sounds. No wheezing, rhonchi or rales. Musculoskeletal: Cervical back: Neck supple. Lymphadenopathy: Cervical: No cervical adenopathy. Skin: General: Skin is warm and dry. Neurological: Mental Status: She is alert. Psychiatric: Mood and Affect: Mood normal. DATA REVIEWED: Outside chart from [facility] ER reviewed. ASSESSMENT/PLAN: 1. Subacute cough - ICD9: 786.2, ICD10: R05.2 Post infectious cough secondary to bronchitis and post nasal drainage. No alarm symptoms or exam findings. - start treatment with Flovent inhaler, instructions given on use of inhaler - continue with Flonase and albuterol as needed - non-medication symptom management also discussed, see patient instructions - follow-up in one week if no improvement or sooner if any worsening Prescription instructions reviewed with patient as applicable. Potential red flag symptoms discussed with the patient. Reviewed appropriate action plan to take if red flag symptoms occur. Patient agreeable to treatment plan. Angela Ortiz APRN.LUIS documented in this encounter [facility] 09-12-2023 Hospital Discharge instructions Additional Instructions Your chest x-ray shows no evidence of pneumonia. You most likely have bronchitis which is a viral cough and can take up to 6 to 8 weeks to go away. I prescribed an albuterol inhaler and prednisone which may help. Follow-up with your primary care doctor. [facility] Work Phone: 09-06-2023 History of Present illness Narrative Subjective HPI Nontoxic-appearing female presents to urgent care with chief complaint of upper respiratory tract like infection. Duration of symptoms 1 week. Associated symptoms sore throat, nasal congestion, nasal discharge and nonproductive cough. Most bothersome symptom today is headache fatigue cough. Was seen at this urgent care on Thursday. Negative flu COVID test was obtained. Diagnosed with viral URI. Has been using OTC medications that have helped some. Patient states recent sick contacts with similar signs and symptoms. Patient denies any productive cough, fever, chest pain, shortness of breath, pleuritic pain, rash, abdominal pain, nausea, vomiting or change in bowel or bladder habit. Past medical history prescription medication use allergies reviewed. .Patient presents with: Cough: Congestion, loss of voice, DILLON, fatigue x 1 week PAST MEDICAL HISTORY Diagnosis Date Allergic rhinitis seasonal--spring and fall Calculus of kidney 2004 small - incidental on CT scan, has never passed one that she's aware of Depression DM, gestational, diet controlled 2008 Esophageal reflux acid in back of throat, no pain - mostly with spicy foods, Prevacid helps Essential hypertension 04/20/2021 Generalized headaches Obstructive sleep apnea Dr. Verde Personal history of urinary (tract) infection recurrent Threatened premature labor, unspecified as to episode of care Premature labor Thyrotoxicosis without mention of goiter or other cause, without mention of thyrotoxic crisis or storm 2005 Hyperthyroidism - placed on atenolol 25mg x 6 mo, states now off meds and thyroid ok PAST SURGICAL HISTORY Procedure Laterality Date PAST SURGICAL HISTORY OF 03/2005 left foot-removal of bunion PAST SURGICAL HISTORY OF Lesion removed from upper groin area PAST SURGICAL HISTORY OF Right 03/2022 ingrown toenail-type surgery ALLERGIES Seasonal Allergies MEDICATIONS CPAP AutoPAP 5-20 cmH2O, suitable mask,straps and chin straps as needed humidity, filters. Lifetime supplies. Dx: 327.23. metoprolol succinate ER (TOPROL XL) 25 mg 24 hr tablet Take 1 tablet by mouth once daily. fluticasone (FLONASE) 50 mcg/actuation nasal spray Use 2 Sprays in each nostril once daily. Rinse mouth after use. Ethinyl Estradiol-Norelgestrom (XULANE) 150-35 mcg/24 hr patch Apply 1 Patch as directed one time a week. Use continuously, no inactive week. prednisoLONE acetate (PRED FORTE) 1 % ophthalmic suspension Use 1 Drop in the right eye four times daily. (Patient not taking: Reported on 09/06/2023) [DISCONTINUED] ergocalciferol, vitamin D2, (VITAMIN D2 ORAL) Take by mouth. FAMILY HISTORY Problem Relation Age of Onset Diabetes Mother 53 Thyroid Mother Unsure of exact etiology Heart Father age 49, heavy smoker, likely of [place] but pt not sure Diabetes Sister Diabetes Brother 25 Diabetes Maternal Grandmother other (Other) Maternal Grandmother MVA Alzheimer's Disease Maternal Grandfather also great grandma Diabetes Paternal Grandmother Ischemic Heart Disease Paternal Grandfather age 50 [place] Social History Tobacco Use Smoking status: Never Smokeless tobacco: Never Vaping Use Vaping Use: Never used Substance Use Topics Alcohol use: No Drug use: No BP 138/92 Pulse 86 Temp 36.7 C (98.1 F) Resp 21 Wt 59.9 kg (132 lb) LMP 04/10/2023 (Approximate) SpO2 98% BMI 23.76 kg/m Review of Systems Constitutional: Positive for malaise/fatigue. Negative for chills and fever. HENT: Positive for congestion and sore throat. Negative for ear discharge, ear pain and sinus pain. Eyes: Negative for blurred vision, pain, discharge and redness. Respiratory: Positive for cough. Negative for hemoptysis, sputum production, shortness of breath, wheezing and stridor. Cardiovascular: Negative for chest pain. Gastrointestinal: Negative for abdominal pain, diarrhea, nausea and vomiting. Musculoskeletal: Positive for myalgias. Skin: Negative for itching and rash. Neurological: Positive for headaches. Negative for dizziness. Objective Physical Exam Constitutional: General: She is not in acute distress. Appearance: She is not diaphoretic. HENT: Head: Normocephalic. Jaw: No trismus, tenderness, swelling or pain on movement. Nose: Congestion present. Mouth/Throat: Mouth: Mucous membranes are moist. Pharynx: Oropharynx is clear. Uvula midline. No pharyngeal swelling, oropharyngeal exudate, posterior oropharyngeal erythema or uvula swelling. Eyes: Conjunctiva/sclera: Conjunctivae normal. Pupils: Pupils are equal, round, and reactive to light. Cardiovascular: Rate and Rhythm: Normal rate and regular rhythm. Heart sounds: Normal heart sounds. Pulmonary: Effort: Pulmonary effort is normal. No tachypnea, accessory muscle usage or respiratory distress. Breath sounds: Normal breath sounds. No stridor. No wheezing, rhonchi or rales. Abdominal: General: There is no distension. Palpations: Abdomen is soft. Tenderness: There is no abdominal tenderness. There is no guarding or rebound. Musculoskeletal: Cervical back: Normal range of motion and neck supple. No edema, erythema, rigidity or tenderness. No pain with movement. Normal range of motion. Lymphadenopathy: Cervical: No cervical adenopathy. Skin: General: Skin is warm and dry. Neurological: Mental Status: She is alert and oriented to person, place, and time. ASSESSMENT/PLAN: 1. Sinobronchitis - ICD9: 473.9, 490, ICD10: J32.9, J40 Patient nontoxic-appearing. Hemodynamically stable. Diagnosed with sinobronchitis. Placed on Tessalon Perles Mucinex and doxycycline. Patient was educated on supportive therapies. Patient will follow up with primary care provider as needed. Patient was instructed to immediately proceed to emergency room for any new, worsening, or symptoms lasting longer than anticipated. The patient's clinical presentation is otherwise unremarkable at this time. Based on exam and clinical finding, the patient is stable for discharge. Plan of care was discussed with patient. Patient verbalizes understanding and agrees to plan of care. This note was generated using Neurolink software. It may contain errors in wording, punctuation, or spelling. Genaro Patel APRN.LUIS documented in this encounter [facility] 09-03-2023 Miscellaneous Notes Pt was notified of the results. Pt verbalized understanding. Lor Ac MA Please notify that covid/flu/rsv testing negative. Continue with plan of care as discussed during visit. documented in this encounter [facility] 05-26-2023 History of Present illness Narrative SUBJECTIVE: HEPATITIS B(1 of 3 - 3-dose series) Never done DTAP,TDAP,TD(1 - Tdap) due on 12/29/2007 BP CONTROLLED (<130/80) due on 06/07/2022 SHINGRIX VACCINE(1 of 2) Never done HPI Mata Santana is a 48 year old female. Her past medical history is significant for ACTIVE PROBLEM LIST Allergic Rhinitis ELIAN (obstructive sleep apnea) [id number] 21AASM Excessive Daytime Sleepiness Anxiety State Ifg (Impaired Fasting Glucose) Essential Hypertension Hypokalemia Near Syncope Presents for recheck of blood pressure. She was seen in office April 29, 2022 and blood pressure was noted to be elevated. Noted to not be using CPAP due to falling asleep without putting it on. Her dose of metoprolol succinate was increased at her last visit. Today reports taking metoprolol at bedtime. She notes not consistently using CPAP, has not used it for a while. She notes enjoying salty foods. HTN: Without report ofheadache, chest pain, palpitations, dyspnea, peripheral edema, orthopnea, fatigue, and PND. Last 14 Encounter BP Readings: Date: BP: 05/26/2023 135/87[bp average[ 04/29/2023 147/100 01/20/2023 162/92 12/25/2022 136/87 12/14/2022 170/100 10/07/2022 128/82 09/08/2022 142/92 09/02/2022 122/76 07/21/2022 120/72 03/04/2022 118/70 02/25/2022 128/78 02/14/2022 136/84 11/19/2021 140/80 11/12/2021 132/86 Review of Systems Constitutional: Negative. Respiratory: Negative. Cardiovascular: Negative. Objective BP 135/87 Pulse 72 Resp 16 Wt 58.5 kg (129 lb) LMP 04/10/2023 (Approximate) BMI 23.22 kg/m Physical Exam Vitals and nursing note reviewed. HENT: Head: Normocephalic and atraumatic. Right Ear: Tympanic membrane and ear canal normal. Left Ear: Tympanic membrane and ear canal normal. Nose: Nose normal. Mouth/Throat: Lips: Cactus. Mouth: Mucous membranes are moist. Pharynx: Oropharynx is clear. Tonsils: No tonsillar exudate or tonsillar abscesses. Eyes: Conjunctiva/sclera: Conjunctivae normal. Neck: Thyroid: No thyromegaly or thyroid tenderness. Vascular: No JVD. Cardiovascular: Rate and Rhythm: Normal rate and regular rhythm. Pulses: Carotid pulses are 2+ on the right side and 2+ on the left side. Radial pulses are 2+ on the right side and 2+ on the left side. Heart sounds: Normal heart sounds. Pulmonary: Effort: Pulmonary effort is normal. Breath sounds: Wheezes: scattered expiratory. Abdominal: General: Bowel sounds are normal. Palpations: Abdomen is soft. Musculoskeletal: Right lower leg: No edema. Left lower leg: No edema. Skin: General: Skin is warm and dry. Neurological: General: No focal deficit present. Mental Status: She is alert and oriented to person, place, and time. ALLERGIES Allergen Reactions Seasonal Allergies Cough Cough, sneezing & watery eyes Medications metoprolol succinate ER (TOPROL XL) 25 mg 24 hr tablet Take 1 tablet by mouth once daily. fluticasone (FLONASE) 50 mcg/actuation nasal spray Use 2 Sprays in each nostril once daily. Rinse mouth after use. CPAP AutoPAP 5-20 cmH2O, suitable mask,straps and chin straps as needed humidity, filters. Lifetime supplies. Dx: 327.23. prednisoLONE acetate (PRED FORTE) 1 % ophthalmic suspension Use 1 Drop in the right eye four times daily. (Patient not taking: Reported on 05/26/2023) Ethinyl Estradiol-Norelgestrom (XULANE) 150-35 mcg/24 hr patch Apply 1 Patch as directed one time a week. Use continuously, no inactive week. [DISCONTINUED] ergocalciferol, vitamin D2, (VITAMIN D2 ORAL) Take by mouth. PAST MEDICAL HISTORY Diagnosis Date Allergic rhinitis seasonal--spring and fall Calculus of kidney 2004 small - incidental on CT scan, has never passed one that she's aware of Depression DM, gestational, diet controlled 2008 Esophageal reflux acid in back of throat, no pain - mostly with spicy foods, Prevacid helps Essential hypertension 04/20/2021 Generalized headaches Obstructive sleep apnea Dr. Verde Personal history of urinary (tract) infection recurrent Threatened premature labor, unspecified as to episode of care Premature labor Thyrotoxicosis without mention of goiter or other cause, without mention of thyrotoxic crisis or storm 2005 Hyperthyroidism - placed on atenolol 25mg x 6 mo, states now off meds and thyroid ok Social History Tobacco Use Smoking status: Never Smokeless tobacco: Never Vaping Use Vaping Use: Never used Substance Use Topics Alcohol use: No Drug use: No Component Latest Ref Rng & Units 03/12/2022 Protein, Total 6.3 - 8.0 g/dL 6.4 Albumin 3.9 - 4.9 g/dL 3.9 Calcium 8.5 - 10.2 mg/dL 8.9 Bilirubin, Total 0.2 - 1.3 mg/dL 0.4 Alkaline Phosphatase 34 - 123 U/L 59 AST 13 - 35 U/L 15 ALT 7 - 38 U/L 10 Glucose 74 - 99 mg/dL 110 (H) BUN 7 - 21 mg/dL 13 Creatinine 0.58 - 0.96 mg/dL 0.57 (L) Sodium 136 - 144 mmol/L 141 Potassium 3.7 - 5.1 mmol/L 4.0 Chloride 97 - 105 mmol/L 103 CO2 22 - 30 mmol/L 26 Anion Gap 9 - 18 mmol/L 12 eGFR >=60 mL/min/1.73m 112 WBC 3.70 - 11.00 k/uL 9.09 RBC 3.90 - 5.20 m/uL 4.42 Hemoglobin 11.5 - 15.5 g/dL 13.6 Hematocrit 36.0 - 46.0 % 42.6 MCV 80.0 - 100.0 fL 96.4 MCH 26.0 - 34.0 pg 30.8 MCHC 30.5 - 36.0 g/dL 31.9 RDW-CV 11.5 - 15.0 % 13.1 Platelet Count 150 - 400 k/uL 215 MPV 9.0 - 12.7 fL 10.3 Absolute nRBC <0.01 k/uL <0.01 Hemoglobin A1C 4.3 - 5.6 % 6.4 (H) Estimated Average Glucose mg/dL 137 TSH 0.270 - 4.200 mIU/L 1.620 Free T4 0.9 - 1.7 ng/dL 1.2 ASSESSMENT/PLAN: 1. Primary hypertension - ICD9: 401.9, ICD10: I10 (primary diagnosis) Improved control She notes dietary indiscretions with sodium and not wearing CPAP consistently. Endorse 2 g sodium diet or less, avoid salty foods. Resume CPAP. Check blood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 Alcohol and Drug Abuse Patient Records regulations: The Federal rules restrict any use of the information to criminally investigate or prosecute any alcohol or drug abuse patient.[facility] MemorialIn the event this information is protected by the Federal Confidentiality of Alcohol and Drug Abuse Patient Records regulations: The Federal rules restrict any use of the information to criminally investigate or prosecute any alcohol or drug abuse patient.[facility] MemorialIn the event this information is protected by the Federal Confidentiality of Alcohol and Drug Abuse Patient Records regulations: The Federal rules restrict any use of the information to criminally investigate or prosecute any alcohol or drug abuse patient.[facility] MemorialIn the event this information is protected by the Federal Confidentiality of Alcohol and Drug Abuse Patient Records regulations: The Federal rules restrict any use of the information to criminally investigate or prosecute any alcohol or drug abuse patient.[facility] MemorialIn the event this information is protected by the Federal Confidentiality of Alcohol and Drug Abuse Patient Records regulations: The Federal rules restrict any use of the information to criminally investigate or prosecute any alcohol or drug abuse patient.[facility] MemorialIn the event this information is protected by the Federal Confidentiality of Alcohol and Drug Abuse Patient Records regulations: The Federal rules restrict any use of the information to criminally investigate or prosecute any alcohol or drug abuse patient.[facility] MemorialIn the event this information is protected by the Federal Confidentiality of Alcohol and Drug Abuse Patient Records regulations: The Federal rules restrict any use of the information to criminally investigate or prosecute any alcohol or drug abuse patient.[facility] MemorialIn the event this information is protected by the Federal Confidentiality of Alcohol and Drug Abuse Patient Records regulations: The Federal rules restrict any use of the information to criminally investigate or prosecute any alcohol or drug abuse patient.[facility] MemorialIn the event this information is protected by the Federal Confidentiality of Alcohol and Drug Abuse Patient Records regulations: The Federal rules restrict any use of the information to criminally investigate or prosecute any alcohol or drug abuse patient.[facility] MemorialIn the event this information is protected by the Federal Confidentiality of Alcohol and Drug Abuse Patient Records regulations: The Federal rules restrict any use of the information to criminally investigate or prosecute any alcohol or drug abuse patient.[facility] MemorialIn the event this information is protected by the Federal Confidentiality of Alcohol and Drug Abuse Patient Records regulations: The Federal rules restrict any use of the information to criminally investigate or prosecute any alcohol or drug abuse patient.[facility] MemorialIn the event this information is protected by the Federal Confidentiality of Alcohol and Drug Abuse Patient Records regulations: The Federal rules restrict any use of the information to criminally investigate or prosecute any alcohol or drug abuse patient.[facility] MemorialIn the event this information is protected by the Federal Confidentiality of Alcohol and Drug Abuse Patient Records regulations: The Federal rules restrict any use of the information to criminally investigate or prosecute any alcohol or drug abuse patient.[facility] MemorialIn the event this information is protected by the Federal Confidentiality of Alcohol and Drug Abuse Patient Records regulations: The Federal rules restrict any use of the information to criminally investigate or prosecute any alcohol or drug abuse patient.[facility] MemorialIn the event this information is protected by the Federal Confidentiality of Alcohol and Drug Abuse Patient Records regulations: The Federal rules restrict any use of the information to criminally investigate or prosecute any alcohol or drug abuse patient.[facility] MemorialIn the event this information is protected by the Federal Confidentiality of Alcohol and Drug Abuse Patient Records regulations: The Federal rules restrict any use of the information to criminally investigate or prosecute any alcohol or drug abuse patient.[facility] MemorialIn the event this information is protected by the Federal Confidentiality of Alcohol and Drug Abuse Patient Records regulations: The Federal rules restrict any use of the information to criminally investigate or prosecute any alcohol or drug abuse patient.[facility] Reason for Visit (unrecogniz ed section and content) Reason Comments Physical Therapy Specialty Diagnoses / Procedures Referred By Contac t Referred To Contact [facility] Diagnoses Acute pain of left shoulder Procedures CONSULT TO PHYSICAL THERAPY PHYSICAL THERAPY EVALUATION HIGH COMPLEX 45 MINS Kendall Pete, PROC TECH.VERIFICATION MANAGER [address] [place] [address] Phone: tel: fax: [facility] [address] [place] [address] Referral ID Status Reason Start Date Expiration Date Visits Requested Visits Authorized [id number] Authorized Auto-Generat ed Referral 10/19/2024 10/18/2025 20 20 Reason Onset Date Comments Refill Request 01/11/2022 Reason Comments Pain Pt reported lower pe lvic/back pain x3 days Reason Comments Consult Specialty Diagnoses / Procedures Referred By Contac t Referred To Contact Urology Diagnoses Abdominal pain, lower H/O renal calculi Microscopic hematuria Procedures CONSULT TO UROLOGY OFFICE/OUTPATIENT [facility] MDM 60-74 MINUTES Mike Verdugo MD [address] [place] [address] Referral ID Status Reason Start Date Expiration Date V isits Requested Visits Authorized [id number] Closed PCP Requested Referral 02/14/2022 02/14/2023 1 1 Reason Comments F/U 6 months Reason Comments Eye Problem Possible pink left e ye/infection, no visions issues x 1 day Reason Comments Patient Question Reason Comments F/U 6 Month Reason Comments Social Work Services Reason Comments Cough DILLON, sob x 1 week Reason Comments Results Reason Comments Behavioral Health Social Work Reason Comments Cough x 10 days Reason Onset Date Comments Refill Request 11/04/2022 Reason Comments Covid19 Concern Cough, congestion x5 days+ rapid 12/09 Reason Onset Date Comments Refill Request 12/16/2022 Reason Comments Hospital F/U Reason Onset Date Comments Yearly Exam 01/20/2023 Reason Onset Date Comments Refill Request 04/20/2023 Reason Comments F/U 6 months Ear Problem too much fluid in e ars Reason Comments Blood Pressure Reason Comments Cough Congestion, loss of voice, DILLON, fatigue x 1 week Reason Comments ER F/U Dry cough x 3 weeks , medication not working. Reason Comments Nasal Congestion drainage, cough and sore throat x 3 days Reason Onset Date Comments Refill Request 03/17/2023 Reason Comments Cough Congestion, hot/cold flashes x 3 days Reason Comments Cough X 3 weeks , robituss in and mucinex - minimal relief. Reason Onset Date Comments Refill Request 03/01/2024 Reason Comments Yearly Exam Reason Comments F/U 3 Month Reason Comments Hypertension Reason Comments Follow Up Reason Comments left shoulder pain Dropped a tote on he r shoulder 1 week ago Reason Comments express care f/u Reason Comments PT Eval Reason Comments Well Woman Reason Onset Date Comments Refill Request 03/31/2025 Care Teams (unrecognized sec tion and content) Window Trimmer Relationship Specialty Start Date End Date Philly Gregory MD [address] [facility] [place] [address] PCP - General Internal Medicine 11/23/12 Window Trimmer Relationship Specialty Start Date End Date Philly Gregory MD [address] [place] [address] [place] [address] PCP - General Internal Medicine 11/23/12 Window Trimmer Relationship Specialty Start Date End Date Philly Gregory MD [address] [place] [address] [place] [address] PCP - General Internal Medicine 11/23/12 Window Trimmer Relationship Specialty Start Date End Date Philly Gregory MD [address] [place] [address], [place] [address] PCP - General Internal Medicine 11/23/12 Window Trimmer Relationship Specialty Start Date End Date Philly Gregory MD [address] [place] [address] [place] [address] PCP - General Internal Medicine 11/23/12 Window Trimmer Relationship Specialty Start Date End Date Philly Gregory MD [address] [place] [address] [place] [address] PCP - General Internal Medicine 11/23/12 Window Trimmer Relationship Specialty Start Date End Date Philly Gregory MD [address] [place] [address] [place] [address] PCP - General Internal Medicine 11/23/12 Window Trimmer Relationship Specialty Start Date End Date Philly Gregory MD [address] [facility] [place] [address] PCP - General Internal Medicine 11/23/12 Window Trimmer Relationship Specialty Start Date End Date Philly Gregory MD [address] [facility] [place] [address] PCP - General Internal Medicine 11/23/12 Window Trimmer Relationship Specialty Start Date End Date Philly Gregory MD [address] [facility] [place] [address] PCP - General Internal Medicine 11/23/12 Team Status: Active Member Role Status Dates Dr. Philly Gregory MD Family Provider Active Dr. Philly Gregory MD Primary Care Provider Active Team Status: Inactive Member Role Status Dates Dr. Philly Gregory MD Primary Care Provider Active Dr. Juan Luis Almeida , DO Emergency Provider Active Window Trimmer Relationship Specialty Start Date End Date Philly Gregory MD [address] [facility] [place] [address] PCP - General Internal Medicine 11/23/12 Window Trimmer Relationship Specialty Start Date End Date Philly Gregory MD [address] [facility] [place] [address] PCP - General Internal Medicine 11/23/12 Window Trimmer Relationship Specialty Start Date End Date Philly Gregory MD [address] [facility] [place] [address] PCP - General Internal Medicine 11/23/12 Window Trimmer Relationship Specialty Start Date End Date Philly Gregory MD [address] [facility] [place] [address] PCP - General Internal Medicine 11/23/12 Window Trimmer Relationship Specialty Start Date End Date Philly Gregory MD [address] [facility] [place] [address] PCP - General Internal Medicine 11/23/12 Window Trimmer Relationship Specialty Start Date End Date Philly Gregory MD [address] [facility] [place] [address] PCP - General Internal Medicine 11/23/12 Window Trimmer Relationship Specialty Start Date End Date Philly Gregory MD [address] [facility] [place] [address] PCP - General Internal Medicine 11/23/12 Window Trimmer Relationship Specialty Start Date End Date Philly Gregory MD [address] [facility] [place] [address] PCP - General Internal Medicine 11/23/12 Window Trimmer Relationship Specialty Start Date End Date Philly Gregory MD [address] [facility] [place] [address] PCP - General Internal Medicine 11/23/12 Team Status: Inactive Member Role Status Dates Dr. Philly Gregory MD Primary Care Provider Active Dr. Gonzalo Keys MD Emergency Provider Active Team Status: Inactive Member Role Status Dates Dr. Philly Gregory MD Primary Care Provider Active Arslan Scott MD Emergency Provider Active Team Status: Inactive Member Role Status Dates Dr. Philly Gregroy MD Primary Care Provider Active Dr. Gonzalo Keys MD Attending Provider, Emergency Provider Active Window Trimmer Relationship Specialty Start Date End Date Philly Gregory MD [address] [facility] [place] [address] PCP - General Internal Medicine 11/23/12 Window Trimmer Relationship Specialty Start Date End Date Philly Gregory MD [address] [facility] [place] [address] PCP - General Internal Medicine 11/23/12 Window Trimmer Relationship Specialty Start Date End Date Philly Gregory MD [address] [facility] [place] [address] PCP - General Internal Medicine 11/23/12 Window Trimmer Relationship Specialty Start Date End Date Philly Gregory MD [address] [facility] [place] [address] PCP - General Internal Medicine 11/23/12 Window Trimmer Relationship Specialty Start Date End Date Philly Gregory MD [address] [facility] [place] [address] PCP - General Internal Medicine 11/23/12 Window Trimmer Relationship Specialty Start Date End Date Philly Gregory MD [address] [facility] [place] [address] PCP - General Internal Medicine 11/23/12 Window Trimmer Relationship Specialty Start Date End Date Philly Gregory MD [address] [facility] [place] [address] PCP - General Internal Medicine 11/23/12 Window Trimmer Relationship Specialty Start Date End Date Philly Gregory MD [address] [facility] [place] [address] PCP - General Internal Medicine 11/23/12 Window Trimmer Relationship Specialty Start Date End Date Philly Gregory MD [address] [facility] [place] [address] PCP - General Internal Medicine 11/23/12 Window Trimmer Relationship Specialty Start Date End Date Philly Gregory MD [address] [facility] [place] [address] PCP - General Internal Medicine 11/23/12 Window Trimmer Relationship Specialty Start Date End Date Philly Gregory MD [address] [facility] [place] [address] PCP - General Internal Medicine 11/23/12 Kendall Pete, PROC TECH.VERIFICATION MANAGER [address] [facility] [place] [address] General Manager Farm Internal Medicine 09/26/24 Kiersten Calzada PROC TECH.ADJUNCT PROFESSOR OF ENGLISH [address] [facility] [place] [address] General Manager Farm Internal Medicine 09/26/24 Window Trimmer Relationship Specialty Start Date End Date Philly Gregory MD [address] [facility] [place] [address] PCP - General Internal Medicine 11/23/12 Kendall Pete, PROC TECH.VERIFICATION MANAGER [address] [facility] [place] [address] General Manager Farm Internal Medicine 09/26/24 Kiersten Calzada PROC TECH.ADJUNCT PROFESSOR OF ENGLISH [address] [facility] [place] [address] General Manager Farm Internal Medicine 09/26/24 Window Trimmer Relationship Specialty Start Date End Date Philly Gregory MD [address] [facility] [place] [place] [address] PCP - General Internal Medicine 11/23/12 Kendall Pete, PROC TECH.VERIFICATION MANAGER [address] [facility] [place] [address] General Manager Farm Internal Medicine 09/26/24 Kiersten Calzada APRN.ADJUNCT PROFESSOR OF ENGLISH [address] [facility] [address] General Manager Farm Internal Medicine 09/26/24 Window Trimmer Relationship Specialty Start Date End Date Philly Gregory MD [address] [facility] [place] [address] PCP - General Internal Medicine 11/23/12 Kendall Pete PROC TECH.VERIFICATION MANAGER [address] [facility] [place] [address] General Manager Farm Internal Medicine 09/26/24 Kiersten Calzada APRN.ADJUNCT PROFESSOR OF ENGLISH [address] [facility] [place] [address] General Manager Farm Internal Medicine 09/26/24 Window Trimmer Relationship Specialty Start Date End Date Philly Gregory MD [address] [facility] [place] [address] PCP - General Internal Medicine 11/23/12 Kendall Pete PROC TECH.VERIFICATION MANAGER [address] [facility] [place] [address] General Manager Farm Internal Medicine 09/26/24 Kiersten Calzada APRN.ADJUNCT PROFESSOR OF ENGLISH [address] [facility] [place] [address] General Manager Farm Internal Medicine 01/10/25 Window Trimmer Relationship Specialty Start Date End Date Philly Gregory MD [address] [facility] [place] [address] PCP - General Internal Medicine 11/23/12 Kendall Pete APRN.VERIFICATION MANAGER [address] [place] [address] General Manager Farm Internal Medicine 09/26/24 Kiersten Calzada APRN.ADJUNCT PROFESSOR OF ENGLISH [address] [facility] [place] [place] [address] General Manager Farm Internal Medicine 09/26/24 01/06/25 Kiersten Calzada APRN.ADJUNCT PROFESSOR OF ENGLISH [address] [facility] [address] [facility] Internal Medicine 01/10/25 Window Trimmer Relationship Specialty Start Date End Date Philly Gregory MD [address] [facility] [place] [address] PCP - General Internal Medicine 11/23/12 Kendall Pete APRN.VERIFICATION MANAGER [address] [facility] [address] [facility] Internal Medicine 09/26/24 Kiersten Calzada APRN.ADJUNCT PROFESSOR OF ENGLISH [address] [facility] [place] [address] [facility] Internal Medicine 01/10/25 Window Trimmer Relationship Specialty Start Date End Date Philly Gregory MD [address] [facility] [place] [place] [address] PCP - General Internal Medicine 11/23/12 Kiersten Calzada APRN.ADJUNCT PROFESSOR OF ENGLISH [address] [facility] [place] [address] General Manager Farm Internal Medicine 01/10/25 Kendall Pete, PROC TECH.VERIFICATION MANAGER [address] [facility] [place] [address] [facility] Internal Medicine 03/08/25 Window Trimmer Relationship Specialty Start Date End Date Philly Gregory MD [address] [facility] [place] [address] PCP - General Internal Medicine 11/23/12 Kiersten Calzada, PROC TECH.ADJUNCT PROFESSOR OF ENGLISH [address] [place] [address] [facility] Internal Medicine 01/10/25 Kendall Pete, PROC TECH.VERIFICATION MANAGER [address] [facility] [place] [address] [facility] Internal Medicine 03/08/25 Window Trimmer Relationship Specialty Start Date End Date Philly Gregory MD [address] [place] [address] PCP - General Internal Medicine 11/23/12 Kiersten Calzada PROC TECH.ADJUNCT PROFESSOR OF ENGLISH [address] [facility] [place] [address] [facility] Internal Medicine 01/10/25 Kendall Pete, PROC TECH.VERIFICATION MANAGER [address] [facility] [place] [address] [facility] Internal Medicine 03/08/25 Window Trimmer Relationship Specialty Start Date End Date Philly Gregory MD [address] [facility] [place] [address] PCP - General Internal Medicine 11/23/12 Kiersten Calzada APRN.ADJUNCT PROFESSOR OF ENGLISH [address] [place] [address] [facility] Internal Medicine 01/10/25 Kendall Pete, YONATAN.VERIFICATION MANAGER [address] [place] [address] [facility] Internal Medicine 03/08/25 Goals (unrecognized section and content) Goals may be documented in a n alternate sectionGoals may be documented in an alternate sectionGoals may be documented in an alternate section INFORMATION SOURCE (unrecogn ized section and content) DATE CREATED AUTHOR 04/02/2024 [facility] DATE CREATED AUTHOR SANJU STEIN 03/22/2025 [facility] FOR RECORDS PERTAINING TO PATIENTS WHO ARE OR HAVE BEEN ENROLLED IN A CHEMICAL DEPENDENCY/SUBSTANCEABUSE PROGRAM, SOME INFORMATION MAY BE OMITTED. This clinical summary was aggregated from multiple sources. Caution should be exercised in using it in the provision of clinical care. This summary normalizes information from multiple sources, and as a consequence, information in this document may materially change the coding, format and clinical context of patient data. In addition, data may be omitted in some cases. CLINICAL DECISIONS SHOULD BE BASED ON THE PRIMARY CLINICAL RECORDS. [employer] provides no warranty or guarantee of the accuracy or completeness of information in this document.
--- NOTE | 2025-04-01 15:33 | EX.ED.UPPERE ---
HPI History of Present Illness Chief Complaint: Upper Extremity Injury Informant: patient and family Narrative Narrative: 49-year-old female presenting to the emergency room with left shoulder pain. Patient was at work today when she started to fall and then a cart started to come down on top of her. She tried to push the cart away. She notes pain in the left shoulder. She has been doing physical therapy for a left shoulder injury following with orthopedics at [facility]. She notes limited range of motion being able to minimally AB duct to about 75 degrees. She notes pain when she attempts to raise her arm in front of her. She denies any distal symptoms. Symptoms seem to be confined to the shoulder and upper biceps region. [facility] Medical History Gestational diabetes Anxiety Home Medications ?Medication ?Instructions ?Recorded ?Last Taken ?Type desogestrel 0.15 mg-ethinyl 1 tab PO DAILY 02/12/14 02/11/14 History estradiol 0.03 mg tablet (Emoquette) atenolol 25 mg tablet 25 mg PO DAILY ##30 02/13/14 Unknown Rx potassium chloride 20 mEq 20 meq PO DAILY #7 tabs 03/17/21 Unknown Rx tablet,extended release albuterol sulfate 90 mcg/actuation 1 inh inhalation Q6H PRN shortness 09/12/23 Unknown Rx aerosol inhaler (ProAir HFA) of breath or wheezing #6.7 grams prednisone 20 mg tablet 40 mg (2 x 20 mg) PO DAILY 5 days 09/12/23 Unknown Rx #10 tabs amoxicillin 875 mg-potassium 1 tab PO BID #14 tabs 03/27/24 Unknown Rx clavulanate 125 mg tablet dicyclomine 10 mg capsule 10 mg PO TID PRN abdominal pain 03/27/24 Unknown Rx #15 caps Allergy/AdvReac Type Severity Reaction Status Date / Time No Known Allergies Allergy Verified 04/01/25 13:17 Family History Other Diabetes Surgical History Hx of toe surgery Social History Smoking Status: Never smoker substance use type: does not use ROS ROS ED Constitutional Constitutional ED: Denies chills, fever(s) or weight loss Eyes Eyes: Denies change in vision or diplopia ENT ENT ED: Denies ear pain, rhinorrhea or sore throat Cardiovascular Cardiovascular: Denies chest pain, orthopnea, palpitations or racing heartbeat Respiratory/Chest Respiratory/Chest: Denies cough, dyspnea or orthopnea Gastrointestinal Gastrointestinal: Denies abdominal pain, diarrhea, nausea or vomiting Genitourinary Genitourinary ED: Denies dysuria, hematuria or urinary frequency Musculoskeletal Musculoskeletal: Reports other Details: See history of present illness ; Denies arthralgias, back pain, myalgias or neck pain Integumentary Denies abscess or rash Neurologic Neurologic: Denies headache(s) or weakness Psychiatric Psychiatric: Denies anxiety, depression, suicidal ideation or suicidal thoughts Endocrine Endocrinology: Denies polydipsia, polyphagia or polyuria Allergic/Immunologic Allergic/Immunologic ED: Denies mouth swelling, tongue swelling or urticaria EXAM Physical Exam Const Vital Signs: 04/01/25 13:13 Temperature 97.9 F Temperature Source Oral Pulse Rate 69 Respiratory Rate 17 Blood Pressure 147/102 H Blood Pressure Mean 117 Pulse Ox 99 Oxygen Delivery Method Room Air Positive well nourished and well developed General Appearance ED: well developed HEENT Reports normocephalic, head/scalp atraumatic and moist mucous membranes Eyes PERRL and EOMs intact bilaterally Neck full ROM, no lymphadenopathy, supple and no JVD General: Negative for tenderness Resp normal respiratory effort and clear to auscultation bilaterally Cardio regular rate, regular rhythm and no murmurs GI normal to inspection, nondistended, normoactive bowel sounds and non-tender Palpation: soft Back/Spine no CVA tenderness and normal ROM Extremity Extremity Narrative: Left shoulder demonstrates tenderness to palpation along the supraspinatus muscular sure and deltoid region. There is no obvious dislocation. No deformity. Neurovascularly intact distally. Patient does have the ability to AB duct to about 75 to 80 degrees before she gets significant pain. She has the ability to raise her arm in front of her to about 90 degrees before she gets significant pain. Subacromium region does not appear full. General Extremety ED: Negative for edema General Extremity: Negative for edema Neuro oriented x3 and CN's II-XII intact bilaterally Sensorium / Orientation: alert Motor Exam: strength 5/5 throughout Psych mental status grossly normal Mood & Affect: Negative for depressed or tearful Skin no rashes or lesions noted and no wounds MDM MDM MDM Narrative Medical decision making narrative: Differential diagnosis includes fracture tendon injury muscular strain/tear ligamentous injury labral tear dislocation injury neurovascular injury My independent interpretation of the plain films of the left shoulder there is no acute fracture. Clinically the patient is neurovascularly intact. We talked about muscular and tendon injuries as well as ligamentous injuries and this possibility this could be a strain or tearing. I did recommend conservative management for the next week and have her follow-up with her orthopedist. Patient is comfortable with this plan. This is a Workmen's Comp. case and initial FROI was filled out. History & Record Review Discussion w/independent historian: Patient Radiography Diagnostic Testing: Clinical Impression(s) from Imaging Studies Shoulder X-Ray 04/01/25 13:40 IMPRESSION: NO ACUTE FRACTURE OR DISLOCATION. Reading Location: [facility] Discharge Plan Triage Chief Complaint: Upper Extremity Injury ED Provider: Hugo Miranda Dx/Rx/DC Orders Clinical Impression: Left shoulder strain, Acute pain of left shoulder Instructions: Rotator Cuff Injury, ED Muscle Strain, Extremity Prescriptions: No Action desogestrel-ethinyl estradiol [Emoquette] 1 EACH tablet 1 tab PO DAILY Patient Comments: estrogen atenolol 25 MG tablet 25 mg PO DAILY Qty: 30 0RF Patient Comments: heart potassium chloride 20 mEq tablet extended release 20 meq PO DAILY Qty: 7 0RF albuterol sulfate [ProAir HFA] 90 mcg/actuation HFA aerosol inhaler 1 inh inhalation Q6H PRN (Reason: shortness of breath or wheezing) Qty: 6.7 0RF prednisone 20 mg tablet 40 mg PO DAILY 5 Days Qty: 10 0RF amoxicillin-pot clavulanate 875-125 mg tablet 1 tab PO BID Qty: 14 0RF dicyclomine 10 mg capsule 10 mg PO TID PRN (Reason: abdominal pain) Qty: 15 0RF Primary Care Provider: Francesca Miranda Referrals: Francesca Miranda MD [Primary Care Provider] - Activity Restrictions/Additional Instructions: Please follow-up with your orthopedist in 1 week. I would avoid strenuous activity with the shoulder. I would avoid overhead activities. Do try to keep the shoulder utilized but gently and within the range of motion that is nonpainful. Ice for the first 48 hours and then heat sessions. I would recommend anti-inflammatories such as ibuprofen 600 mg every 6 hours. He Print Language: Mozambican Disposition Disposition: Home, Self Care
[2025-04-01 15:41] VITALS: BP 147/102; PULSE 69; RESP 17; TEMP 36.6; O2SAT 99
== END 2025-04-01 15:58 | disposition home or self-care (01) ==
PROVIDERS: Emergency Provider Emergency Medicine; PCP Internal Medicine; Visit Provider Emergency Medicine
DX: S46.912A Strain of unspecified muscle, fascia and tendon at shoulder and upper arm level, left arm, initial encounter (principal); W23.1XXA Caught, crushed, jammed, or pinched between stationary objects, initial encounter; Y99.0 Civilian activity done for income or pay
CPT/HCPCS: 73030; 99282

== ENCOUNTER 2025-06-10 09:06 | Emergency (ER) | payer OTHER, SELFPAY ==
[2025-06-10 09:07] VITALS: BP 160/102; PULSE 73; RESP 18; TEMP 37; O2SAT 100; BMI 23.8
--- NOTE | 2025-06-10 09:16 | RAD_ITS ---
PROCEDURE: CHEST PA AND LATERAL 06/10/2025 REASON FOR EXAM: CHEST PAIN TECHNIQUE: CHEST PA AND LATERAL COMPARISON: Chest x-ray 09/20/2023. FINDINGS: Hardware: Monitor electrodes overlie the chest. Heart: No cardiomegaly. Mediastinum: Unremarkable. Lungs: Clear. No pleural effusion pneumothorax. Bones: No acute bony abnormalities. RAD/Chest PA and Lateral IMPRESSION: No acute cardiopulmonary abnormalities. Reading Location: [id number]
--- NOTE | 2025-06-10 09:16 | EDS_ITS ---
HPI History of Present Illness Chief Complaint: Chest Pain Informant: patient Narrative Narrative: 50-year-old female has been having chest tightness substernal without radiation since yesterday afternoon after lunch. She had chicken and rice nothing unusual. She states it feels like gas, she has been belching a lot since then, she has a history of GERD, she has taken Tums multiple times but the discomfort will go away. When she belches it improves transiently but then seems to gradually worsen a little later. She states is making her feel little short of breath. The discomfort is nonpleuritic. She denies any significant abdominal pain, no nausea or vomiting, she is passing flatus occasionally. No history of heart disease that she knows of. [facility] Medical History (Updated 06/10/25 @ 11:[address] Stephane López MD) GERD (gastroesophageal reflux disease) Gestational diabetes Anxiety Home Medications ?Medication ?Instructions ?Recorded ?Last Taken ?Type desogestrel 0.15 mg-ethinyl 1 tab PO DAILY 02/12/14 History estradiol 0.03 mg tablet (Emoquette) atenolol 25 mg tablet 25 mg PO DAILY ##30 02/13/14 Unknown Rx potassium chloride 20 mEq 20 meq PO DAILY #7 tabs 02/18 Unknown Rx tablet,extended release albuterol sulfate 90 mcg/actuation 1 inh inhalation Q6 H PRN shortness 09/12/23 Unknown Rx aerosol inhaler (ProAir HFA) of breath or wheezing #6. 7 grams prednisone 20 mg tablet 40 mg (2 x 20 mg) PO DAILY 5 days 09/12/23 Unknown Rx #10 tabs amoxicillin 875 mg-potassium 1 tab PO BID #14 tabs 07/12 Unknown Rx clavulanate 125 mg tablet dicyclomine 10 mg capsule 10 mg PO TID PRN abdominal p ain 03/27/24 Unknown Rx #15 caps pantoprazole 40 mg tablet,delayed 40 mg PO DAILY #30 t abs 06/10/25 Unknown Rx release Allergy/AdvReac Type Severity Reaction Status Date / Time No Known Allergies Allergy Verified 06/10/25 09:07 Family History Other Diabetes Surgical History Hx of toe surgery Social History Smoking Status: Never smoker substance use type: does not use ROS ROS ED Constitutional Constitutional ED: Denies chills or fever(s) Eyes Eyes: Denies change in vision or diplopia ENT ENT ED: Denies rhinorrhea or sore throat Cardiovascular Cardiovascular: Reports as per HPI and chest pain; Denies orthopnea, palpitations or radiating jaw, neck or arm pain Respiratory/Chest Respiratory/Chest: Reports dyspnea; Denies cough or orthopnea Gastrointestinal Gastrointestinal: Denies abdominal pain, diarrhea, nausea or vomiting Genitourinary Genitourinary ED: Denies dysuria or hematuria Musculoskeletal Musculoskeletal: Denies back pain or neck pain Integumentary Denies abscess or rash Neurologic Neurologic: Denies headache(s), paresthesias or weakness Psychiatric Psychiatric: Denies suicidal thoughts EXAM Physical Exam Const Vital Signs: 06/10/25 09:07 06/10/25 09:16 06/10/25 09:16 Temperature 98.6 F Temperature Source Oral Pulse Rate 73 Respiratory Rate 18 Respiratory Effort Normal Non-Labored Blood Pressure 160/102 H Blood Pressure Mean 121 Pulse Ox 100 Oxygen Delivery Method Room Air Room Air 06/10/25 10:06 06/10/25 11:17 Temperature Temperature Source Pulse Rate 60 66 Respiratory Rate 9 L 14 Respiratory Effort Blood Pressure 138/88 H 123/80 H Blood Pressure Mean 104 94 Pulse Ox 97 100 Oxygen Delivery Method Room Air Room Air Positive well nourished and well developed General Appearance ED: well developed and NAD HEENT Reports moist mucous membranes normocephalic and atraumatic Eyes PERRL and EOMs intact bilaterally Neck full ROM, supple and no JVD Chest Wall inspection of chest normal and palpation of chest normal Resp normal respiratory effort and clear to auscultation bilaterally Cardio regular rate, regular rhythm and no murmurs GI non-distended GI Narrative: Mild epigastric tenderness no pulsatile mass negative Triana Auscultation: normoactive bowel sounds Palpation: soft Back/Spine no CVA tenderness General Back: other FROM Extremity normal to inspection General Extremety ED: Negative for edema, pulses abnormal or tenderness General Extremity: Negative for edema or pulses abnormal Neuro oriented x3, CN's II-XII intact bilaterally, no sensory deficits noted and gait normal Sensorium / Orientation: awake and alert Motor Exam: strength 5/5 throughout Psych Mood & Affect: anxious Skin no rashes or lesions noted and no wounds Heart Score History: Slightly/Non-Suspicious ECG: Normal Age: >45 - <65 years Risk Factors: No Risk Factors Troponin: </= Normal Limit Score: 1 MDM MDM MDM Narrative Medical decision making narrative: 2P chest x-ray normal on my interpretation, her EKG is also normal. She has a troponin that is less than 6 has been having discomfort for 24 hours or so, I do not think we need to repeat that, and the rest of her labs are normal and furthermore, she feels better after GI cocktail. I have a feeling it was the lidocaine and the simethicone that helped more than anything else. She is on nothing for GERD, she has been diagnosed with it in the past. And compa start her on pantoprazole, give her a months worth and have her follow-up with her doctor she is comfortable with that plan. Lab Data Attestation: I reviewed the patient's lab results. Labs: Laboratory Results - last 24 hr 06/10/25 09:36 WBC 6.8 RBC 4.07 L Hgb 13.1 Hct 37.4 MCV 91.9 MCH 32.2 H MCHC 35.0 RDW Std Deviation 40.6 RDW Coeff of Aaliyah 11.9 Plt Count 217 MPV 9.9 Immature Gran % (Auto) 0.300 Neut % (Auto) 52.5 Lymph % (Auto) 36.4 [place] % (Auto) 8.4 Eos % (Auto) 1.5 Baso % (Auto) 0.9 Absolute Neuts (auto) 3.6 Absolute Lymphs (auto) 2.46 Nucleated RBC % 0 Sodium 139 Potassium 3.6 Chloride 100 Carbon Dioxide 24.5 Anion Gap 15 BUN 9 Creatinine 0.60 L Estim Creat Clear Calc 86.75 Est GFR (MDRD) Non-Af 108 BUN/Creatinine Ratio 15.4 Glucose 130 H Calcium 10.2 Troponin T High Sens < 6 Lipase 33 Radiography Diagnostic Testing: Clinical Impression(s) from Imaging Studies Chest X-Ray 06/10/25 09:16 IMPRESSION: No acute cardiopulmonary abnormalities. Reading Location: [id number] Rhythm Strip Rhythm Strip: Sinus Rhythm Rate: 73 Ectopy: None EKG Initial EKG: Attestation: I personally reviewed and interpreted this EKG as follows: Interpretation: Sinus Rhythm and No Acute Injury Pattern Comments: Nml axis & intervals; nml EKG Discharge Plan Triage Chief Complaint: Chest Pain ED Provider: Stephane López Dx/Rx/DC Orders Clinical Impression: Chest pain due to GERD Instructions: ED Chest Pain, Noncardiac, ED GERD (Adult) Prescriptions: New pantoprazole 40 mg tablet,delayed release (DR/EC) 40 mg PO DAILY Qty: 30 0RF No Action desogestrel-ethinyl estradiol [Emoquette] 1 EACH tablet 1 tab PO DAILY Patient Comments: estrogen atenolol 25 MG tablet 25 mg PO DAILY Qty: 30 0RF Patient Comments: heart potassium chloride 20 mEq tablet extended release 20 meq PO DAILY Qty: 7 0RF albuterol sulfate [ProAir HFA] 90 mcg/actuation HFA aerosol inhaler 1 inh inhalation Q6H PRN (Reason: shortness of breath or wheezing) Qty: 6.7 0RF prednisone 20 mg tablet 40 mg PO DAILY 5 Days Qty: 10 0RF amoxicillin-pot clavulanate 875-125 mg tablet 1 tab PO BID Qty: 14 0RF dicyclomine 10 mg capsule 10 mg PO TID PRN (Reason: abdominal pain) Qty: 15 0RF Primary Care Provider: Francesca Miranda Referrals: Francesca Miranda MD [Primary Care Provider] - 1-2 Weeks Print Language: Jamaican Disposition Disposition: Home, Self Care
--- NOTE | 2025-06-10 09:16 | EKG12_ITS ---
Test Reason : CP Blood Pressure : */* mmHG Vent. Rate : 74 BPM Atrial Rate : 74 BPM P-R Int : 96 ms QRS Dur : 88 ms QT Int : 410 ms P-R-T Axes : -15 47 5 degrees QTcB Int : 455 ms Sinus rhythm with short SC Nonspecific ST abnormality Abnormal ECG Confirmed by BRY PIERRE, KATHRIN ([id number]), video tape editor NITISH SINGH ([id number]) on 06/12/2025 1:02:52 PM Referred By: Confirmed By: KATHRIN LONDONO MD
[2025-06-10 09:43] LABS: Hematocrit 37.4 % (37-47); Hemoglobin 13.1 g/dL (12.0-15.0); Immature Granulocytes Count 0.020 X10^3/uL (0.0-0.0); Mean Corp Hgb Conc 35.0 g/dL (32-36); Mean Corpuscular Volume 91.9 fL (81-99); Mean Platelet Vol. 9.9 fl (6.2-12.0); NRBC Flagged by Analyzer 0 % (0-5); Platelet Count 217 K/mm3 (150-450); RBC Distribution Width CV 11.9 % (11.6-14.6); RBC Distribution Width SD 40.6 fl (35.1-43.9); Red Blood Count 4.07 M/mm3 (4.2-5.4); White Blood Count 6.8 K/mm3 (4.4-11.0)
--- OUTSIDE RECORDS SUMMARY | 2025-06-10 09:46 | XMS RPT_ITS | CCD ---
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 classic symptoms of hyperglycemia or hyperglycemic crisis, random plasma glucose results greater than or equal to 200 mg/dL meet the criteria for diagnosis of diabetes. Reference: Standards of Medical Care in Diabetes 2016, [place] Diabetes Association. Diabetes Care. 2016.39(Suppl 1). Performed By: #### 2 4331-1, 55385-9 ####[facility] LABIA [id number] [address] [address] [place] Potassium [Moles/Vol] 3.9 mmol/L Normal 3.7-5.1 [facility] Comment on above: Order Comment: Speci men Type: BLOOD SPECIMENOrdering Facility: [facility] Address: [address] [place] [address] Performed By: #### 2 4331-1, ####[facility] LABCLIA [id number] [address] [address] [place] Protein [Mass/Vol] 6.5 g/dL Normal 6.3-8.0 [facility] Comment on above: Order Comment: Speci men Type: BLOOD SPECIMENOrdering Facility: [facility] Address: [address] [place] [address] Performed By: #### 2 4331-1, ####[facility] LABCLIA [id number] [place] [address] [place] Sodium [Moles/Vol] 139 mmol/L Normal 136-144 [facility] Comment on above: Order Comment: Speci men Type: BLOOD SPECIMENOrdering Facility: [facility] Address: [address] [place] [address] Performed By: #### 2 4331-, ####[facility] LABCLIA [id number] [address] [address] [place] Urea nitrogen [Mass/Vol] 10 mg/dL Normal 7-21 [facility] Comment on above: Order Comment: Speci men Type: BLOOD SPECIMENOrdering Facility: [facility] Address: [address] [place] [address] Performed By: #### 2 4331-1, ####[facility] LABCLIA [id number] [address] [address] [place] HbA1c (Bld)on 05-18-2025 Average glucose Estimated from glycated hemoglobin (Bld) [Mass/Vol] 146 mg/dL Normal [facility] Comment on above: Order Comment: Speci men Type: BLOOD SPECIMENOrdering Facility: [facility] Address: [address] [place] [address] Result Comment: eAG: (Estimated average glucose) is a calculated value from HgbA1c and is factory representative of the average blood glucose level in the last 2-3 month period. Performed By: #### 5 5454-3 ####[facility] LABCLIA [id number] [facility] [address] [address] [place] HbA1c (Bld) [Mass fraction] 6.7 % High 4.3-5.6 [facility] Comment on above: Order Comment: Speci men Type: BLOOD SPECIMENOrdering Facility: [facility] Address: [address] [place] [address] Result Comment: Amer ican Diabetes Association guidelines indicate that patients with HgbA1c in the range 5.7-6.4% are at increased risk for development of diabetes, and intervention by lifestyle modification may be beneficial. HgbA1c greater or equal to 6.5% is considered diagnostic of diabetes. Performed By: #### 5 5454-3 ####[facility] LABIA [id number] [place] [address] [place] Lipid 1996 panelon 5 Cholesterol [Mass/Vol] 172 mg/dL Normal <200 [facility] Comment on above: Order Comment: Speci men Type: BLOOD SPECIMENOrdering Facility: [facility] Address: [address] [place] [address] Result Comment: <200 mg/dL, Desirable 200-239 mg/dL, Borderline high >239 mg/dL, High Performed By: #### 2 4331-1, 33522-0 ####[facility] LABIA [id number] [place] [address] [place] Cholesterol in HDL [Mass/Vol] 75 mg/dL Normal >39 [facility] Comment on above: Order Comment: Speci men Type: BLOOD SPECIMENOrdering Facility: [facility] Address: [address] [place] [address] Result Comment: 40-5 9 mg/dL, Acceptable >59 mg/dL, High: Negative risk factor for coronary heart disease <40 mg/dL, Low: Positive risk factor for coronary heart disease Performed By: #### 2 4331-1, ####[facility] LABCLIA [id number] [address] [address] [place] Cholesterol in LDL [Mass/Vol] 63 mg/dL Normal <100 [facility] Comment on above: Order Comment: Speci men Type: BLOOD SPECIMENOrdering Facility: [facility] Address: [address] [place] [address] Result Comment: <100 mg/dL, Optimal 100-129 mg/dL, Near optimal/above optimal 130-159 mg/dL, Borderline high 160-189 mg/dL, High >189 mg/dL, Very high Secondary prevention optimal LDL Cholesterol levels are recommended to be <70 mg/dL LDL cholesterol is calculated using the Almanza-NIH equation. Performed By: #### 2 433-1, ####[facility] LABCLIA [id number] [place] [address] [place] Cholesterol in LDL/Cholesterol in HDL [Mass ratio] 0.84 {ratio} Normal <2.54 [facility] Comment on above: Order Comment: Speci men Type: BLOOD SPECIMENOrdering Facility: [facility] Address: [address] [place] [address] Result Comment: Gricelda brown: 1. National Cholesterol Education Program ATP III Guideline At-A-Glance Quick Desk Reference: National Heart, Lung, and Blood Wink. National Institutes of Health. 2001: NIH Publication No. 01-3305. 2. An International Atherosclerosis Society position paper: global recommendations for the management of dyslipidemia: executive summary, Atherosclerosis. 2014: 232(2):410-413. Performed By: #### 2 4331-1, ####[facility] LABCLIA [id number] [address] [address] [place] Cholesterol in VLDL [Mass/Vol] 31 mg/dL High <30 [facility] Comment on above: Order Comment: Speci men Type: BLOOD SPECIMENOrdering Facility: [facility] Address: [address] [place] [address] Performed By: #### 2 433-1, ####[facility] LABCLIA [id number] [id number] [address] [place] Cholesterol non HDL [Mass/Vol] 97 mg/dL Normal <130 [facility] Comment on above: Order Comment: Speci men Type: BLOOD SPECIMENOrdering Facility: [facility] Address: [address] [place] [address] Result Comment: <130 mg/dL, Optimal 130-159 mg/dL, Near optimal/above optimal 160-189 mg/dL, Borderline high 190-219 mg/dL, High >219 mg/dL, Very high Secondary prevention optimal non HDL Cholesterol levels are recommended to be <100 mg/dL Performed By: #### 2 43310-19, ####[facility] LABCLIA [id number] [facility] [address] [place] [address] [place] Cholesterol.total/Choles terol in HDL [Mass ratio] 2.29 {ratio} Normal <5.10 [facility] Comment on above: Order Comment: Speci men Type: BLOOD SPECIMENOrdering Facility: [facility] Address: [address] [place], [place] [address] Performed By: #### 2 4331-, ####[facility] LABCLIA [id number] [facility] [id number], [place] [address] [place] FASTING TIME 12 hrs Normal [facility] Comment on above: Order Comment: Speci men Type: BLOOD SPECIMENOrdering Facility: [facility] Address: [address] [place], [place] [address] Performed By: #### 2 4331-, ####[facility] LABCLIA [id number] [facility] [id number], [place] [address] [place] Triglyceride [Mass/Vol] 212 mg/dL High <150 [facility] Comment on above: Order Comment: Speci men Type: BLOOD SPECIMENOrdering Facility: [facility] Address: [address] [place] [address] Result Comment: <150 mg/dL, Normal 150-199 mg/dL, Borderline high 200-499 mg/dL, High >499 mg/dL, Very high Performed By: #### 2 4331-1, 40850-1 ####[facility] LABCLIA [id number] [facility] [id number] [address] [place] CNTHERAPYon 05-09-2025 CNTHERAPY OT/PT/Speech Visit (PTWS) MATA SANTANA ([id number]) 1975 F Date Time Provider Department 05/09/25 3:00 PM LEI PEPPER PTWS Date Time Provider Department Center 05/09/2025 3:00 PM [id number], [facility] PTWS Amanda Vogel Reason for Visit: Physical Therapy [503] Primary Visit Diagnosis:Acute pain of left shoulder [M25.512] Allergies As of Date: 05/09/2025 Noted Allergy Reaction SEASONAL ALLERGIES 01/22/2018 3 - Cough Comments: Cough, sneezing AND watery eyes Date Reviewed: 03/21/2025 Reviewed by: Kendall Pete APRN.GAMING MANAGER - Fully Assessed Prescriptions as of 05/09/2025 - metoprolol succinate ER (TOPROL XL) 25 mg 24 hr tablet Take 1 tablet by mouth once daily. - amLODIPine (NORVASC) 5 mg tablet Take 1 tablet by mouth once daily. - Ethinyl Estradiol-Norelgestro m (XULANE) 150-35 mcg/24 hr patch Apply 1 patch as directed one time a week. One inactive week per month. - calc carb,cit/mag,zinc/D3/ h122 (QBSFVSV-CA-NOIL-HC #122-VIT D3 ORAL) Take by mouth. - GARLIC - CPAP AutoPAP 5-20 cmH2O, suitable mask,straps and chin straps as needed humidity, filters. Lifetime supplies. Dx: 327.23. - ergocalciferol, vitamin D2, (VITAMIN D2 ORAL) (Discontinued) Take by mouth. Normal [facility] CNTHERAPYon 04-25-2025 CNTHERAPY OT/PT/Speech Visit (PTWS) MATA SANTANA ([id number]) 1975 F Date Time Provider Department 04/25/25 11:00 AM LEI PEPPER PTWS Date Time Provider Department [place] 04/25/2025 11:00 AM [id number], [facility] PTWS Amanda Vogel Reason for Visit: PT Progress Note [1596] Primary Visit Diagnosis:Acute pain of left shoulder [M25.512] Allergies As of Date: 04/25/2025 Noted Allergy Reaction SEASONAL ALLERGIES 01/22/2018 3 - Cough Comments: Cough, sneezing AND watery eyes Date Reviewed: 03/21/2025 Reviewed by: Kendall Pete APRN.GAMING MANAGER - Fully Assessed Prescriptions as of 04/25/2025 - metoprolol succinate ER (TOPROL XL) 25 mg 24 hr tablet Take 1 tablet by mouth once daily. - amLODIPine (NORVASC) 5 mg tablet Take 1 tablet by mouth once daily. - Ethinyl Estradiol-Norelgestro m (XULANE) 150-35 mcg/24 hr patch Apply 1 patch as directed one time a week. One inactive week per month. - calc carb,cit/mag,zinc/D3/ h122 (BNJRAQE-DA-NVPD-HC #122-VIT D3 ORAL) Take by mouth. - GARLIC - CPAP AutoPAP 5-20 cmH2O, suitable mask,straps and chin straps as needed humidity, filters. Lifetime supplies. Dx: 327.23. - ergocalciferol, vitamin D2, (VITAMIN D2 ORAL) (Discontinued) Take by mouth. Gis Application Developer: Addendum Therapy (PT/OT/Speech/Resp) ID: [id number] 04/25/2025 11:27 AM Author: LEI PPEPER Signed by LEI PEPPER PT on 04/25/2025 at 11:27 AM * * * This document replaces document [id number] * * * Document text: Program_ID:[id number] Access Code: [email or web address] URL: [email or web address] Date: 04-25-2025 Prepared By: Lei Pepper Program Notes Exercises - Standing Isometric Shoulder Abduction with Doorway - Arm Bent - 1 x daily - 7 x weekly - 4 sets - 10 reps - Scaption Wall Slide with Towel - 1 x daily - 7 x weekly - 4 sets - 10 reps ----- Normal [facility] THERAPY NTon 04-25-2025 THERAPY NT HNO ID: [id number] Author: LEI PEPPER, PT Service: ? Author Type: Physical Therapist Type: Therapy (PT/OT/Speech/Resp) Filed: 04/25/2025 11:27 Note Text: Program_ID:[id number] Access Code: [email or web address] URL: [email or web address] Date: 04-25-2025 Prepared By: Lei Pepper Program Notes Exercises - Standing Isometric Shoulder Abduction with Doorway - Arm Bent - 1 x daily - 7 x weekly - 4 sets - 10 reps - Scaption Wall Slide with Towel - 1 x daily - 7 x weekly - 4 sets - 10 reps Normal [facility] Emergency Department Summary on 04-01-2025 Emergency Department Summary [facility] Medical Records Department [address] [place] [address] Emergency Department Summary 04/01/25 MR#: [id number] Acct: [id number] Name: MATA SANTANA Rep #: [id number] : 1975 49 From: Hugo Miranda DO PCP: Dr. Philly Gregory MD Status:DEP ER Location: ED HPI History of Present Illness Chief Complaint: Upper Extremity Injury Informant: patient and family Narrative Narrative: 49-year-old female presenting to the emergency room with left shoulder pain. Patient was at work today when she started to fall and then a cart started to come down on top of her. She tried to push the cart away. She notes pain in the left shoulder. She has been doing physical therapy for a left shoulder injury following with orthopedics at [facility]. She notes limited range of motion being able to minimally AB duct to about 75 degrees. She notes pain when she attempts to raise her arm in front of her. She denies any distal symptoms. Symptoms seem to be confined to the shoulder and upper biceps region. [facility] Medical History Gestational diabetes Anxiety Home Medications ???Medication ???Instructions ???Recorded ???Last Taken ???Type desogestrel 0.15 mg-ethinyl 1 tab PO DAILY 02/12/14 02/11/14 H istory estradiol 0.03 mg tablet ([place]) atenolol 25 mg tablet 25 mg PO DAILY ##30 02/13/14 Unkno wn Rx potassium chloride 20 mEq 20 meq PO DAILY #7 tabs 03/17/21 U nknown Rx tablet,extended release albuterol sulfate 90 mcg/actuation 1 inh inhalation Q6H PRN shortne ss 09/12/23 Unknown Rx aerosol inhaler (ProAir HFA) of breath or wheezing #6.7 grams prednisone 20 mg tablet 40 mg (2 x 20 mg) PO DAILY 5 days 09/12/23 Unknown Rx #10 tabs amoxicillin 875 mg-potassium 1 tab PO BID #14 tabs 03/27/24 Unk nown Rx clavulanate 125 mg tablet dicyclomine 10 mg capsule 10 mg PO TID PRN abdominal pain Unknown Rx #15 caps Allergy/AdvReac Type Severity Reaction Status Date / Time No Known Allergies Allergy Verified 04/01/25 13:17 Family History Other Diabetes Surgical History Hx of toe surgery Social History Smoking Status: Never smoker substance use type: does not use ROS ROS ED Constitutional Constitutional ED: Denies chills, fever(s) or weight loss Eyes Eyes: Denies change in vision or diplopia ENT ENT ED: Denies ear pain, rhinorrhea or sore throat Cardiovascular Cardiovascular: Denies chest pain, orthopnea, palpitations or racing heartbeat Respiratory/Chest Respiratory/Chest: Denies cough, dyspnea or orthopnea Gastrointestinal Gastrointestinal: Denies abdominal pain, diarrhea, nausea or vomiting Genitourinary Genitourinary ED: Denies dysuria, hematuria or urinary frequency Musculoskeletal Musculoskeletal: Reports other Details: See history of present illness ; Denies arthralgias, back pain, myalgias or neck pain Integumentary Denies abscess or rash Neurologic Neurologic: Denies headache(s) or weakness Psychiatric Psychiatric: Denies anxiety, depression, suicidal ideation or suicidal thoughts Endocrine Endocrinology: Denies polydipsia, polyphagia or polyuria Allergic/Immunologic Allergic/Immunologic ED: Denies mouth swelling, tongue swelling or urticaria EXAM Physical Exam Const Vital Signs: 04/01/25 13:13 Temperature 97.9 F Temperature Source Oral Pulse Rate 69 Respiratory Rate 17 Blood Pressure 147/102 H Blood Pressure Mean 117 Pulse Ox 99 Oxygen Delivery Method Room Air Positive well nourished and well developed General Appearance ED: well developed HEENT Reports normocephalic, head/scalp atraumatic and moist mucous membranes Eyes PERRL and EOMs intact bilaterally Neck full ROM, no lymphadenopathy, supple and no JVD General: Negative for tenderness Resp normal respiratory effort and clear to auscultation bilaterally Cardio regular rate, regular rhythm and no murmurs GI normal to inspection, nondistended, normoactive bowel sounds and non-tender Palpation: soft Back/Spine no CVA tenderness and normal ROM Extremity Extremity Narrative: Left shoulder demonstrates tenderness to palpation along the supraspinatus muscular sure and deltoid region. There is no obvious dislocation. No deformity. Neurovascularly intact distally. Patient does have the ability to AB duct to about 75 to 80 degrees before she gets significant pain. She has the ability to raise her arm in front of her to about 90 degrees before she gets significant pain. Subacromium region does not appear full. General Extremety ED: Negative f (more content not included)... Normal [facility] Shoulder min 2 Viewson 04-01 Shoulder min 2 Views [facility] Imaging Services [address] [place], [place] [id number] Shoulder min 2 Views MR#: [id number] Acct: [id number] Name: MATA SANTANA Rep #: [id number] : 1975 F 49 From: Irene Olivares nd, MD PCP: Dr. Philly Gregory MD Status: PRE ER Study: Shoulder min 2 Views Date of Exam: 04/01/25 Exam# [id number] Ordering Dr: Provider,Ed P. PROCEDURE: SHOULDER MIN 2 VIEWS 04/01/2025 REASON FOR EXAM: INJURY TECHNIQUE: SHOULDER MIN 2 VIEWS COMPARISON: None. FINDINGS: Bones: No acute fracture. No aggressive osseous lesions. Joints: Normal alignment. Mild degenerative changes. Soft tissues: Soft tissues are unremarkable. Other: The visualized left lung is unremarkable. RAD/Shoulder min 2 Views IMPRESSION: NO ACUTE FRACTURE OR DISLOCATION. Reading Location: [id number] CC: Dr. Philly Gregory MD; ED PHYSICIAN PROVIDER Nail Making Machine Tender: Signed Normal [facility] CNOVon 03-21-2025 CNOV Office Visit (INTMWS ) MATA SANTANA ([id number]) 1975 F Date Time Provider Department 03/21/25 10:00 AM KENDALL PETE During your visit today, we recorded the following information about you: Pulse Respiration Blood pressure Weight 69/minute 16/minute 129/82 56 kg Kendall Pete APRN.GAMING MANAGER 03/21/2025 11:08 AM Signed SUBJECTIVE: There are no preventive care reminders to display for this patient. HPI Mata Santana is a 49 year old female. Her past medical history is significant for ACTIVE PROBLEM LIST Allergic Rhinitis ELIAN (obstructive sleep apnea) [id number] 21AASM Excessive Daytime Sleepiness Anxiety State Ifg (Impaired Fasting Glucose) Essential Hypertension Hypokalemia Near Syncope Acute Pain of Left Shoulder Hypertension: - Managed with amlodipine; requests refill to be sent to [facility]. - Reports not feeling well on metoprolol, losartan, or lisinopril in the past. Diabetes Mellitus: - A1c in December showed improvement. - Monitoring diet. Obstructive Sleep Apnea: - Managed to the best of her ability. Thyroid: - No current treatment; monitoring only. Shoulder Pain: - Undergoing physical therapy; reports slight improvement in mobility. 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 ELIAN: reports [...] by mouth once daily. calc carb,cit/mag,zinc/D3/ h122 (XSUABTC-OU-ERIP-HC #122-VIT D3 ORAL) Take by mouth. GARLIC [...] exposure: Never (more content not included)... Normal [facility] CNTHERAPYon 03-21-2025 CNTHERAPY OT/PT/Speech Visit (PTWS) MATA SANTANA ([id number]) 1975 F Date Time Provider Department 03/21/25 11:00 AM LEI PEPPER PTHO Date Time Provider Department Center 03/21/2025 11:00 AM [id number], [facility] PTWS Amanda Vogel Reason for Visit: Physical Therapy [503] Primary Visit Diagnosis:Acute pain of left shoulder [M25.512] Allergies As of Date: 03/21/2025 Noted Allergy Reaction SEASONAL ALLERGIES 01/22/2018 3 - Cough Comments: Cough, sneezing AND watery eyes Date Reviewed: 03/21/2025 Reviewed by: Kendall Pete APRN.GAMING MANAGER - Fully Assessed Prescriptions as of [...] mouth once daily. - calc carb,cit/mag,zinc/D3/ h122 (SLTEDRQ-XE-AEAK-HC #122-VIT D3 ORAL) Take by mouth. - GARLIC - CPAP AutoPAP 5-20 cmH2O, suitable mask,straps and chin straps as needed humidity, filters. Lifetime supplies. Dx: 327.23. - ergocalciferol, vitamin D2, (VITAMIN D2 ORAL) (Discontinued) Take by mouth. Normal [facility] CNOVon 03-14-2025 CNOV Office Visit (OBGYWM ) MAXMATA K ([id number]) 1975 F Date Time Provider Department 03/14/25 3:00 PM ESTHELA MYERS OBGYWM During your visit today, we recorded the following information about you: Blood pressure Weight Last Period 124/88 55.8 kg 02/22/25 Esthela Myers APRN.SCREEN DOOR MAKER 03/14/2025 3:27 PM Signed Patient declined wheel blocker. Mata is a 49 year old who [...] Living2 SAB0 IAB0 Ectopic0 Multiple0 Live Births2 Hand Wood Sander History LMP: 02/22/2025, Having periods Age at Menarche: 16 Age at First : Age at Menopause: Hand Wood Sander History Comments: Sexual Activity: Not Currently; Male [...] Father age 49, heavy smoker, likely of [place] but pt not sure Diabetes Sister Diabetes Brother 25 Diabetes Maternal Grandmother other (Other) Maternal Grandmother MVA Alzheimer's Disease Maternal Grandfather also great grandma Diabetes Paternal Grandmother Ischemic Heart Disease Paternal Grandfather age 50 [place] Parkinson's Maternal Uncle SOCIAL HISTORY Social History [...] discussed with the Patient or Patient's Authorized News Photographer. As applicable, any other physician, advance practice provider, medical student, or other health professional student that will be observing or involved in the sensitive examination for educational or training purposes was discussed with the Patient or Authorized News Photographer. The Patient or Authorized News Photographer has agreed to proceed with the sensitive [...] external genitalia normal, normal Bartholin's glands, urethra, Halma's glands, no vulvar lesions, no cervical lesions, good vaginal support, physiologic discharge present, normal appearing perineal body and perianal region BIMANUAL: uterus normal size, shape and consistency, no adnexal masses, and non-tender RECTOVAGINAL: deferred. NEURO: alert and oriented x3,exam grossly non-focal EXTREMITIES: normal ASSESSMENT/PLAN: 1) Health maintenance: Pap/HPV up to date. Mammogram ordered Mammo (more content not included)... Normal [facility] CNTHERAPYon 03-14-2025 CNTHERAPY OT/PT/Speech Visit (PTWS) MATA SANTANA ([id number]) 1975 F Date Time Provider Department 03/14/25 1:30 PM LEI PEPPER PTWS Date Time Provider Department [place] 03/14/2025 1:30 PM [id number], COREY PTWS Amanda Vogel Reason for Visit: Physical Therapy [503] Primary Visit Diagnosis:Acute pain of left shoulder [M25.512] Allergies As of Date: 03/14/2025 Noted Allergy Reaction SEASONAL ALLERGIES 01/22/2018 3 - Cough Comments: Cough, sneezing AND watery eyes Date Reviewed: 01/03/2025 Reviewed by: Kendall Pete APRN.GAMING MANAGER - Fully Assessed Prescriptions as of [...] week per month. - calc carb,cit/mag,zinc/D3/ h122 ([id number]-WS-MNII-HC #122-VIT D3 ORAL) Take by mouth. - GARLIC - red beet root-sour torres ext 250-0.5 mg chew Take by mouth. - CPAP AutoPAP 5-20 cmH2O, suitable mask,straps and chin straps as needed humidity, filters. Lifetime supplies. Dx: 327.23. - ergocalciferol, vitamin D2, (VITAMIN D2 ORAL) (Discontinued) Take by mouth. Normal [facility] SCREENING W TOMOon 03-14 AKHIL SCREENING W ABIDA * * *Final Report* * * DATE OF EXAM: Mar 14 2025 2:38PM WRW [id number] - AKHIL SCREENING W ABIDA / PROCEDURE REASON: multiple diagnoses * * * * Physician Interpretation * * * * RESULT: [place] [id number] #[id number] - AKHIL SCREENING W ABIDA HISTORY: 49 [...] Brittnee Shea M.D. Electronically signed on: 03/15/2025 Nail Making Machine Tender: DELVIN Transcribe Date/Time: Mar 14 2025 2:25P Dictated by: BRITTNEE SHEA MD This examination was interpreted and the report reviewed and electronically signed by: BRITTNEE HSEA MD on Mar 15 2025 12:07PM EST [id number] N Normal [facility] CNTHERAPYon 02-21-2025 CNTHERAPY OT/PT/Speech Visit (PTWS) MATA SANTANA ([id number]) 1975 F Date Time Provider Department 02/21/25 11:00 AM LEI PEPPER PTHO Date Time Provider Department [place] 02/21/2025 11:00 AM [id number], COREY PTWS Amanda Vogel Reason for Visit: Physical Therapy [503] Primary Visit Diagnosis:Acute pain of left shoulder [M25.512] Allergies As of Date: 02/21/2025 Noted Allergy Reaction SEASONAL ALLERGIES 01/22/2018 3 - Cough Comments: Cough, sneezing AND watery eyes Date Reviewed: 01/03/2025 Reviewed by: Kendall Pete APRN.GAMING MANAGER - Fully Assessed Prescriptions as of [...] week per month. - calc carb,cit/mag,zinc/D3/ h122 (EXRGHCI-GK-YEWU-HC #122-VIT D3 ORAL) Take by mouth. - GARLIC - red beet root-sour torres ext 250-0.5 mg chew Take by mouth. - CPAP AutoPAP 5-20 cmH2O, suitable mask,straps and chin straps as needed humidity, filters. Lifetime supplies. Dx: 327.23. - ergocalciferol, vitamin D2, (VITAMIN D2 ORAL) (Discontinued) Take by mouth. Normal [facility] CNTHERAPYon 02-07-2025 CNTHERAPY OT/PT/Speech Visit (PTWS) MATA SANTANA ([id number]) 1975 F Date Time Provider Department 02/07/25 10:15 AM LEI PEPPER PTWS Date Time Provider Department Center 02/07/2025 10:15 AM [id number], COREY PTWS Amanda Vogel Reason for Visit: PT Eval [747] Visit Diagnosis:Acute pain of left shoulder [M25.512] Allergies As of Date: 02/07/2025 Noted Allergy Reaction SEASONAL ALLERGIES 01/22/2018 3 - Cough Comments: Cough, sneezing AND watery eyes Date Reviewed: 01/03/2025 Reviewed by: Kendall Pete APRN.GAMING MANAGER - Fully Assessed Prescriptions as of [...] week per month. - calc carb,cit/mag,zinc/D3/ h122 (PCPUWKK-CX-UEGJ-HC #122-VIT D3 ORAL) Take by mouth. - GARLIC - red beet root-sour torres ext 250-0.5 mg chew Take by mouth. - CPAP AutoPAP 5-20 cmH2O, suitable mask,straps and chin straps as needed humidity, filters. Lifetime supplies. Dx: 327.23. - ergocalciferol, vitamin D2, (VITAMIN D2 ORAL) (Discontinued) Take by mouth. Gis Application Developer: Therapy (PT/OT/Speech/Resp) ID: [id number] 02/07/2025 10:49 AM Author: LEI PEPPER Signed by LEI PEPPER PT on 02/07/2025 at 10:49 AM Document text: Program_ID:[id number] Access Code: [email or web address] URL: [email or web address] Date: 02-07-2025 Prepared By: Lei Pepper Program Notes Exercises - Shoulder External Rotation and Scapular Retraction with Resistance - 1 x daily - 7 x weekly - 4 sets - 10 reps - Standing Single Arm Shoulder Abduction with Resistance - 1 x daily - 7 x weekly - 4 sets - 7-10 reps ----- Normal [facility] THERAPY NTon 02-07-2025 THERAPY NT HNO ID: [id number] Author: LEI PEPPER PT Service: ? Author Type: Physical Therapist Type: Therapy (PT/OT/Speech/Resp) Filed: 02/07/2025 10:49 Note Text: Program_ID:[id number] Access Code: [email or web address] URL: [email or web address] Date: 02-07-2025 Prepared By: Lei Pepper Program Notes Exercises - Shoulder External Rotation and Scapular Retraction with Resistance - 1 x daily - 7 x weekly - 4 sets - 10 reps - Standing Single Arm Shoulder Abduction with Resistance - 1 x daily - 7 x weekly - 4 sets - 7-10 reps Normal [facility] CNOVon 01-03-2025 CNOV Office Visit (INTMWS ) MAXAMNAMATA Meagan ([id number]) 1975 F Date Time Provider Department 01/03/25 9:00 AM KENDALL PETE INTMWS During your visit today, we recorded the following information about you: Pulse Respiration Blood pressure Weight 60/minute 16/minute 126/83 55 kg Kendall Pete APRN.GAMING MANAGER 01/03/2025 9:21 AM Addendum Subjective ?Quick Links Last Note in Specialty Snapshot Edit RFV/CC Patient ID: Mata is a 49 year old female who presents for [facility] care f/u. HPI Left Shoulder Pain: - [...] 150-35 mcg/24 hr patch calc carb,cit/mag,zinc/D3/ h122 (VUWREMN-FE-HIGI- #122-VIT D3 ORAL) GARLIC red beet root-sour [...] The patient consented to the use of Vitals ([email or web address].com) software for draft documentation of the visit consistent with [facility]?s Notice of Privacy Practices. Allergies As of Date: 01/03/2025 Noted Allergy Reaction SEASONAL ALLERGIES 01/22/2018 3 - Cough Comments: Cough, sneezing AND watery eyes Date Reviewed: 01/03/2025 Reviewed by: Kendall Pete APRN.GAMING MANAGER - Fully Assessed Reason for Visit: express care f/u [Other] Primary Visit Diagnosis:Acute pain of left shoulder [M25.512] Order(s):CONSULT TO PHYSICAL THERAPY [9097] Order #: [id number]: 1 FUTURE meloxicam (MOBIC) 15 mg tabletTake 1 tablet by mouth once daily. for pain. Take with food.Disp: 30 tabletRfl: 0 CONSULT TO ORTHOPAEDICS [9015] Order #: [id number]: 1 FUTURE Prescriptions as of 01/03/2025 - [...] time a (more content not included)... Normal [facility] HbA1c (Bld)on 01-03-2025 Average glucose Estimated from glycated hemoglobin (Bld) [Mass/Vol] 137 mg/dL Normal [facility] Comment on above: Order Comment: Speci men Type: BLOOD SPECIMENOrdering Facility: [facility] Address: [address] [place] [address] Result Comment: eAG: (Estimated average glucose) is a calculated value from HgbA1c and is factory representative of the average blood glucose level in the last 2-3 month period. Performed By: #### 5 5454-3 ####[facility] [id number] [place] [id number] [place] HbA1c (Bld) [Mass fraction] 6.4 % High 4.3-5.6 [facility] Comment on above: Order Comment: Speci men Type: BLOOD SPECIMENOrdering Facility: [facility] Address: [address] [place] [address] Result Comment: Amcandis ican Diabetes Association guidelines indicate that patients with HgbA1c in the range 5.7-6.4% are at increased risk for development of diabetes, and intervention by lifestyle modification may be beneficial. HgbA1c greater or equal to 6.5% is considered diagnostic of diabetes. Performed By: #### 5 5454-3 ####[facility] LABIA [id number] [address] [place] CNOVon 12-28-2024 CNOV Office Visit (UCWSTR ) MATA SANTANA ([id number]) 1975 F Date Time Provider Department 12/28/24 7:15 PM SHAHZAD HUGHES [facility] During your visit today, we recorded the following information about you: Temperature Pulse Respiration Blood pressure 98.1 degrees 73/minute 18/minute 122/82 Weight 56.8 kg Shahzad Hughes APRN.SCREEN DOOR MAKER 12/28/2024 8:16 PM Signed [facility] Subjective Matamiguelito Santana is a 49 year old female. [...] arm while awaiting xray results. Shahzad Hughes APRN.SCREEN DOOR MAKER Disposition The patient was discharged. Procedures Allergies [...] GENERAL 3V OR MORE AP/TRUE AP/OTHER LEFT [6074569] Order #: [id number] FUTURE Prescriptions as of 12/28/2024 - amLODIPine (NORVASC) 5 mg tablet Take 1 tablet by mouth once daily. - metoprolol succinate ER (TOPROL XL) 25 mg 24 hr tablet Take 1 tablet by mouth once daily. - Ethinyl Estradiol-Norelgestro m (XULANE) 150-35 mcg/24 hr patch Apply 1 Patch as directed one time a week. One inactive week per month. - calc carb,cit/mag,zinc/D3/ h122 (BCIRULA-FW-YLQS-HC #122-VIT D3 ORAL) Take by mouth. - [...] rhinitis [J30.9] 04/24/2014 ELIAN (obstructive sleep apnea) [id number] 21AASM [G*11/15/2014 Excessive daytime sleepiness [G47.19] 02/28/2015 Anxiety state [F41.1] 04/03/2015 IFG (impaired fasting glucose) [R73.01] 04/20/2021 Essential hypertension [I10] 04/20/2021 Hypokalemia [E87.6] 04/20/2021 Near syncope [R55] 04/20/2021 Encounter Status:Closed by SHAHZAD HUGHES on 12/28/24 Normal [facility] XR SHLDR >/=3V AP/DAYDAY AP/OTH R [...] surfaces are preserved. IMPRESSION: Negative left shoulder. Nail Making Machine Tender: [facility]ITALMadhavi Transcribe Date/Time: Dec 28 2024 8:45P Dictated by : ML ALVARES MD This examination was interpreted and the report reviewed and electronically signed by: ML ALVARES MD on Dec 28 2024 8:46PM EST [id number] N Normal [facility] XR Shoulder - left 3 Viewson 12-28-2024 IMPRESSION: Negative left shoulder. Nail Making Machine Tender: [facility] Transcribe Date/Time: Dec 28 2024 8:45P Dictated [...] surfaces are preserved. DIVISION OF RADIOLOGY Provider, [facility] - 12/28/2024 * * *Final Report* * [...] are preserved. IMPRESSION IMPRESSION: Negative left shoulder. Nail Making Machine Tender: POLA Transcribe Date/Time: Dec 28 2024 8:45P Dictated by : ML ALVARES MD This examination was interpreted and the report reviewed and electronically signed by: ML ALVARES MD on Dec 28 2024 8:46PM EST [facility] Radiology Study observation (narrative) [facility] XR Shoulder - left 3 ViewsOr dered By: Ccf Provider on 12-28-2024 [facility] CNOVon 09-20-2024 CNOV Office Visit (INTMWS ) MATA SANTANA ([id number]) 1975 F Date Time Provider Department 09/20/24 10:20 AM PHILLY GREGORY INTMWS During your visit today, we recorded the following information about you: Temperature Pulse Respiration Blood pressure 97.8 degrees 77/minute 18/minute 120/76 Weight Last Period 54.4 kg 09/18/24 Philly Gregory MD 09/20/2024 11:44 AM Signed This note was created using [email or web address]. Subjective Mata Santana is a 49 year [...] by mouth once daily. calc carb,cit/mag,zinc/D3/ h122 (IIRCSJQ-QY-DQXF-HC #122-VIT D3 ORAL) Take by mouth. GARLIC [...] Heart s (more content not included)... Normal [facility] HEMOGLOBIN A1C (POC)on 09-20 HbA1c (Bld) [Mass fraction] 6.5 % Abnormal 4.3 - 5.6 % [facility] Comment on above: Location:[address], [place], [address] Point of care (POC) Hemoglobin A1c (HGBA1C) [...] specific diabetes management situations: The POC device legal administrative assistant provides a normal range of 4.2% to 6.5% for the HGBA1C POC test. However, the [place] Diabetes Association guidelines indicate that patients with [...] Interpretation and review of laboratory results Abnormal [facility] CNOVon 09-06-2024 CNOV Office Visit (INTMWS ) MATA SANTANA ([id number]) 1975 F Date Time Provider Department 09/06/24 9:20 AM KENDALL PETE INTMWS During your visit today, we recorded the following information about you: Pulse Respiration Blood pressure Weight 69/minute 16/minute 123/79 55.2 kg Kendall Pete APRN.GAMING MANAGER 09/06/2024 10:04 AM Signed SUBJECTIVE: BP Controlled (<130/80) due on 06/07/2022 Colorectal Cancer Screening due on 09/27/2024 Mammogram Screening due on 12/21/2024 MIGUEL Mata Santana is a 49 year old female. Her past medical history is significant for ACTIVE PROBLEM LIST Allergic Rhinitis ELIAN (obstructive sleep apnea) SWP0CUE 21AASM Excessive Daytime Sleepiness Anxiety State Ifg [...] is her thyroid. Notes father had presumed [place] ate age 47 and . HTN: She [...] by mouth once daily. calc carb,cit/mag,zinc/D3/ h122 (BXUTOAS-JK-AXWJ-HC #122-VIT D3 ORAL) Take by mouth. GARLIC [...] mo, states (more content not included)... Normal [facility] TSH SerPl-aCncon 09-06-2024 TSH Qn 0.957 m[IU]/L Normal 0.270-4.200 [facility] Comment on above: Order Comment: Speci men Type: BLOOD SPECIMENOrdering Facility: [facility] Address: [address] [place] [address] Performed By: #### 3 016-3 ####[facility] LABCLIA [id number] [facility] [id number] CNOVon 08-15-2024 CNOV Office Visit (INTMWS ) MATA SANTANA ([id number]) 1975 F Date Time Provider Department 08/15/24 9:20 AM KENDALL PETE INTMWS During your visit today, we recorded the following information about you: Pulse Respiration Blood pressure Weight 61/minute 16/minute 158/96 54.2 kg Kendall Pete APRN.CNS 08/15/2024 10:30 AM Signed SUBJECTIVE: BP Controlled (<130/80) due on 06/07/2022 Colorectal Cancer Screening due on 09/27/2024 Mammogram Screening due on 12/21/2024 MIGUEL Mata Santana is a 49 year old female. Her past medical history is significant for ACTIVE PROBLEM LIST Allergic Rhinitis ELIAN (obstructive sleep apnea) ROW0FRQ 21AASM Excessive Daytime Sleepiness Anxiety State Ifg (Impaired Fasting Glucose) Essential Hypertension Hypokalemia Near Syncope ELIAN: reports consistent use since last here. She reports she resumed metoprolol succinate about one month ago and has been taking daily. She notes some frustration with blood pressure remaining elevated despite doing all the things that she should. Notes father had presumed [place] ate age 47 and . HTN: Reports [...] AND watery eyes Medications calc carb,cit/mag,zinc/D3/ h122 (UFCIYNE-FM-CSTP-HC #122-VIT D3 ORAL) Take by mouth. GARLIC [...] or oth (more content not included)... Normal [facility] CNOVon 07-05-2024 CNOV Office Visit (INTMWS ) MATA SANTANA ([id number]) 1975 F Date Time Provider Department 07/05/24 9:40 AM KENDALL PETE INTMHO During your visit today, we recorded the following information about you: Pulse Blood pressure Weight 73/minute 134/86 55.4 kg Kendall Pete APRN.GAMING MANAGER 07/05/2024 11:23 AM Signed SUBJECTIVE: Depression Screening Never done BP Controlled (<130/80) due on 06/07/2022 Colorectal Cancer Screening due on 09/27/2024 Mammogram Screening due on 12/21/2024 HPI Mata Santana is a 49 year old female. Her past medical history is significant for ACTIVE PROBLEM LIST Allergic Rhinitis ELIAN (obstructive sleep apnea) [id number] 21AASM Excessive Daytime Sleepiness Anxiety State Ifg [...] AND watery eyes Medications calc carb,cit/mag,zinc/D3/ h122 (STNZTHE-ZX-CYAW-HC #122-VIT D3 ORAL) Take by mouth. GARLIC [...] 9.09 9.0 (more content not included)... Normal [facility] HbA1c (Bld)on 07-05-2024 Average glucose Estimated from glycated hemoglobin (Bld) [Mass/Vol] 143 mg/dL [facility] Comment on above: eAG: (Estimated aver age glucose) is a calculated value from HgbA1c and is factory representative of the average blood glucose level in the last 2-3 month period. HbA1c (Bld) [Mass fraction] 6.6 % High 4.3 - 5.6 % [facility] Comment on above: [place] Diabetes As sociation guidelines indicate that patients with HgbA1c in the range 5.7-6.4% are at increased risk for development of diabetes, and intervention by lifestyle modification may be beneficial. HgbA1c greater or equal to 6.5% is considered diagnostic of diabetes. Interpretation and review of laboratory results Abnormal [facility] Average glucose Estimated from glycated hemoglobin (Bld) [Mass/Vol] 143 mg/dL Normal [facility] Comment on above: Order Comment: Speci men Type: BLOOD SPECIMENOrdering Facility: [facility] Address: [address] [place] [address] Result Comment: eAG: (Estimated average glucose) is a calculated value from HgbA1c and is factory representative of the average blood glucose level in the last 2-3 month period. Performed By: #### 5 5454-3 ####[facility] LABCLIA [id number] [address] [place] HbA1c (Bld) [Mass fraction] 6.6 % High 4.3-5.6 [facility] Comment on above: Order Comment: Speci men Type: BLOOD SPECIMENOrdering Facility: [facility] Address: [address] [place] [address] Result Comment: Amcandis ican Diabetes Association guidelines indicate that patients with HgbA1c in the range 5.7-6.4% are at increased risk for development of diabetes, and intervention by lifestyle modification may be beneficial. HgbA1c greater or equal to 6.5% is considered diagnostic of diabetes. Performed By: #### 5 5454-3 ####[facility] LABCLIA [id number] [place] [address] [place] DBT Breast - bilateral scree ningon 12-22-2023 [facility] CBC W Auto Differential pane l (Bld)on 04-29-2023 Basophils (Bld) [#/Vol] 0.06 10*3/uL <0.11 k/uL [facility] Basophils/100 WBC (Bld) 0.7 % [facility] Differential cell count method Nom (Bld) Auto [facility] Eosinophils (Bld) [#/Vol] 0.11 10*3/uL <0.46 k/uL [facility] Eosinophils/100 WBC (Bld) 1.2 % [facility] Erythrocyte distribution width (RBC) [Ratio] 12.5 % 11.5 - 15.0 % [facility] Hematocrit (Bld) [Volume fraction] 42.0 % 36.0 - 46.0 % [facility] Hemoglobin (Bld) [Mass/Vol] 13.8 g/dL 11.5 - 15.5 g/dL [facility] Immature granulocytes (Bld) [#/Vol] 0.05 10*3/uL <0.10 k/uL [facility] Immature granulocytes/100 WBC (Bld) 0.6 % [facility] Lymphocytes (Bld) [#/Vol] 2.61 10*3/uL 1.00 - 4.00 k/uL [facility] Lymphocytes/100 WBC (Bld) 28.8 % [facility] MCH (RBC) [Entitic mass] 31.7 pg 26. 0 - 34.0 pg [facility] MCHC (RBC) [Mass/Vol] 32.9 g/dL 30.5 - 36.0 g/dL [facility] MCV (RBC) [Entitic vol] 96.3 fL 80.0 - 100.0 fL [facility] Monocytes (Bld) [#/Vol] 0.58 10*3/uL <0.87 k/uL [facility] Monocytes/100 WBC (Bld) 6.4 % C [facility] Neutrophils (Bld) [#/Vol] 5.64 10*3/uL 1.45 - 7.50 k/uL [facility] Neutrophils/100 WBC (Bld) 62.3 % [facility] Nucleated RBC (Bld) [#/Vol] <0.01 k/uL [facility] Nucleated RBC/100 WBC (Bld) [Ratio] 0.0 /100 WBC [facility] Platelet mean volume (Bld) [Entitic vol] 10.6 fL 9.0 - 12.7 fL [facility] Platelets (Bld) [#/Vol] 238 10*3/uL 150 - 400 k/uL [facility] RBC (Bld) [#/Vol] 4.36 10*6/uL 3.90 - 5.2 0 m/uL [facility] WBC (Bld) [#/Vol] 9.05 10*3/uL 3.70 - 11. 00 k/uL [facility] Comprehensive metabolic 2000 panelon 04-29-2023 Albumin [Mass/Vol] 4.0 g/dL 3.9 - 4.9 g/dL [facility] ALP [Catalytic activity/Vol] 63 U/L 34 - 123 U/L [facility] ALT [Catalytic activity/Vol] 15 U/L 7 - 38 U/L [facility] Anion gap [Moles/Vol] 16 mmol/L 9 - 18 mmol/L [facility] AST [Catalytic activity/Vol] 15 U/L 13 - 35 U/L [facility] Bilirubin [Mass/Vol] 0.3 mg/dL 0.2 - 1 .3 mg/dL [facility] Calcium [Mass/Vol] 9.7 mg/dL 8.5 - 10. 2 mg/dL [facility] Chloride [Moles/Vol] 100 mmol/L 97 - 10 5 mmol/L [facility] CO2 [Moles/Vol] 23 mmol/L 22 - 30 mmol/L [facility] Creatinine [Mass/Vol] 0.59 mg/dL 0.58 - 0.96 mg/dL [facility] Estimated Glomerular Filtration Rate 110 mL/min/1.73m >=60 mL/min/1.73m [facility] Glucose [Mass/Vol] 136 mg/dL High 74 - 99 mg/dL [facility] Potassium [Moles/Vol] 3.9 mmol/L 3.7 - 5.1 mmol/L [facility] Protein [Mass/Vol] 6.6 g/dL 6.3 - 8.0 g/dL [facility] Sodium [Moles/Vol] 139 mmol/L 136 - 144 mmol/L [facility] Urea nitrogen [Mass/Vol] 15 mg/dL 7 - 21 mg/d L [facility] HbA1c (Bld)on 04-29-2023 Average glucose Estimated from glycated hemoglobin (Bld) [Mass/Vol] 140 mg/dL [facility] HbA1c (Bld) [Mass fraction] 6.5 % High 4.3 - 5.6 % [facility] Lipid 1996 panelon Cholesterol [Mass/Vol] 170 mg/dL <200 mg/dL [facility] Cholesterol in HDL [Mass/Vol] 80 mg/dL >39 mg/dL [facility] Cholesterol in LDL [Mass/Vol] 59 mg/dL <100 mg/dL [facility] Cholesterol in LDL/Cholesterol in HDL [Mass ratio] 0.74 {ratio} <2.54 [facility] Cholesterol in VLDL [Mass/Vol] 31 mg/dL High <30 mg/dL [facility] Cholesterol non HDL [Mass/Vol] 90 mg/dL <130 mg/dL [facility] Cholesterol.total/Choles terol in HDL [Mass ratio] 2.13 {ratio} <5.10 [facility] Fasting Time 1 hrs [facility] Triglyceride [Mass/Vol] 155 mg/dL High <150 mg/dL C [facility] Absolute lymphocyte countOrd ered By: Dr. Almeida on 12-22-2022 Lymphocytes Auto (Unsp spec) [#/Vol] 2.68 10*3/uL 0.83-4.51 [facility] Basophil percentageOrdered B y: Dr. Almeida on 12-22-2022 Basophil percentage 0 SEEN /hpf 0-5 [facility] Basophils/100 WBC (Bld) 0.6 % 0-1 [facility] Chloride [Moles/Vol] 102 mmol/L 98-107 [facility] Eosinophils/100 WBC (Bld) 1.0 % 0-5 [facility] Glucose [Mass/Vol] 130 mg/dL 74-106 [facility] Comment on above: Fasting Glucose resu lt greater than or equal to 126 mg/dL suggests DIABETES MELLITUS per A.D.A. criteria. Neutrophils (Bld) [#/Vol] 7.1 10*3/uL 2.0-7.7 [facility] Neutrophils/100 WBC (Bld) 66.8 % 47-70 [facility] Potassium [Moles/Vol] 3.7 mmol/L 3.5-5.1 [facility] Sodium [Moles/Vol] 139 mmol/L 136-145 [facility] WBC (Bld) [#/Vol] 10.6 10*3/uL 4.4-11.0 [facility] Bilirubin Test strip Ql (U)O rdered By: Dr. Almeida on 12-22-2022 Bilirubin Ql (U) Negative Negative [facility] Blood erythrocytes count (nu mber/volume)Ordered By: Dr. Almeida on 12-22-2022 RBC (Bld) [#/Vol] 4.55 10*6/uL 4.2-5.4 [facility] Blood hemoglobin measurement (mass/volume)Ordered By: Dr. Almeida on 12-22-2022 Hemoglobin (Bld) [Mass/Vol] 14.3 g/dL 12.0-15.0 [facility] Blood lymphocytes/100 leukoc ytesOrdered By: Dr. Almeida on 12-22-2022 Lymphocytes/100 WBC (Bld) 25.3 % 19-41 [facility] Blood monocytes/100 leukocyt esOrdered By: Dr. Almeida on 12-22-2022 Monocytes/100 WBC (Bld) 5.9 % 0-10 [facility] Blood platelet mean volumeOr dered By: Dr. Almeida on 12-22-2022 Platelet mean volume (Bld) [Entitic vol] 9.2 fL 6.2-12.0 [facility] Determination of erythrocyte mean corpuscular volume (MCV)Ordered By: Dr. Almeida on 12-22-2022 MCV (RBC) [Entitic vol] 93.4 fL 81-99 [facility] Hematocrit Auto (Bld) [Volum e fraction]Ordered By: Dr. Almeida on 12-22-2022 Hematocrit (Bld) [Volume fraction] 42.5 % 37-47 [facility] Influenza virus A and B and SARS-CoV-2 (COVID-19) Ag panel - Upper respiratory specimOrdered By: Dr. Almeida on 12-22-2022 SARS-CoV-2 (COVID-19) RNA IRINA+probe Ql (Resp) [facility] Ketones Test strip Ql (U)Ord ered By: Dr. Almeida on 12-22-2022 Ketones Ql (U) Negative Negative [facility] Laboratory - Chemistry and C hemistry - challengeOrdered By: Dr. Almeida on 12-22-2022 CO2 [Moles/Vol] 28.0 mmol/L 21.0-32.0 [facility] Urea nitrogen/Creatinine [Mass ratio] 23.5 mg/mg 10-20 [facility] Laboratory - Hematology and Cell countsOrdered By: Dr. Almeida on 12-22-2022 Erythrocyte distribution width (RBC) [Entitic vol] 40.2 fL 35.1-43.9 [facility] Erythrocyte distribution width (RBC) [Ratio] 11.9 % 11.6-14.6 [facility] Immature granulocytes/100 WBC (Bld) 0.400 % 0.0-0.9 [facility] Comment on above: IG% - Immature Granu locytes (promyelocytes, myelocytes and metamyelocytes) > 1% indicates that a LEFT SHIFT is Present. MCH (RBC) [Entitic mass] 31.4 pg 27.0-32.0 [facility] Nucleated RBC/100 WBC (Bld) [Ratio] 0 % 0-5 [facility] MCHC Auto (RBC) [Mass/Vol]Or dered By: Dr. Almeida on 12-22-2022 MCHC (RBC) [Mass/Vol] 33.6 g/dL 32-36 [facility] Mucus LM Ql (Urine sed)Order ed By: Dr. Almeida on 12-22-2022 Mucus Ql (Urine sed) 0 SEEN /hpf [facility] Nitrite Test strip Ql (U)Ord ered By: Dr. Almeida on 12-22-2022 Nitrite Ql (U) Negative Negative [facility] No Panel InformationOrdered By: Dr. Almeida on 12-22-2022 Estimated Creatinine Clearance Calc 79.15 ml/min [facility] Estimated GFR (MDRD) Amer 118 mL/min >60 [facility] Comment on above: GFR Calc Estimated GFR (MDRD) Non-Af Amer 98 mL/min >60 [facility] Comment on above: Non- GFR Calc Troponin I High Sensitivity 4 pg/mL 3.0-54.0 [facility] Comment on above: Please Note: New Melinda t Units and Gender Specific Reference Ranges. For more information see Policy Stat Procedure [place] High Sensitivity Troponin (TNIH) and attachments. Platelets bldOrdered By: Dr. Almeida on 12-22-2022 Platelets (Bld) [#/Vol] 328 10*3/uL 150-450 [facility] Protein Test strip Ql (U)Ord ered By: Dr. Almeida on 12-22-2022 Protein Ql (U) Negative Negative [facility] Serum or plasma calcium rafia urement (mass/volume)Ordered By: Dr. Almeida on 12-22-2022 Calcium [Mass/Vol] 9.5 mg/dL 8.5-10.1 [facility] Serum or plasma creatinine m easurement (mass/volume)Ordered By: Dr. Almeida on 12-22-2022 Creatinine [Mass/Vol] 0.68 mg/dL 0.55-1.02 [facility] Comment on above: The validity of the calculated GFR & GFRAA in patients over 70 years has not been determined. Clinical correlation is essential. Serum or plasma urea nitroge n measurement (mass/volume)Ordered By: Dr. Almeida on 12-22-2022 Urea nitrogen [Mass/Vol] 16 mg/dL 7-18 [facility] Squamous epithelial cells de tection in urine sediment by light microscopyOrdered By: Dr. Almeida on 12-22-2022 Epithelial cells.squamous LM Ql (Urine sed) 0-5 SEEN /hpf 5-10 [facility] Thin prep Papanicolaou smear with manual screeningOrdered By: Dr. Almeida on 12-22-2022 Thin prep Papanicolaou smear with manual screening 9 5-15 [facility] Urine blood detectionOrdered By: Dr. Almeida on 12-22-2022 RBC Ql (U) 25 /ul Negative [facility] RBC Ql (U) 0-5 SEEN /hpf 0-5 [facility] Urine clarityOrdered By: Dr. Almeida on 12-22-2022 Clarity (U) Sl. Cloudy Clear [facility] Urine color determinationOrd ered By: Dr. Almeida on 12-22-2022 Color (U) Straw Yellow [facility] Urine glucose detectionOrder ed By: Dr. Almeida on 12-22-2022 Glucose Ql (U) Normal mg/dl Normal [facility] Urine leukocyte esterase det ection by dipstickOrdered By: Dr. Almeida on 12-22-2022 Leukocyte esterase Test strip Ql (U) Negative Negative [facility] Urine pHOrdered By: Dr. Jones abraham on 12-22-2022 pH (U) 8.0 [pH] 5.0 - 8.0 [facility] Urine sediment bacteria coun t by microscopy (number/high power field)Ordered By: Dr. Almeida on 12-22-2022 Bacteria LM.HPF (Urine sed) [#/Area] 0 /[HPF] None Seen [facility] Urine specific gravity measu rementOrdered By: Dr. Almeida on 12-22-2022 Specific gravity (U) [Rel density] 1.015 1.002-1.030 [facility] Urobilinogen Auto test strip Ql (U)Ordered By: Dr. Almeida on 12-22-2022 Urobilinogen Ql (U) Normal mg/dl Normal [facility] AKHIL SCREENINGon 09-16-2022 [facility] XR CHEST 2V FRONTAL/LATon [facility] XR Chest PA and Lateralon IMPRESSION: No acute radiographic abnormality. Nail Making Machine Tender: POLA Transcribe Date/Time: Sep 08 2022 9:31A Dictated by : HAILEY MCLEAN MD This examination was interpreted and the report reviewed and electronically signed by: HAILEY MCLEAN MD on Sep 08 2022 9:32AM [facility] DIVISION OF RADIOLOGY * * *Final [...] mild degenerative changes. DIVISION OF RADIOLOGY Provider, [facility] - 09/08/2022 * * *Final Report* * [...] changes. IMPRESSION IMPRESSION: No acute radiographic abnormality. Nail Making Machine Tender: POLA Transcribe Date/Time: Sep 08 2022 9:31A Dictated by : HAILEY MCLEAN MD This examination was interpreted and the report reviewed and electronically signed by: HAILEY MCLEAN MD on Sep 08 2022 9:32AM EST [facility] Radiology Study observation (narrative) [facility] XR Chest PA and LateralOrder ed By: [facility] Provider on 09-08-2022 [facility] T4 FREE/FREE THYROXon 2021 Free T4 [Mass/Vol] 1.2 ng/dL 0.9 - 1.7 ng/dL [facility] TSH BLDon 03-12-2022 TSH Qn 1.620 m[IU]/L 0.270 - 4.200 mIU/L [facility] UA DIP, URINE (POC)on 2021 BILIRUBIN UA (POCT) Negative Negative [facility] CLARITY UA (POCT) Clear [facility] COLOR UA (POCT) Yellow [facility] GLUCOSE UA (POCT) Negative Negative mg/dL [facility] HEMOGLOBIN/BLOOD UA (POCT) Moderate Abnormal Negative [facility] KETONE UA (POCT) Negative Negative mg/dL [facility] LEUKOCYTES UA (POCT) Negative Negative [facility] NITRITE UA (POCT) Negative Negative [facility] PH UA (POCT) 7.0 4.5 - 8.0 [facility] Protein Ql (U) Negative Negative mg/dL [facility] SPECIFIC GRAVITY UA (POCT) 1.020 1.005 - 1.030 [facility] UROBILINOGEN UA (POCT) 0.2 E.U./dL Danni l E.U./dL [facility] UA DIP, URINE (POC)on 2021 BILIRUBIN UA (POCT) Negative Negative [facility] CLARITY UA (POCT) Clear [facility] COLOR UA (POCT) Yellow [facility] GLUCOSE UA (POCT) Negative Negative mg/dL [facility] HEMOGLOBIN/BLOOD UA (POCT) Moderate Abnormal Negative [facility] KETONE UA (POCT) Negative Negative mg/dL [facility] LEUKOCYTES UA (POCT) Negative Negative [facility] NITRITE UA (POCT) Negative [facility]A (POCT) 7.0 4.5 - 8.0 [facility] Protein Ql (U) Negative Negative mg/dL [facility] SPECIFIC GRAVITY UA (POCT) 1.020 1.005 - 1.030 [facility] UROBILINOGEN UA (POCT) 0.2 E.U./dL Danni l E.U./dL [facility] Vital Signs Date Time Vital Sign Value Performing Clinician Facility 04-01-2025 15:41-0400 Body temperature 97.9 [degF] Dr. Philly Gregory MD Work Phone: 1(554)[phone] [place] [address] 04-01-2025 15:41-0400 Diastolic blood pressure 102 mm[Hg] Dr. Philly Gregory MD Work Phone: 0(065)[phone] [place] [address] 04-01-2025 15:41-0400 Heart rate 69 /min Dr. Philly Gregory MD Work Phone: 1(818)072-385184 [place] [address] 04-01-2025 15:41-0400 Respiratory rate 17 /min Dr. Philly Gregory MD Work Phone: 7(398)289-592584 [place] [address] 04-01-2025 15:41-0400 SaO2% (BldA) [Mass fraction] 99 % Dr. Philly Gregory MD Work Phone: 6(363)[phone] [place] [address] 04-01-2025 15:41-0400 Systolic blood pressure 147 mm[Hg] Dr. Philly Gregory MD Work Phone: 7(132)274-345984 [place] [address] 04-01-2025 13:13-0400 Body height 160.[address] Philly Gregory MD Work Phone: 8(993)490-747984 [place] [address] 04-01-2025 13:13-0400 Body mass index (BMI) [Ratio] 22.1 kg/m2 Dr. Philly Gregory MD Work Phone: 7(280)203-276484 [place] [address] 04-01-2025 13:13-0400 Body weight 56.[address] Philly Gregory MD Work Phone: 2(148)640-318984 [place] [address] 03-21-2025 10:19-0400 Body mass index (BMI) [Ratio] 22.95 kg/m2 Kendall Pete APRN.CNS Work Phone: [facility] 03-21-2025 10:19-0400 Body weight 56 kg Kendall Pete ENGINEER [employer].GAMING MANAGER Work Phone: [facility] 03-21-2025 10:19-0400 Diastolic blood pressure 82 mm[Hg] Kendall Pete ENGINEER [employer].GAMING MANAGER Work Phone: [facility] 03-21-2025 10:19-0400 Heart rate 69 /min Kendall Pete ENGINEER [employer].GAMING MANAGER Work Phone: [facility] 03-21-2025 10:19-0400 Respiratory rate 16 /min Kendall Pete ENGINEER [employer]ATION.GAMING MANAGER Work Phone: [facility] 03-21-2025 10:19-0400 Systolic blood pressure 129 mm[Hg] Kendall Pete ENGINEER [employer]ATION.GAMING MANAGER Work Phone: [facility] 03-14-2025 15:04-0400 Body mass index (BMI) [Ratio] 22.86 kg/m2 Esthela Lucia ENGINEER 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: [facility] 03-14-2025 15:04-0400 Body weight 55.79 kg Esthela Nogal ENGINEER 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: [facility] 03-14-2025 15:04-0400 Diastolic blood pressure 88 mm[Hg] Esthela Lucia ENGINEER [employer]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: [facility] 03-14-2025 15:04-0400 Systolic blood pressure 124 mm[Hg] Esthela Nogal ENGINEER [employer]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: [facility] 01-03-2025 08:48-0400 Body mass index (BMI) [Ratio] 22.54 kg/m2 Kendall Pete ENGINEER [employer].GAMING MANAGER Work Phone: [facility] 01-03-2025 08:48-0400 Body weight 55 kg Kendall Pete ENGINEER [employer].GAMING MANAGER Work Phone: [facility] 01-03-2025 08:48-0400 Diastolic blood pressure 83 mm[Hg] Kendall Pete ENGINEER [employer].GAMING MANAGER Work Phone: [facility] 01-03-2025 08:48-0400 Heart rate 60 /min Kendall Pete ENGINEER [employer].GAMING MANAGER Work Phone: [facility] 01-03-2025 08:48-0400 Respiratory rate 16 /min Kendall Pete ENGINEER [employer]ATION.GAMING MANAGER Work Phone: [facility] 01-03-2025 08:48-0400 Systolic blood pressure 126 mm[Hg] Kendall Pete ENGINEER [employer]ATION.GAMING MANAGER Work Phone: [facility] 12-28-2024 19:13-0400 Body mass index (BMI) [Ratio] 23.28 kg/m2 Shahzad Hughes ENGINEER 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: [facility] 12-28-2024 19:13-0400 Body temperature 98.1 [degF] Shahzad Hughes APRN.SCREEN DOOR MAKER Work Phone: [facility] 12-28-2024 19:13-0400 Body weight 56.8 kg Shahzad Hughes APRN.SCREEN DOOR MAKER Work Phone: [facility] 12-28-2024 19:13-0400 Diastolic blood pressure 82 mm[Hg] Shahzad Hughes ENGINEER 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: [facility] 12-28-2024 19:13-0400 Heart rate 73 /min Shahzad Hughes APRN.SCREEN DOOR MAKER Work Phone: [facility] 12-28-2024 19:13-0400 Respiratory rate 18 /min Shahzad Hughes APRN.SCREEN DOOR MAKER Work Phone: [facility] 12-28-2024 19:13-0400 SaO2% (BldA) [Mass fraction] 100 % Shahzad Hughes ENGINEER 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: [facility] 12-28-2024 19:13-0400 Systolic blood pressure 122 mm[Hg] Shahzad Hughes APRN.SCREEN DOOR MAKER Work Phone: [facility] 09-20-2024 11:35-0500 Diastolic blood pressure 76 mm[Hg] Philly Gregory MD Work Phone: [facility] 09-20-2024 11:35-0500 Systolic blood pressure 120 mm[Hg] Philly Gregory MD Work Phone: [facility] 09-20-2024 10:51-0500 Body mass index (BMI) [Ratio] 22.29 kg/m2 Philly Gregory MD Work Phone: [facility] 09-20-2024 10:51-0500 Body temperature 97.81 [degF] Philly Gregory MD Work Phone: [facility] 09-20-2024 10:51-0500 Body weight 54.4 kg Philly Gregory MD Work Phone: [facility] 09-20-2024 10:51-0500 Heart rate 77 /min Philly Gregory MD Work Phone: [facility] 09-20-2024 10:51-0500 Respiratory rate 18 /min Philly Gregory MD Work Phone: [facility] 09-20-2024 10:51-0500 SaO2% (BldA) [Mass fraction] 99 % Philly Gregory MD Work Phone: [facility] 09-06-2024 09:14-0500 Body mass index (BMI) [Ratio] 22.62 kg/m2 Kendall Pete ENGINEER [employer].GAMING MANAGER Work Phone: [facility] 09-06-2024 09:14-0500 Body weight 55.2 kg Kendall Pete ENGINEER [employer].GAMING MANAGER Work Phone: [facility] 09-06-2024 09:14-0500 Diastolic blood pressure 79 mm[Hg] Kendall Pete ENGINEER [employer]ATION.GAMING MANAGER Work Phone: [facility] 09-06-2024 09:14-0500 Heart rate 69 /min Kendall Pete ENGINEER [employer]ATION.GAMING MANAGER Work Phone: [facility] 09-06-2024 09:14-0500 Respiratory rate 16 /min Kendall Pete ENGINEER [employer]ATION.GAMING MANAGER Work Phone: [facility] 09-06-2024 09:14-0500 Systolic blood pressure 123 mm[Hg] Kendall Pete ENGINEER [employer]ING [employer]ATION.GAMING MANAGER Work Phone: [facility] 08-15-2024 09:27-0400 Diastolic blood pressure 96 mm[Hg] Kendall Pete ENGINEER [employer].GAMING MANAGER Work Phone: [facility] Comment on above: bp average 08-15-2024 09:27-0400 Heart rate 61 /min Kendall Pete ENGINEER [employer].GAMING MANAGER Work Phone: [facility] 08-15-2024 09:27-0400 Systolic blood pressure 158 mm[Hg] Kendall Pete ENGINEER [employer]ATION.GAMING MANAGER Work Phone: [facility] Comment on above: bp average 08-15-2024 09:25-0400 Body mass index (BMI) [Ratio] 22.21 kg/m2 Kendall Pete ENGINEER [employer].GAMING MANAGER Work Phone: [facility] 08-15-2024 09:25-0400 Body weight 54.2 kg Kendall Pete ENGINEER [employer]ATION.GAMING MANAGER Work Phone: [facility] 08-15-2024 09:25-0400 Respiratory rate 16 /min Kendall Pete ENGINEER [employer]ATION.GAMING MANAGER Work Phone: [facility] 07-05-2024 09:44-0400 Diastolic blood pressure 86 mm[Hg] Kendall Pete ENGINEER [employer]ATION.GAMING MANAGER Work Phone: [facility] 07-05-2024 09:44-0400 Heart rate 73 /min Kendall Pete ENGINEER [employer]ATION.GAMING MANAGER Work Phone: [facility] 07-05-2024 09:44-0400 Systolic blood pressure 134 mm[Hg] Kendall Pete ENGINEER [employer]ATION.GAMING MANAGER Work Phone: [facility] 07-05-2024 09:40-0400 Body mass index (BMI) [Ratio] 22.7 kg/m2 Kendall Pete ENGINEER [employer]ATION.GAMING MANAGER Work Phone: [facility] 07-05-2024 09:40-0400 Body weight 55.4 kg Kendall Pete ENGINEER [employer]ATION.GAMING MANAGER Work Phone: [facility] 03-11-2024 09:15-0400 Body height 156.2 cm Esthela Nogal ENGINEER [employer]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: [facility] 03-11-2024 09:15-0400 Body mass index (BMI) [Ratio] 23.79 kg/m2 Esthela Nogal ENGINEER [employer]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: [facility] 03-11-2024 09:15-0400 Body weight 58.06 kg Esthela Lucia ENGINEER [employer]ING [employer]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: [facility] 03-11-2024 09:15-0400 Diastolic blood pressure 80 mm[Hg] Esthela Lucia ENGINEER [employer]ING [employer]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: [facility] 03-11-2024 09:15-0400 Systolic blood pressure 144 mm[Hg] Esthela Lucia ENGINEER [employer]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: [facility] 03-08-2024 08:05-0400 Diastolic blood pressure 93 mm[Hg] Kendall Pete ENGINEER [employer]ATION.GAMING MANAGER Work Phone: [facility] Comment on above: bp average 03-08-2024 08:05-0400 Heart rate 74 /min Kendall Pete ENGINEER [employer].GAMING MANAGER Work Phone: [facility] 03-08-2024 08:05-0400 Systolic blood pressure 155 mm[Hg] Kendall Pete ENGINEER [employer]ATION.GAMING MANAGER Work Phone: [facility] Comment on above: bp average 03-08-2024 08:00-0400 Body mass index (BMI) [Ratio] 23.04 kg/m2 Kendall Pete ENGINEER [employer]ATION.GAMING MANAGER Work Phone: [facility] 03-08-2024 08:00-0400 Body weight 58.06 kg Kendall Pete ENGINEER [employer]ATION.GAMING MANAGER Work Phone: [facility] 03-08-2024 08:00-0400 Respiratory rate 16 /min Kendall Pete ENGINEER [employer]ATION.GAMING MANAGER Work Phone: [facility] 02-25-2024 08:01-0400 Body mass index (BMI) [Ratio] 23.58 kg/m2 Angela Noland APRN.SCREEN DOOR MAKER Work Phone: [facility] 02-25-2024 08:01-0400 Body temperature 97.9 [degF] Angela Noland APRN.SCREEN DOOR MAKER Work Phone: [facility] 02-25-2024 08:01-0400 Body weight 59.42 kg Angela Noland APRN.SCREEN DOOR MAKER Work Phone: [facility] 02-25-2024 08:01-0400 Diastolic blood pressure 92 mm[Hg] Angela Noland APRN.SCREEN DOOR MAKER Work Phone: [facility] 02-25-2024 08:01-0400 Heart rate 74 /min Angela Noland APRN.SCREEN DOOR MAKER Work Phone: [facility] 02-25-2024 08:01-0400 Respiratory rate 18 /min Angela Noland APRN.SCREEN DOOR MAKER Work Phone: [facility] 02-25-2024 08:01-0400 SaO2% (BldA) [Mass fraction] 99 % Angela Noland APRN.SCREEN DOOR MAKER Work Phone: [facility] 02-25-2024 08:01-0400 Systolic blood pressure 154 mm[Hg] Angela Noland APRN.SCREEN DOOR MAKER Work Phone: [facility] 02-10-2024 17:10-0400 Body mass index (BMI) [Ratio] 23.77 kg/m2 Nelly Worrell APRN.SCREEN DOOR MAKER Work Phone: [facility] 02-10-2024 17:10-0400 Body temperature 97.5 [degF] Nelly Worrell APRN.SCREEN DOOR MAKER Work Phone: [facility] 02-10-2024 17:10-0400 Body weight 59.9 kg Nelly Worrell APRN.SCREEN DOOR MAKER Work Phone: [facility] 02-10-2024 17:10-0400 Diastolic blood pressure 100 mm[Hg] Nelly Worrell APRN.SCREEN DOOR MAKER Work Phone: [facility] 02-10-2024 17:10-0400 Heart rate 90 /min Nelly Worrell APRN.SCREEN DOOR MAKER Work Phone: [facility] 02-10-2024 17:10-0400 Respiratory rate 19 /min Nelly Worrell APRN.SCREEN DOOR MAKER Work Phone: [facility] 02-10-2024 17:10-0400 SaO2% (BldA) [Mass fraction] 98 % Nelly Worrell APRN.SCREEN DOOR MAKER Work Phone: [facility] 02-10-2024 17:10-0400 Systolic blood pressure 148 mm[Hg] Nelly Worrell APRN.SCREEN DOOR MAKER Work Phone: [facility] 12-12-2023 09:35-0500 Body temperature 98.01 [degF] Krislyn Aberegg PA Work Phone: [facility] 12-12-2023 09:35-0500 Body weight 60.24 kg Krislyn Aberegg PA Work Phone: [facility] 12-12-2023 09:35-0500 Diastolic blood pressure 72 mm[Hg] Krislyn Aberegg PA Work Phone: [facility] 12-12-2023 09:35-0500 Heart rate 90 /min Krislyn Aberegg PA Work Phone: [facility] 12-12-2023 09:35-0500 Respiratory rate 16 /min Krislyn Aberegg PA Work Phone: [facility] 12-12-2023 09:35-0500 SaO2% (BldA) [Mass fraction] 98 % Krislyn Aberegg PA Work Phone: [facility] 12-12-2023 09:35-0500 Systolic blood pressure 126 mm[Hg] Krislyn Aberegg PA Work Phone: [facility] 09-20-2023 12:48-0500 Diastolic blood pressure 69 mm[Hg] [facility] 09-20-2023 12:48-0500 Heart rate 72 /min [facility] 09-20-2023 12:48-0500 Respiratory rate 15 /min [facility] 09-20-2023 12:48-0500 SaO2% (BldA) [Mass fraction] 98 % [facility] 09-20-2023 12:48-0500 Systolic blood pressure 124 mm[Hg] [facility] 09-20-2023 11:37-0500 Body height 160.02 cm [facility] 09-20-2023 11:37-0500 Body mass index (BMI) [Ratio] 23 kg/m2 [facility] 09-20-2023 11:37-0500 Body temperature 98 [degF] [facility] 09-20-2023 11:37-0500 Body weight 58.96 kg [facility] 09-17-2023 09:53-0500 Diastolic blood pressure 85 mm[Hg] Angela Older ENGINEER [employer]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: [facility] 09-17-2023 09:53-0500 Heart rate 75 /min Angela Older ENGINEER [employer]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: [facility] 09-17-2023 09:53-0500 Systolic blood pressure 136 mm[Hg] Angela Older ENGINEER [employer]ING [employer]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: [facility] 09-17-2023 09:14-0500 Body temperature 98.4 [degF] Angela Older ENGINEER [employer]ING [employer]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: [facility] 09-17-2023 09:14-0500 Body weight 58.06 kg Angela Older ENGINEER [employer]ING [employer]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: [facility] 09-17-2023 09:14-0500 Respiratory rate 18 /min Angela Older ENGINEER [employer]ING [employer]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: [facility] 09-17-2023 09:14-0500 SaO2% (BldA) [Mass fraction] 98 % Angela Older ENGINEER [employer]ING [employer]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: [facility] 09-12-2023 14:01-0500 Body height 158.75 cm [facility] 09-12-2023 14:01-0500 Body mass index (BMI) [Ratio] 23.4 kg/m2 [facility] 09-12-2023 14:01-0500 Body temperature 97.5 [degF] [facility] 09-12-2023 14:01-0500 Body weight 59.14 kg [facility] 09-12-2023 14:01-0500 Diastolic blood pressure 103 mm[Hg] [facility] 09-12-2023 14:01-0500 Heart rate 88 /min [facility] 09-12-2023 14:01-0500 Respiratory rate 18 /min [facility] 09-12-2023 14:01-0500 SaO2% (BldA) [Mass fraction] 100 % [facility] 09-12-2023 14:01-0500 Systolic blood pressure 188 mm[Hg] [facility] 09-06-2023 15:29-0500 Body temperature 98.1 [degF] Genaro Pendlebury ENGINEER [employer]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: [facility] 09-06-2023 15:29-0500 Body weight 59.88 kg Genaro Pendbury ENGINEER [employer]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: [facility] 09-06-2023 15:29-0500 Diastolic blood pressure 92 mm[Hg] Genaro Pendlebury ENGINEER [employer]MPING [employer]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: [facility] 09-06-2023 15:29-0500 Heart rate 86 /min Genaro Pendlebury ENGINEER [employer]ING [employer]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: [facility] 09-06-2023 15:29-0500 Respiratory rate 21 /min Genaro Pendlebury ENGINEER [employer]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: [facility] 09-06-2023 15:29-0500 SaO2% (BldA) [Mass fraction] 98 % Genaro Pendlebury ENGINEER [employer]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: [facility] 09-06-2023 15:29-0500 Systolic blood pressure 138 mm[Hg] Genaro Pendlebury ENGINEER [employer]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: [facility] 05-26-2023 11:38-0400 Diastolic blood pressure 87 mm[Hg] Kendall Pete ENGINEER [employer]ATION.GAMING MANAGER Work Phone: [facility] 05-26-2023 11:38-0400 Heart rate 72 /min Kendall Pete ENGINEER [employer]ATION.GAMING MANAGER Work Phone: [facility] 05-26-2023 11:38-0400 Systolic blood pressure 135 mm[Hg] Kendall Pete ENGINEER [employer]ATION.GAMING MANAGER Work Phone: [facility] 05-26-2023 11:30-0400 Body weight 58.51 kg Kendall Pete ENGINEER [employer]ATION.GAMING MANAGER Work Phone: [facility] 05-26-2023 11:30-0400 Respiratory rate 16 /min Kendall Pete ENGINEER [employer]ATION.GAMING MANAGER Work Phone: [facility] 04-29-2023 09:02-0400 Diastolic blood pressure 100 mm[Hg] Kiersten Elsi ENGINEER [employer]ING [employer]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: [facility] 04-29-2023 09:02-0400 Systolic blood pressure 147 mm[Hg] Kiersten Elsi ENGINEER [employer]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: [facility] 04-29-2023 08:57-0400 Body weight 58.06 kg Kiersten Elsi ENGINEER [employer]ING [employer]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: [facility] 04-29-2023 08:57-0400 Heart rate 74 /min Kiersten Elsi ENGINEER [employer]ING [employer]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: [facility] 04-29-2023 08:57-0400 SaO2% (BldA) [Mass fraction] 96 % Kiersten Elsi ENGINEER [employer]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: [facility] 01-20-2023 10:35-0400 Body height 158.8 cm Esthela Lucia ENGINEER [employer]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: [facility] 01-20-2023 10:35-0400 Body weight 56.88 kg Esthela Nogal ENGINEER [employer]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: [facility] 01-20-2023 10:35-0400 Diastolic blood pressure 92 mm[Hg] Esthela Nogal ENGINEER [employer]ING [employer]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: [facility] 01-20-2023 10:35-0400 Systolic blood pressure 162 mm[Hg] Esthela Lucia ENGINEER [employer]ING [employer]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: [facility] 12-25-2022 14:26-0500 Diastolic blood pressure 87 mm[Hg] Kendall Pete ENGINEER [employer]ING [employer]ATION.GAMING MANAGER Work Phone: [facility] 12-25-2022 14:26-0500 Systolic blood pressure 136 mm[Hg] Kendall Pete ENGINEER G[employer]ING [employer]ATION.GAMING MANAGER Work Phone: [facility] 12-25-2022 14:21-0500 Body weight 56.7 kg Kendall Pete ENGINEER [employer]ING [employer]ATION.GAMING MANAGER Work Phone: [facility] 12-25-2022 14:21-0500 Heart rate 87 /min Kendall Pete ENGINEER [employer]ATION.GAMING MANAGER Work Phone: [facility] 12-25-2022 14:21-0500 Respiratory rate 16 /min Kendall Pete ENGINEER [employer]ING [employer]ATION.GAMING MANAGER Work Phone: [facility] 12-25-2022 14:21-0500 SaO2% (BldA) [Mass fraction] 99 % Kendall Pete ENGINEER [employer]ATION.GAMING MANAGER Work Phone: [facility] 12-22-2022 14:45-0500 Diastolic blood pressure 86 mm[Hg] [facility] 12-22-2022 14:45-0500 Respiratory rate 18 /min [facility] 12-22-2022 14:45-0500 SaO2% (BldA) [Mass fraction] 98 % [facility] 12-22-2022 14:45-0500 Systolic blood pressure 141 mm[Hg] [facility] 12-22-2022 14:11-0500 Heart rate 77 /min [facility] 12-22-2022 11:24-0500 Body temperature 97.5 [degF] [facility] 12-22-2022 10:36-0500 Body height 157.48 cm [facility] 12-22-2022 10:36-0500 Body mass index (BMI) [Ratio] 34.7 kg/m2 [facility] 12-22-2022 10:36-0500 Body weight 86.13 kg [facility] 12-14-2022 13:27-0500 Body temperature 96.91 [degF] Elgin Paul ENGINEER [employer]ING [employer]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: [facility] 12-14-2022 13:27-0500 Body weight 56.97 kg Elgin Paul ENGINEER [employer]ING [employer]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: [facility] 12-14-2022 13:27-0500 Diastolic blood pressure 100 mm[Hg] Elgin Paul ENGINEER [employer]ING [employer]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: [facility] 12-14-2022 13:27-0500 Heart rate 104 /min Elgin Paul ENGINEER [employer]ING [employer]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: [facility] 12-14-2022 13:27-0500 Respiratory rate 18 /min Elgin Paul ENGINEER [employer]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: [facility] 12-14-2022 13:27-0500 SaO2% (BldA) [Mass fraction] 99 % Elgin Paul ENGINEER [employer]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: [facility] 12-14-2022 13:27-0500 Systolic blood pressure 170 mm[Hg] Elgin Paul ENGINEER [employer]ING [employer]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: [facility] 10-07-2022 11:20-0500 Body temperature 98.01 [degF] Symone Herzog ENGINEER [employer]ING [employer]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: [facility] 10-07-2022 11:20-0500 Body weight 57.61 kg Symone Herzog ENGINEER [employer]ING [employer]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: [facility] 10-07-2022 11:20-0500 Diastolic blood pressure 82 mm[Hg] Symone Herzog ENGINEER [employer]ING [employer]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: [facility] 10-07-2022 11:20-0500 Heart rate 82 /min Symone Herzog ENGINEER [employer]ING [employer]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: [facility] 10-07-2022 11:20-0500 Respiratory rate 16 /min Symone Herzog ENGINEER [employer]ING [employer]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: [facility] 10-07-2022 11:20-0500 SaO2% (BldA) [Mass fraction] 98 % Symone Herzog ENGINEER [employer]ING [employer]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: [facility] 10-07-2022 11:20-0500 Systolic blood pressure 128 mm[Hg] Symone Herzog ENGINEER [employer]ING [employer]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: [facility] 09-08-2022 08:40-0500 Body temperature 97.9 [degF] Vibha Athy PA-C Work Phone: [facility] 09-08-2022 08:40-0500 Body weight 57.24 kg Vibha Athy PA-C Work Phone: [facility] 09-08-2022 08:40-0500 Diastolic blood pressure 92 mm[Hg] Vibha Athy PA-C Work Phone: [facility] 09-08-2022 08:40-0500 Heart rate 102 /min Vibha Athy PA-C Work Phone: [facility] 09-08-2022 08:40-0500 Respiratory rate 21 /min Vibha Athy PA-C Work Phone: [facility] 09-08-2022 08:40-0500 SaO2% (BldA) [Mass fraction] 98 % Vibha Athy PA-C Work Phone: [facility] 09-08-2022 08:40-0500 Systolic blood pressure 142 mm[Hg] Vibha Athy PA-C Work Phone: [facility] 09-02-2022 08:45-0500 Body weight 55.79 kg Kendall Pete ENGINEER [employer]ATION.GAMING MANAGER Work Phone: [facility] 09-02-2022 08:45-0500 Diastolic blood pressure 76 mm[Hg] Kendall Pete ENGINEER [employer]ATION.GAMING MANAGER Work Phone: [facility] 09-02-2022 08:45-0500 Heart rate 88 /min Kendall Albas ENGINEER [employer]ING [employer]ATION.GAMING MANAGER Work Phone: [facility] 09-02-2022 08:45-0500 Respiratory rate 16 /min Kendall Albas ENGINEER [employer]ING [employer]ATION.GAMING MANAGER Work Phone: [facility] 09-02-2022 08:45-0500 Systolic blood pressure 122 mm[Hg] Kendall Albas ENGINEER [employer]ING [employer]ATION.GAMING MANAGER Work Phone: [facility] 07-21-2022 08:05-0400 Body temperature 98.1 [degF] Elgin Miller ENGINEER [employer]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: [facility] 07-21-2022 08:05-0400 Body weight 57.7 kg Elgin Miller ENGINEER [employer]ING [employer]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: [facility] 07-21-2022 08:05-0400 Diastolic blood pressure 72 mm[Hg] Elgin Miller ENGINEER [employer]ING [employer]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: [facility] 07-21-2022 08:05-0400 Heart rate 77 /min Elgin Miller ENGINEER [employer]ING [employer]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: [facility] 07-21-2022 08:05-0400 Respiratory rate 21 /min Elgin Miller ENGINEER [employer]ING [employer]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: [facility] 07-21-2022 08:05-0400 SaO2% (BldA) [Mass fraction] 98 % Elgin Miller ENGINEER [employer]ING [employer]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: [facility] 07-21-2022 08:05-0400 Systolic blood pressure 120 mm[Hg] Elgin Miller ENGINEER [employer]ING [employer]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: [facility] 03-04-2022 09:43-0400 Body height 158.8 cm Td Murrell PA-C Work Phone: [facility] 03-04-2022 09:43-0400 Body temperature 98.29 [degF] Td Murrell PA-C Work Phone: [facility] 03-04-2022 09:43-0400 Body weight 56.25 kg Td Murrell PA-C Work Phone: [facility] 03-04-2022 09:43-0400 Diastolic blood pressure 70 mm[Hg] Td Murrell PA-C Work Phone: [facility] 03-04-2022 09:43-0400 Heart rate 86 /min Td Murrell PA-C Work Phone: [facility] 03-04-2022 09:43-0400 Respiratory rate 14 /min Td Murrell PA-C Work Phone: [facility] 03-04-2022 09:43-0400 SaO2% (BldA) [Mass fraction] 98 % Td Murrell PA-C Work Phone: [facility] 03-04-2022 09:43-0400 Systolic blood pressure 118 mm[Hg] Td Murrell PA-C Work Phone: [facility] 02-25-2022 10:02-0400 Diastolic blood pressure 78 mm[Hg] Philly Gregory MD Work Phone: [facility] 02-25-2022 10:02-0400 Systolic blood pressure 128 mm[Hg] Philly Gregory MD Work Phone: [facility] 02-25-2022 09:18-0400 Body weight 55.79 kg Philly Gregory MD Work Phone: [facility] 02-25-2022 09:18-0400 Heart rate 76 /min Philly Gregory MD Work Phone: [facility] 02-14-2022 07:49-0400 Body temperature 97.3 [degF] Mike Verdugo MD Work Phone: [facility] 02-14-2022 07:49-0400 Body weight 57.06 kg Mike Verdugo MD Work Phone: [facility] 04-29-2022 07:49-0400 Diastolic blood pressure 84 mm[Hg] Mike Verdugo MD Work Phone: [facility] 02-14-2022 07:49-0400 Heart rate 84 /min Mike Verdugo MD Work Phone: [facility] 02-14-2022 07:49-0400 Respiratory rate 16 /min Mike Verdugo MD Work Phone: [facility] 02-14-2022 07:49-0400 SaO2% (BldA) [Mass fraction] 99 % Mike Verdugo MD Work Phone: [facility] 02-14-2022 07:49-0400 Systolic blood pressure 136 mm[Hg] Mike Verdugo MD Work Phone: [facility] Encounters Encounter Date Encounter Type Care Provider Facility Start: 05-30-2025 End: 05-30-2025 ambulatory Lei Pepper PT Work Phone: [facility] Comment on above: Acute pain of left s houlder (Primary Dx) Start: 05-23-2025 End: 05-23-2025 ambulatory PHILLY GREGORY Facility:[facility] Start: 05-18-2025 End: 05-18-2025 ambulatory PHILLY GREGORY Facility:[facility] Start: 05-09-2025 End: 05-09-2025 ambulatory Lei Evgeny PT Work Phone: [facility] Comment on above: Acute pain of left s houlder (Primary Dx) Start: 04-25-2025 End: 04-25-2025 ambulatory Lei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 SCREENING [facility] Start: 09-27-2024 Screening for malign ant neoplasm of colon [facility] Start: 09-20-2024 End: 09-20-2024 Patient encounter procedure 09/20/2024 10:20 AM EST Office Visit [facility] [address] [facility] [address] Philly Gregory MD [address] [place] [address] 6 month f/u [facility] Comment on above: 6 month f/u Start: 09-17-2024 Annual PCP Team Chargemaster Specialist jozef Disease Visit Annual PCP Team Chronic Disease Visit [facility] Start: 09-17-2024 COLOGUARD (FIT-DNA) COLOGUARD (FIT-D NA) [facility] Start: 09-17-2024 COLORECTAL CANCER SCREENING COLORECTAL CANCER SCREENING [facility] Start: 09-06-2024 End: 12-06-2024 Thyrotropin [Units/volume] in Serum or Plasma [facility] Work Phone: Comment on above: Expected: 09/06/2024 , Expires: 12/06/2024 Start: 09-06-2024 End: 09-06-2024 Patient encounter procedure 09/06/2024 9:20 AM EST Office Visit [facility] [address] [place] [address] Kendall Pete, ENGINEER GAS PUMPING STATION.GAMING MANAGER [address] [place] [address] follow up/EKG [facility] Comment on above: follow up/EKG Start: 09-02-2024 BP Controlled (<130/80) BP Controlle d (<130/80) [facility] Start: 08-27-2024 DIABETES SCREEN DIABETES SCREEN [facility] Start: 06-19-2024 Influenza vaccination C [facility] Start: 04-29-2024 ANNUAL PCP TEAM CHART WRITER JOZEF DISEASE VISIT ANNUAL PCP TEAM CHRONIC DISEASE VISIT [facility] Start: 03-29-2024 End: 03-29-2024 Patient encounter procedure 03/29/2024 9:00 AM EDT Office Visit [facility] [address] [place] [address] Kendall Pete, ENGINEER GAS PUMPING STATION.GAMING MANAGER [address] [place] [address] follow up - blood pressure [facility] [place] Comment on above: follow up - blood pr essure Start: 03-11-2024 End: 03-11-2024 Patient encounter procedure 03/11/2024 9:00 AM EDT Office Visit OB/Gynecology [address] [place] [address] Esthela Myers APRN.SCREEN DOOR MAKER [address] [place] [address] yearly OB/Gynecology Comment on above: yearly Start: 03-08-2024 End: 06-07-2024 CBC W Auto Differential panel - Blood COMPLETE BLOOD COUNT AND DIFFERENTIAL Lab Routine Essential hypertension Expected: 03/08/2024, Expires: 06/07/2024 [facility] Comment on above: Expected: 03/08/2024 , Expires: 06/07/2024 Start: 03-08-2024 End: 06-07-2024 Comprehensive metabolic 2000 panel - Serum or Plasma COMPREHENSIVE METABOLIC PANEL Lab Routine Essential hypertension Expected: 03/08/2024, Expires: 06/07/2024 [facility] Work Phone: Comment on above: Expected: 03/08/2024 , Expires: 06/07/2024 Start: 03-08-2024 End: 06-07-2024 Hemoglobin A1c in Blood HEMOGLOBIN A1C Lab Routine IFG (impaired fasting glucose) Expected: 03/08/2024, Expires: 06/07/2024 [facility] Comment on above: Expected: 03/08/2024 , Expires: 06/07/2024 Start: 03-08-2024 End: 06-07-2024 Lipid 1996 panel - Serum or Plasma LIPID PANEL BASIC Lab Routine Essential hypertension Expected: 03/08/2024, Expires: 06/07/2024 [facility] Comment on above: Expected: 03/08/2024 , Expires: 06/07/2024 Start: 03-08-2024 End: 06-07-2024 LIPID PANEL, NONFASTING LIPID PANEL, NONFASTING Lab Routine Essential hypertension Expected: 03/08/2024, Expires: 06/07/2024 [facility] Comment on above: Expected: 03/08/2024 , Expires: 06/07/2024 Start: 03-08-2024 End: 06-07-2024 Thyrotropin [Units/volume] in Serum or Plasma THYROID STIMULATING HORMONE Lab Routine Essential hypertension Expected: 03/08/2024, Expires: 06/07/2024 [facility] Comment on above: Expected: 03/08/2024 , Expires: 06/07/2024 Start: 03-08-2024 End: 03-08-2024 Patient encounter procedure 03/08/2024 8:00 AM EDT Office Visit [facility] [place] [address] [place] [address] Kendall Pete, ENGINEER GAS PUMPING STATION.GAMING MANAGER [address] [place] [address] blood pressure follow up [facility] Comment on above: blood pressure follo w up Start: 02-10-2024 End: 02-24-2024 COVID & INFLUENZA A/B & RSV NAAT, ROUTINE [facility] Work Phone: Comment on above: Expected: 02/10/2024 , Expires: 02/24/2024 Start: 10-19-2023 Behavioral Health Screening Behavioral Health Screening [facility] Start: 10-19-2023 Depression Assessment Depression Ass essment [facility] Start: 09-16-2023 Mammography [facility] Start: 09-16-2023 Screening for malign ant neoplasm of breast Mammogram Screening [facility] Start: 09-12-2023 [facility] Start: 09-02-2023 BP CONTROLLED (<130/80) BP CONTROLLE D (<130/80) [facility] Start: 09-02-2023 COVID-19 VACCINE (3 - Booster for Pfizer series) COVID-19 VACCINE (3 - Booster for Pfizer series) [facility] Comment on above: Postponed from 02/18 (Declined at this time) Start: 09-02-2023 COVID-19 VACCINE (3 - Pfizer series) COVID-19 VACCINE (3 - Pfizer series) [facility] Comment on above: Postponed from 02/18 (Declined at this time) Start: 07-21-2023 BP CONTROLLED (<130/80) BP CONTROLLE D (<130/80) [facility] Start: 06-19-2023 Covid-19 Vaccine ( season) Covid-19 Vaccine ( season) [facility] Start: 06-19-2023 Influenza vaccination C [facility] Start: 04-17-2023 Influenza vaccination INFLUENZA (#1) [facility] Comment on above: Postponed from 06/19 (Declined at this time) Start: 2023 Pneumococcal Vaccine : 50+ (1 of 1 - PCV) Pneumococcal Vaccine: 50+ (1 of 1 - PCV) [facility] Start: 2023 SHINGRIX VACCINE (1 of 2) SHINGRIX VACCINE (1 of 2) [facility] Start: 04-02-2023 LIPID SCREEN LIPID SCREEN [facility] Start: 03-04-2023 BP CONTROLLED (<130/80) BP CONTROLLE D (<130/80) [facility] Start: 02-25-2023 Adult depression screening assessment DEPRESSION SCREENING [facility] Start: 02-25-2023 ANNUAL PCP TEAM CHART WRITER JOZEF DISEASE VISIT ANNUAL PCP TEAM CHRONIC DISEASE VISIT [facility] Start: 12-22-2022 [facility] Start: 10-19-2022 DEPRESSION ASSESSMENT DEPRESSION ASS ESSMENT [facility] Start: 09-08-2022 End: 09-22-2022 Influenza virus A and B RNA and SARS-CoV-2 (COVID-19) N gene panel - Respiratory specimen by IRINA with probe detection [facility] Work Phone: Comment on above: Expected: 09/08/2022 , Expires: 09/22/2022 Start: 09-06-2022 Mammography MAMMOGRAM [facility] Start: 09-02-2022 End: 11-02-2022 CBC W Auto Differential panel - Blood CBC + DIFF Lab Routine Primary hypertension ELIAN (obstructive sleep apnea) [id number] Expected: 09/02/2022, Expires: 11/02/2022 [facility] Work Phone: Comment on above: Expected: 09/02/2022 , Expires: 11/02/2022 Start: 09-02-2022 End: 11-02-2022 Comprehensive metabolic 2000 panel - Serum or Plasma COMP METABOLIC PANEL Lab Routine Primary hypertension IFG (impaired fasting glucose) ELIAN (obstructive sleep apnea) [id number] Expected: 09/02/2022, Expires: 11/02/2022 [facility] Work Phone: Comment on above: Expected: 09/02/2022 , Expires: 11/02/2022 Start: 09-02-2022 End: 11-02-2022 Hemoglobin A1c in Blood HGB A1C Lab Routine IFG (impaired fasting glucose) Expected: 09/02/2022, Expires: 11/02/2022 [facility] Work Phone: Comment on above: Expected: 09/02/2022 , Expires: 11/02/2022 Start: 08-27-2022 ANNUAL PCP TEAM CHART WRITER JOZEF DISEASE VISIT ANNUAL PCP TEAM CHRONIC DISEASE VISIT [facility] Start: 06-19-2022 Influenza vaccination C [facility] Start: 06-07-2022 Adult depression screening assessment DEPRESSION SCREENING [facility] Start: 06-07-2022 BP CONTROLLED (<130/80) BP CONTROLLE D (<130/80) [facility] Start: 05-26-2022 COVID-19 VACCINE (3 - Booster for Pfizer series) COVID-19 VACCINE (3 - Booster for Pfizer series) [facility] Start: 04-17-2022 Influenza vaccination INFLUENZA (#1) [facility] Comment on above: Postponed from 06/19 (Declined at this time) Start: 03-26-2022 Urine microalbumin profile DTAP,TDAP,TD (1 - Tdap) [facility] Comment on above: Postponed from 12/28 (Declined at this time) Start: 02-18-2022 COVID-19 VACCINE (3 - Booster for Pfizer series) COVID-19 VACCINE (3 - Booster for Pfizer series) [facility] Start: 11-21-2021 COVID-19 VACCINE (2 - Pfizer 3-dose series) COVID-19 VACCINE (2 - Pfizer 3-dose series) [facility] Start: 10-19-2021 DEPRESSION ASSESSMENT DEPRESSION ASS ESSMENT [facility] Start: 2018 COLOGUARD (FIT-DNA) COLOGUARD (FIT-D NA) [facility] Start: 2018 Colonoscopy COLONOSCOPY [facility] Start: 2018 COLORECTAL CANCER SCREENING COLORECTAL CANCER SCREENING [facility] Start: [address] COLONOGRAPHY [facility] Start: 2018 FECAL OCCULT BLOOD FECAL OCCULT BLOO D [facility] Start: 2018 Screening for malign ant neoplasm of colon [facility] Start: 2018 SIGMOIDOSCOPY SIGMOIDOSCOPY [facility] Start: 12-29-2007 Urine microalbumin profile [facility] Start: 1992 Hepatitis B Vaccine (1 of 3 - 19+ 3-dose series) Hepatitis B Vaccine (1 of 3 - 19+ 3-dose series) [facility] Start: 1983 Diabetic foot examination Diabetic Foot Exam [facility] Start: 1983 Glaucoma screening Dilated Retinal E xam [facility] Start: 1983 Hepatitis B screening Urine Albumin:Creatinine Ratio [facility] Start: 1973 HEPATITIS B (1 of 3 - 3-dose series) HEPATITIS B (1 of 3 - 3-dose series) [facility] Start: 1973 Hepatitis B Vaccine (1 of 3 - 3-dose series) Hepatitis B Vaccine (1 of 3 - 3-dose series) [facility] Bacteria identified in Urine by Culture URINE CULTURE Microbiology Routine Abdominal pain, lower Microscopic hematuria Ordered: 02/14/2022 [facility] Work Phone: Comment on above: Ordered: 02/14/2022 BACTERIAL VAGINOSIS NAAT BACTERIAL VAGINOSIS NAAT Lab Routine Vagina itching 03/11/2024 9:47 AM EDT [facility] DWIGHT/TRICHOMONAS NAAT DWIGHT/TRICHOMONAS NAAT Lab Routine Vagina itching 03/11/2024 9:47 AM EDT [facility] COLOGUARD COLOGUARD Lab Ro utine Screening for colon cancer Ordered: 07/05/2024 [facility] Work Phone: Comment on above: Ordered: 07/05/2024 COLOGUARD COLOGUARD Lab Ro utine Colon 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 Ordered: 09/20/2024 [facility] Work Phone: Comment on above: Ordered: 09/20/2024 COVID & INFLUENZA A/ B & RSV NAAT, ROUTINE COVID & INFLUENZA A/B & RSV NAAT, ROUTINE Microbiology Routine URI, acute Ordered: 12/12/2023 [facility] Work Phone: Comment on above: Ordered: 12/12/2023 End: 04-10-2025 DBT Breast - bilateral screening AKHIL SCREENING W ABIDA Radiology Routine Encounter for screening mammogram for breast cancer Dense breast tissue 1 Occurrences starting 03/11/2024 until 04/10/2025 [facility] Work Phone: Comment on above: 1 Occurrences starti ng 03/11/2024 until 04/10/2025 End: 04-13-2026 DBT Breast - bilateral screening AKHIL SCREENING W ABIDA Radiology Routine Encounter for gynecological examination (general) (routine) without abnormal findings Encounter for screening mammogram for breast cancer 1 Occurrences starting 03/14/2025 until 04/13/2026 [facility] Work Phone: Comment on above: 1 Occurrences starti ng 03/14/2025 until 04/13/2026 DBT Breast - bilater al screening AKHIL SCREENING W ABIDA Radiology Routine Encounter for screening mammogram for breast cancer Dense breast tissue 03/14/2025 2:38 PM EDT [facility] Work Phone: ECG COMPLETE ECG COMPLETE ECG Routine Essential hypertension Chest pain, unspecified type Ordered: 08/15/2024 [facility] Comment on above: Ordered: 08/15/2024 Hepb vaccine adult 2 dose schedule for im use HEPLISAV B (HEPATITIS B, ADJUVANT, ADULT) Immunization/Injection Routine Encounter for immunization 1 Occurrences starting 09/02/2022 [facility] Work Phone: Comment on above: 1 Occurrences starti ng 09/02/2022 End: 02-19-2024 AKHIL SCREENING W ABIDA AKHIL SCREENING W ABIDA Radiology Routine Encounter for screening mammogram for malignant neoplasm of breast Dense breasts 1 Occurrences starting 01/20/2023 until 02/19/2024 [facility] Work Phone: Comment on above: 1 Occurrences starti ng 01/20/2023 until 02/19/2024 Patient Education [facility] Work Phone: Patient referral [facility] Work Phone: SARS-CoV-2 (COVID-19 ) RNA [Presence] in Respiratory specimen by IRINA with probe detection 2019 CORONAVIRUS Microbiology Routine Suspected COVID-19 virus infection Ordered: 12/14/2022 [facility] Work Phone: Comment on above: Ordered: 12/14/2022 End: 08-15-2025 STRESS ECHO TREADMILL STRESS ECHO TREADMILL Cardiology Routine Essential hypertension Chest pain, unspecified type 1 Occurrences starting 08/15/2024 until 08/15/2025 [facility] Work Phone: Comment on above: 1 Occurrences starti ng 08/15/2024 until 08/15/2025 Tdap vaccine 7 yrs/> im TDAP VAC CINE AGE 7+ IM Immunization/Injection Routine Encounter for immunization 1 Occurrences starting 09/02/2022 [facility] Work Phone: Comment on above: 1 Occurrences starti ng 09/02/2022 UA DIP, URINE (POC) UA DIP, URIN E (POC) Lab Routine Abdominal pain, lower Ordered: 02/14/2022 [facility] Work Phone: Comment on above: Ordered: 02/14/2022 [facility] Immunizations Immunization Date Immunization Notes Care Provider Gurpreet elmore 12-24-2021 COVID-19 original vaccine, age 12+ yr, monovalent (PFIZER-BIONTECH - PURPLE TOP) Kiersten Calzada 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: [facility] Work Phone: 10-31-2021 COVID-19 vaccine, ag e 12+ yr (PFIZER-BIONTECH - PURPLE TOP) Philly Gregory MD Work Phone: [facility] Work Phone: 07-23-2018 influenza virus vaccine, unspecified formulation Kendall Pete ENGINE[employer].GAMING MANAGER Work Phone: [facility] 12-28-2007 tetanus and diphther ia toxoids, adsorbed, preservative free, for adult use (2 Lf of tetanus toxoid and 2 Lf of diphtheria toxoid) Philly Gregory MD Work Phone: [facility] Work Phone: Payers Date Payer Category Payer Self-pay [id number] 2025 Unknown [id number] 2025 Unknown [id number] 2024 Private Health Insurance [id number] 2023 Blue Cross Blue Shield [id number] 2023 Unknown EM ESCUDERO SS PPO [id number] 2023-Present [phone] [address] [place] [address] PPO [id number] 2023 Unknown [id number] 2017 Medicaid [employer]ICA[employer] [id number] 2017-Present [phone] [address] [place] [address] Medicaid [id number] 2017 Medicaid [id number] Unknown [employer] [id number] Unknown EM [id number] Unknown [id number] Social History Date Type Detail Facility Start: 07-21-2022 End: 03-11-2024 Tobacco smoking status NEIS Never smoked tobacco [facility] Start: 11-19-2021 End: 03-21-2025 Alcohol intake Current non-drinker of alcohol (finding) [facility] Start: 1975 Sex Assigned At Not on file C [facility] Start: 02-04-2022 End: 09-16-2022 Exposure to SARS-CoV-2 (event) Not sure [facility] Work Phone: Start: 07-21-2022 End: 03-11-2024 Tobacco use and exposure Smokeless tobacco non-user [facility] Start: 12-22-2022 End: 09-20-2023 Tobacco smoking status NHIS Unknown if ever smoked [facility] Start: 02-12-2014 Occasional [facility] Start: 02-12-2014 None [facility] Start: 02-12-2014 Spouse/ Signif icant Other;With Family [facility] Start: 02-12-2014 Non-smoker [facility] Start: 1975 Sex Assigned At Female W [facility] Start: 04-29-2023 End: 09-19-2024 History of Social function [facility] Work Phone: Start: 04-29-2023 End: 09-19-2024 Tobacco use panel [facility] Work Phone: Start: 09-19-2012 Adult Depression Screening Assessment 0 [facility] Work Phone: Do you belong to any clubs or organizations such as orthodoxy groups, unions, fra[employer]ekPanda or athletic groups, or school groups? Yes [facility] Are you now , , , , never or living with a partner? [facility] How often to you hav e a drink containing alcohol? Never [facility] How hard is it for y ou to pay for the very basics like food, housing, medical care, and heating Somewhat hard [facility] Do you feel stress - tense, restless, nervous, or anxious, or unable to sleep at night because your mind is troubled all the time - these days [OSQ] Only a little [facility] (I/We) worried wheth er (my/our) food would run out before (I/we) got money to buy more. Never true [facility] At any time in the p ast 12 months, were you homeless or living in long term [including now]? No [facility] Start: 12-12-2023 Gender identity Identifies as female gender (finding) [facility] Start: 12-12-2023 Sexual orientation Choose not to disclose [facility] How hard is it for y ou to pay for the very basics like food, housing, medical care, and heating Not very hard [facility] (I/We) worried wheth er (my/our) food would run out before (I/we) got money to buy more. Sometimes true [facility] NEGATED: Highlighted row [facility] NEGATED: Highlighted rowStart: SEGUNF History of tobacco use Passive smoker [facility] Functional Status Date Assessment Result Facility 05-09-2015 Are you deaf, or do you have serious difficulty hearing No 05/09/2015 8:46 AM Hanna Garcia RN No [facility] 05-09-2015 Are you blind, or do you have serious difficulty seeing, even when wearing glasses No 05/09/2015 8:46 AM Hanna Garcia RN No [facility] 05-09-2015 Do you have serious difficulty walking or climbing stairs No 05/09/2015 8:46 AM Hanna Garcia RN No [facility] 05-09-2015 Do you have difficul ty dressing or bathing No 05/09/2015 8:46 AM Hanna Garcia RN No [facility] 05-09-2015 Because of a physica l, mental, or emotional condition, do you have difficulty doing errands alone such as visiting a physician's office or shopping No 05/09/2015 8:46 AM Hanna Garcia RN No [facility] Mental Status Date Assessment Result Facility 12-22-2022 Cognitive function Level Of Cons ciousness Awake;Alert [facility] Work Phone: 05-09-2015 Because of a physica l, mental, or emotional condition, do you have serious difficulty concentrating, remembering, or making decisions No 05/09/2015 8:46 AM Hanna Garcia RN No [facility] Clinical Notes 08-13-2009 to 05-30-2025 Lei Pepper, BILLY - 05/30/2025 11:01 AM Lei Romo PT - 05/09/2025 3:10 PM Lei Romo PT - 04/25/2025 11:27 AM Lei Romo PT - 04/25/2025 10:57 AM EDTPatient Instructions Note Date & Type Note Facility 05-30-2025 Note HNO ID: [id number] Author: LEI PEPPER, BILLY Service: ? Author Type: Physical Therapist Type: Progress Notes Filed: 05/30/2025 13:06 Note Text: Episode Visit Count: 8 Therapist That Will Accept/Oversee The Plan Of Care: Lei Pepper PT Start of Care Date: 02/07/25 Onset Date: 12/10/24 Patient Identified by Name and Date of : Yes REHABILITATION AND SPORTS THERAPY PHYSICAL THERAPY TREATMENT NOTE ASSESSMENT: Mata Santana tolerated the session with expected muscle soreness and no issues. She demonstrated good form with all therapeutic exercises. The patient will continue to benefit from ongoing skilled physical therapy to progress toward set goals. PLAN FOR NEXT VISIT: Continue to strengthen the supraspinatus. SUBJECTIVE: Her shoulder is still making progress. It can be painful at times. She needs to keep using the arm or it can become more painful. Her shoulder pain did reach a 5/10 this past week. Pain: Pain Pain Level: 0 Pain Location: Shoulder - Left OBJECTIVE MEASURES WITH LEVEL OF FUNCTION: TREATMENT: Therapeutic Exercise: 1: UBE 2 min F and 2 min B (Subjective taken and 1:1 time spent) 2: Standing scaption 2# 3 x 12 3: Bicep curl 3# 3 x 12 4: Overhead press 2# 3 x 10 5: Reaching 1-4 CW 2# on wrist to fatigue x 3 sets 6: Standing pec stretch on wall 3 x 30 sec Skilled Intervention: Patient was educated in proper exercise technique and purpose for exercises. Provided written instruction for home exercise program to facilitate proper performance and compliance. Correct performance of therapeutic exercises was facilitated with verbal cuing. Billing Therapeutic Exercise Treatment Minutes: 40 Skilled Treatment Time Minutes (timed and untimed codes): 40 Total Session Time (minutes): 40 Session Start Time : 1101 Session Stop Time : 1141 Lei Pepper PT [facility] 05-30-2025 History of Present illness Narrative Episode Visit Count: 8 Therapist That Will Accept/Oversee The Plan Of Care: Lei Pepper PT Start of Care Date: 02/07/25 Onset Date: 12/10/24 Patient Identified by Name and Date of : Yes REHABILITATION AND SPORTS THERAPY PHYSICAL THERAPY TREATMENT NOTE ASSESSMENT: Mata Santana tolerated the session with expected muscle soreness and no issues. She demonstrated good form with all therapeutic exercises. The patient will continue to benefit from ongoing skilled physical therapy to progress toward set goals. PLAN FOR NEXT VISIT: Continue to strengthen the supraspinatus. SUBJECTIVE: Her shoulder is still making progress. It can be painful at times. She needs to keep using the arm or it can become more painful. Her shoulder pain did reach a 5/10 this past week. Pain: Pain Pain Level: 0 Pain Location: Shoulder - Left OBJECTIVE MEASURES WITH LEVEL OF FUNCTION: TREATMENT: Therapeutic Exercise: 1: UBE 2 min F and 2 min B (Subjective taken and 1:1 time spent) 2: Standing scaption 2# 3 x 12 3: Bicep curl 3# 3 x 12 4: Overhead press 2# 3 x 10 5: Reaching 1-4 CW 2# on wrist to fatigue x 3 sets 6: Standing pec stretch on wall 3 x 30 sec Skilled Intervention: Patient was educated in proper exercise technique and purpose for exercises. Provided written instruction for home exercise program to facilitate proper performance and compliance. Correct performance of therapeutic exercises was facilitated with verbal cuing. Billing Therapeutic Exercise Treatment Minutes: 40 Skilled Treatment Time Minutes (timed and untimed codes): 40 Total Session Time (minutes): 40 Session Start Time : 1101 Session Stop Time : 1141 Lei Pepper PT documented in this encounter [facility] 05-23-2025 Note HNO ID: [id number] Author: LEI PEPPER PT Service: ? Author Type: Physical Therapist Type: Progress Notes Filed: 05/23/2025 14:56 Note Text: Episode Visit Count: 7 Therapist That Will Accept/Oversee The Plan Of Care: Lei Pepper PT Start of Care Date: 02/07/25 Onset Date: 12/10/24 Patient Identified by Name and Date of : Yes REHABILITATION AND SPORTS THERAPY PHYSICAL THERAPY TREATMENT NOTE ASSESSMENT: Mata Santana tolerated the session with decreased symptoms. She demonstrated good ROM without pain by the end of the session. The patient will continue to benefit from ongoing skilled physical therapy to progress toward set goals. PLAN FOR NEXT VISIT: RTC loading SUBJECTIVE: She is able to move it and do stuff. Sore at the top of the shoulder. Pain: Pain Pain Location: Shoulder - Left OBJECTIVE MEASURES WITH LEVEL OF FUNCTION: Tight painful Tp's along L deltoid and biceps and this improves post MT TREATMENT: Therapeutic Exercise: 1: UBE 2 min F and 2 min B (subjective taken and 1:1 time spent) 2: Standing scaption 2# 3 x 12 3: Standing bicep curl 3# 2 x 12 4: Wall reaches 1-4 with 2# on wrist to fatigue x 3 5: Pec stretch standing at wall 3 x 30 sec Skilled Intervention: Patient was educated in proper exercise technique and purpose for exercises. Correct performance of therapeutic exercises was facilitated with verbal cuing. Manual Therapy: 1: STM over L deltoid and biceps brachii x 12 Skilled Intervention: Manual skills to improve joint mobility, ROM, and decrease pain. Utilized anatomy knowledge of the clinician, and assessment of patient's response to intervention. Billing Therapeutic Exercise Treatment Minutes: 30 Manual TherapyTreatment Minutes: 12 Skilled Treatment Time Minutes (timed and untimed codes): 42 Total Session Time (minutes): 42 Session Start Time : 1413 Session Stop Time : 1455 Lei Pepper PT [facility] 05-09-2025 Note HNO ID: [id number] Author: LEI PEPPER PT Service: ? Author Type: Physical Therapist Type: Progress Notes Filed: 05/09/2025 15:57 Note Text: Episode Visit Count: 6 Therapist That Will Accept/Oversee The Plan Of Care: Lei Pepper PT Start of Care Date: 02/07/25 Onset Date: 12/10/24 Patient Identified by Name and Date of : Yes REHABILITATION AND SPORTS THERAPY PHYSICAL THERAPY TREATMENT NOTE ASSESSMENT: Mata Santana tolerated the session with expected muscle soreness. She demonstrated pain in the lateral shoulder that runs to the elbow when raising the arm overhead. The patient will continue to benefit from ongoing skilled physical therapy to progress toward set goals. PLAN FOR NEXT VISIT: Continue with RTC loading SUBJECTIVE: She is not having much pain today. She has been taking NASAIDS to help. She can move her arm more. Pain: Pain Pain Level: 0 Pain Location: Shoulder - Left OBJECTIVE MEASURES WITH LEVEL OF FUNCTION: L shoulder abd pain starts at 90 degrees TREATMENT: Therapeutic Exercise: 2: Shoulder scaption 2# 2 x 10 3: Shoulder abd iso at wall 2 x 10 4: Reaching 1-4 no weight to fatigue x 3 5: Ball circles on wall 4# MB, x10 CW/CCW 6: Standing bicep curl 4# MB 2 x 10 7: Press up stopping at 90 deg holding 4# MB 2 x 10 8: L shoulder ext iso ball vs wall 2 x 10 Skilled Intervention: Patient was educated in proper exercise technique and purpose for exercises. Correct performance of therapeutic exercises was facilitated with verbal cuing. Billing Manual TherapyTreatment Minutes: 39 Skilled Treatment Time Minutes (timed and untimed codes): 39 Total Session Time (minutes): 39 Session Start Time : 150 Session Stop Time : 1545 Lei Pepper PT [facility] 05-09-2025 History of Present illness Narrative Episode Visit Count: 6 Therapist That Will Accept/Oversee The Plan Of Care: Lei Pepper PT Start of Care Date: 02/07/25 Onset Date: 12/10/24 Patient Identified by Name and Date of : Yes REHABILITATION AND SPORTS THERAPY PHYSICAL THERAPY TREATMENT NOTE ASSESSMENT: Mata Santana tolerated the session with expected muscle soreness. She demonstrated pain in the lateral shoulder that runs to the elbow when raising the arm overhead. The patient will continue to benefit from ongoing skilled physical therapy to progress toward set goals. PLAN FOR NEXT VISIT: Continue with RTC loading SUBJECTIVE: She is not having much pain today. She has been taking NASAIDS to help. She can move her arm more. Pain: Pain Pain Level: 0 Pain Location: Shoulder - Left OBJECTIVE MEASURES WITH LEVEL OF FUNCTION: L shoulder abd pain starts at 90 degrees TREATMENT: Therapeutic Exercise: 2: Shoulder scaption 2# 2 x 10 3: Shoulder abd iso at wall 2 x 10 4: Reaching 1-4 no weight to fatigue x 3 5: Ball circles on wall 4# MB, x10 CW/CCW 6: Standing bicep curl 4# MB 2 x 10 7: Press up stopping at 90 deg holding 4# MB 2 x 10 8: L shoulder ext iso ball vs wall 2 x 10 Skilled Intervention: Patient was educated in proper exercise technique and purpose for exercises. Correct performance of therapeutic exercises was facilitated with verbal cuing. Billing Manual TherapyTreatment Minutes: 39 Skilled Treatment Time Minutes (timed and untimed codes): 39 Total Session Time (minutes): 39 Session Start Time : 1507 Session Stop Time : 154 Lei Pepper PT documented in this encounter [facility] 04-25-2025 History of Present illness Narrative Program_ID:[id number] Access Code: [email or web address] URL: [email or web address] Date: 04-25-2025 Prepared By: Lei Pepper Program Notes Exercises - Standing Isometric Shoulder Abduction with Doorway - Arm Bent - 1 x daily - 7 x weekly - 4 sets - 10 reps - Scaption Wall Slide with Towel - 1 x daily - 7 x weekly - 4 sets - 10 reps Images from the original note were not included. Episode Visit Count: 5 Therapist That Will Accept/Oversee The Plan Of Care: Lei Pepper PT Start of Care Date: 02/07/25 Onset Date: 12/10/24 Patient Identified by Name and Date of : Yes REHABILITATION AND SPORTS THERAPY PHYSICAL THERAPY PROGRESS REPORT PLAN OF CARE UPDATE: Assessment: Mata Santana demonstrates difficulty with lifting and carrying. The patient has progressed toward goals, with recent regression due to a recent injury to the L shoulder. Patient continues to present with impairments in independence in exercise, overall function, range of motion, and strength that interfere with lifting, reaching overhead . Current prognosis is Good due to: current objective clinical presentation . The patient will benefit from continued skilled therapy services to meet the updated goals for this plan of care as noted below. Goals updated 04/25/25 Goals for Episode of Care: established 02/07/25 [place] in home exercise program. - Met Patient will decrease pain rating by 2 points to meet minimal clinical important difference for numeric pain rating scale. - Not met Perform work duties without pain. - not met Increase ROM of L shoulder to WNL for ease of reaching overhead to move totes around - Progressing Increased strength of LUE to 5/5 via MMT for return to PLOF and ease of pulling objects towards her - Not met Patient Goals: Get rid of the pain Time Frame for Goals and Treatment : 04/04/25 Patient Goals: Get rid of the pain Planned Interventions, Frequency, and Duration: 1x/week, 4 weeks Total Number of Visits Planned: 4 Patient to be seen for Therapeutic exercise (70302), Neuromuscular re-education (14333), Manual therapy (42658), Therapeutic activities (19711), Self-half-way management (59263), Patient/Family/Caregiver Education PLAN FOR NEXT VISIT: SUBJECTIVE: Pt states that she fell at work. Accidentally clipped these chairs at work and she tried to stabilize them, but ultimately this led to her falling and tried to break her fall with the left arm. This caused increased pain. If she does not use the shoulder enough then she has more pain. Patient Goals: Get rid of the pain Functional Limitations: lifting, reaching overhead Prior Level of Function: Independent without limitations Intake Information: Prescription present Previous Treatment: Heat Pain: Pain Pain Location: Shoulder - Left PROMIS Scales 04/24/2025 03/14/2025 02/06/2025 Higher is Better Phys Func - T Score 44 (mild dysfunction) 51 (within normal limits) 49 (within normal limits) Phys Func - Percentile 27 54 46 Self-Eff Symptom - T Score 47 (Average) 48 (Average) 48 (Average) Self-Eff Symptom - Percentile 38 42 42 T-scores: mean of general population = 50. 5 points is clinically meaningfully difference Percentiles provide an indication of how the patient's score ranks in relation to the general population. Higher percentile rankings indicate better function/quality of life. 50th percentile is the average of the general population and indicates half of respondents had a worse score. OBJECTIVE MEASURES WITH LEVEL OF FUNCTION: Posture / Alignment Posture: Rounded shoulders, Forward head Cervical Spine ROM Cervical ROM : (WFL) UE AROM L Shoulder ABduction: 100 Degrees (stopping due to pain) UE PROM L Shoulder Flex: 130 Degrees (empty end-feel) L Shoulder ABduction: 130 Degrees (empty end-feel. stopping due to pain) L Shoulder Internal Rotation: (WNL) UE and Cervical Strength L Shoulder Flexion: 3-/5 L Shoulder Abduction (C5): 3-/5 L Shoulder Internal Rotation: 4+/5 L Shoulder External Rotation: 3+/5 TREATMENT: Therapeutic Exercise: 1: All objective measures taken 2: Wall slides 2 x 10 3: Shoulder abd iso at wall 2 x 10 Skilled Intervention: Patient was educated in proper exercise technique and purpose for exercises. Correct performance of therapeutic exercises was facilitated with verbal cuing. Self-Long Term Management: 1: Discussed ways to mitigate inflammation and pain with use of ice, topicals or tumeric if there is no reason for her to avoid this. Billing Therapeutic Exercise Treatment Minutes: 35 Self-Care/Home Management Treatment Minutes: 4 Skilled Treatment Time Minutes (timed and untimed codes): 39 Total Session Time (minutes): 39 Session Start Time : 1057 Session Stop Time : 1136 Lei Pepper PT documented in this encounter [facility] 04-25-2025 Note HNO ID: [id number] Author: LEI PEPPER PT Service: ? Author Type: Physical Therapist Type: Progress Notes Filed: 04/25/2025 12:15 Note Text: Episode Visit Count: 5 Therapist That Will Accept/Oversee The Plan Of Care: Lei Pepper PT Start of Care Date: 02/07/25 Onset Date: 12/10/24 Patient Identified by Name and Date of : Yes REHABILITATION AND SPORTS THERAPY PHYSICAL THERAPY PROGRESS REPORT PLAN OF CARE UPDATE: Assessment: Mata Santana demonstrates difficulty with lifting and carrying. The patient has progressed toward goals, with recent regression due to a recent injury to the L shoulder. Patient continues to present with impairments in independence in exercise, overall function, range of motion, and strength that interfere with lifting, reaching overhead . Current prognosis is Good due to: current objective clinical presentation . The patient will benefit from continued skilled therapy services to meet the updated goals for this plan of care as noted below. Goals updated 04/25/25 Goals for Episode of Care: established 02/07/25 [place] in home exercise program. - Met Patient will decrease pain rating by 2 points to meet minimal clinical important difference for numeric pain rating scale. - Not met Perform work duties without pain. - not met Increase ROM of L shoulder to WNL for ease of reaching overhead to move totes around - Progressing Increased strength of LUE to 5/5 via MMT for return to PLOF and ease of pulling objects towards her - Not met Patient Goals: Get rid of the pain Time Frame for Goals and Treatment : 04/04/25 Patient Goals: Get rid of the pain Planned Interventions, Frequency, and Duration: 1x/week, 4 weeks Total Number of Visits Planned: 4 Patient to be seen for Therapeutic exercise (27111), Neuromuscular re-education (70804), Manual therapy (94378), Therapeutic activities (37795), Self-half-way management (49998), Patient/Family/Caregiver Education PLAN FOR NEXT VISIT: SUBJECTIVE: Pt states that she fell at work. Accidentally clipped these chairs at work and she tried to stabilize them, but ultimately this led to her falling and tried to break her fall with the left arm. This caused increased pain. If she does not use the shoulder enough then she has more pain. Patient Goals: Get rid of the pain Functional Limitations: lifting, reaching overhead Prior Level of Function: Independent without limitations Intake Information: Prescription present Previous Treatment: Heat Pain: Pain Pain Location: Shoulder - Left PROMIS Scales 04/24/2025 03/14/2025 02/06/2025 Higher is Better Phys Func - T Score 44 (mild dysfunction) 51 (within normal limits) 49 (within normal limits) Phys Func - Percentile 27 54 46 Self-Eff Symptom - T Score 47 (Average) 48 (Average) 48 (Average) Self-Eff Symptom - Percentile 38 42 42 T-scores: mean of general population = 50. 5 points is clinically meaningfully difference Percentiles provide an indication of how the patient's score ranks in relation to the general population. Higher percentile rankings indicate better function/quality of life. 50th percentile is the average of the general population and indicates half of respondents had a worse score. OBJECTIVE MEASURES WITH LEVEL OF FUNCTION: Posture / Alignment Posture: Rounded shoulders, Forward head Cervical Spine ROM Cervical ROM : (WFL) UE AROM L Shoulder ABduction: 100 Degrees (stopping due to pain) UE PROM L Shoulder Flex: 130 Degrees (empty end-feel) L Shoulder ABduction: 130 Degrees (empty end-feel. stopping due to pain) L Shoulder Internal Rotation: (WNL) UE and Cervical Strength L Shoulder Flexion: 3-/5 L Shoulder Abduction (C5): 3-/5 L Shoulder Internal Rotation: 4+/5 L Shoulder External Rotation: 3+/5 TREATMENT: Therapeutic Exercise: 1: All objective measures taken 2: Wall slides 2 x 10 3: Shoulder abd iso at wall 2 x 10 Skilled Intervention: Patient was educated in proper exercise technique and purpose for exercises. Correct performance of therapeutic exercises was facilitated with verbal cuing. Self-Long Term Management: 1: Discussed ways to mitigate inflammation and pain with use of ice, topicals or tumeric if there is no reason for her to avoid this. Billing Therapeutic Exercise Treatment Minutes: 35 Self-Care/Home Management Treatment Minutes: 4 Skilled Treatment Time Minutes (timed and untimed codes): 39 Total Session Time (minutes): 39 Session Start Time : 1057 Session Stop Time : 1136 Lei Pepper PT [facility] 04-01-2025 Radiology Diagnostic study note [facility] Imaging Services [address] [place], [place] [address] Shoulder min 2 Views MR#: [id number] Acct: [id number] Name: MATA SANTANA Rep #: [id number] : 1975 F 49 From: Kiya Ayoub MD PCP: Dr. Philly Gregory MD Status: PA E ER Study:Shoulder min 2 Views Date of Exam: 04/01/25 Exam# [id number] Ordering Dr: Provider ,Ed P. PROCEDURE: SHOULDER MIN 2 VIEWS 04/01/2025 REASON FOR EXAM: INJURY TECHNIQUE: SHOULDER MIN 2 VIEWS COMPARISON: None. FINDINGS: Bones: No acute fracture. No aggressive osseous lesions. Joints: Normal alignment. Mild degenerative changes. Soft tissues: Soft tissues are unremarkable. Other: The visualized left lung is unremarkable. RAD/Shoulder min 2 Views IMPRESSION: NO ACUTE FRACTURE OR DISLOCATION. Reading Location: [facility] CC: Dr. Philly Gregory MD; ED PHYSICIAN PROVIDER ~ Nail Making Machine Tender: Signed [facility] 03-31-2025 Telephone encounter Note Pt notified via . Gaye Lomeli RN [facility] 03-31-2025 Miscellaneous Notes Pt notified via . Gaye Lomeli RN The following approved medication [...] Gaye Lomeli RN documented in this encounter [facility] 03-31-2025 Telephone encounter Note The following approved medication requests have been transmitted electronically. Requested Prescriptions Signed Prescriptions Disp Refills metoprolol succinate ER (TOPROL XL) 25 mg 24 hr tablet 90 tablet 3 Sig: Take 1 tablet by mouth once daily. Authorizing Provider: PHILLY GREGORY MD [facility] 03-31-2025 Telephone encounter Note Pt ran out [...] by mouth once daily. Gaye Lomeli RN [facility] 03-21-2025 Note HNO ID: [id number] Author: LEI PEPPER PT Service: ? Author [...] Stop Time : 1148 Lei Pepper PT [facility] 03-21-2025 History of Present illness Narrative Episode Visit Count: 4 Therapist That Will [...] Time : 1109 Session Stop Time : 114 Lei Pepper PT documented in this encounter [facility] 03-21-2025 Note HNO ID: [id number] Author: KENDALL PETE APRN.GAMING MANAGER Service: ? Author Type: Nurse Specialist Type: Progress Notes Filed: 03/21/2025 11:08 Note Text: SUBJECTIVE: There are no preventive care reminders to display for this patient. HPI Mata Santana is a 49 year old female. Her past medical history is significant for ACTIVE PROBLEM LIST Allergic Rhinitis ELIAN (obstructive sleep apnea) [id number] 21AASM Excessive Daytime Sleepiness Anxiety State Ifg (Impaired Fasting Glucose) Essential Hypertension Hypokalemia Near Syncope Acute Pain of Left Shoulder Hypertension: - Managed with amlodipine; requests refill to be sent to [facility]. - Reports not feeling well on metoprolol, losartan, or lisinopril in the past. Diabetes Mellitus: - A1c in December showed improvement. - Monitoring diet. Obstructive Sleep Apnea: - Managed to the best of her ability. Thyroid: - No current treatment; monitoring only. Shoulder Pain: - Undergoing physical therapy; reports slight improvement in mobility. 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 ELIAN: reports [...] tablet by mouth once daily. calc carb,cit/mag,zinc/D3/h122 ([id number] #122-VIT D3 ORAL) Take by mouth. GARLIC [...] m/uL 4.27 He (more content not included)... [facility] 03-21-2025 History of Present illness Narrative SUBJECTIVE: There are no preventive care reminders to display for this patient. MIGUEL Santana is a 49 year old female. Her past medical history is significant for ACTIVE PROBLEM LIST Allergic Rhinitis ELIAN (obstructive sleep apnea) [id number] 21AASM Excessive Daytime Sleepiness Anxiety State Ifg (Impaired Fasting Glucose) Essential Hypertension Hypokalemia Near Syncope Acute Pain of Left Shoulder Hypertension: - Managed with amlodipine; requests refill to be sent to [facility]. - Reports not feeling well on metoprolol, losartan, or lisinopril in the past. Diabetes Mellitus: - A1c in December showed improvement. - Monitoring diet. Obstructive Sleep Apnea: - Managed to the best of her ability. Thyroid: - No current treatment; monitoring only. Shoulder Pain: - Undergoing physical therapy; reports slight improvement in mobility. 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 ELIAN: reports [...] lb 7.3 oz) LMP 02/22/2025 BMI 22.95 kg/m Physical Exam Vitals and nursing note [...] tablet by mouth once daily. calc carb,cit/mag,zinc/D3/h122 ([id number] #122-VIT D3 ORAL) Take by mouth. GARLIC [...] aware of Depression DM, gestational, diet controlled ([facility]) 2008 Esophageal reflux acid in back of [...] Abs Lymph 1.00 - 4.00 k/uL 2.95 Bullitt% % 6.9 Abs Bullitt <0.87 k/uL 0.59 Eosin% % 2.9 Abs [...] 30 (H) TC:HDL Ratio <5.10 2.14 LDL Cholesterol, Calculated <100 mg/dL 52 LDL:HDL Ratio <2.54 0.72 Hemoglobin A1C 4.3 - 5.6 % 7.0 (H) 6.6 (H) 6.4 (H) Estimated Average Glucose mg/dL 154 143 137 TSH 0.270 - 4.200 mIU/L 1.600 0.957 Stool DNA Negative Negative Hemoglobin A1C (POCT) 4.3 - 5.6 % 6.5 ! 1. Essential hypertension (I10) - Blood pressure is well-controlled. - Refilled amlodipine; sent to [facility] pharmacy. 2. Acute pain of left shoulder (M25.512) - Preports improvement in shoulder mobility. - Continuing physical therapy. - If no further improvement, consider referral to orthopedics. 3. Type 2 diabetes mellitus without complication, without long-term current use of insulin (HCC) (E11.9) - A1c from December shows improvement. - is maintaining an active lifestyle with regular walking at work. - Continue current management and lifestyle modifications. - Ordered labs to be done today. Labs today 6 mo follow up with Philly Gregory MD Continue with PT, let us know if not feeling improved. Medical Decision Making: Problems: Moderate: 2+ stable chronic illnesses Risk: Low: Low risk from testing/treatment Medical Decision Making Level: 3 - Low documented in this encounter [facility] 03-14-2025 History of Present illness Narrative [...] PATIENT PRESENTS WITH AN IMPLANTABLE OR ATTACHED FLIGHT ATTENDANT INFLIGHT SERVICES: No RADIOLOGY DEPARTMENT: Mammography PERIPHERAL IV DATA: Not applicable SIGNED BY: RT Arun(Meg) March 14, 2025 3:39 PM documented in this encounter [facility] 03-14-2025 Note HNO ID: [id number] Author: DORINDA MCKENNA RT(R) Service: ? Author [...] PATIENT PRESENTS WITH AN IMPLANTABLE OR ATTACHED FLIGHT ATTENDANT INFLIGHT SERVICES: No RADIOLOGY DEPARTMENT: Mammography PERIPHERAL IV DATA: Not applicable SIGNED BY: Dorinda Mckenna, (R) March 14, 2025 3:39 PM [facility] 03-14-2025 Note HNO ID: [id number] Author: ESTHELA MYERS APRN.SCREEN DOOR MAKER Service: ? Author Type: Nurse Practitioner Type: Progress Notes Filed: 03/14/2025 15:27 Note Text: Patient declined wheel blockerDee Dee Cagle is a 49 year old who presents [...] Living2 SAB0 IAB0 Ectopic0 Multiple0 Live Births2 Hand Wood Sander History LMP: 02/22/2025, Having periods Age at Menarche: 16 Age at First : Age at Menopause: Hand Wood Sander History Comments: Sexual Activity: Not Currently; Male Contraception: No contraception data on record PAST MEDICAL HISTORY Diagnosis Date Allergic rhinitis seasonal--spring and fall Calculus of kidney 2005 small - incidental on CT scan, has never passed one that she's aware of Depression DM, gestational, diet controlled (HCC) 2009 Esophageal reflux acid in back of throat, [...] Father age 49, heavy smoker, likely of [place] but pt not sure Diabetes Sister Diabetes Brother 25 Diabetes Maternal Grandmother other (Other) Maternal Grandmother MVA Alzheimer's Disease Maternal Grandfather also great grandma Diabetes Paternal Grandmother Ischemic Heart Disease Paternal Grandfather age 50 [place] Parkinson's Maternal Uncle SOCIAL HISTORY Social History [...] discussed with the Patient or Patient's Authorized News Photographer. As applicable, any other physician, advance practice provider, medical student, or other health professional student that will be observing or involved in the sensitive examination for educational or training purposes was discussed with the Patient or Authorized News Photographer. The Patient or Authorized News Photographer has agreed to proceed with the sensitive [...] external genitalia normal, normal Bartholin's glands, urethra, Halma's glands, no vulvar lesions, no cervical lesions, [...] as needed Sunny (more content not included)... [facility] 03-14-2025 History of Present illness Narrative Patient declined wheel blocker. Mata is a 49 year old who [...] Living2 SAB0 IAB0 Ectopic0 Multiple0 Live Births2 Hand Wood Sander History LMP: 02/22/2025, Having periods Age at Menarche: 16 Age at First : Age at Menopause: Hand Wood Sander History Comments: Sexual Activity: Not Currently; Male Contraception: No contraception data on record PAST MEDICAL HISTORY Diagnosis Date Allergic rhinitis seasonal--spring and fall Calculus of kidney 2005 small - incidental on CT scan, has never passed one that she's aware of Depression DM, gestational, diet controlled (HCC) 2009 Esophageal reflux acid in back of throat, [...] Father age 49, heavy smoker, likely of [place] but pt not sure Diabetes Sister Diabetes Brother 25 Diabetes Maternal Grandmother other (Other) Maternal Grandmother MVA Alzheimer's Disease Maternal Grandfather also great grandma Diabetes Paternal Grandmother Ischemic Heart Disease Paternal Grandfather age 50 [place] Parkinson's Maternal Uncle SOCIAL HISTORY Social History [...] discussed with the Patient or Patient's Authorized News Photographer. As applicable, any other physician, advance practice provider, medical student, or other health professional student that will be observing or involved in the sensitive examination for educational or training purposes was discussed with the Patient or Authorized News Photographer. The Patient or Authorized News Photographer has agreed to proceed with the sensitive [...] external genitalia normal, normal Bartholin's glands, urethra, Halma's glands, no vulvar lesions, no cervical lesions, [...] year or sooner as needed Esthela Myers APRN.SCREEN DOOR MAKER documented in this encounter [facility] 03-14-2025 Note HNO ID: [id number] Author: LEI PEPPER PT Service: ? Author [...] Stop Time : 1404 Lei Pepper PT [facility] 03-14-2025 History of Present illness Narrative [...] Lei Pepper PT documented in this encounter [facility] 02-21-2025 Note HNO ID: [id number] Author: LEI PEPPER PT Service: ? Author Type: Physical Therapist Type: Progress Notes Filed: 02/21/2025 12:17 Note Text: Episode Visit Count: 2 Therapist That Will Accept/Oversee The Plan Of Care: Lei Pepper PT Start of Care Date: 02/07/25 Onset Date: 12/10/24 Patient Identified by Name and Date of : Yes REHABILITATION AND SPORTS THERAPY PHYSICAL THERAPY TREATMENT NOTE ASSESSMENT: Mata Snatana tolerated the session with expected muscle soreness. [...] Stop Time : 1130 Lei Pepper PT [facility] 02-21-2025 History of Present illness Narrative [...] Lei Pepper PT documented in this encounter [facility] 02-07-2025 History of Present illness Narrative Program_ID:[id number] Access Code: [email or web address] URL: [email or web address] Date: 02-07-2025 Prepared By: Lei Pepper Program [...] Goals for Episode of Care: established 02/07/25 [place] in home exercise program. Patient will decrease [...] Planned: 4 Planned Treatment Interventions: Therapeutic exercise (51267), Neuromuscular re-education (73407), Manual therapy (98146), Therapeutic activities (62879), Self-half-way management (73753), Patient/Family/Caregiver Education PLAN FOR NEXT VISIT: Continue [...] Lei Pepper PT documented in this encounter [facility] 02-07-2025 Note HNO ID: [id number] Author: LEI PEPPER PT Service: ? Author [...] Goals for Episode of Care: established 02/07/25 [place] in home exercise program. Patient will decrease [...] Planned: 4 Planned Treatment Interventions: Therapeutic exercise (80619), Neuromuscular re-education (17700), Manual therapy (05636), Therapeutic activities (46767), Self-half-way management (00147), Patient/Family/Caregiver Education PLAN FOR NEXT VISIT: Continue [...] in proper exe (more content not included)... [facility] 01-06-2025 Progress note Formatting of t his note might be different from the original. Improved A1c Hemoglobin A1C (%) Date Value 01/03/2025 6.4 07/05/2024 6.6 05/28/2021 6.4 01/08/2021 6.5 Hemoglobin A1C (POCT) (%) Date Value 09/20/2024 6.5 08/27/2021 6.1 [facility] 01-06-2025 Miscellaneous Notes Improved A1c Hemoglobin A1C (%) Date Value 01/03/2025 6.4 07/05/2024 6.6 05/28/2021 6.4 01/08/2021 6.5 Hemoglobin A1C (POCT) (%) Date Value 09/20/2024 6.5 08/27/2021 6.1 Negative documented in this encounter [facility] 01-03-2025 Note HNO ID: [id number] Author: KENDALL PETE APRN.CNS Service: ? Author Type: Nurse Specialist Type: Progress Notes Filed: 01/03/2025 09:21 Note Text: Subjective ?Quick Links Last Note in Specialty Snapshot Edit RFV/CC Patient ID: Mata is a 49 year old female who presents for [facility] care f/u. HPI Left Shoulder Pain: - [...] (XULANE) 150-35 mcg/24 hr patch calc carb,cit/mag,zinc/D3/h122 ([id number] #122-VIT D3 ORAL) GARLIC red beet root-sour [...] patient consented to the use of ambient Kineta software for draft documentation of the visit consistent with [facility]?s Notice of Privacy Practices. [facility] 01-03-2025 History of Present illness Narrative Subjective ?Quick Links Last Note in Specialty Snapshot Edit RFV/CC Patient ID: Mata is a 49 year old female who presents for [facility] care f/u. HPI Left Shoulder Pain: - [...] (XULANE) 150-35 mcg/24 hr patch calc carb,cit/mag,zinc/D3/h122 ([id number]-HC #122-VIT D3 ORAL) GARLIC red beet root-sour [...] of motion, provided with written information from [employer]. Recommend icing 15 to 20 minutes several [...] The patient consented to the use of Vitals ([email or web address]) software for draft documentation of the visit consistent with [facility] s Notice of Privacy Practices. documented in this encounter [facility] 12-29-2024 Telephone encounter Note Patient returns call and results reviewed. Janessa Polo RN [facility] 12-29-2024 Miscellaneous Notes Patient returns call and results reviewed. Janessa Polo RN Left VM instructing patient to return call to receive results. Kati Bui MA documented in this encounter [facility] 12-29-2024 Telephone encounter Note Left VM instructing patient to return call to receive results. Kati Bui MA [facility] 12-28-2024 History of Present illness Narrative Radiology [...] PATIENT PRESENTS WITH AN IMPLANTABLE OR ATTACHED FLIGHT ATTENDANT INFLIGHT SERVICES: No RADIOLOGY DEPARTMENT: General X-ray: Exam(s) Completed: Upper Extremity X-Ray(s): Shoulder, AP / TRUE AP / Y VIEW left PERIPHERAL IV DATA: Not applicable SIGNED BY: Elizabeth Hirsch December 28, 2024 7:28 PM documented in this encounter [facility] 12-28-2024 Note HNO ID: [id number] Author: LINDA HUBER Tech Service: ? Author [...] PATIENT PRESENTS WITH AN IMPLANTABLE OR ATTACHED FLIGHT ATTENDANT INFLIGHT SERVICES: No RADIOLOGY DEPARTMENT: General X-ray: Exam(s) Completed: Upper Extremity X-Ray(s): Shoulder, AP / TRUE AP / Y VIEW left PERIPHERAL IV DATA: Not applicable SIGNED BY: Elizabeth Hirsch December 28, 2024 7:28 PM [facility] 12-28-2024 Note HNO ID: [id number] Author: SHAHZAD HUGHES APRN.SCREEN DOOR MAKER Service: ? Author Type: Nurse Practitioner Type: Progress Notes Filed: 12/28/2024 20:16 Note Text: [facility] Subjective Mata Santana is a [...] arm while awaiting xray results. Shahzad Hughes APRN.SCREEN DOOR MAKER Disposition The patient was discharged. Procedures [facility] 12-28-2024 History of Present illness Narrative [...] arm while awaiting xray results. Shahzad Hughes APRN.SCREEN DOOR MAKER Disposition The patient was discharged. Procedures documented in this encounter [facility] 12-20-2024 Progress note Formatting of t his note might be different from the original. Negative [facility] 09-20-2024 Instructions Philly Gregory MD - 09/20/2024 [...] in 6 months. documented in this encounter [facility] 09-20-2024 Note HNO ID: [id number] Author: PHILLY GREGORY MD Service: ? Author Type: Physician Type: Progress Notes Filed: 09/20/2024 11:44 Note Text: This note was created using [email or web address]. Subjective Mata Santana is a 49 year [...] tablet by mouth once daily. calc carb,cit/mag,zinc/D3/h122 ([id number]-HC #122-VIT D3 ORAL) Take by mouth. GARLIC [...] alert and orien (more content not included)... [facility] 09-20-2024 History of Present illness Narrative This note was created using [employer]. Subjective Mata Santana is a 49 year [...] tablet by mouth once daily. calc carb,cit/mag,zinc/D3/h122 (YRLHJDU-HJ-PPMR-HC #122-VIT D3 ORAL) Take by mouth. GARLIC [...] Lymph 1.00 - 4.00 k/uL 2.61 2.95 Bullitt% % 6.4 6.9 Abs [place]itt <0.87 k/uL 0.58 0.59 Eosin% % 1.2 [...] Family history of diabetes noted. - Ordered ucsca-pb-vsjm hemoglobin A1c test today to monitor current [...] if the test is not received. 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 - Previous prescription was for continuous use, leading to continuous bleeding; adjusted to current regimen. - Changed prescription to 90-day supply with 3 refills. Philly Gregory MD documented in this encounter [facility] 09-06-2024 Note HNO ID: [id number] Author: KENDALL PETE APRN.GAMING MANAGER Service: ? Author Type: Nurse Specialist Type: Progress Notes Filed: 09/06/2024 10:04 Note Text: SUBJECTIVE: BP Controlled (<130/80) due on 06/07/2022 Colorectal Cancer Screening due on 09/27/2024 Mammogram Screening due on 12/21/2024 MIGUEL Santana is a 49 year old female. Her past medical history is significant for ACTIVE PROBLEM LIST Allergic Rhinitis ELIAN (obstructive sleep apnea) [id number] 21AASM Excessive Daytime Sleepiness Anxiety State Ifg [...] is her thyroid. Notes father had presumed [place] ate age 49 and . HTN: She [...] tablet by mouth once daily. calc carb,cit/mag,zinc/D3/h122 (ZPIXROP-YQ-IEIB-HC #122-VIT D3 ORAL) Take by mouth. GARLIC [...] Drug use: No Latest Ref Rng 03/12/2022 (more content not included)... [facility] 09-06-2024 History of Present illness Narrative SUBJECTIVE: BP Controlled (<130/80) due on 06/07/2022 Colorectal Cancer Screening due on 09/27/2024 Mammogram Screening due on 12/21/2024 MIGUEL Santana is a 49 year old female. Her past medical history is significant for ACTIVE PROBLEM LIST Allergic Rhinitis ELIAN (obstructive sleep apnea) [id number] 21AASM Excessive Daytime Sleepiness Anxiety State Ifg [...] is her thyroid. Notes father had presumed [place] ate age 49 and . HTN: She [...] tablet by mouth once daily. calc carb,cit/mag,zinc/D3/h122 (HZVLRTL-UF-MJIK-HC #122-VIT D3 ORAL) Take by mouth. GARLIC [...] Lymph 1.00 - 4.00 k/uL 2.61 2.95 [place]% % 6.4 6.9 Abs [place] <0.87 k/uL 0.58 0.59 Eosin% % 1.2 [...] aerobic exercise 3. ELIAN (obstructive sleep apnea) [id number] 21AASM - ICD9: 327.23, ICD10: G47.33 Stable, [...] 4 - Moderate documented in this encounter [facility] 08-15-2024 Note HNO ID: [id number] Author: KENDALL PETE APRN.CNS Service: ? Author Type: Nurse Specialist Type: Progress Notes Filed: 08/15/2024 10:30 Note Text: SUBJECTIVE: BP Controlled (<130/80) due on 06/07/2022 Colorectal Cancer Screening due on 09/27/2024 Mammogram Screening due on 12/21/2024 HPI Mata Santana is a 49 year old female. Her past medical history is significant for ACTIVE PROBLEM LIST Allergic Rhinitis ELIAN (obstructive sleep apnea) [id number] 21AASM Excessive Daytime Sleepiness Anxiety State Ifg (Impaired Fasting Glucose) Essential Hypertension Hypokalemia Near Syncope ELIAN: reports consistent use since last here. She reports she resumed metoprolol succinate about one month ago and has been taking daily. She notes some frustration with blood pressure remaining elevated despite doing all the things that she should. Notes father had presumed [place] ate age 49 and . HTN: Reports [...] sneezing AND watery eyes Medications calc carb,cit/mag,zinc/D3/h122 (EDCISZN-CG-DANZ-HC #122-VIT D3 ORAL) Take by mouth. GARLIC [...] tobacco: Never Vapi (more content not included)... [facility] 08-15-2024 History of Present illness Narrative SUBJECTIVE: BP Controlled (<130/80) due on 06/07/2022 Colorectal Cancer Screening due on 09/27/2024 Mammogram Screening due on 12/21/2024 HPI Mata Santana is a 49 year old female. Her past medical history is significant for ACTIVE PROBLEM LIST Allergic Rhinitis ELIAN (obstructive sleep apnea) [id number] 21AASM Excessive Daytime Sleepiness Anxiety State Ifg (Impaired Fasting Glucose) Essential Hypertension Hypokalemia Near Syncope ELIAN: reports consistent use since last here. She reports she resumed metoprolol succinate about one month ago and has been taking daily. She notes some frustration with blood pressure remaining elevated despite doing all the things that she should. Notes father had presumed [place] ate age 49 and . HTN: Reports [...] sneezing & watery eyes Medications calc carb,cit/mag,zinc/D3/h122 (SHFNEXK-AO-LXEL-HC #122-VIT D3 ORAL) Take by mouth. GARLIC [...] Lymph 1.00 - 4.00 k/uL 2.61 2.95 Bullitt% % 6.4 6.9 Abs [place] <0.87 k/uL 0.58 0.59 Eosin% % 1.2 [...] aerobic exercise 3. ELIAN (obstructive sleep apnea) [id number] 21AASM - ICD9: 327.23, ICD10: G47.33 Stable, currently controlled, continue to monitor. Continue consistent use. Kendall Pete APRN.CNS Medical Decision Making: Medical Decision Making Level: 1 - N/A documented in this encounter [facility] 07-05-2024 Note HNO ID: [id number] Author: KENDALL PETE APRN.CNS Service: ? Author [...] LIST Allergic Rhinitis ELIAN (obstructive sleep apnea) [id number] 21AASM Excessive Daytime Sleepiness Anxiety State Ifg [...] sneezing AND watery eyes Medications calc carb,cit/mag,zinc/D3/h122 (OKUDYHG-XL-YDVL-HC #122-VIT D3 ORAL) Take by mouth. GARLIC [...] 31.9 32.9 32. (more content not included)... [facility] 07-05-2024 History of Present illness Narrative SUBJECTIVE: Depression Screening Never done BP Controlled (<130/80) due on 06/07/2022 Colorectal Cancer Screening due on 09/27/2024 Mammogram Screening due on 12/21/2024 MIGUEL Santana is a 49 year old female. Her past medical history is significant for ACTIVE PROBLEM LIST Allergic Rhinitis ELIAN (obstructive sleep apnea) [id number] 21AASM Excessive Daytime Sleepiness Anxiety State Ifg [...] sneezing & watery eyes Medications calc carb,cit/mag,zinc/D3/h122 (XRUDIKW-HR-IKEM-HC #122-VIT D3 ORAL) Take by mouth. GARLIC [...] Lymph 1.00 - 4.00 k/uL 2.61 2.95 Bullitt% % 6.4 6.9 Abs [place]itt <0.87 k/uL 0.58 0.59 Eosin% % 1.2 [...] - COLOGUARD 5. ELIAN (obstructive sleep apnea) [id number] 21AASM - ICD9: 327.23, ICD10: G47.33 6. Anxiety state - ICD9: 300.00, ICD10: F41.1 7. Encounter for immunization - ICD9: V03.89, ICD10: Z23 - TDAP VACCINE, AGE 7+ YR (ADACEL, BOOSTRIX) - PFIZER-CreatorBoxNTECH COVID-19 VACCINE AGE 12+ YR - INFLUENZA [...] today. 6 mo follow up MD Kendall Johns, YONATAN.GAMING MANAGER Medical Decision Making: Problems: Moderate: 2+ stable chronic illnesses Data: Unique test result(s) reviewed: 3+ Risk: Moderate: Drug management Medical Decision Making Level: 4 - Moderate documented in this encounter [facility] 04-28-2024 Telephone encounter Note Attempted to contact patient but no answer. Letter mailed. [facility] 04-28-2024 Miscellaneous Notes Attempted to contact patient but no answer. Letter mailed. Recommend try phone encounter again. If unable to reach then mail information to her home and a letter. Called and left a voicemail for the Patient to call back and ask for a nurse to receive the providers message. Mary Doyle, RN Hga1C is increased consistent with DM2. [...] Abs Lymph 1.00 - 4.00 k/uL 2.95 Bullitt% % 6.9 Abs Bullitt <0.87 k/uL 0.59 Eosin% % 2.9 Abs [...] Low (H) High documented in this encounter [facility] 04-28-2024 Telephone encounter Note Recommend try phone encounter again. If unable to reach then mail information to her home and a letter. T [facility] 04-25-2024 Telephone encounter Note Called and left a voicemail for the Patient to call back and ask for a nurse to receive the providers message. Mary Doyle, RN [facility] 04-23-2024 Telephone encounter Note Hga1C is increased [...] Abs Lymph 1.00 - 4.00 k/uL 2.95 Bullitt% % 6.9 Abs Bullitt <0.87 k/uL 0.59 Eosin% % 2.9 Abs [...] mIU/L 1.600 Legend: (L) Low (H) High [facility] 03-11-2024 History of Present illness Narrative Horse Show Judge offered: Patient declinesDee Dee Cagle is a 48 year old who presents for an annual gynecologic exam with complaints, vaginal itching. Menses: cycles every 21-24 days and 5-6 days of flow. 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 History Comments: Sexual Activity: Not Currently; Male [...] Father age 49, heavy smoker, likely of [place] but pt not sure Diabetes Sister Diabetes Brother 25 Diabetes Maternal Grandmother other (Other) Maternal Grandmother MVA Alzheimer's Disease Maternal Grandfather also great grandma Diabetes Paternal Grandmother Ischemic Heart Disease Paternal Grandfather age 50 [place] Parkinson's Maternal Uncle SOCIAL HISTORY Social History [...] external genitalia normal, normal Bartholin's glands, urethra, Halma's glands, no vulvar lesions, no cervical lesions, [...] year or sooner as needed Esthela Myers APRN.SCREEN DOOR MAKER documented in this encounter [facility] 03-08-2024 History of Present illness Narrative SUBJECTIVE: Hepatitis B Vaccine(1 of 3 - 19+ 3-dose series) Never done DTaP,Tdap,Td Vaccine(1 - Tdap) due on 12/29/2007 BP Controlled (<130/80) due on 06/07/2022 Shingrix Vaccine(1 of 2) Never done Covid-19 Vaccine(3 - 2022- season) due on 06/19/2023 Behavioral Health Screening Never done HPI Mata Santana is a 48 year old female. Her past medical history is significant for ACTIVE PROBLEM LIST Allergic Rhinitis ELIAN (obstructive sleep apnea) [id number] 21AASM Excessive Daytime Sleepiness Anxiety State Ifg [...] Abs Lymph 1.00 - 4.00 k/uL 2.61 Bullitt% % 6.4 Abs Bullitt <0.87 k/uL 0.58 Eosin% % 1.2 Abs [...] Johns APRN.CNS Medical Decision Making: Problems: Moderate: 1+ chronic illnesses with change Data: Unique test(s) ordered: 3+ Risk: Moderate: Drug management Medical Decision Making Level: 4 - Moderate documented in this encounter [facility] 03-08-2024 Instructions Kendall Pete APRN.CNS - 03/08/2024 8:35 AM EDT Check your blood pressure daily. If your blood pressure is greater than 150/80 take an additional one half 25 mg metoprolol succinate tablet for a total of 37.5 mg daily Drink plenty of fluids, aim for 64 ounces per day. Consider wearing bpkf-uav-whnobfp compression socks at work. documented in this encounter [facility] 03-01-2024 Telephone encounter Note See pended refill request below. Pt was assisted to schedule yearly exam and will need new Rx prior to appointment. Call only if problems. Wen Tristan LPN [facility] 03-01-2024 Miscellaneous Notes See pended refill request below. Pt was assisted to schedule yearly exam and will need new Rx prior to appointment. Call only if problems. Wen Tristan LPN documented in this encounter [facility] 02-25-2024 Instructions Angela Noland APRN.LUIS - 02/25/2024 8:17 AM EDT Let me [...] questions or concerns documented in this encounter [facility] 02-25-2024 History of Present illness Narrative CC: Patient presents with: Cough: X 3 weeks , robitussin and mucinex - minimal relief. HPI Mata Santana is a 48 year old female who presents today for above. She was seen for three day history of cough and head congestion in [facility] care on 02/09. COVID and influenza swab were [...] nostril once daily. Rinse mouth after use. Qnohysxluxtjbwm-Aewtfpimf-JD (BROMFED DM) 2-30-10 mg/5 mL syrup Take [...] Father age 49, heavy smoker, likely of [place] but pt not sure Diabetes Sister Diabetes Brother 25 Diabetes Maternal Grandmother other (Other) Maternal Grandmother MVA Alzheimer's Disease Maternal Grandfather also great grandma Diabetes Paternal Grandmother Ischemic Heart Disease Paternal Grandfather age 50 [place] Social History Tobacco Use Smoking status: Never [...] tenderness or frontal sinus tenderness. Mouth/Throat: Lips: [place]. Mouth: Mucous membranes are moist. Pharynx: Oropharynx [...] Patient agreeable to treatment plan. Angela Noland APRN.SCREEN DOOR MAKER documented in this encounter [facility] 02-10-2024 History of Present illness Narrative CC: [...] a week. Use continuously, no inactive week. Hlojposvwuvwchg-Usfinafgf-NO (BROMFED DM) 2-30-10 mg/5 mL syrup Take [...] Father age 49, heavy smoker, likely of [place] but pt not sure Diabetes Sister Diabetes Brother 25 Diabetes Maternal Grandmother other (Other) Maternal Grandmother MVA Alzheimer's Disease Maternal Grandfather also great grandma Diabetes Paternal Grandmother Ischemic Heart Disease Paternal Grandfather age 50 [place] Social History Tobacco Use Smoking status: Never [...] Nelly Worrell APRN.LUIS documented in this encounter [facility] 12-22-2023 Miscellaneous Notes December 23, 2023 PID: [id number] Mata Santana [address] [place] [phone] Dear Ms. Santana, We are pleased to [...] report will be kept on file at [facility] as part of your permanent medical record and are available for your continuing care. Thank you for allowing us to help in meeting your health care needs. Sincerely, Dr. Mathias Interpreting Radiologist [facility] (Normal over 40) documented in this encounter [facility] 12-22-2023 History of Present illness Narrative Radiology [...] PATIENT PRESENTS WITH AN IMPLANTABLE OR ATTACHED FLIGHT ATTENDANT INFLIGHT SERVICES: No RADIOLOGY DEPARTMENT: Mammography PERIPHERAL IV DATA: Not applicable SIGNED BY: RT Arun(R) December 22, 2023 1:21 PM documented in this encounter [facility] 12-12-2023 History of Present illness Narrative This note was created using NoteWriter. Subjective Mata Santana is a 48 year [...] nostril once daily. Rinse mouth after use. Usbphsqtbgwwium-Rwsmvzsyz-HR (BROMFED DM) 2-30-10 mg/5 mL syrup Take [...] Father age 49, heavy smoker, likely of [place] but pt not sure Diabetes Sister Diabetes Brother 25 Diabetes Maternal Grandmother other (Other) Maternal Grandmother MVA Alzheimer's Disease Maternal Grandfather also great grandma Diabetes Paternal Grandmother Ischemic Heart Disease Paternal Grandfather age 50 [place] Social History Tobacco Use Smoking status: Never [...] evaluation. GRAYSON Jarrett documented in this encounter [facility] 09-17-2023 Instructions Angela Ortiz APRN.LUIS - 09/17/2023 9:41 AM EST Start over [...] improvement in symptoms documented in this encounter [facility] 09-17-2023 History of Present illness Narrative CC: Patient presents with: ER F/U: Dry cough x 3 weeks , medication not working. HPI Mata Santana is a 48 year old female who presents today for above. Patient was seen in [facility] care on 09/02 for viral URI. Symptoms worsened and she returned on 09/06. Diagnosed with sinobronchitis and treated with prednisone and doxycycline. Symptoms did not improve with medications, especially cough. She presented to [facility] ER on 09/12. Chest x-ray was negative. [...] Father age 49, heavy smoker, likely of [place] but pt not sure Diabetes Sister Diabetes Brother 25 Diabetes Maternal Grandmother other (Other) Maternal Grandmother MVA Alzheimer's Disease Maternal Grandfather also great grandma Diabetes Paternal Grandmother Ischemic Heart Disease Paternal Grandfather age 50 [place] Social History Tobacco Use Smoking status: Never [...] Mood normal. DATA REVIEWED: Outside chart from [facility] ER reviewed. ASSESSMENT/PLAN: 1. Subacute cough - [...] Patient agreeable to treatment plan. Angela Ortiz APRN.CNP documented in this encounter [facility] 09-12-2023 Hospital Discharge instructions Additional Instructions Your chest x-ray shows no evidence of pneumonia. You most likely have bronchitis which is a viral cough and can take up to 6 to 8 weeks to go away. I prescribed an albuterol inhaler and prednisone which may help. Follow-up with your primary care doctor. [facility] Work Phone: 09-06-2023 History of Present illness [...] Father age 49, heavy smoker, likely of [place] but pt not sure Diabetes Sister Diabetes Brother 25 Diabetes Maternal Grandmother other (Other) Maternal Grandmother MVA Alzheimer's Disease Maternal Grandfather also great grandma Diabetes Paternal Grandmother Ischemic Heart Disease Paternal Grandfather age 50 [place] Social History Tobacco Use Smoking status: Never [...] of care. This note was generated using Gracenote software. It may contain errors in wording, punctuation, or spelling. Genaro Patel APRN.SCREEN DOOR MAKER documented in this encounter [facility] 09-03-2023 Miscellaneous Notes Pt was notified of the results. Pt verbalized understanding. Lor Ac MA Please notify that covid/flu/rsv testing negative. Continue with plan of care as discussed during visit. documented in this encounter [facility] 05-26-2023 History of Present illness Narrative SUBJECTIVE: HEPATITIS B(1 of 3 - 3-dose series) Never done DTAP,TDAP,TD(1 - Tdap) due on 12/29/2007 BP CONTROLLED (<130/80) due on 06/07/2022 SHINGRIX VACCINE(1 of 2) Never done HPI Mata Santana is a 48 year old female. Her past medical history is significant for ACTIVE PROBLEM LIST Allergic Rhinitis ELIAN (obstructive sleep apnea) [id number] 21AASM Excessive Daytime Sleepiness Anxiety State Ifg [...] canal normal. Nose: Nose normal. Mouth/Throat: Lips: [place]. Mouth: Mucous membranes are moist. Pharynx: Oropharynx [...] in place. 3. ELIAN (obstructive sleep apnea) [id number] 21AASM - ICD9: 327.23, ICD10: G47.33 - CPAP Kendall Pete APRN.CNS Medical Decision Making: Problems: Moderate: 2+ stable chronic illnesses Risk: Moderate: Drug management Medical Decision Making Level: 4 - Moderate documented in this encounter [facility] 05-26-2023 Instructions Kendall Pete APRN.CNS - 05/26/2023 11:57 AM EDT Limit your sodium intake to 2 grams or 2000 mg or less per day Avoid salty foods like fast foods and lunch meats and chips Use CPAP regularly documented in this encounter [facility] 05-26-2023 History of Present illness Narrative Appointment cancelled. documented in this encounter [facility] 04-29-2023 History of Present illness Narrative SUBJECTIVE Mata K Filak is a 48 year old female here [...] Sleepiness - 02/28/2015 ELIAN (obstructive sleep apnea) [id number] 21AASM - 11/15/2014 Comment: [facility]. PSG and titration done @ [facility] . Report of PSG scanned into Epic. Allergic Rhinitis - 04/24/2014 Social History Tobacco [...] HGB A1C 5. ELIAN (obstructive sleep apnea) [id number] 21AASM - ICD9: 327.23, ICD10: G47.33 6. [...] (around 05/27/2023) for follow up blood pressure. Kiersten Calzada APRN-LUIS documented in this encounter [facility] 04-22-2023 Miscellaneous Notes Patient has been identified [...] Siena Lopez LPN documented in this encounter [facility] 03-17-2023 Miscellaneous Notes The following approved medication [...] Kaylin Zhang Pss documented in this encounter [facility] 01-20-2023 History of Present illness Narrative Horse Show Judge offered: Patient declinesDee Dee Cagle is a 47 year old who presents for an annual gynecologic exam without complaints. Menses: cycles every 21-24 days and 5-6 days of flow. 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 History LMP: 01/03/2023 (Exact Date), Having periods Age at Menarche: Age at First : Age at Menopause: Hand Wood Sander History Comments: Sexual Activity: Not Currently; Male [...] Father age 49, heavy smoker, likely of [place] but pt not sure Diabetes Sister Diabetes Brother 25 Diabetes Maternal Grandmother other (Other) Maternal Grandmother MVA Alzheimer's Disease Maternal Grandfather also great grandma Diabetes Paternal Grandmother Ischemic Heart Disease Paternal Grandfather age 50 [place] SOCIAL HISTORY Social History Tobacco Use Smoking [...] external genitalia normal, normal Bartholin's glands, urethra, Halma's glands, no vulvar lesions, no cervical lesions, [...] Esthela Myers APRN.LUIS documented in this encounter [facility] 12-25-2022 History of Present illness Narrative SUBJECTIVE: HEPATITIS B(1 of 3 - 3-dose series) Never done DTAP,TDAP,TD(1 - Tdap) due on 12/29/2007 COLORECTAL CANCER SCREENING Never done BP CONTROLLED (<130/80) due on 06/07/2022 DEPRESSION ASSESSMENT due on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 11/23/12 Staff Design Engineer Relationship Specialty Start Date End Date Philly Gregory MD [address] [place] [address] [place] [address] PCP - General Internal Medicine 11/23/12 Staff Design Engineer Relationship Specialty Start Date End Date Philly Gregory MD [address] [place] [address] PCP - General Internal Medicine 11/23/12 Staff Design Engineer Relationship Specialty Start Date End Date Philly Gregory MD [address] [place] [address] PCP - General Internal Medicine 11/23/12 Staff Design Engineer Relationship Specialty Start Date End Date Philly Gregory MD [address] [place] [address] PCP - General Internal Medicine 11/23/12 Staff Design Engineer Relationship Specialty Start Date End Date Philly Gregory MD [address] [place] [address] PCP - General Internal Medicine 11/23/12 Staff Design Engineer Relationship Specialty Start Date End Date Philly Gregory MD [address] [place] [address] PCP - General Internal Medicine 11/23/12 Team Status: Active Member Role Status Dates Dr. Philly Gregory MD Family Provider Active Dr. Philly Gregory MD Primary Care Provider Active Team Status: Inactive Member Role Status Dates Dr. Philly Gregory MD Primary Care Provider Active Dr. Juan Luis Almeida , Emergency Provider Active Staff Design Engineer Relationship Specialty Start Date End Date Philly Gregory MD [address] [place] [address] PCP - General Internal Medicine 11/23/12 Staff Design Engineer Relationship Specialty Start Date End Date Philly Gregory MD [address] [place] [address] PCP - General Internal Medicine 11/23/12 Staff Design Engineer Relationship Specialty Start Date End Date Philly Gregory MD [address] [place] [address] PCP - General Internal Medicine 11/23/12 Staff Design Engineer Relationship Specialty Start Date End Date Philly Gregory MD [address] [place] [address] PCP - General Internal Medicine 11/23/12 Staff Design Engineer Relationship Specialty Start Date End Date Philly Gregory MD [address] [place] [address] PCP - General Internal Medicine 11/23/12 Staff Design Engineer Relationship Specialty Start Date End Date Philly Gregory MD [address] [place] [address] PCP - General Internal Medicine 11/23/12 Staff Design Engineer Relationship Specialty Start Date End Date Philly Gregory MD [address] [place] [id number] PCP - General Internal Medicine 11/23/12 Staff Design Engineer Relationship Specialty Start Date End Date Philly Gregory MD [address] [place] [address] PCP - General Internal Medicine 11/23/12 Staff Design Engineer Relationship Specialty Start Date End Date Philly Gregory MD [address] [place] [address] PCP - General Internal Medicine 11/23/12 Team [...] Keys MD Attending Provider, Emergency Provider Active Staff Design Engineer Relationship Specialty Start Date End Date Philly Gregory MD [address] [place] [address] PCP - General Internal Medicine 11/23/12 Staff Design Engineer Relationship Specialty Start Date End Date Philly Gregory MD [address] [place] [address] PCP - General Internal Medicine 11/23/12 Staff Design Engineer Relationship Specialty Start Date End Date Philly Gregory MD [address] [place] [address] PCP - General Internal Medicine 11/23/12 Staff Design Engineer Relationship Specialty Start Date End Date Philly Gregory MD [address] [place] [address] PCP - General Internal Medicine 11/23/12 Staff Design Engineer Relationship Specialty Start Date End Date Philly Gregory MD [address] [place] [address] PCP - General Internal Medicine 11/23/12 Staff Design Engineer Relationship Specialty Start Date End Date Philly Gregory MD [address] [place] [address] PCP - General Internal Medicine 11/23/12 Staff Design Engineer Relationship Specialty Start Date End Date Philly Gregory MD [address] [place] [address] PCP - General Internal Medicine 11/23/12 Staff Design Engineer Relationship Specialty Start Date End Date Philly Gregory MD [address] [place] [address] PCP - General Internal Medicine 11/23/12 Staff Design Engineer Relationship Specialty Start Date End Date Philly Gregory MD [address] [place] [address] PCP - General Internal Medicine 11/23/12 Staff Design Engineer Relationship Specialty Start Date End Date Philly Gregory MD [address] [place] [id number] PCP - General Internal Medicine 11/23/12 Staff Design Engineer Relationship Specialty Start Date End Date Philly Gregory MD [address] [place] [address] PCP - General Internal Medicine 11/23/12 Kendall Pete, ENGINEER GAS PUMPING STATION.GAMING MANAGER [address] [place] [address] Didactic Instructor Internal Medicine 09/26/24 Kiersten Calzada ENGINEER GAS PUMPING STATION.SCREEN DOOR MAKER [address] [place] [address] Didactic Instructor Internal Medicine 09/26/24 Staff Design Engineer Relationship Specialty Start Date End Date Philly Gregory MD [address] [place] [address] PCP - General Internal Medicine 11/23/12 Kendall Pete, ENGINEER GAS PUMPING STATION.GAMING MANAGER [address] [place] [id number] Didactic Instructor Internal Medicine 09/26/24 Kiersten Calzada ENGINEER GAS PUMPING STATION.SCREEN DOOR MAKER [address] [place] [address] Didactic Instructor Internal Medicine 09/26/24 Staff Design Engineer Relationship Specialty Start Date End Date Philly Gregory MD [address] [place] [id number] PCP - General Internal Medicine 11/23/12 Kendall Pete, ENGINEER GAS PUMPING STATION.GAMING MANAGER [address] [facility] [place] [id number] Didactic Instructor Internal Medicine 09/26/24 Kiersten Calzada, ENGINEER GAS PUMPING STATION.SCREEN DOOR MAKER [address] [facility] [place] [id number] [facility] Internal Medicine 09/26/24 Staff Design Engineer Relationship Specialty Start Date End Date Philly Gregory MD [address] [facility] [place] [address] PCP - General Internal Medicine 11/23/12 Kendall Pete, ENGINEER GAS PUMPING STATION.GAMING MANAGER [address] [place] [address] [facility] Internal Medicine 09/26/24 Kiersten Calzada, ENGINEER GAS PUMPING STATION.SCREEN DOOR MAKER [address] [facility] [place] [id number] [facility] Internal Medicine 09/26/24 Staff Design Engineer Relationship Specialty Start Date End Date Philly Gregory MD [address] [facility] [place] [address] PCP - General Internal Medicine 11/23/12 Kendall Pete, ENGINEER GAS PUMPING STATION.GAMING MANAGER [address] [facility] [place] [id number] Didactic Instructor Internal Medicine 09/26/24 Kiersten Calzada APRN.SCREEN DOOR MAKER [address] [place] [address] Didactic Instructor Internal Medicine 01/10/25 Staff Design Engineer Relationship Specialty Start Date End Date Philly Gregory MD [address] [place] [id number] PCP - General Internal Medicine 11/23/12 Kendall Pete, ENGINEER GAS PUMPING STATION.GAMING MANAGER [address] [place] [address] Didactic Instructor Internal Medicine 09/26/24 Kiersten Calzada ENGINEER GAS PUMPING STATION.SCREEN DOOR MAKER [address] [place] [address] Didactic Instructor Internal Medicine 09/26/24 01/06/25 Kiersten Calzada ENGINEER GAS PUMPING STATION.SCREEN DOOR MAKER [address] [place] [address] [facility] Internal Medicine 01/10/25 Staff Design Engineer Relationship Specialty Start Date End Date Philly Gregory MD [address] [place] [address] PCP - General Internal Medicine 11/23/12 Kendall Pete, ENGINEER GAS PUMPING STATION.GAMING MANAGER [address] [place] [address] Didactic Instructor Internal Medicine 09/26/24 Kiersten Calzada ENGINEER GAS PUMPING STATION.SCREEN DOOR MAKER [address] [place] [address] [facility] Internal Medicine 01/10/25 Staff Design Engineer Relationship Specialty Start Date End Date Philly Gregory MD [address] [place] [address] PCP - General Internal Medicine 11/23/12 Kiersten aClzada APRN.SCREEN DOOR MAKER [address] [place] [address] Didactic Instructor Internal Medicine 01/10/25 Kendall Pete, ENGINEER GAS PUMPING STATION.GAMING MANAGER [address] [place] [address] Didactic Instructor Internal Medicine 03/08/25 Staff Design Engineer Relationship Specialty Start Date End Date Philly Gregory MD [address] [place] [address] PCP - General Internal Medicine 11/23/12 Kiersten Calzada ENGINEER GAS PUMPING STATION.SCREEN DOOR MAKER [address] [place] [address] Didactic Instructor Internal Medicine 01/10/25 Kendall Pete, ENGINEER GAS PUMPING STATION.GAMING MANAGER [address] [place] [address] Didactic Instructor Internal Medicine 03/08/25 Staff Design Engineer Relationship Specialty Start Date End Date Philly Gregory MD [address] [place] [address] PCP - General Internal Medicine 11/23/12 Kiersten Calzada APRN.SCREEN DOOR MAKER [address] [place] [address] Didactic Instructor Internal Medicine 01/10/25 Kendall Pete ENGINEER GAS PUMPING STATION.GAMING MANAGER [address] [place] [address] Didactic Instructor Internal Medicine 03/08/25 Staff Design Engineer Relationship Specialty Start Date End Date Philly Gregory MD [address] [place] [address] PCP - General Internal Medicine 11/23/12 Kiersten Calzada ENGINEER GAS PUMPING STATION.SCREEN DOOR MAKER [address] [place] [address] Didactic Instructor Internal Medicine 01/10/25 Kendall Pete, ENGINEER GAS PUMPING STATION.GAMING MANAGER [address] [place] [id number] Didactic Instructor Internal Medicine 03/08/25 Team Status: Active Member Role Status Dates Dr. Philly Gregory MD Primary Care Provider Active Team Status: Inactive Member Role Status Dates Dr. Philly Gregory MD Primary Care Provider Active Start: April 01, 2025 End: April 01, 2025 Dr. Hugo Miranda DO Emergency Provider Active Start: April 01, 2025 End: April 01, 2025 Staff Design Engineer Relationship Specialty Start Date End Date Philly Gregory MD [address] [place] [address] PCP - General Internal Medicine 11/23/12 Kiersten Calzada ENGINEER GAS PUMPING STATION.SCREEN DOOR MAKER [address] [place] [address] Didactic Instructor Internal Medicine 01/10/25 Kendall Pete, ENGINEER GAS PUMPING STATION.GAMING MANAGER [address] [place] [address] Didactic Instructor Internal Medicine 03/08/25 Staff Design Engineer Relationship Specialty Start Date End Date Philly Gregory MD [address] [place] [address] PCP - General Internal Medicine 11/23/12 Kiersten Calzada APRN.SCREEN DOOR MAKER [address] [place] [address] Didactic Instructor Internal Medicine 01/10/25 Kendall Pete APRN.GAMING MANAGER [address] [place] [address] [facility] Internal Medicine 03/08/25 Staff Design Engineer Relationship Specialty Start Date End Date Philly Gregory MD [address] [place] [address] PCP - General Internal Medicine 11/23/12 Kiersten Calzada APRN.SCREEN DOOR MAKER [address] [place] [address] [facility] Internal Medicine 01/10/25 Kendall Pete, YONATAN.GAMING MANAGER [address] [place] [address] [facility] Internal Medicine 03/08/25 Goals (unrecognized section and content) Goals may be documented in a n alternate sectionGoals may be documented in an alternate sectionGoals may be documented in an alternate sectionGoals may be documented in an alternate section INFORMATION SOURCE (unrecogn ized section and content) DATE CREATED AUTHOR 04/10/2025 [facility] DATE CREATED AUTHOR AUTHORLidia STEIN 05/31/2025 [facility] FOR RECORDS PERTAINING TO PATIENTS WHO [...] BE BASED ON THE PRIMARY CLINICAL RECORDS. [facility]. provides no warranty or guarantee of the accuracy or completeness of information in this document.
[2025-06-10] MEDS: Lidocaine 2% Viscous15 ML UDC 15 ML PO (10:00)
[2025-06-10 10:06] VITALS: BP 138/88; PULSE 60; RESP 9; O2SAT 97
[2025-06-10 10:15] LABS: Anion Gap 15 (5-15); BUN 9 mg/dL (4-19); BUN/Creat Ratio 15.4 RATIO (10-20); Calcium,Total 10.2 mg/dL (7.6-11.0); Carbon Dioxide 24.5 mmol/L (21.0-32.0); Chloride 100 mmol/L (98-108); Estimated Creatinine Clearance 86.75 ml/min (50-250); Glucose 130 mg/dL (70-99); Lipase 33 U/L (13-75); Potassium 3.6 mmol/L (3.3-5.1); Troponin T High Sensitivity < 6 ng/L (<=14)
--- NOTE | 2025-06-10 11:13 | CM.ED ---
Social Work: Date of referral: 06/10/25 Reason for referral: Patient requested Advanced Care Planning (ACP) packet Referred by: ED nurse Patient provided consent to social work visit. Hand Sprayer provided patient with ACP and also provided education about resources/appointments available for assistance through [facility] and who all to make sure has copies. Tiara Szymanski, RETURN TO FACTORY CLERK, RELAY SHOP SUPERVISOR
[2025-06-10 11:17] VITALS: BP 123/80; PULSE 66; RESP 14; O2SAT 100
[2025-06-10 11:35] VITALS: BP 118/78; PULSE 64; RESP 18; TEMP 36.6; O2SAT 99
== END 2025-06-10 11:37 | disposition home or self-care (01) ==
PROVIDERS: Emergency Provider Emergency Medicine; PCP Internal Medicine; Visit Provider Emergency Medicine
DX: K21.9 Gastro-esophageal reflux disease without esophagitis (principal); Z79.899 Other long term (current) drug therapy; R06.00 Dyspnea, unspecified
CPT/HCPCS: 71046; 80048; 83690; 84484; 85025; 93005; 99283; A4216